=== PATIENT | female | born 1965 | race Two or more races ===

== ENCOUNTER 2022-11-24 20:14 | Inpatient (IN) | payer MEDICARE, MEDICAID ==
[~2022-11-24] VITALS: Ht 152.4 cm; Wt 102.5 kg
[2022-11-24 20:45] LABS: Basophils # (auto) 0 10 ^3/uL (0-0.2); Basophils % (auto) 0.4 % (0.0-2.0); Eosinophils # (auto) 0.2 10 ^3/uL (0-0.8); Eosinophils % (auto) 2.1 % (0.0-7.0); Hematocrit 32.7 % (36.0-46.0); Hemoglobin 10.8 g/dL (12.2-16.2); Lymphocytes # (auto) 1.1 10 ^3/uL (0.4-5.4); Lymphocytes % (auto) 9.4 % (10.0-50.0); Mean Corpuscular Hemoglobin 32.1 pg (28.0-32.0); Mean Corpuscular Volume 97.3 fL (80.0-100.0); Monocytes # (auto) 0.7 10 ^3/uL (0-1.3); Monocytes % (auto) 6.2 % (0.0-12.0); Neutrophils # (auto) 9.3 10 ^3/uL (1.6-8.6); Neutrophils % (auto) 81.9 % (37.0-80.0); Red Blood Cells 3.36 10^6/uL (4.0-5.20); Red Cell Distribution Width 13.7 % (11.8-14.3); White Blood Cell 11.3 10^3/uL (4.4-10.8)
[2022-11-24] MEDS ORDERED: cloNIDine HCL 0.1 MG TAB PO ONE (20:45)
[2022-11-24 21:05] LABS: Albumin 3.7 g/dL (3.4-5.0); Potassium 5.1 mmol/L (3.5-5.1)
[2022-11-24 21:09] LABS: BUN/Creatinine Ratio 7.6 (10.0-20.0); Bilirubin, Total 0.4 mg/dL (0.2-1.0)
[2022-11-25] MEDS ORDERED: amLODIPine BESYLATE 5 MG TAB PO ONE (01:15)
[2022-11-25] MEDS ORDERED: NITROGLYCERIN 0.4 MG SL TAB SL PRN (10:45)
[2022-11-25] MEDS ORDERED: DEXTROSE (50%) 50ML SYRG IV PRN ×2 (10:45→12:00)
[2022-11-25] MEDS ORDERED: MORPHINE SULFATE 4 MG/ML SYR/VIAL IV PRN (10:45)
[2022-11-25] MEDS ORDERED: ONDANSETRON HCL 4 MG/2 ML VIAL IV PRN (10:45)
[2022-11-25] MEDS ORDERED: InsuLIN REG 1unit/0.01ml Soln (100units/ml) SC SCH (11:30)
[2022-11-25] MEDS ORDERED: ACCU-CHEK COMFORT CURVE STRIP VI SCH (11:30)
[2022-11-25 13:46] LABS: Magnesium 3.1 mg/dL (1.6-2.6); Phosphorus 4.8 mg/dL (2.5-4.90)
[2022-11-25] MEDS ORDERED: hydrALAZINE HCL 25 MG TAB PO ONE (17:30)
[2022-11-25] MEDS: ACCU-CHEK COMFORT CURVE STRIP VI SCH ×2 (19:42→22:11)
[2022-11-25] MEDS: SEVELAMER 800 MG TAB PO SCH (19:51)
[2022-11-25] MEDS: InsuLIN REG 1unit/0.01ml Soln (100units/ml) SC SCH ×2 (19:51→22:22)
[2022-11-25] MEDS: hydrALAZINE HCL 25 MG TAB PO SCH (22:19)
[2022-11-25] MEDS: METOPROLOL TARTRATE 50 MG TAB PO SCH (22:19)
[2022-11-25] MEDS: ATORVASTATIN 20 MG TAB PO SCH (22:19)
[2022-11-26] VITALS (7 sets, daily range): BP systolic 142–174; BP diastolic 65–85
[2022-11-26] MEDS ORDERED: METO25TA5 PO (03:41)
[2022-11-26] MEDS ORDERED: CLON0.1T PO (03:41)
[2022-11-26] MEDS: ACETAMINOPHEN 325 MG TAB PO PRN ×2 (05:41→14:34)
[2022-11-26 06:20] LABS: Basophils # (auto) 0.1 10 ^3/uL (0-0.2); Basophils % (auto) 0.5 % (0.0-2.0); Eosinophils # (auto) 0.4 10 ^3/uL (0-0.8); Eosinophils % (auto) 4.2 % (0.0-7.0); Hematocrit 29.5 % (36.0-46.0); Hemoglobin 9.9 g/dL (12.2-16.2); Lymphocytes # (auto) 1.4 10 ^3/uL (0.4-5.4); Mean Corpuscular Hemoglobin 32.6 pg (28.0-32.0); Mean Corpuscular Hgb Conc. 33.6 g/dL (32.0-36.0); Mean Corpuscular Volume 96.9 fL (80.0-100.0); Monocytes # (auto) 0.8 10 ^3/uL (0-1.3); Monocytes % (auto) 7.3 % (0.0-12.0); Red Blood Cells 3.04 10^6/uL (4.0-5.20); Red Cell Distribution Width 13.3 % (11.8-14.3); White Blood Cell 10.6 10^3/uL (4.4-10.8)
[2022-11-26] MEDS ORDERED: SODIUM CHL 0.9% 1000 ML BAG XX ONE (07:00)
[2022-11-26] MEDS: InsuLIN REG 1unit/0.01ml Soln (100units/ml) SC SCH ×4 (07:00→22:45)
[2022-11-26] MEDS: ACCU-CHEK COMFORT CURVE STRIP VI SCH ×4 (07:00→22:00)
[2022-11-26 07:06] LABS: % Iron Saturation 44.6 % (15-50)
[2022-11-26 07:15] LABS: Albumin 3.5 g/dL (3.4-5.0); BUN/Creatinine Ratio 8.3 (10.0-20.0); Bilirubin, Total 0.4 mg/dL (0.2-1.0); Calcium 9.1 mg/dL (8.5-10.1); Total Protein 6.7 g/dL (6.4-8.2)
[2022-11-26 07:33] LABS: Potassium 5.9 mmol/L (3.5-5.1)
[2022-11-26] MEDS: SEVELAMER 800 MG TAB PO SCH ×3 (08:23→18:39)
[2022-11-26] MEDS: METOPROLOL TARTRATE 50 MG TAB PO SCH ×2 (14:39→22:59)
[2022-11-26] MEDS: hydrALAZINE HCL 25 MG TAB PO SCH ×2 (14:39→22:59)
[2022-11-26] MEDS ORDERED: cloNIDine HCL 0.1 MG TAB PO PRN (17:15)
[2022-11-26] MEDS: amLODIPine BESYLATE 5 MG TAB PO SCH ×2 (18:00→18:40)
[2022-11-26] MEDS ORDERED: EPOETIN ALFA-EPBX 4,000 UNIT/ML VIAL SC ONE (21:00)
[2022-11-26] MEDS: MUPIROCIN 2% OINT 15gm or 22gm FOR MRSA NARES EACHNOSTRI SCH (22:00)
[2022-11-26] MEDS: ATORVASTATIN 20 MG TAB PO SCH (22:57)
[2022-11-27 05:00] VITALS: BP 105/40
[2022-11-27] MEDS: InsuLIN REG 1unit/0.01ml Soln (100units/ml) SC SCH ×4 (06:48→21:54)
[2022-11-27] MEDS: ACCU-CHEK COMFORT CURVE STRIP VI SCH ×4 (06:48→21:45)
[2022-11-27] MEDS: SEVELAMER 800 MG TAB PO SCH ×3 (08:18→18:33)
[2022-11-27 09:00] VITALS: BP 140/69
[2022-11-27] MEDS: MUPIROCIN 2% OINT 15gm or 22gm FOR MRSA NARES EACHNOSTRI SCH ×2 (09:33→21:47)
[2022-11-27] MEDS: LOSARTAN POTASSIUM 25 MG TAB PO SCH (09:34)
[2022-11-27] MEDS: METOPROLOL TARTRATE 50 MG TAB PO SCH ×2 (09:34→21:45)
[2022-11-27] MEDS: hydrALAZINE HCL 25 MG TAB PO SCH ×2 (09:34→21:45)
[2022-11-27 13:00] VITALS: BP 144/67
[2022-11-27] MEDS ORDERED: ATOR20TA50 PO (15:33)
[2022-11-27] MEDS ORDERED: LOS25T PO (15:33)
[2022-11-27] MEDS ORDERED: HYDR25TA87 PO (15:33)
[2022-11-27] MEDS ORDERED: MET50T PO (15:33)
[2022-11-27] MEDS ORDERED: AML5T PO (15:33)
[2022-11-27 16:41] VITALS: BP 144/67
[2022-11-27 16:42] VITALS: BP_SYST 132; BP_SYST 149; BP_DIAS 66; BP_DIAS 70
[2022-11-27] MEDS: amLODIPine BESYLATE 5 MG TAB PO SCH (18:34)
[2022-11-27] MEDS: ATORVASTATIN 20 MG TAB PO SCH (21:45)
[2022-11-27 22:00] VITALS: BP 153/75
[2022-11-28 05:00] VITALS: BP 116/52
[2022-11-28] MEDS: ACCU-CHEK COMFORT CURVE STRIP VI SCH ×4 (06:16→22:17)
[2022-11-28] MEDS: InsuLIN REG 1unit/0.01ml Soln (100units/ml) SC SCH ×4 (06:18→22:21)
[2022-11-28] MEDS: SEVELAMER 800 MG TAB PO SCH ×3 (08:45→18:33)
[2022-11-28 09:00] VITALS: BP 137/57
[2022-11-28] MEDS ORDERED: FUROSEMIDE 100 MG/10ML VIAL IV ONE (09:15)
[2022-11-28] MEDS: MUPIROCIN 2% OINT 15gm or 22gm FOR MRSA NARES EACHNOSTRI SCH ×2 (09:22→22:24)
[2022-11-28] MEDS: hydrALAZINE HCL 25 MG TAB PO SCH ×2 (09:23→22:22)
[2022-11-28] MEDS: METOPROLOL TARTRATE 50 MG TAB PO SCH ×2 (09:23→22:23)
[2022-11-28] MEDS: LOSARTAN POTASSIUM 25 MG TAB PO SCH (09:24)
[2022-11-28 13:00] VITALS: BP 154/67
[2022-11-28 17:00] VITALS: BP 147/67
[2022-11-28 22:00] VITALS: BP 145/74
[2022-11-28] MEDS: ATORVASTATIN 20 MG TAB PO SCH (22:22)
[2022-11-29 05:00] VITALS: BP 137/64
[2022-11-29] MEDS: ACCU-CHEK COMFORT CURVE STRIP VI SCH ×3 (06:04→17:00)
[2022-11-29] MEDS: InsuLIN REG 1unit/0.01ml Soln (100units/ml) SC SCH ×3 (06:07→17:00)
[2022-11-29] MEDS ORDERED: SODIUM CHL 0.9% 1000 ML BAG XX ONE ×2 (07:00)
[2022-11-29] MEDS: SEVELAMER 800 MG TAB PO SCH ×3 (08:32→17:43)
[2022-11-29 09:00] VITALS: BP 155/63
[2022-11-29] MEDS ORDERED: BISACODYL 5 MG EC TAB PO ONE (11:00)
[2022-11-29] MEDS: MUPIROCIN 2% OINT 15gm or 22gm FOR MRSA NARES EACHNOSTRI SCH (11:14)
[2022-11-29] MEDS: hydrALAZINE HCL 25 MG TAB PO SCH (11:14)
[2022-11-29] MEDS: LOSARTAN POTASSIUM 25 MG TAB PO SCH (11:15)
[2022-11-29] MEDS: METOPROLOL TARTRATE 50 MG TAB PO SCH (11:16)
[2022-11-29 13:00] VITALS: BP 154/50
[2022-11-29 15:24] LABS: Hepatitis A Ab IgM Negative
[2022-11-29 15:25] LABS: Hepatitis B Core IgM Negative; Hepatitis C Antibody Negative (Negative)
[2022-11-29 17:00] VITALS: BP 114/60
[2022-11-29] MEDS ORDERED: NIFEdipine ER 30 MG TAB PO SCH (18:00)
== END 2022-11-29 18:00 | disposition home or self-care (01) | DRG 280 ==
LOC: ER 20:14 → TELE 11-25 10:55 → TELE-WESTW 11-25 23:44
PROVIDERS: ADMIT Nurse Practitioner Family; ATTEND Internal Medicine
PROC: 5A1D70Z Performance of Urinary Filtration, Intermittent, Less than 6 Hours Per Day (ICD-10-PCS; principal; 2022-11-26)
PROC: 5A1D70Z Performance of Urinary Filtration, Intermittent, Less than 6 Hours Per Day (ICD-10-PCS; 2022-11-29)
DX: I21.4 Non-ST elevation (NSTEMI) myocardial infarction (principal); I50.33 Acute on chronic diastolic (congestive) heart failure; N18.6 End stage renal disease; I13.2 Hypertensive heart and chronic kidney disease with heart failure and with stage 5 chronic kidney disease, or end stage renal disease; E87.1 Hypo-osmolality and hyponatremia; Z68.41 Body mass index [BMI] 40.0-44.9, adult; D63.1 Anemia in chronic kidney disease; E66.01 Morbid (severe) obesity due to excess calories; E78.5 Hyperlipidemia, unspecified; E11.65 Type 2 diabetes mellitus with hyperglycemia; I16.0 Hypertensive urgency; I20.0 Unstable angina; E11.40 Type 2 diabetes mellitus with diabetic neuropathy, unspecified; D72.829 Elevated white blood cell count, unspecified; E21.1 Secondary hyperparathyroidism, not elsewhere classified; E11.22 Type 2 diabetes mellitus with diabetic chronic kidney disease; E87.5 Hyperkalemia; Z99.2 Dependence on renal dialysis; Z83.3 Family history of diabetes mellitus; Z79.4 Long term (current) use of insulin; Z82.49 Family history of ischemic heart disease and other diseases of the circulatory system; Z79.84 Long term (current) use of oral hypoglycemic drugs
CPT/HCPCS: 36415; 71045; 80053; 80074; 82728; 82962; 83540; 83550; 83735; 83880; 84100; 84484; 85025; 87081; 90935; 93005; 93306; G0378; J1815

== ENCOUNTER 2024-11-17 05:23 | Inpatient (IN) | payer MEDICAID, MEDICARE ==
[2024-11-17] VITALS (12 sets, daily range): BP systolic 112–150; BP diastolic 43–65; PULSE 75–94; RESP 12–20; TEMP 97.8–98.6; O2SAT 94–99
[~2024-11-17] VITALS: Ht 157.5 cm; Wt 97.8 kg
[~2024-11-17 05:23] MED LIST: AML5T PO; ATOR20TA50 PO; HYDR25TA87 PO; LOS25T PO; MET50T PO
--- NOTE | 2024-11-17 06:40 | ED.PDOC ---
History of Present Illness HPI Comments 59 year old female presents to the ED with chief complaint of generalized weakness. Patient reports after completing dialysis on and heading home, she started to experiencing generalized weakness with associated nausea, vomiting, and diarrhea with black colored stools and vomit. Patient relays that starting yesterday she also had started to develop chest pain/burning along with SOB and anxiety. Patient denies any headache, fever, chills, hematemesis, blood in stool, abdominal pain, or dizziness. Chief Complaint: General Weakness Time Seen by MD: 06:37 Reviewed Notes: Nurses Notes, Medications, Allergies Allergies: Coded Allergies: NO KNOWN ALLERGIES (Unverified , 11/24/22) Home Meds Active Scripts Amlodipine Besylate (NORVASC TABLET) 5 Mg Tb, 10 MG PO QPM for 30 Days, #60 TAB 1 Refill Prov:ROMY GOODWIN 11/27/22 Hydralazine HCl (Hydralazine HCl) 25 Mg Tab, 100 MG PO Q12HR for 30 Days, #240 TAB 1 Refill Prov:ROMY GOODWIN 11/27/22 Metoprolol Tartrate (LOPRESSOR TABLET) 50 Mg Tb, 50 MG PO Q12HR for 30 Days, #60 TAB 1 Refill Prov:ROMY GOODWIN 11/27/22 Losartan Potassium (Losartan Potassium) 25 Mg Tab, 25 MG PO DAILY for 30 Days, #30 TAB 1 Refill Prov:ROMY GOODWIN 11/27/22 Atorvastatin Calcium (ATORVASTATIN CALCIUM) 20 Mg Tab, 10 MG PO HS for 30 Days, #15 TAB 1 Refill Prov:ROMY GOODWIN 11/27/22 Information Source: Patient Mode of Arrival: Ambulatory Severity: Moderate Timing: Days Duration: Since onset Prehospital treatment: None Past Medical History PAST MEDICAL HISTORY: DM, ESRD, High Lipids, HTN Past Medical History (Other): Neuropathy Surgical History: Denies all surgeries FITTER'S ASSISTANT History: No Pertinent FITTER'S ASSISTANT History Family History Family History: Unknown Social History Smoker: Non-Smoker Alcohol: Denies ETOH Use Drugs: Denies Drug Use Lives In: Home Constitutional: reports: weakness; denies: chills, diaphoresis, fatigue, fever, malaise, sweats, others EENTM: denies: blurred vision, double vision, ear bleeding, ear discharge, ear drainage, ear pain, ear ringing, eye pain, eye redness, hearing loss, mouth pain, mouth swelling, nasal discharge, nose bleeding, nose congestion, nose pain, photophobia, tearing, throat pain, throat swelling, voice changes, others Respiratory: reports: shortness of breath; denies: cough, hemoptysis, orthopnea, SOB at rest, SOB with excertion, stridor, wheezing, others Cardiovascular: reports: chest pain; denies: dizzy spells, diaphoresis, Dyspnea on exertion, edema, irregular heart beat, left arm pain, lightheadedness, palpitations, PND, syncope, others Gastrointestinal: reports: diarrhea, melena, nausea, vomiting; denies: abdomen distended, abdominal pain, blood streaked bowels, constipated, dysphagia, difficulty swallowing, hematemesis, poor appetite, poor fluid intake, rectal bleeding, rectal pain, others Genitourinary: denies: abnormal vagina bleeding, burning, dyspareunia, dysuria, flank pain, frequency, hematuria, incontinence, pain, , vagina discharge, urgency, others Neurological: denies: dizziness, fainting, headache, left sided numbness, left sided weakness, numbness, paresthesia, pre-existing deficit, right sided numbness, right sided weakness, seizure, speech problems, tingling, tremors, weakness, others Musculoskeletal: denies: back pain, gout, joint pain, joint swelling, muscle pain, muscle stiffness, neck pain, others Integumetry: denies: bruises, change in color, change in hair/nails, dryness, laceration, lesions, lumps, rash, wounds, others Allergic/Immunocompromised: denies: Difficulty Healing, Frequent Infections, Hives, Itching, others Hematologic/Lymphatic: denies: anemia, blood clots, easy bleeding, easy bruising, swollen glands, others Endocrine: denies: excessive hunger, excessive sweating, excessive thirst, excessive urination, flushing, intolerance to cold, intolerance to heat, unexplained weight gain, unexplained weight loss, others Psychiatric: reports: anxiety; denies: bipolar disorder, depression, hopeless, panic disorder, schizophrenia, sleepless, suicidal, others All Other Systems: Reviewed and Negative Physical Exam General Appearance: No Apparent Distress, Normal HEENT: Normal ENT Inspection, Pharynx Normal, TMs Normal Neck: Full Range of Motion, Non-Tender, Normal, Normal Inspection Respiratory: Chest Non-Tender, Lungs Clear, No Accessory Muscle Use, No Respiratory Distress, Normal Breath Sounds Cardiovascular: No Edema, No JVD, No Murmur, No Gallop, Normal Peripheral Pulses, Regular Rate/Rhythm Breast Exam: Deferred Gastrointestinal: No Organomegaly, Non Tender, No Pulsatile Mass, Normal Bowel Sounds, Soft Genitalia: Deferred Pelvic: Deferred Rectal: Deferred Extremities: No calf tenderness, Normal capillary refill, Normal inspection, Normal range of motion, Non-tender, No pedal edema, Other (Fistula to the left arm) Musculoskeletal : Apperance: Normal Neurologic: Alert, quality control lead II-XII nml as Tested, No Motor Deficits, Normal Affect, Normal Mood, No Sensory Deficits Cerebellar Function: Normal Reflexes: Normal Skin: Dry, Normal Color, Warm Lymphatic: No Adenopathy Was a procedure done? Was a procedure done?: No Differential Dx Considerations may include: ugib, lgib, chronic anemia, demand triggered angina, unstable angina, ami X-Ray, Labs, Meds, VS Vital Signs Date Time Temp Pulse Resp B/P (MAP) Pulse Ox O2 Delivery O2 Flow Rate FiO2 11/17/24 08:51 79 13 125/60 11/17/24 08:24 81 14 125/60 11/17/24 07:20 81 15 95 Room Air* 0 21 11/17/24 07:20 97.9 81 15 105/69 (81) 95 97.9 11/17/24 06:00 75 20 94 Room Air* 0 21 11/17/24 05:57 76 11/17/24 05:50 98.0 75 20 99/38 (58) 94 98.0 11/17/24 05:23 98.4 87 16 127/83 (98) 97 98.4 Lab Test 11/17/24 08:26 11/17/24 07:14 11/17/24 06:25 Range/Units Troponin I High Sensitivity Pending 14 </=34 ng/L White Blood Count 14.6 H 4.4-10.8 10^3/uL Red Blood Count 1.78 L 4.0-5.20 10^6/uL Hemoglobin 5.1 *L 12.2-16.2 g/dL Hematocrit 16.0 L 36.0-46.0 % Mean Corpuscular Volume 89.9 80.0-100.0 fL Mean Corpuscular Hemoglobin 28.9 28.0-32.0 pg Mean Corpuscular Hemoglobin Concent 32.2 32.0-36.0 g/dL Red Cell Distribution Width 19.6 H 11.8-14.3 % Platelet Count 157 140-450 10^3/uL Mean Platelet Volume 9.0 6.9-10.8 fL Neutrophils (%) (Auto) 88.5 H 37.0-80.0 % Lymphocytes (%) (Auto) 7.7 L 10.0-50.0 % Monocytes (%) (Auto) 3.5 0.0-12.0 % Eosinophils (%) (Auto) 0.2 0.0-7.0 % Basophils (%) (Auto) 0.1 0.0-2.0 % Neutrophils # (Auto) 12.9 H 1.6-8.6 10 ^3/uL Lymphocytes # (Auto) 1.1 0.4-5.4 10 ^3/uL Monocytes # (Auto) 0.5 0-1.3 10 ^3/uL Eosinophils # (Auto) 0 0-0.8 10 ^3/uL Basophils # (Auto) 0 0-0.2 10 ^3/uL Nucleated Red Blood Cells 0.0 % Platelet Estimate Adequate Anisocytosis (manual) Slight Prothrombin Time Pending Prothrombin Time INR Pending Sodium Level 136 136-145 mmol/L Potassium Level 5.4 H 3.5-5.1 mmol/L Chloride Level 97 L 98-107 mmol/L Carbon Dioxide Level 19 L 20-31 mmol/L Anion Gap 20 H 5-15 Blood Urea Nitrogen 145 *H 9-23 mg/dL Creatinine 7.31 H 0.550-1.02 mg/dL Glomerular Filtration Rate Calc 6 >90 mL/min BUN/Creatinine Ratio 19.8 10.0-20.0 Serum Glucose 266 H 74-106 mg/dL Calcium Level 9.2 8.7-10.4 mg/dL B-Type Natriuretic Peptide 76.43 0-100 pg/mL POC Glucose 248 H 70-106 mg/dl Current Medications Medications (Trade) Dose Ordered Sig/Alberto Route Start Time Stop Time Status Last Admin Ondansetron HCl (Zofran) 4 mg ONCE ONCE IV 11/17/24 07:00 11/17/24 07:02 DC 11/17/24 07:04 Morphine Sulfate 2 mg ONCE ONCE IV 11/17/24 08:15 11/17/24 08:16 DC 11/17/24 08:24 Pantoprazole Sodium (Protonix) 40 mg ONCE ONCE IV 11/17/24 08:15 11/17/24 08:16 DC 11/17/24 08:21 Ondansetron HCl (Zofran) 4 mg ONCE ONCE IV 11/17/24 08:15 11/17/24 08:16 DC 11/17/24 08:21 Time of 1ST Reevaluation: 07:37 Reevaluation 1ST: Unchanged Time of 2ND Reevaluation: 08:37 Reevaluation 2ND: Improved Patient Education/Counseling: Diagnosis, Treatment, Prognosis, Need For Follow Up Family Education/Counseling: No Family Present Additional Information Previous visit: Admission on 11/25/22 for ACS The following tests were ordered, and results were reviewed by me: EKG, CBC, BMP, Troponin, Occult stool, BNP, Chest XR Additional Information was gathered from interviewing the following independent historians: None I reviewed and agreed with the following test results read by other providers: Chest XR I discussed treatment and results with medical personnel and: patient Comprehensive systems review obtained and negative except for what is stated in the HPI. Departure 1 Departure Time of Disposition: 08:34 Impression: Primary Impression: UGIB (upper gastrointestinal bleed) Additional Impressions: Chronic renal failure Qualified Codes: N18.5 - Chronic kidney disease, stage 5 Unstable angina Pulmonary congestion Disposition: ADMITTED INPATIENT Admit to: ICU Condition: Serious Discharged With: Self Critical Care Note Critical Care Time?: Yes (45 min-critical care time only) Critical care comment: Due to concerns for patient�s condition deteriorating, the care required my highest level of attention and readiness to intervene. I assessed the patient, reviewed the medical records, ordered the appropriate tests and treatments, then reassessed for results and responsiveness. I communicated with medical personnel and consultants and formulated a plan of care. Total critical care time excludes any procedures Stability Stability form required: No Heart Score Heart Score: Heart Score Response (Comments) Value History Moderate Suspicious 1 EKG Normal 0 Age 45-64 1 Risk Factors >3 or Hx ASHD 2 Troponin Normal limit 0 Total 4 I personally scribed for PRAKASH AMAYA MD ([email or web address]) on 11/17/24 at 06:40. Electronically submitted by Thaddeus Dent ([email or web address]). I personally scribed for [facility]ASH [facility] on 11/17/24 at 06:55. Electronically submitted by Thaddeus Dent ([email or web address]). PRAKASH AMAYA MD November 17, 2024 06:40
[2024-11-17] MEDS: ONDANSETRON HCL 4 MG/2 ML VIAL IV ONE ×2 (07:04→08:21)
--- NOTE | 2024-11-17 07:35 | DVH ---
CLINICAL INFORMATION: Chest pain. TECHNIQUE: Single AP portable chest radiograph was obtained. COMPARISON: XY CHEST PORTABLE on DOS: 11/24/22 FINDINGS: Lungs: Atelectasis in the lung bases. Mild perihilar interstitial opacities. Cardiac: Cardiac silhouette is at the upper limits of normal in size. Pulmonary vasculature: Mild prominence of the pulmonary vasculature. Mediastinum/lucia: Unremarkable. Bones: No acute osseous abnormality identified. Other: No other significant findings. IMPRESSION: Prominence of the pulmonary vasculature and mild perihilar interstitial opacities, may suggest a degr ee of pulmonary vascular congestion in the appropriate clinical setting.
[2024-11-17 07:55] LABS: Basophils # (auto) 0 10 ^3/uL (0-0.2); Eosinophils # (auto) 0 10 ^3/uL (0-0.8)
[2024-11-17 07:58] LABS: Basophils % (auto) 0.1 % (0.0-2.0); Eosinophils % (auto) 0.2 % (0.0-7.0); Lymphocytes # (auto) 1.1 10 ^3/uL (0.4-5.4); Lymphocytes % (auto) 7.7 % (10.0-50.0); Mean Corpuscular Hemoglobin 28.9 pg (28.0-32.0); Mean Corpuscular Hgb Conc. 32.2 g/dL (32.0-36.0); Mean Corpuscular Volume 89.9 fL (80.0-100.0); Monocytes # (auto) 0.5 10 ^3/uL (0-1.3); Monocytes % (auto) 3.5 % (0.0-12.0); Neutrophils # (auto) 12.9 10 ^3/uL (1.6-8.6); Neutrophils % (auto) 88.5 % (37.0-80.0); Platelet Count (auto) 157 10^3/uL (140-450); Red Blood Cells 1.78 10^6/uL (4.0-5.20); Red Cell Distribution Width 19.6 % (11.8-14.3); White Blood Cell 14.6 10^3/uL (4.4-10.8)
[2024-11-17 08:04] LABS: Hemoglobin 5.1 g/dL (12.2-16.2)
[2024-11-17 08:05] LABS: Anion Gap 20 (5-15); Calcium 9.2 mg/dL (8.7-10.4)
[2024-11-17 08:10] LABS: BUN/Creatinine Ratio 19.8 (10.0-20.0)
[2024-11-17 08:16] LABS: Blood Urea Nitrogen 145 mg/dL (9-23); Carbon Dioxide 19 mmol/L (20-31); Chloride 97 mmol/L (98-107); Glucose 266 mg/dL (74-106); Potassium 5.4 mmol/L (3.5-5.1); Sodium 136 mmol/L (136-145)
[2024-11-17] MEDS: PANTOPRAZOLE 40 MG/10 ML VIAL INJ IV ONE (08:21)
[2024-11-17] MEDS: MORPHINE SULFATE INJ 2 MG/ml SYRG IV ONE (08:24)
[2024-11-17 08:33] LABS: Anisocytosis Slight
[2024-11-17 08:34] LABS: Platelet Estimate Adequate
[2024-11-17 09:19] LABS: INR 1.03 (0.9-1.15); Prothrombin Time 10.9 sec (9.3-11.8)
[2024-11-17] MEDS: METOCLOPRAMIDE HCL 5MG/ml INJ 2ml VIAL IV ONE (10:39)
[2024-11-17] MEDS: DEXTROSE (50%) 50ML SYRG IV ONE (13:00)
[2024-11-17] MEDS: ACCU-CHEK COMFORT CURVE STRIP VI ONE (13:00)
[2024-11-17] MEDS ORDERED: NITROGLYCERIN 0.4 MG SL TAB SL PRN (13:00)
--- NOTE | 2024-11-17 14:07 | DVHHP2 ---
History of Present Illness Reason for Visit: Lower GI bleed History of Present Illness This is a 59-year-old female with history of hypertension, hyperlipidemia, DM, neuropathy and ESRD who presents to ED with chief complaint of generalized weakness. The patient reports after completing dialysis on and heading home she started to experience generalized weakness associated with nausea, vomiting and black color stools. Patient notes having five episodes of black- colored stool on , has not had this in the past. The patient denies taking any anticoagulants and denies recent trauma. The patient notes having a colonoscopy about five years ago which was normal. The patient is concerned about her symptoms and would like to be further evaluated and treated. The patient is in agreement with receiving blood transfusion, has had them in the past. The patient will be admitted under hospitalist care to the telemetry unit for continuous monitoring. The patient denies fever, chills, headache, dizziness, palpitation, chest pain, shortness of breaths, nausea, vomiting, abdominal pain, diarrhea, constipation and other associated symptoms. The plan has been discussed with the patient and brother at the bedside in which all questions concerns have been addressed Cardiovascular: HTN, hyperipidemia Renal/: Chronic renal failure Endocrine: Diabetes Past Medical History Neuropathy Past Surgical History: None Family History: None Smoke: No ALCOHOL: none Drugs: None Lives: with Family Domestic Violence: Neg Review of Systems Constitutional: Yes: Weakness Gastrointestinal: Nausea, Vomiting, Diarrhea, Melena Allergies: Coded Allergies: NO KNOWN ALLERGIES (Unverified , 11/24/22) Medications Current Medications Medications Dose Ordered Sig/Alberto Route Start Time Stop Time Status Last Admin Dose Admin Acetaminophen 650 mg Q6HP PRN PO 11/17/24 13:00 Nitroglycerin 0.4 mg Q5MINP PRN SL 11/17/24 13:00 Morphine Sulfate 2 mg Q30M PRN IV 11/17/24 13:00 Pantoprazole Sodium 40 mg DAILY IV 11/18/24 10:00 Exam Vital Signs Vital Signs Date Time Temp Pulse Resp B/P (MAP) Pulse Ox O2 Delivery O2 Flow Rate FiO2 11/17/24 08:51 79 13 125/60 11/17/24 07:20 95 Room Air* 0 21 11/17/24 07:20 97.9 97.9 General Appearance: Alert, Oriented X3, Cooperative, mild distress HEENT: Atraumatic, PERRLA, Mucous membr. moist/pink Respiratory: Clear to auscultation, Normal air movement Cardiovascular: Normal S1, Normal S2, No murmurs Abdominal: Normal bowel sounds, Soft, No tenderness, No hepatospenomegaly, No masses Extremities: No clubbing, No cyanosis, No edema, Normal pulses, No tenderness/swelling Skin: No rashes, No breakdown Neuro: Normal gait, Normal speech, Strength at 5/5 X4 ext, Normal tone, Sensation intact, Cranial nerves 3-12 NL, Reflexes 2+ Psych/Mental Status: Mental status NL Labs/Xrays Labs Test 11/17/24 10:35 11/17/24 07:14 11/17/24 06:25 Range/Units Troponin I High Sensitivity 14 </=34 ng/L White Blood Count 14.6 H 4.4-10.8 10^3/uL Red Blood Count 1.78 L 4.0-5.20 10^6/uL Hemoglobin 5.1 *L 12.2-16.2 g/dL Hematocrit 16.0 L 36.0-46.0 % Mean Corpuscular Volume 89.9 80.0-100.0 fL Mean Corpuscular Hemoglobin 28.9 28.0-32.0 pg Mean Corpuscular Hemoglobin Concent 32.2 32.0-36.0 g/dL Red Cell Distribution Width 19.6 H 11.8-14.3 % Platelet Count 157 140-450 10^3/uL Mean Platelet Volume 9.0 6.9-10.8 fL Neutrophils (%) (Auto) 88.5 H 37.0-80.0 % Lymphocytes (%) (Auto) 7.7 L 10.0-50.0 % Monocytes (%) (Auto) 3.5 0.0-12.0 % Eosinophils (%) (Auto) 0.2 0.0-7.0 % Basophils (%) (Auto) 0.1 0.0-2.0 % Neutrophils # (Auto) 12.9 H 1.6-8.6 10 ^3/uL Lymphocytes # (Auto) 1.1 0.4-5.4 10 ^3/uL Monocytes # (Auto) 0.5 0-1.3 10 ^3/uL Eosinophils # (Auto) 0 0-0.8 10 ^3/uL Basophils # (Auto) 0 0-0.2 10 ^3/uL Nucleated Red Blood Cells 0.0 % Platelet Estimate Adequate Anisocytosis (manual) Slight Prothrombin Time 10.9 9.3-11.8 sec Prothrombin Time INR 1.03 0.9-1.15 Sodium Level 136 136-145 mmol/L Potassium Level 5.4 H 3.5-5.1 mmol/L Chloride Level 97 L 98-107 mmol/L Carbon Dioxide Level 19 L 20-31 mmol/L Anion Gap 20 H 5-15 Blood Urea Nitrogen 145 *H 9-23 mg/dL Creatinine 7.31 H 0.550-1.02 mg/dL Glomerular Filtration Rate Calc 6 >90 mL/min BUN/Creatinine Ratio 19.8 10.0-20.0 Serum Glucose 266 H 74-106 mg/dL Calcium Level 9.2 8.7-10.4 mg/dL B-Type Natriuretic Peptide 76.43 0-100 pg/mL POC Glucose 248 H 70-106 mg/dl ORDERING PHYSICIAN: PRAKASH AMAYA MD PROCEDURE(s): CXRP - CHEST PORTABLE REASON: cp ORDER NUMBER(s): [id number], ACCESSION NUMBER(s): [id number] CLINICAL INFORMATION: Chest pain. TECHNIQUE: Single AP portable chest radiograph was obtained. COMPARISON: XY CHEST PORTABLE on DOS: 11/24/22 FINDINGS: Lungs: Atelectasis in the lung bases. Mild perihilar interstitial opacities. Cardiac: Cardiac silhouette is at the upper limits of normal in size. Pulmonary vasculature: Mild prominence of the pulmonary vasculature. Mediastinum/lucia: Unremarkable. Bones: No acute osseous abnormality identified. Other: No other significant findings. IMPRESSION: Prominence of the pulmonary vasculature and mild perihilar interstitial opacities, may suggest a degree of pulmonary vascular congestion in the appropriate clinical setting. ATED BY: TRISTIAN GARCIA DO DICTATED DATE/TIME: 11/17/24731 SIGNED BY: TRISTIAN GARCIA DO SIGNED DATE/TIME: 11/17/24731 CC: Assessment/Plan Assessment/Plan Generalized weakness likely due to lower GI bleed--chief complaint of generalized weakness associated with nausea, vomiting, black colored stool since Thursday Denies anticoagulant and recent trauma Five years ago received colonoscopy which was normal The patient went to hemodialysis today but did not complete due to low blood pressure then went to emergency room Admit to telemetry unit for continuous monitoring Reviewed CBC which shows leukocytosis, hemoglobin 5.1 Reviewed BMP potassium 5.4, elevated gap 20 BNP 76.43 Cardiac enzyme negative x3 Stool occult pending Reviewed chest x-ray which shows pulmonary vascular congestion Type and crossmatch for blood transfusion Transfuse 2 units packed red blood cell with hemodialysis today Consult seafood team member Dr. Moss for treatment--notified and aware of patient not completing hemodialysis today and needed blood transfusion; okay to give 1 unit of blood packed red blood cell now Monitor hemoglobin and hematocrit Keep hemoglobin greater than 7.0 Administer 60 mg IV push Lasix after 1st unit of packed red blood cell given 60 mg IV push Lasix b.i.d.--per Dr. Moss IV Protonix now and daily Consult GI specialist for evaluation and recommendation Hold anticoagulants Type 2 DM Regular insulin mild a.c. and HS Renal diet/1800 ADA diet Accu-Cheks per protocol Anemia of chronic kidney disease Iron panel pending RBC morphology pending Monitor labs Hyperlipidemia Continue atorvastatin as prescribed Hypertension-uncontrolled Initial BP in the ER systolic blood pressure upper 90s Hold antihypertensive agent for now Continue to monitor BP Reconcile home medication DVT prophylaxis PUD prophylaxis Labs in a.m. Discussed plan of care with the patient and primary RN in which all questions concerns have been addressed Plan discussed with: Patient My Orders Orders - YVON COOLEY Procedure Category Date Status Time Admit ADMIT 11/17/24 Transmitted 12:53 Renal DIET 11/17/24 Transmitted Standard(2gna,3gk,Lopho) Lunch Complete Blood Count LAB 11/18/24 Verified 04:00 Comprehensive LAB 11/18/24 Verified Metabolic Panel 04:00 Condition: Fair [place] 11/17/24 In Process 12:53 Acetaminophen Tablet PHA 11/17/24 In Process (Tylenol Tablet) 13:00 Bedrest With Bathroom ARLENE 11/17/24 In Process Privileg 12:53 Nitroglycerin PHA 11/17/24 In Process Sublingual (Ntrostat 13:00 Morphine Sulfate PHA 11/17/24 In Process Injection 13:00 Stat Ekg For Chest [place]ENE 11/17/24 In Process Pain 12:53 Notify Md Of Changes [place]ENE 11/17/24 In Process From Base 12:53 Personal Care Worker For [facility] [place] 11/17/24 In Process 24 Hours 12:53 Emergency Dysrhythmia [facility] [place] 11/17/24 In Process Protocol 12:53 Rhythm Strips Once [facility] [place] 11/17/24 In Process Every Shift 12:53 Oxygen By Nasal RT 11/17/24 Transmitted Cannula 12:53 Pantoprazole PHA 11/18/24 In Process (Protonix) 10:00 Hemoglobin & LAB 11/17/24 Logged Hematocrit 18:00 Hemoglobin & LAB 11/18/24 Verified Hematocrit 00:00 Hemoglobin & LAB 11/18/24 Verified Hematocrit 06:00 Communication Order ORDERS 11/17/24 Transmitted 12:53 * Gi Dvh Bus Inspector CONS 11/17/24 Transmitted 12:53 Date of Service: November 17, 2024 Billing Provider: YVON COOLEY Common Visit Codes: [id number] INP/OBS CARE (HIGH) YVON COOLEY November 17, 2024 14:07
[2024-11-17 14:23] LABS: % Iron Saturation 85.4 % (15-50)
[2024-11-17] MEDS: InsuLIN REG 1unit/0.01ml Soln (100units/ml) SC ONE (14:45)
[2024-11-17] MEDS: MAALOX PLUS or MAALOX 30 ML PO ONE (14:45)
[2024-11-17] MEDS: FUROSEMIDE 100 MG/10ML VIAL IV ONE (14:47)
[2024-11-17 15:15] LABS: Anisocytosis Slight; Platelet Estimate Adequate
[2024-11-17 15:17] LABS: Platelet Count (auto) 146 10^3/uL (140-450)
[2024-11-17] MEDS: SODIUM BICARB 8.4% 50Meq/50ml SYR Vial IV ONE (16:46)
[2024-11-17] MEDS: FUROSEMIDE 100 MG/10ML VIAL IV SCH (18:12)
[2024-11-17 20:03] LABS: Hematocrit 17.1 % (36.0-46.0)
[2024-11-17 20:05] LABS: Hemoglobin 5.5 g/dL (12.2-16.2)
[2024-11-17] MEDS ORDERED: INSU100S6 SC (20:13)
[2024-11-17] MEDS ORDERED: PATI1POW PO (20:13)
[2024-11-17] MEDS ORDERED: SEVE800T8 PO (20:13)
[2024-11-17] MEDS ORDERED: NIFE90TA75 PO (20:13)
[2024-11-17] MEDS ORDERED: B-CO-6 PO (20:13)
[2024-11-17] MEDS ORDERED: METO25TA5 PO (20:13)
[2024-11-17] MEDS ORDERED: LORA-622 PO (20:13)
[2024-11-17] MEDS ORDERED: LOSA-534 PO (20:13)
[2024-11-17] MEDS ORDERED: CLON0.1T PO (20:13)
[2024-11-17] MEDS ORDERED: FOLI-119 PO (20:13)
[2024-11-17] MEDS ORDERED: MOME1AER8 INH (20:13)
[2024-11-17] MEDS ORDERED: HYDR-2792 PO (20:13)
[2024-11-17] MEDS ORDERED: ASPI-543 PO (20:13)
[2024-11-17] MEDS ORDERED: CROM4SOL6 EACHEYE (20:13)
[2024-11-17] MEDS ORDERED: INSU100I4 SC (20:13)
[2024-11-17] MEDS ORDERED: DEXTROSE (50%) 50ML SYRG IV PRN (20:30)
[2024-11-17] MEDS: ATORVASTATIN 20 MG TAB PO SCH (21:18)
[2024-11-17] MEDS: InsuLIN REG 1unit/0.01ml Soln (100units/ml) SC SCH (21:18)
[2024-11-17] MEDS: ACCU-CHEK COMFORT CURVE STRIP VI SCH (21:22)
--- NOTE | 2024-11-17 22:13 | ECG ---
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
[2024-11-17] MEDS: MORPHINE SULFATE INJ 2 MG/ml SYRG IV PRN (22:14)
--- NOTE | 2024-11-17 23:44 | ECG ---
[facility] Test Date: 2024-11-17 Test Time: 22:13:23 Pat Name: DONG CASTELAN Department: Respiratoy Room: 0216T B Gender: F [employer] Mixer: STAN : 1965 Requested By: ELKE POLLARD Order Number: [id number] Reading MD: Juancho Dasilva Measurements Intervals [place] Rate: 91 P: 38 WI: 172 QRS: -5 QRSD: 81 T: 38 QT: 376 QTc: 463 Interpretive Statements Sinus rhythm Electronically Signed On 11-21-2024 11:48:49 PDT by Juancho Dasilva Please click the below link to view image of tracing.
[2024-11-18] VITALS (13 sets, daily range): BP systolic 125–157; BP diastolic 52–77; PULSE 73–113; RESP 16–19; TEMP 97.7–98.4; O2SAT 93–100
[2024-11-18 06:11] LABS: Basophils # (auto) 0.1 10 ^3/uL (0-0.2); Basophils % (auto) 0.6 % (0.0-2.0); Eosinophils # (auto) 0.2 10 ^3/uL (0-0.8); Eosinophils % (auto) 1.5 % (0.0-7.0); Hematocrit 22.3 % (36.0-46.0); Hemoglobin 7.5 g/dL (12.2-16.2); Lymphocytes # (auto) 1.8 10 ^3/uL (0.4-5.4); Lymphocytes % (auto) 15.3 % (10.0-50.0); Mean Corpuscular Hemoglobin 30.3 pg (28.0-32.0); Mean Corpuscular Hgb Conc. 33.7 g/dL (32.0-36.0); Monocytes # (auto) 0.9 10 ^3/uL (0-1.3); Monocytes % (auto) 7.2 % (0.0-12.0); Neutrophils % (auto) 75.4 % (37.0-80.0); Nucleated Red Blood Cells % 0.1 %; Platelet Count (auto) 135 10^3/uL (140-450); Red Blood Cells 2.48 10^6/uL (4.0-5.20); White Blood Cell 11.9 10^3/uL (4.4-10.8)
[2024-11-18 06:24] LABS: Alanine Aminotransferase 31 U/L (7-40); Albumin 3.4 g/dL (3.2-4.8); Alkaline Phosphatase 66 U/L (46-116); Anion Gap 14 (5-15); Aspartate Aminotransferase 38 U/L (13-40); BUN/Creatinine Ratio 16.7 (10.0-20.0); Calcium 9.1 mg/dL (8.7-10.4); Carbon Dioxide 24 mmol/L (20-31); Total Protein 5.9 g/dL (5.7-8.2)
[2024-11-18 06:36] LABS: Bilirubin, Total 0.2 mg/dL (0.2-1.0); Chloride 97 mmol/L (98-107); Glucose 153 mg/dL (74-106); Sodium 135 mmol/L (136-145)
[2024-11-18 06:41] LABS: Blood Urea Nitrogen 143 mg/dL (9-23)
[2024-11-18] MEDS: SODIUM CHL 0.9% 1000 ML BAG XX ONE (07:00)
[2024-11-18] MEDS: PANTOPRAZOLE 40 MG/10 ML VIAL INJ IV SCH (09:30)
--- NOTE | 2024-11-18 14:54 | DVHINCON2 ---
Date of service: November 18, 2024 Referring Physician laura Reason for Consultation esrd History of Present Illness 59 Years old with past medical history of ESRD on dialysis, diabetes, hypertension, dyslipidemia presented with chief complaints of generalized weakness associated with black colored stools nausea vomiting she was found to have low hemoglobin needed multiple PRBC transfusions Past Medical History As per HPI Past Surgical History Fistula placement Allergies: Coded Allergies: NO KNOWN ALLERGIES (Unverified , 11/24/22) Home Meds Active Scripts Amlodipine Besylate (NORVASC TABLET) 5 Mg Tb, 10 MG PO QPM for 30 Days, #60 TAB 1 Refill Prov:ROMY GOODWIN Chris DO 11/27/22 Atorvastatin Calcium (ATORVASTATIN CALCIUM) 20 Mg Tab, 10 MG PO HS for 30 Days, #15 TAB 1 Refill Prov:GOODWINROMY Chris DO 11/27/22 Reported Medications Patiromer Sorbitex Calcium (Veltassa) 8.4 Gm Pow, 8.4 GM PO DAILYP, POW 11/17/24 Clonidine Hydrochloride (Clonidine Hcl) 0.1 Mg Tab, 0.1 MG PO BID PRN for SBP>180 for 30 Days, MG 11/17/24 Insulin Lispro (Humalog Kwikpen) 100 Unit/Ml Inj, 6 UNIT SC TID, INJ 11/17/24 Insulin Glargine (Insulin Glargine) 100 Unit/Ml Louann, 32 UNIT SC HS, ML 11/17/24 Sevelamer Carbonate (Renvela) 800 Mg Tab, 2 TAB PO TID, #540 TAB 3 Refills 11/17/24 Mometasone Furoate-Formoterol (Dulera) 1 Aer Aer, 1 PUFF INH DAILY, #13 GRAMS 5 Refills 11/17/24 Nifedipine (Nifedipine Er) 90 Mg Tab, 1 TAB PO BID, #30 TAB 5 Refills 25 Losartan Potassium (Losartan Potassium) 50 Mg Tab, 50 MG PO DAILY for 30 Days, MG 25 Cromolyn Sodium (Cromolyn Sodium) 4 % Louann, 1 DROP EACHEYE DAILY, #30 ML 3 Refills 11/17/24 Loratadine (Claritin) 10 Mg Tab, 1 TAB PO DAILY, #30 TAB 5 Refills 25 B-Complex W/ C & Folic Acid (Faviola-Jagjit Rx) Tab, 1 TAB PO DAILY, TAB 5//25 Metoprolol Tartrate (Metoprolol Tartrate) 25 Mg Tab, 25 MG PO BID for 30 Days, MG 11/17/24 Aspirin (Aspir-Low) 81 Mg Tab, 81 MG PO DAILY for 30 Days, MG 11/17/24 Folic Acid (Folic Acid) 1 Mg Tab, 1 MG PO DAILY for 30 Days, MG 11/17/24 Hydralazine Hcl (Hydralazine Hcl) 10 Mg Tab, 10 MG PO TID for 30 Days, MG 11/17/24 Current Medications Current Medications Medications (Trade) Dose Ordered Sig/Alberto Route PRN Reason Start Time Stop Time Status Last Admin Pantoprazole Sodium (Protonix) 40 mg DAILY IV 11/18/24 10:00 11/18/24 09:30 Furosemide (Lasix Injection) 60 mg BIDD IV 11/17/24 18:00 11/17/24 18:12 Atorvastatin Calcium (Lipitor) 10 mg HS PO 11/17/24 22:00 11/17/24 21:18 Hydralazine HCl (Apresoline Injection) 10 mg Q6HPRN PRN IV SBP>150 11/17/24 20:30 Diagnostic Test (Pha) (Accu-Chek Comfort Curve T) 1 strip ACHS 11/17/24 22:00 11/18/24 11:53 Insulin Human Regular (InsuLIN R) ACHS SC 11/17/24 22:00 11/18/24 12:03 Dextrose 50 ml UD PRN IV Blood Sugar LESS THAN 60 11/17/24 20:30 Family History: Diabetes mellitus G8 MOTHER FH: kidney failure G8 FATHER Hypertension G8 MOTHER Review of Systems As documented in HPI H&P Exam Vital Signs/I&O Vital Sign Date Time Temp Pulse Resp B/P (MAP) Pulse Ox O2 Delivery O2 Flow Rate FiO2 11/18/24 13:30 98.2 82 18 140/62 (88) 96 98.2 11/18/24 08:00 Nasal Cannula* 2 28 Intake and Output 11/17/24 11/18/24 19:00 07:00 Intake Total 600 ml 800 ml Output Total 0 ml Balance 600 ml 800 ml Intake Oral 0 ml 200 ml Blood Product 600 ml 600 ml Output Urine Total 0 ml Physical Exam General-not in any distress HEENT-normocephalic, no icterus, no pallor, neck supple Respiratory-fair air entry bilateral, no rhonchi, no wheeze [id number] heard, no murmurs appreciated Abdominal-soft, nontender, nondistended Musculoskeletal-positive pedal edema, Genitourinary-deferred Neuro-awake alert oriented x3, Psychiatric-not agitated, cooperative, Labs/Diagnostic Data Labs/Diagnostic Data Laboratory Tests Test 11/18/24 11:48 11/18/24 05:11 11/17/24 21:03 11/17/24 17:56 Range/Units POC Glucose 157 H 206 H 70-106 mg/dl White Blood Count 11.9 H 4.4-10.8 10^3/uL Red Blood Count 2.48 L 4.0-5.20 10^6/uL Hemoglobin 7.5 #L 5.5 *L 12.2-16.2 g/dL Hematocrit 22.3 #L 17.1 L 36.0-46.0 % Mean Corpuscular Volume 90.0 80.0-100.0 fL Mean Corpuscular Hemoglobin 30.3 28.0-32.0 pg Mean Corpuscular Hemoglobin Concent 33.7 32.0-36.0 g/dL Red Cell Distribution Width 17.0 H 11.8-14.3 % Platelet Count 135 L 140-450 10^3/uL Mean Platelet Volume 9.1 6.9-10.8 fL Neutrophils (%) (Auto) 75.4 37.0-80.0 % Lymphocytes (%) (Auto) 15.3 10.0-50.0 % Monocytes (%) (Auto) 7.2 0.0-12.0 % Eosinophils (%) (Auto) 1.5 0.0-7.0 % Basophils (%) (Auto) 0.6 0.0-2.0 % Neutrophils # (Auto) 9.0 H 1.6-8.6 10 ^3/uL Lymphocytes # (Auto) 1.8 0.4-5.4 10 ^3/uL Monocytes # (Auto) 0.9 0-1.3 10 ^3/uL Eosinophils # (Auto) 0.2 0-0.8 10 ^3/uL Basophils # (Auto) 0.1 0-0.2 10 ^3/uL Nucleated Red Blood Cells 0.1 % Sodium Level 135 L 136-145 mmol/L Potassium Level 6.0 *H 3.5-5.1 mmol/L Chloride Level 97 L 98-107 mmol/L Carbon Dioxide Level 24 20-31 mmol/L Anion Gap 14 5-15 Blood Urea Nitrogen 143 *H 9-23 mg/dL Creatinine 8.54 H 0.550-1.02 mg/dL Glomerular Filtration Rate Calc 5 >90 mL/min BUN/Creatinine Ratio 16.7 10.0-20.0 Serum Glucose 153 H 74-106 mg/dL Calcium Level 9.1 8.7-10.4 mg/dL Total Bilirubin 0.2 0.2-1.0 mg/dL Aspartate Amino Transferase (AST) 38 13-40 U/L Alanine Aminotransferase (ALT) 31 7-40 U/L Alkaline Phosphatase 66 46-116 U/L Total Protein 5.9 5.7-8.2 g/dL Albumin 3.4 3.2-4.8 g/dL Test 11/17/24 14:37 11/17/24 14:18 11/17/24 10:35 11/17/24 08:26 Range/Units Platelet Count 146 140-450 10^3/uL Nucleated Red Blood Cells 0.0 % Platelet Estimate Adequate Anisocytosis (manual) Slight POC Glucose 222 H 70-106 mg/dl Troponin I High Sensitivity 14 15 </=34 ng/L Test 11/17/24 07:14 11/17/24 06:25 Range/Units White Blood Count 14.6 H 4.4-10.8 10^3/uL Red Blood Count 1.78 L 4.0-5.20 10^6/uL Hemoglobin 5.1 *L 12.2-16.2 g/dL Hematocrit 16.0 L 36.0-46.0 % Mean Corpuscular Volume 89.9 80.0-100.0 fL Mean Corpuscular Hemoglobin 28.9 28.0-32.0 pg Mean Corpuscular Hemoglobin Concent 32.2 32.0-36.0 g/dL Red Cell Distribution Width 19.6 H 11.8-14.3 % Platelet Count 157 140-450 10^3/uL Mean Platelet Volume 9.0 6.9-10.8 fL Neutrophils (%) (Auto) 88.5 H 37.0-80.0 % Lymphocytes (%) (Auto) 7.7 L 10.0-50.0 % Monocytes (%) (Auto) 3.5 0.0-12.0 % Eosinophils (%) (Auto) 0.2 0.0-7.0 % Basophils (%) (Auto) 0.1 0.0-2.0 % Neutrophils # (Auto) 12.9 H 1.6-8.6 10 ^3/uL Lymphocytes # (Auto) 1.1 0.4-5.4 10 ^3/uL Monocytes # (Auto) 0.5 0-1.3 10 ^3/uL Eosinophils # (Auto) 0 0-0.8 10 ^3/uL Basophils # (Auto) 0 0-0.2 10 ^3/uL Nucleated Red Blood Cells 0.0 % Platelet Estimate Adequate Anisocytosis (manual) Slight Prothrombin Time 10.9 9.3-11.8 sec Prothrombin Time INR 1.03 0.9-1.15 Sodium Level 136 136-145 mmol/L Potassium Level 5.4 H 3.5-5.1 mmol/L Chloride Level 97 L 98-107 mmol/L Carbon Dioxide Level 19 L 20-31 mmol/L Anion Gap 20 H 5-15 Blood Urea Nitrogen 145 *H 9-23 mg/dL Creatinine 7.31 H 0.550-1.02 mg/dL Glomerular Filtration Rate Calc 6 >90 mL/min BUN/Creatinine Ratio 19.8 10.0-20.0 Serum Glucose 266 H 74-106 mg/dL Calcium Level 9.2 8.7-10.4 mg/dL Iron Level 169 50-170 ug/dL Total Iron Binding Capacity 198 L 250-425 ug/dL Percent Iron Saturation 85.4 H 15-50 % Troponin I High Sensitivity 14 </=34 ng/L B-Type Natriuretic Peptide 76.43 0-100 pg/mL POC Glucose 248 H 70-106 mg/dl Assessment ESRD on hemodialysis Acute blood loss anemia GI bleeding Morbid obesity Hyperkalemia Recommendations Arranged dialysis today UF 1.5 L Status post PRBC transfusion We will consider repeating dialysis tomorrow if staffing permits Epogen GI consult Discussed with family at bedside Plan discussed with: Patient ROBERTA MURCIA MD November 18, 2024 14:54
--- NOTE | 2024-11-18 15:31 | DVHPN2 ---
Subjective no further bleeding Changes from previous H/P or p: No Changes Gastrointestinal: Nausea, Vomiting, Diarrhea, Melena Objective Vitals Vital Signs Date Time Temp Pulse Resp B/P (MAP) Pulse Ox O2 Delivery O2 Flow Rate FiO2 11/18/24 13:30 98.2 82 18 140/62 (88) 96 98.2 11/18/24 08:00 Nasal Cannula* 2 28 Intake/Output Intake and Output 11/18/24 07:00 Intake Total 1400 ml Output Total 0 ml Balance 1400 ml Intake Oral 200 ml Blood Product 1200 ml Output Urine Total 0 ml General Appearance: Alert, Oriented X3 HEENT: Atraumatic Lungs: Clear to auscultation Cardiovascular: Regular rate, Normal S1, Normal S2 Medications Current Medications Medications Dose Ordered Sig/Alberto Route Start Time Stop Time Status Last Admin Dose Admin Acetaminophen 650 mg Q6HP PRN PO 11/17/24 13:00 Nitroglycerin 0.4 mg Q5MINP PRN SL 11/17/24 13:00 Morphine Sulfate 2 mg Q30M PRN IV 11/17/24 13:00 11/17/24 22:14 2 MG Pantoprazole Sodium 40 mg DAILY IV 11/18/24 10:00 11/18/24 09:30 40 MG Furosemide 60 mg BIDD IV 11/17/24 18:00 11/17/24 18:12 60 MG Atorvastatin Calcium 10 mg HS PO 11/17/24 22:00 11/17/24 21:18 10 MG Hydralazine HCl 10 mg Q6HPRN PRN IV 11/17/24 20:30 Diagnostic Test (Pha) 1 strip ACHS 11/17/24 22:00 11/18/24 11:53 1 STRIP Insulin Human Regular ACHS SC 11/17/24 22:00 11/18/24 12:03 2 UNITS Dextrose 50 ml UD PRN IV 11/17/24 20:30 Laboratory Results Laboratory Tests 11/18/24 05:11 Chemistry Test 11/18/24 05:11 Albumin 3.4 g/dL (3.2-4.8) Calcium Level 9.1 mg/dL (8.7-10.4) Total Protein 5.9 g/dL (5.7-8.2) LFT Test 11/18/24 05:11 Alanine Aminotransferase (ALT) 31 U/L (7-40) Alkaline Phosphatase 66 U/L (46-116) Aspartate Amino Transferase (AST) 38 U/L (13-40) Total Bilirubin 0.2 mg/dL (0.2-1.0) Assessment/Plan Assessment/Plan Generalized weakness likely due to lower GI bleed--chief complaint of generalized weakness associated with nausea, vomiting, black colored stool since Denies anticoagulant and recent trauma Five years ago received colonoscopy which was normal The patient went to hemodialysis today but did not complete due to low blood pressure then went to emergency room Holding blood thinners monitor H and H Hb 5.5>7.5 s/p blood tranfusion IV PPI GI consulted Type 2 DM Regular insulin mild a.c. and HS Renal diet/1800 ADA diet Accu-Cheks per protocol Anemia of chronic kidney disease Iron panel pending RBC morphology pending Monitor labs Hyperlipidemia Continue atorvastatin as prescribed Hypertension-uncontrolled Initial BP in the ER systolic blood pressure upper 90s Hold antihypertensive agent for now Continue to monitor BP Plan discussed with: Patient Date of Service: November 18, 2024 Billing Provider: KRYSTAL BOWLING MD Common Visit Codes: [id number] INP/OBS CARE(HIGH) KRYSTAL BOWLING MD November 18, 2024 15:31
[2024-11-18] MEDS: EPOETIN ALFA-EPBX 4,000 UNIT/ML VIAL SC ONE (20:18)
--- NOTE | 2024-11-18 21:22 | DVHINCON2 ---
Date of service: November 18, 2024 Referring Physician Frantz Leon Reason for Consultation Melena History of Present Illness 59 yo female with generalized weakness likely due to GI bleed--chief complaint of generalized weakness associated with nausea, vomiting, black colored stool since Denies anticoagulant and recent trauma Five years ago received colonoscopy which was normal The patient went to hemodialysis today but did not com Past Medical History Cardiovascular: HTN, hyperipidemia Renal/: Chronic renal failure Endocrine: Diabetes Past Medical History Neuropathy Past Surgical History Past Surgical History: Dialysis access Family History: Diabetes mellitus G8 MOTHER FH: kidney failure G8 FATHER Hypertension G8 MOTHER Allergies: Coded Allergies: NO KNOWN ALLERGIES (Unverified , 11/24/22) Home Meds Active Scripts Amlodipine Besylate (NORVASC TABLET) 5 Mg Tb, 10 MG PO QPM for 30 Days, #60 TAB 1 Refill Prov:GOODWINROMY Cui Chris DO 11/27/22 Atorvastatin Calcium (ATORVASTATIN CALCIUM) 20 Mg Tab, 10 MG PO HS for 30 Days, #15 TAB 1 Refill Prov:GOODWINROMY Chris DO 11/27/22 Reported Medications Patiromer Sorbitex Calcium (Veltassa) 8.4 Gm Pow, 8.4 GM PO DAILYP, POW 11/17/24 Clonidine Hydrochloride (Clonidine Hcl) 0.1 Mg Tab, 0.1 MG PO BID PRN for SBP>180 for 30 Days, MG 11/17/24 Insulin Lispro (Humalog Kwikpen) 100 Unit/Ml Inj, 6 UNIT SC TID, INJ 11/17/24 Insulin Glargine (Insulin Glargine) 100 Unit/Ml Louann, 32 UNIT SC HS, ML 11/17/24 Sevelamer Carbonate (Renvela) 800 Mg Tab, 2 TAB PO TID, #540 TAB 3 Refills 11/17/24 Mometasone Furoate-Formoterol (Dulera) 1 Aer Aer, 1 PUFF INH DAILY, #13 GRAMS 5 Refills 11/17/24 Nifedipine (Nifedipine Er) 90 Mg Tab, 1 TAB PO BID, #30 TAB 5 Refills 11/17/24 Losartan Potassium (Losartan Potassium) 50 Mg Tab, 50 MG PO DAILY for 30 Days, MG 11/17/24 Cromolyn Sodium (Cromolyn Sodium) 4 % Louann, 1 DROP EACHEYE DAILY, #30 ML 3 Refills 5/3/25 Loratadine (Claritin) 10 Mg Tab, 1 TAB PO DAILY, #30 TAB 5 Refills 11/17/24 B-Complex W/ C & Folic Acid (Faviola-Jagjit Rx) Tab, 1 TAB PO DAILY, TAB 11/17/24 Metoprolol Tartrate (Metoprolol Tartrate) 25 Mg Tab, 25 MG PO BID for 30 Days, MG 11/17/24 Aspirin (Aspir-Low) 81 Mg Tab, 81 MG PO DAILY for 30 Days, MG 11/17/24 Folic Acid (Folic Acid) 1 Mg Tab, 1 MG PO DAILY for 30 Days, MG 11/17/24 Hydralazine Hcl (Hydralazine Hcl) 10 Mg Tab, 10 MG PO TID for 30 Days, MG 11/17/24 Current Medications Current Medications Medications (Trade) Dose Ordered Sig/Alberto Route PRN Reason Start Time Stop Time Status Last Admin Pantoprazole Sodium (Protonix) 40 mg DAILY IV 11/18/24 10:00 11/18/24 09:30 Atorvastatin Calcium (Lipitor) 10 mg HS PO 11/17/24 22:00 11/17/24 21:18 Diagnostic Test (Pha) (Accu-Chek Comfort Curve T) 1 strip ACHS 11/17/24 22:00 11/18/24 17:13 Insulin Human Regular (InsuLIN R) ACHS SC 11/17/24 22:00 11/18/24 17:43 Vital Signs Vital Signs Date Time Temp Pulse Resp B/P (MAP) Pulse Ox O2 Delivery O2 Flow Rate FiO2 11/18/24 20:00 88 18 Nasal Cannula* 2 28 11/18/24 17:57 140/62 11/18/24 17:30 98.2 99 98.2 Physical Exam General Appearance: Alert, Oriented X3 HEENT: Atraumatic Lungs: Clear to auscultation Cardiovascular: Regular rate, Normal S1, Normal S2 Labs/Diagnostic Data Labs Test 11/18/24 17:15 11/18/24 05:11 11/17/24 14:37 11/17/24 10:35 Range/Units POC Glucose 201 H 70-106 mg/dl White Blood Count 11.9 H 4.4-10.8 10^3/uL Red Blood Count 2.48 L 4.0-5.20 10^6/uL Hemoglobin 7.5 #L 12.2-16.2 g/dL Hematocrit 22.3 #L 36.0-46.0 % Mean Corpuscular Volume 90.0 80.0-100.0 fL Mean Corpuscular Hemoglobin 30.3 28.0-32.0 pg Mean Corpuscular Hemoglobin Concent 33.7 32.0-36.0 g/dL Red Cell Distribution Width 17.0 H 11.8-14.3 % Platelet Count 135 L 140-450 10^3/uL Mean Platelet Volume 9.1 6.9-10.8 fL Neutrophils (%) (Auto) 75.4 37.0-80.0 % Lymphocytes (%) (Auto) 15.3 10.0-50.0 % Monocytes (%) (Auto) 7.2 0.0-12.0 % Eosinophils (%) (Auto) 1.5 0.0-7.0 % Basophils (%) (Auto) 0.6 0.0-2.0 % Neutrophils # (Auto) 9.0 H 1.6-8.6 10 ^3/uL Lymphocytes # (Auto) 1.8 0.4-5.4 10 ^3/uL Monocytes # (Auto) 0.9 0-1.3 10 ^3/uL Eosinophils # (Auto) 0.2 0-0.8 10 ^3/uL Basophils # (Auto) 0.1 0-0.2 10 ^3/uL Nucleated Red Blood Cells 0.1 % Sodium Level 135 L 136-145 mmol/L Potassium Level 6.0 *H 3.5-5.1 mmol/L Chloride Level 97 L 98-107 mmol/L Carbon Dioxide Level 24 20-31 mmol/L Anion Gap 14 5-15 Blood Urea Nitrogen 143 *H 9-23 mg/dL Creatinine 8.54 H 0.550-1.02 mg/dL Glomerular Filtration Rate Calc 5 >90 mL/min BUN/Creatinine Ratio 16.7 10.0-20.0 Serum Glucose 153 H 74-106 mg/dL Calcium Level 9.1 8.7-10.4 mg/dL Total Bilirubin 0.2 0.2-1.0 mg/dL Aspartate Amino Transferase (AST) 38 13-40 U/L Alanine Aminotransferase (ALT) 31 7-40 U/L Alkaline Phosphatase 66 46-116 U/L Total Protein 5.9 5.7-8.2 g/dL Albumin 3.4 3.2-4.8 g/dL Platelet Estimate Adequate Anisocytosis (manual) Slight Troponin I High Sensitivity 14 </=34 ng/L Test 11/17/24 07:14 Range/Units Prothrombin Time 10.9 9.3-11.8 sec Prothrombin Time INR 1.03 0.9-1.15 Iron Level 169 50-170 ug/dL Total Iron Binding Capacity 198 L 250-425 ug/dL Percent Iron Saturation 85.4 H 15-50 % B-Type Natriuretic Peptide 76.43 0-100 pg/mL CXR IMPRESSION: Prominence of the pulmonary vasculature and mild perihilar interstitial opacities, may suggest a degree of pulmonary vascular congestion in the appropriate clinical setting. Problems(with codes): (1) UGIB (upper gastrointestinal bleed) (2) Chronic renal failure (3) Pulmonary congestion (4) History of renal dialysis Plan/Recommendation Plan Protonix 40 mg IV q.12 hours Rule out GI bleed because of history of nausea and vomiting and dark stools NPO after midnight I will schedule for tentative endoscopy on 11/19/2024 Further recommendations after the above Plan discussed with: Other (None) KARUNA HUFFMAN MD November 18, 2024 21:22
[2024-11-19] VITALS (11 sets, daily range): BP systolic 163–192; BP diastolic 63–80; PULSE 73–96; RESP 16–20; TEMP 97.4–98.8; O2SAT 95–100
[2024-11-19] MEDS: hydrALAZINE HCL 20 MG/ML VL IV PRN (01:40)
[2024-11-19 08:07] LABS: Basophils # (auto) 0 10 ^3/uL (0-0.2); Hemoglobin 7.6 g/dL (12.2-16.2); Mean Corpuscular Hgb Conc. 33.4 g/dL (32.0-36.0); Monocytes # (auto) 0.7 10 ^3/uL (0-1.3); White Blood Cell 11.1 10^3/uL (4.4-10.8)
[2024-11-19 08:09] LABS: Basophils % (auto) 0.3 % (0.0-2.0); Eosinophils # (auto) 0.4 10 ^3/uL (0-0.8); Eosinophils % (auto) 3.4 % (0.0-7.0); Hematocrit 22.7 % (36.0-46.0); Lymphocytes # (auto) 1.7 10 ^3/uL (0.4-5.4); Lymphocytes % (auto) 15.3 % (10.0-50.0); Mean Corpuscular Hemoglobin 30.4 pg (28.0-32.0); Monocytes % (auto) 5.9 % (0.0-12.0); Neutrophils # (auto) 8.4 10 ^3/uL (1.6-8.6); Neutrophils % (auto) 75.1 % (37.0-80.0); Nucleated Red Blood Cells % 0.2 %; Platelet Count (auto) 172 10^3/uL (140-450); Red Blood Cells 2.49 10^6/uL (4.0-5.20); Red Cell Distribution Width 16.8 % (11.8-14.3)
[2024-11-19 08:19] LABS: INR 0.98 (0.9-1.15); Partial Thromboplastin Time 22.8 SEC (24.5-34.5); Prothrombin Time 10.4 sec (9.3-11.8)
[2024-11-19 08:23] LABS: Albumin 3.8 g/dL (3.2-4.8); Alkaline Phosphatase 76 U/L (46-116); Anion Gap 12 (5-15); BUN/Creatinine Ratio 12.6 (10.0-20.0); Calcium 9.6 mg/dL (8.7-10.4); Carbon Dioxide 28 mmol/L (20-31); Chloride 99 mmol/L (98-107); Sodium 139 mmol/L (136-145); Total Protein 6.5 g/dL (5.7-8.2)
[2024-11-19 08:37] LABS: Alanine Aminotransferase 46 U/L (7-40); Aspartate Aminotransferase 43 U/L (13-40); Bilirubin, Total 0.3 mg/dL (0.2-1.0); Glucose 121 mg/dL (74-106)
[2024-11-19 08:38] LABS: Blood Urea Nitrogen 90 mg/dL (9-23)
--- NOTE | 2024-11-19 11:42 | DVHPN2 ---
Subjective She had more vomiting hematemesis this morning She was admitted 3 days ago for black stools and hematemesis She received 3 units of packed RBCs following presentation of hemoglobin of 5.5, hemoglobin is 7.6 today She is having that chest pain pressure sensation radiating to the right shoulder Changes from previous H/P or p: Changes Gastrointestinal: Nausea, Vomiting, Diarrhea, Melena Objective Vitals Vital Signs Date Time Temp Pulse Resp B/P (MAP) Pulse Ox O2 Delivery O2 Flow Rate FiO2 11/19/24 09:00 98.0 96 20 173/72 (105) 95 98.0 11/19/24 08:00 Nasal Cannula* 2 28 Intake/Output Intake and Output 11/19/24 07:00 Intake Total 500 ml Balance 500 ml Intake Oral 500 ml General Appearance: Alert, Oriented X3 HEENT: Atraumatic Lungs: Clear to auscultation Cardiovascular: Regular rate, Normal S1, Normal S2 Medications Current Medications Medications Dose Ordered Sig/Alberto Route Start Time Stop Time Status Last Admin Dose Admin Acetaminophen 650 mg Q6HP PRN PO 11/17/24 13:00 Nitroglycerin 0.4 mg Q5MINP PRN SL 11/17/24 13:00 Morphine Sulfate 2 mg Q30M PRN IV 11/17/24 13:00 11/17/24 22:14 2 MG Furosemide 60 mg BIDD IV 11/17/24 18:00 11/19/24 05:58 60 MG Atorvastatin Calcium 10 mg HS PO 11/17/24 22:00 11/18/24 21:12 10 MG Hydralazine HCl 10 mg Q6HPRN PRN IV 11/17/24 20:30 11/19/24 01:40 10 MG Diagnostic Test (Pha) 1 strip ACHS 11/17/24 22:00 11/19/24 05:58 1 STRIP Insulin Human Regular ACHS SC 11/17/24 22:00 11/18/24 21:19 6 UNITS Dextrose 50 ml UD PRN IV 11/17/24 20:30 Pantoprazole Sodium 40 mg BID IV 11/19/24 22:00 UNV Laboratory Results Laboratory Tests 11/19/24 07:28 Chemistry Test 11/19/24 07:28 Albumin 3.8 g/dL (3.2-4.8) Calcium Level 9.6 mg/dL (8.7-10.4) Total Protein 6.5 g/dL (5.7-8.2) Coagulation Test 11/19/24 07:28 Prothrombin Time 10.4 sec (9.3-11.8) Prothrombin Time INR 0.98 (0.9-1.15) Activated Partial Thromboplast Time 22.8 SEC (24.5-34.5) L LFT Test 11/19/24 07:28 Alanine Aminotransferase (ALT) 46 U/L (7-40) H Alkaline Phosphatase 76 U/L (46-116) Aspartate Amino Transferase (AST) 43 U/L (13-40) H Total Bilirubin 0.3 mg/dL (0.2-1.0) Assessment/Plan Assessment/Plan GI bleed Chest pain Acute anemia , normocytic status post 3 units of blood transfusion End-stage renal disease on hemodialysis Hypertension Mixed hyperlipidemia Type 2 diabetes Plan Keep NPO Patient is scheduled for EGD today Recheck the CBC and transfuse as needed Chest pain: Check EKG and troponin Transfuse 1 more unit of packed RBCs since we see patient is having chest pain Cardiology consult Echocardiogram Nephrology is on board Hemodialysis today Monitor the patient closely Protonix 40 mg IV twice a day Full code Advance directives discussed for 18 minute Plan discussed with: Patient My Orders Orders - ALLIE CARTWRIGHT MD Procedure Category Date Status Time Pantoprazole PHA 11/19/24 Logged (Protonix) 22:00 Complete Blood Count LAB 11/19/24 Logged 11:25 Electrocardigram EKG 11/19/24 Logged 11:25 Troponin-I Hs LAB 11/19/24 Logged 11:25 * Cardiology Consult CONS 11/19/24 Transmitted 11:36 Echo 2d Mode Cardiac US 11/19/24 Transmitted DOP 11:36 Date of Service: November 19, 2024 Billing Provider: ALLIE CARTWRIGHT MD Common Visit Codes: [id number] INP/OBS CARE(HIGH) Secondary Visit Codes: [id number] CARE PLAN 30 MINUTES ALLIE CARTWRIGHT MD November 19, 2024 11:42
[2024-11-19] MEDS: PANTOPRAZOLE 40 MG/10 ML VIAL INJ IV ONE (12:25)
--- NOTE | 2024-11-19 13:06 | ECG ---
[facility] Test Date: 2024-11-17 Test Time: 05:57:11 Pat Name: DONG CASTELAN Department: ER Room: 0216T B Gender: F Automatic Toe Laster: FANTASMA : 1965 Requested By: ALLIE CARTWRIGHT Order Number: [id number] Reading MD: Juancho Dasilva Measurements Intervals [place] Rate: 76 P: 47 AR: 181 QRS: 2 QRSD: 80 T: 41 QT: 426 QTc: 480 Interpretive Statements Sinus rhythm Low voltage, precordial leads Electronically Signed On 11-22-2024 20:27:19 PDT by Juancho Dasilva Please click the below link to view image of tracing.
[2024-11-19] MEDS: NIFEdipine ER 30 MG TAB PO ONE (14:15)
--- NOTE | 2024-11-19 14:19 | DVHINCON2 ---
Date Seen: November 19, 2024 Referring Physician MD Catherine Reason for Consultation Chest pain History of Present Illness This is a pleasant [place]an-speaking mostly 59-year-old female who presented to the emergency room with a chief complaint of generalized weakness. Per patient, she completed a hemodialysis on this past and afterwards experienced dark tarry stools x 5 episodes. She did not think must of it as she takes iron supplements at home. On Tuesday she vomited coffee ground emesis with associated increased lethargy which progressed into Tuesday. States her SBP was 80s mmHg prior to arrival to the hemodialysis center with medical staff subsequently referring her to the Emergency Room given worsening presentation. She takes ASA 81 mg q.d. denying history CAD. Per patient, she has also experienced intermittent episodes of retrosternal chest pain which is non-radiating and non- provoked. 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 Multiple 12 lead electrocard iogram revealed a normal sinus rhythm without evidence of acute ST changes. Latest troponin level is 66 ng/L. Significant medical history includes hypertension, dyslipidemia, insulin-dependent diabetes mellitus, end-stage renal disease on hemodialysis T--, and morbid obesity. Past Medical History Past medical history reviewed. No other significant than mentioned above. Past Surgical History Left upper extremity AV fistula Right wrist Bilateral eyes Family History: Diabetes mellitus G8 MOTHER FH: kidney failure G8 FATHER Hypertension G8 MOTHER Family History Family history reviewed. Not significant for cardiovascular disease. Social History Denies the use of illicit drugs, alcohol, or tobacco use. Allergies: Coded Allergies: NO KNOWN ALLERGIES (Unverified , 11/24/22) Home Meds Active Scripts Amlodipine Besylate (NORVASC TABLET) 5 Mg Tb, 10 MG PO QPM for 30 Days, #60 TAB 1 Refill Prov:ROMY GOODWIN DO 11/27/22 Atorvastatin Calcium (ATORVASTATIN CALCIUM) 20 Mg Tab, 10 MG PO HS for 30 Days, #15 TAB 1 Refill Prov:ROMY GOODWIN DO 11/27/22 Reported Medications Patiromer Sorbitex Calcium (Veltassa) 8.4 Gm Pow, 8.4 GM PO DAILYP, POW 11/17/24 Clonidine Hydrochloride (Clonidine Hcl) 0.1 Mg Tab, 0.1 MG PO BID PRN for SBP>180 for 30 Days, MG 11/17/24 Insulin Lispro (Humalog Kwikpen) 100 Unit/Ml Inj, 6 UNIT SC TID, INJ 11/17/24 Insulin Glargine (Insulin Glargine) 100 Unit/Ml Louann, 32 UNIT SC HS, ML 11/17/24 Sevelamer Carbonate (Renvela) 800 Mg Tab, 2 TAB PO TID, #540 TAB 3 Refills 11/17/24 Mometasone Furoate-Formoterol (Dulera) 1 Aer Aer, 1 PUFF INH DAILY, #13 GRAMS 5 Refills 11/17/24 Nifedipine (Nifedipine Er) 90 Mg Tab, 1 TAB PO BID, #30 TAB 5 Refills 11/17/24 Losartan Potassium (Losartan Potassium) 50 Mg Tab, 50 MG PO DAILY for 30 Days, MG 11/17/24 Cromolyn Sodium (Cromolyn Sodium) 4 % Louann, 1 DROP EACHEYE DAILY, #30 ML 3 Refills 11/17/24 Loratadine (Claritin) 10 Mg Tab, 1 TAB PO DAILY, #30 TAB 5 Refills 11/17/24 B-Complex W/ C & Folic Acid (Faviola-Jagjit Rx) Tab, 1 TAB PO DAILY, TAB 11/17/24 Metoprolol Tartrate (Metoprolol Tartrate) 25 Mg Tab, 25 MG PO BID for 30 Days, MG 11/17/24 Aspirin (Aspir-Low) 81 Mg Tab, 81 MG PO DAILY for 30 Days, MG 11/17/24 Folic Acid (Folic Acid) 1 Mg Tab, 1 MG PO DAILY for 30 Days, MG 11/17/24 Hydralazine Hcl (Hydralazine Hcl) 10 Mg Tab, 10 MG PO TID for 30 Days, MG 11/17/24 Home Meds Home medications reviewed. Current Medications Current Medications Medications (Trade) Dose Ordered Sig/Alberto Route PRN Reason Start Time Stop Time Status Last Admin Pantoprazole Sodium (Protonix) 40 mg BID IV 11/19/24 22:00 Review of Systems Constitutional: No symptom reported Ears, Nose, & Throat: No symptom reported Eyes: No symptom reported Neurological: No symptoms reported Pulmonary/Respiratory: No symptom reported Cardiovascular: Chest pain Gastrointestinal: Upper and lower GI bleed Genitourinary: No symptom reported Musculoskeletal: No symptom reported Skin: No symptom reported Psychiatric: No symptom reported Endocrine: No symptom reported Hemotologic/Lymphatic: No symptom reported Vital Signs Vital Signs Date Time Temp Pulse Resp B/P (MAP) Pulse Ox O2 Delivery O2 Flow Rate FiO2 11/19/24 09:00 98.0 96 20 173/72 (105) 95 98.0 11/19/24 08:00 Nasal Cannula* 2 28 Physical Exam General Appearance: Cooperative. Well developed. Obese. In no acute distress Head Exam: Normal inspection Neck Exam: Normal inspection. Non-tender. Normal alignment Pulmonary/Respiratory: Chest non-tender. Diminished bilateral breath sounds Cardiovascular/Chest: Regular rate and rhythm. S1, S2. NSR. No murmurs. No JVD. Peripheral Pulses: 2+ Radial (R). 2+ Radial (L). 2+ Pedal (R). 2+ Pedal (L) Abdominal Exam: Normal bowel sounds. Soft. Ankle Exam: Negative ankle edema Lower extremities: Negative lower extremity edema Neuro/Mental Status: A&O x4. Coherent Thoughts/Psych: Normal thought pattern. Appropriate mood and affect. Good judgement and insight Appearance: In no acute distress Skin Exam: Normal inspection. Pale color. Warm. Dry Labs/Diagnostic Data Labs Test 11/19/24 12:28 11/19/24 07:28 11/18/24 05:11 11/17/24 14:37 Range/Units POC Glucose 174 H 70-106 mg/dl White Blood Count 11.1 H 4.4-10.8 10^3/uL Red Blood Count 2.49 L 4.0-5.20 10^6/uL Hemoglobin 7.6 L 12.2-16.2 g/dL Hematocrit 22.7 L 36.0-46.0 % Mean Corpuscular Volume 91.0 80.0-100.0 fL Mean Corpuscular Hemoglobin 30.4 28.0-32.0 pg Mean Corpuscular Hemoglobin Concent 33.4 32.0-36.0 g/dL Red Cell Distribution Width 16.8 H 11.8-14.3 % Platelet Count 172 140-450 10^3/uL Mean Platelet Volume 8.5 6.9-10.8 fL Neutrophils (%) (Auto) 75.1 37.0-80.0 % Lymphocytes (%) (Auto) 15.3 10.0-50.0 % Monocytes (%) (Auto) 5.9 0.0-12.0 % Eosinophils (%) (Auto) 3.4 0.0-7.0 % Basophils (%) (Auto) 0.3 0.0-2.0 % Neutrophils # (Auto) 8.4 1.6-8.6 10 ^3/uL Lymphocytes # (Auto) 1.7 0.4-5.4 10 ^3/uL Monocytes # (Auto) 0.7 0-1.3 10 ^3/uL Eosinophils # (Auto) 0.4 0-0.8 10 ^3/uL Basophils # (Auto) 0 0-0.2 10 ^3/uL Nucleated Red Blood Cells 0.2 % Prothrombin Time 10.4 9.3-11.8 sec Prothrombin Time INR 0.98 0.9-1.15 Activated Partial Thromboplast Time 22.8 L 24.5-34.5 SEC Sodium Level 139 136-145 mmol/L Potassium Level 5.0 3.5-5.1 mmol/L Chloride Level 99 98-107 mmol/L Carbon Dioxide Level 28 20-31 mmol/L Anion Gap 12 5-15 Blood Urea Nitrogen 90 #*H 9-23 mg/dL Creatinine 7.15 H 0.550-1.02 mg/dL Glomerular Filtration Rate Calc 6 >90 mL/min BUN/Creatinine Ratio 12.6 10.0-20.0 Serum Glucose 121 H 74-106 mg/dL Calcium Level 9.6 8.7-10.4 mg/dL Total Bilirubin 0.3 0.2-1.0 mg/dL Aspartate Amino Transferase (AST) 43 H 13-40 U/L Alanine Aminotransferase (ALT) 46 H 7-40 U/L Alkaline Phosphatase 76 46-116 U/L Troponin I High Sensitivity 66 *H </=34 ng/L Total Protein 6.5 5.7-8.2 g/dL Albumin 3.8 3.2-4.8 g/dL Hepatitis B Surface Antigen Negative Negative Platelet Estimate Adequate Anisocytosis (manual) Slight Test 11/17/24 07:14 Range/Units Iron Level 169 50-170 ug/dL Total Iron Binding Capacity 198 L 250-425 ug/dL Percent Iron Saturation 85.4 H 15-50 % B-Type Natriuretic Peptide 76.43 0-100 pg/mL Assessment Chest pain in the setting of severe anemia Severe acute anemia s/p PRBCs x 4 units NSTEMI Type II secondary to above Upper/lower GI bleed Hypertensive urgency Insulin-dependent diabetes mellitus Dyslipidemia ESRD on HD Morbid obesity Plan/Recommendation (Dr. Alexander) The patient presents with chest pain in the setting of severe anemia. Continue GI recommendations. Avoid all AC/antiplatelet therapy. No need to continue ordering troponin levels, the patient is not a candidate for ischemic workup given GI bleed. She also underwent a recent nonischemic stress test as outpatient. In the setting of an unremarkable echocardiogram, there is no further cardiac workup indicated at this time. Consider blood pressure control for a target SBP <140 mmHg. Thank you for allowing us to participate in this patient's care. Please call if you have any questions or concerns. This medical document was created using an electronic medical record system with voice recognition software and computerized dictation system. Although this document has been carefully reviewed, there might still be some phonetic and typ ographical errors. Occasional wrong-word or ``sound-alike�� substitutions may have occurred due to the inherent limitations of voice recognition software. These areas are purely typographical due to imperfections of the software programs and do not reflect any compromise in the patient's medical care. Please read the chart carefully and recognize, using context, where these subs titutions have occurred. Plan discussed with: Patient, Other NYHA Physical activity limitations: NA Date of Service: November 19, 2024 Billing Provider: ANIL PAREDES Cardiology Common Codes: [id number] INP/OBS CARE (High) ANIL PAREDES November 19, 2024 14:19
[2024-11-19] MEDS ORDERED: LIDOCAINE VISCOUS 2% 15ML UD ONE (14:46)
[2024-11-19] MEDS ORDERED: fentaNYL CITRATE 100 MCG/2 ML VL ONE (14:49)
[2024-11-19] MEDS ORDERED: MIDAZOLAM HCL 2MG/2ML 2ml VIAL (1mg/ml) ONE (14:50)
[2024-11-19] MEDS ORDERED: PROPOFOL 10 MG/ML 20 ML IV ONE (15:07)
[2024-11-19] MEDS ORDERED: DexAMETHasone SOD PHOS 10MG/1ML VIAL INJ ONE (15:07)
--- NOTE | 2024-11-19 15:43 | DVHPN2 ---
Progress Note Date Seen: November 19, 2024 Medical Necessity Reason Pt with a Central, PICC or Fol: No Subjective Patient reports: Other (+bloody vomitings) Review of Systems: Deferred Objective vital signs Vital Sign Date Time Temp Pulse Resp B/P (MAP) Pulse Ox O2 Delivery O2 Flow Rate FiO2 11/19/24 09:00 98.0 96 20 173/72 (105) 95 98.0 11/19/24 08:00 Nasal Cannula* 2 28 Total Intake and Output 11/18/24 11/18/24 11/19/24 15:00 23:00 07:00 Intake Total 400 ml 100 ml Balance 400 ml 100 ml medications Current Medications Medications Dose Ordered Sig/Alberto Route Start Time Stop Time Status Last Admin Dose Admin Acetaminophen 650 mg Q6HP PRN PO 11/17/24 13:00 Nitroglycerin 0.4 mg Q5MINP PRN SL 11/17/24 13:00 Morphine Sulfate 2 mg Q30M PRN IV 11/17/24 13:00 11/17/24 22:14 2 MG Furosemide 60 mg BIDD IV 11/17/24 18:00 11/19/24 05:58 60 MG Atorvastatin Calcium 10 mg HS PO 11/17/24 22:00 11/18/24 21:12 10 MG Hydralazine HCl 10 mg Q6HPRN PRN IV 11/17/24 20:30 11/19/24 01:40 10 MG Diagnostic Test (Pha) 1 strip ACHS 11/17/24 22:00 11/19/24 12:25 1 STRIP Insulin Human Regular ACHS SC 11/17/24 22:00 11/19/24 13:07 3 UNITS Dextrose 50 ml UD PRN IV 11/17/24 20:30 Pantoprazole Sodium 40 mg BID IV 11/19/24 22:00 Nifedipine 60 mg DAILY PO 11/20/24 10:00 Examination: GENERAL:Abnormal, MSK:Abnormal (edema), SKIN:Abnormal, NEURO:Abnormal laboratory and microbiology Laboratory Tests 11/19/24 07:28 Test 11/19/24 07:28 Range/Units Serum Glucose 121 H 74-106 mg/dL Problem List/Assessment/Plan Problem List/Assessment/Plan ESRD on hemodialysis Acute blood loss anemia GI bleeding Morbid obesity Hyperkalemia Recommendations HD today Status post multiple PRBC transfusion Epogen GI consult Discussed with family at bedside Plan discussed with: Patient My Orders My Orders Orders - ROBERTA MURCIA MD Procedure Category Date Status Time Hemodialysis Orders ORDERS 11/19/24 Transmitted 15:41 CC Plasma Assessment Blood Product Administration S: [id number] ROBERTA MURCIA MD November 19, 2024 15:43
--- NOTE | 2024-11-19 17:55 | DVHOP2 ---
Operative Report DATE OF OPERATION: 11/19/24 PROCEDURE: Upper Endoscopy with biopsy. PREOPERATIVE INDICATION: The patient is a 59 -year-old female undergoing endoscopy for history of melena and anemia POSTOPERATIVE DIAGNOSES: 1. Moderate duodenitis with hyperemia erythema and superficial erosions 2. Mild gastritis with some erythema and superficial erosions 3. 1-2 cm sliding-type hiatal hernia with slightly irregular squamocolumnar junction but no significant erosive esophagitis 4. Otherwise normal examination up to the 2nd and 3rd part of the duodenal with good bile drainage and no GI bleeding PROCEDURE PERFORMED BY: Karuna Mendiola GI NURSE: Elida SCOPE: Olympus videoendoscope. ASA CLASS: 3. PREOPERATIVE MEDICATIONS: Mac sedation, Dr. Cristobal PROCEDURE IN DETAIL: After obtaining an informed consent, the patient was placed on left lateral decubitus position. The patient was then sedated with the above medications. A bite block was placed between her teeth. The endoscope was then passed through the oropharynx, into the esophagus, and through the stomach and pylorus up to the second and third part of the duodenum. The endoscope was then withdrawn. Second and 3rd part of the duodenal were normal. Duodenal bulb and postbulbar area showed moderate duodenitis There was hyperemia erythema and superficial erosions. The pre-pyloric area and antrum showed mild gastritis with some erythema and erosions On retroflexion the fundus and cardia were normal. Duodenal and gastric biopsies were obtained. There was no fresh or old blood in the GI tract. The endoscope was then withdrawn into distal esophagus She had a 2 cm sliding-type hiatal hernia with slightly irregular squamocolumnar junction but no significant erosive esophagitis The remaining distal and proximal esophagus and oropharynx were unremarkable The patient tolerated the procedure well without difficulty. COMPLICATIONS : None SPECIMENS: Duodenal biopsy Gastric biopsies DISPOSITION: Transfer back to the floor Stable PLAN: 1. Await for biopsy result 2. Will place pt on Protonix 40 mg bid IV 3. Carafate 1 g p.o. 4 times a day 4. Full liquid diet advance to soft mechanical 5. Patient had a recent nosebleed which could also be contributing to her drop in hemoglobin hematocrit 6. Continue to monitor labs and I will follow up patient with KARUNA Arango MD November 19, 2024 17:55
[2024-11-19 21:15] LABS: Basophils # (auto) 0 10 ^3/uL (0-0.2); Basophils % (auto) 0.3 % (0.0-2.0); Eosinophils # (auto) 0.2 10 ^3/uL (0-0.8); Eosinophils % (auto) 1.9 % (0.0-7.0); Hematocrit 25.2 % (36.0-46.0); Hemoglobin 8.6 g/dL (12.2-16.2); Lymphocytes % (auto) 10.4 % (10.0-50.0); Mean Corpuscular Hgb Conc. 34.2 g/dL (32.0-36.0); Mean Corpuscular Volume 90.6 fL (80.0-100.0); Monocytes # (auto) 0.7 10 ^3/uL (0-1.3); Monocytes % (auto) 7.3 % (0.0-12.0); Neutrophils # (auto) 7.7 10 ^3/uL (1.6-8.6); Neutrophils % (auto) 80.1 % (37.0-80.0); Nucleated Red Blood Cells % 0.1 %; Platelet Count (auto) 159 10^3/uL (140-450); Red Blood Cells 2.78 10^6/uL (4.0-5.20); Red Cell Distribution Width 16.9 % (11.8-14.3); White Blood Cell 9.6 10^3/uL (4.4-10.8)
[2024-11-19] MEDS: SUCRALFATE 1 GM/10 ML ORAL SUSP PO SCH (21:49)
[2024-11-19] MEDS: PANTOPRAZOLE 40 MG/10 ML VIAL INJ IV SCH (21:50)
[2024-11-20] VITALS (8 sets, daily range): BP systolic 126–170; BP diastolic 56–73; PULSE 76–112; RESP 16–19; TEMP 97.1–98.9; O2SAT 91–98
[2024-11-20 06:52] LABS: Eosinophils # (auto) 0.3 10 ^3/uL (0-0.8); Hemoglobin 7.6 g/dL (12.2-16.2); Red Cell Distribution Width 16.7 % (11.8-14.3)
[2024-11-20 06:55] LABS: Basophils # (auto) 0 10 ^3/uL (0-0.2); Basophils % (auto) 0.3 % (0.0-2.0); Eosinophils % (auto) 3.3 % (0.0-7.0); Hematocrit 22.6 % (36.0-46.0); Lymphocytes # (auto) 0.9 10 ^3/uL (0.4-5.4); Lymphocytes % (auto) 9.8 % (10.0-50.0); Mean Corpuscular Hemoglobin 31.2 pg (28.0-32.0); Mean Corpuscular Hgb Conc. 33.6 g/dL (32.0-36.0); Mean Corpuscular Volume 92.7 fL (80.0-100.0); Monocytes # (auto) 0.7 10 ^3/uL (0-1.3); Monocytes % (auto) 6.9 % (0.0-12.0); Neutrophils # (auto) 7.7 10 ^3/uL (1.6-8.6); Neutrophils % (auto) 79.7 % (37.0-80.0); Nucleated Red Blood Cells % 0.2 %; Platelet Count (auto) 163 10^3/uL (140-450); Red Blood Cells 2.44 10^6/uL (4.0-5.20); White Blood Cell 9.6 10^3/uL (4.4-10.8)
[2024-11-20 06:58] LABS: Alanine Aminotransferase 35 U/L (7-40); Alkaline Phosphatase 72 U/L (46-116); Anion Gap 12 (5-15); BUN/Creatinine Ratio 10.8 (10.0-20.0); Calcium 9.5 mg/dL (8.7-10.4); Carbon Dioxide 28 mmol/L (20-31); Chloride 99 mmol/L (98-107); Magnesium 2.1 mg/dL (1.6-2.6); Potassium 4.9 mmol/L (3.5-5.1); Sodium 139 mmol/L (136-145); Total Protein 6.1 g/dL (5.7-8.2)
[2024-11-20 06:59] LABS: Albumin 3.6 g/dL (3.2-4.8); Aspartate Aminotransferase 28 U/L (13-40)
[2024-11-20 07:00] LABS: Bilirubin, Total 0.3 mg/dL (0.2-1.0)
[2024-11-20 07:02] LABS: Blood Urea Nitrogen 65 mg/dL (9-23); Glucose 179 mg/dL (74-106)
--- NOTE | 2024-11-20 07:50 | DVHSR ---
APPROVED REPORT EXAM: Two-dimensional and M-mode echocardiogram with Doppler and color Doppler. Blood Pressure: 173/72 mmHg INDICATION Chest Pain RISK FACTORS Height: 5'2", Weight: 223 DIMENSIONS LVDd4.4 (3.8-5.7cm)LA (2D)4.0 (1.9-4.0cm)Aortic Root2.7 (2.0-3.7cm) LVDs2.6 (2.5-4.0cm)LA (MM) (1.9-4.0cm)Aortic Cusp Exc1.6 (1.5-2.0cm) EF (%) 71.0 (55-70%)Rt. Atrium4.2 (1.9-4.0cm)Asc. Aorta cm IVSd0.9 (0.7-1.1cm)RV (D) (1.8-2.4cm) PWd1.1 (0.7-1.1cm) Mitral Valve MitralMitral Stenosis E wave1.31m/sMV Mean GR.5mmHg A wave0.98m/sMV Peak GR.12mmHg E/A ratio1.32D MVAcm2 DECEL [id number] 1/2 Timems Aortic Valve Aortic ValveAortic Stenosis V10.94m/Celestine Mean GR.7mmHg V21.82m/Celestine Peak GR.13mmHg LVOT Diameter2.0 (1.8-2.4cm)Doppler AVA1.62cm2 Pulmonic Valve V21.23m/s Tricuspid Valve TR Velocity3.18m/s [id number] Other Information Quality : Technically LimitedRhythm : Technically limited study due to body habitus. Conclusion lvef 55% moderate LVH normal rv function left atrium enlarged no severe valve abnormalities noted moderate mtiral stenosis, mean gradient of 5 mmhg
[2024-11-20] MEDS: NIFEdipine ER 30 MG TAB PO SCH (09:08)
--- NOTE | 2024-11-20 10:23 | DVHPN2 ---
Subjective She is better No chest pain no abdominal pain No nausea or vomiting No hematemesis or melena She is tolerating her diet Changes from previous H/P or p: Changes Gastrointestinal: Nausea, Vomiting, Diarrhea, Melena Objective Vitals Vital Signs Date Time Temp Pulse Resp B/P (MAP) Pulse Ox O2 Delivery O2 Flow Rate FiO2 11/20/24 09:08 148/73 11/20/24 05:00 97.9 78 19 98 97.9 11/19/24 20:00 Nasal Cannula* 2 28 Intake/Output Intake and Output 11/20/24 07:00 Intake Total 460 ml Balance 460 ml Intake Oral 200 ml IV Total 10 ml Blood Product 250 ml # Voids 1 General Appearance: Alert, Oriented X3 HEENT: Atraumatic Lungs: Clear to auscultation Cardiovascular: Regular rate, Normal S1, Normal S2 Medications Current Medications Medications Dose Ordered Sig/Alberto Route Start Time Stop Time Status Last Admin Dose Admin Acetaminophen 650 mg Q6HP PRN PO 11/17/24 13:00 Nitroglycerin 0.4 mg Q5MINP PRN SL 11/17/24 13:00 Morphine Sulfate 2 mg Q30M PRN IV 11/17/24 13:00 11/17/24 22:14 2 MG Furosemide 60 mg BIDD IV 11/17/24 18:00 11/20/24 05:49 60 MG Atorvastatin Calcium 10 mg HS PO 11/17/24 22:00 11/19/24 21:49 10 MG Hydralazine HCl 10 mg Q6HPRN PRN IV 11/17/24 20:30 11/19/24 01:40 10 MG Diagnostic Test (Pha) 1 strip ACHS 11/17/24 22:00 11/20/24 06:32 1 STRIP Insulin Human Regular ACHS SC 11/17/24 22:00 11/20/24 06:08 3 UNITS Dextrose 50 ml UD PRN IV 11/17/24 20:30 Pantoprazole Sodium 40 mg BID IV 11/19/24 22:00 11/20/24 09:08 40 MG Nifedipine 60 mg DAILY PO 11/20/24 10:00 11/20/24 09:08 60 MG Sucralfate 1 gm BID@0600,2200 PO 11/19/24 22:00 11/20/24 05:48 1 GM Laboratory Results Laboratory Tests 11/20/24 05:39 Chemistry Test 11/20/24 05:39 Albumin 3.6 g/dL (3.2-4.8) Calcium Level 9.5 mg/dL (8.7-10.4) Magnesium Level 2.1 mg/dL (1.6-2.6) Total Protein 6.1 g/dL (5.7-8.2) LFT Test 11/20/24 05:39 Alanine Aminotransferase (ALT) 35 U/L (7-40) Alkaline Phosphatase 72 U/L (46-116) Aspartate Amino Transferase (AST) 28 U/L (13-40) Total Bilirubin 0.3 mg/dL (0.2-1.0) Assessment/Plan Assessment/Plan GI bleed Chest pain Acute anemia , normocytic status post 3 units of blood transfusion End-stage renal disease on hemodialysis Hypertension Mixed hyperlipidemia Type 2 diabetes Plan Keep NPO Patient is scheduled for EGD today Recheck the CBC and transfuse as needed Chest pain: Check EKG and troponin Transfuse 1 more unit of packed RBCs since we see patient is having chest pain Cardiology consult Echocardiogram Nephrology is on board Hemodialysis today Monitor the patient closely Protonix 40 mg IV twice a day Full code Advance directives discussed for 18 minute 11/20/2024: Advance diet as tolerated Continue Protonix and Carafate Monitor hemoglobin closely and transfuse as needed if it drops below 7 IV Lasix Hemodialysis per nephrology Plan discussed with: Patient My Orders Orders - ALLIE CARTWRIGHT MD Procedure Category Date Status Time Pantoprazole PHA 11/19/24 In Process (Protonix) 22:00 * Cardiology Consult CONS 11/19/24 Transmitted 11:36 Echo 2d Mode Cardiac US 11/19/24 Resulted DOP 11:36 Date of Service: November 20, 2024 Billing Provider: ALLIE CARTWRIGHT MD Common Visit Codes: [id number] INP/OBS CARE(HIGH) ALLIE CARTWRIGHT MD November 20, 2024 10:23
--- NOTE | 2024-11-20 12:20 | ECG ---
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
--- NOTE | 2024-11-20 21:07 | DVHPN2 ---
Progress Note Date Seen: November 20, 2024 Medical Necessity Reason Pt with a Central, PICC or Fol: No Subjective Patient reports: Feels better Review of Systems: Deferred Objective vital signs Vital Sign Date Time Temp Pulse Resp B/P (MAP) Pulse Ox O2 Delivery O2 Flow Rate FiO2 11/20/24 18:32 126/57 11/20/24 17:00 97.6 85 19 91 97.6 11/20/24 08:00 Nasal Cannula* 2 28 Total Intake and Output 11/19/24 11/19/24 11/20/24 15:00 23:00 07:00 Intake Total 10 ml 250 ml 200 ml Balance 10 ml 250 ml 200 ml medications Current Medications Medications Dose Ordered Sig/Alberto Route Start Time Stop Time Status Last Admin Dose Admin Acetaminophen 650 mg Q6HP PRN PO 11/17/24 13:00 Nitroglycerin 0.4 mg Q5MINP PRN SL 11/17/24 13:00 Morphine Sulfate 2 mg Q30M PRN IV 11/17/24 13:00 11/17/24 22:14 2 MG Furosemide 60 mg BIDD IV 11/17/24 18:00 11/20/24 18:32 60 MG Atorvastatin Calcium 10 mg HS PO 11/17/24 22:00 11/19/24 21:49 10 MG Hydralazine HCl 10 mg Q6HPRN PRN IV 11/17/24 20:30 11/20/24 13:34 10 MG Diagnostic Test (Pha) 1 strip ACHS 11/17/24 22:00 11/20/24 18:33 1 STRIP Insulin Human Regular ACHS SC 11/17/24 22:00 11/20/24 18:36 3 UNITS Dextrose 50 ml UD PRN IV 11/17/24 20:30 Pantoprazole Sodium 40 mg BID IV 11/19/24 22:00 11/20/24 09:08 40 MG Nifedipine 60 mg DAILY PO 11/20/24 10:00 11/20/24 09:08 60 MG Sucralfate 1 gm BID@0600,2200 PO 11/19/24 22:00 11/20/24 05:48 1 GM Examination: GENERAL:Abnormal, LUNGS:Abnormal, MSK:Abnormal, NEURO:Normal laboratory and microbiology Laboratory Tests 11/20/24 05:39 Test 11/20/24 05:39 Range/Units Serum Glucose 179 H 74-106 mg/dL Problem List/Assessment/Plan Problem List/Assessment/Plan ESRD on hemodialysis Acute blood loss anemia GI bleeding Morbid obesity Hyperkalemia Recommendations HD tomorrow Status post multiple PRBC transfusion/egd Epogen GI consult Discussed with family at bedside Plan discussed with: Other Dietary Evaluation Review Comments: Encourage high quality protein meals. Monitor PO intake to meet 75% of her needs Expected Outcomes/Goals: gradual wt loss CC Plasma Assessment Blood Product Administration S: [id number] ROBERTA MURCIA MD November 20, 2024 21:07
--- NOTE | 2024-11-20 22:32 | DVHPN2 ---
Progress Note - Dictate Date Seen: November 20, 2024 Medical Necessity Reason Pt with a Central, PICC or Fol: No Subjective Patient seen at bedside Undergoing hemodialysis Complains of mild epigastric and right upper quadrant pain There was no nausea vomiting EGD findings discussed with the patient showing moderate gastroduodenitis, biopsies are pending vital signs Vital Sign Date Time Temp Pulse Resp B/P (MAP) Pulse Ox O2 Delivery O2 Flow Rate FiO2 11/20/24 18:32 126/57 11/20/24 17:00 97.6 85 19 91 97.6 11/20/24 08:00 Nasal Cannula* 2 28 Total Intake and Output 11/19/24 11/19/24 11/20/24 15:00 23:00 07:00 Intake Total 10 ml 250 ml 200 ml Balance 10 ml 250 ml 200 ml medications Current Medications Medications Dose Ordered Sig/Alberto Route Start Time Stop Time Status Last Admin Dose Admin Acetaminophen 650 mg Q6HP PRN PO 11/17/24 13:00 Nitroglycerin 0.4 mg Q5MINP PRN SL 11/17/24 13:00 Morphine Sulfate 2 mg Q30M PRN IV 11/17/24 13:00 11/17/24 22:14 2 MG Furosemide 60 mg BIDD IV 11/17/24 18:00 11/20/24 18:32 60 MG Atorvastatin Calcium 10 mg HS PO 11/17/24 22:00 11/19/24 21:49 10 MG Hydralazine HCl 10 mg Q6HPRN PRN IV 11/17/24 20:30 11/20/24 13:34 10 MG Diagnostic Test (Pha) 1 strip ACHS 11/17/24 22:00 11/20/24 18:33 1 STRIP Insulin Human Regular ACHS SC 11/17/24 22:00 11/20/24 18:36 3 UNITS Dextrose 50 ml UD PRN IV 11/17/24 20:30 Pantoprazole Sodium 40 mg BID IV 11/19/24 22:00 11/20/24 09:08 40 MG Nifedipine 60 mg DAILY PO 11/20/24 10:00 11/20/24 09:08 60 MG Sucralfate 1 gm BID@0600,2200 PO 11/19/24 22:00 11/20/24 05:48 1 GM objective General Appearance: Alert, Oriented X3 HEENT: Atraumatic Lungs: Clear to auscultation Cardiovascular: Regular rate, Normal S1, Normal S2 laboratory and microbiology Laboratory Tests 11/20/24 05:39 Test 11/20/24 05:39 Range/Units Serum Glucose 179 H 74-106 mg/dL Problems(with codes): (1) Hiatal hernia with GERD and esophagitis (2) Gastroduodenitis (3) History of renal dialysis (4) UGIB (upper gastrointestinal bleed) (5) Chronic renal failure (6) Unstable angina (7) Pulmonary congestion (8) Chest pain Prognosis Plan Advance diet as tolerated Continue supportive care Protonix 40 mg IV q.12 hours Carafate 1 g 4 times a day DC aspirin NSAIDs smoking alcohol Outpatient follow up with GI Services upon discharge for ongoing management Patient reports a negative colonoscopy about five years ago Dietary Evaluation Review Comments: Encourage high quality protein meals. Monitor PO intake to meet 75% of her needs Expected Outcomes/Goals: gradual wt loss Plan discussed with: Patient, Other (Dr Alexander) CC Plasma Assessment Blood Product Administration S: [id number] KARUNA HUFFMAN MD November 20, 2024 22:32
[2024-11-21] VITALS (8 sets, daily range): BP systolic 122–173; BP diastolic 59–85; PULSE 78–116; RESP 14–18; TEMP 97.3–98.6; O2SAT 93–98
[2024-11-21 06:41] LABS: Basophils # (auto) 0 10 ^3/uL (0-0.2); Eosinophils # (auto) 0.5 10 ^3/uL (0-0.8); Hematocrit 21.7 % (36.0-46.0); Hemoglobin 7.3 g/dL (12.2-16.2); Lymphocytes # (auto) 1.2 10 ^3/uL (0.4-5.4); Red Blood Cells 2.31 10^6/uL (4.0-5.20)
[2024-11-21 06:43] LABS: Basophils % (auto) 0.2 % (0.0-2.0); Eosinophils % (auto) 5.1 % (0.0-7.0); Lymphocytes % (auto) 11.8 % (10.0-50.0); Mean Corpuscular Hemoglobin 31.6 pg (28.0-32.0); Mean Corpuscular Hgb Conc. 33.7 g/dL (32.0-36.0); Mean Corpuscular Volume 93.8 fL (80.0-100.0); Monocytes # (auto) 0.6 10 ^3/uL (0-1.3); Neutrophils # (auto) 7.9 10 ^3/uL (1.6-8.6); Neutrophils % (auto) 76.9 % (37.0-80.0); Platelet Count (auto) 184 10^3/uL (140-450); Red Cell Distribution Width 17.2 % (11.8-14.3); White Blood Cell 10.3 10^3/uL (4.4-10.8)
[2024-11-21 06:57] LABS: Alanine Aminotransferase 33 U/L (7-40); Alkaline Phosphatase 79 U/L (46-116); Anion Gap 12 (5-15); BUN/Creatinine Ratio 10.9 (10.0-20.0); Carbon Dioxide 26 mmol/L (20-31); Chloride 99 mmol/L (98-107); Magnesium 2.2 mg/dL (1.6-2.6); Sodium 137 mmol/L (136-145); Total Protein 6.2 g/dL (5.7-8.2)
[2024-11-21 06:58] LABS: Calcium 8.6 mg/dL (8.7-10.4); Glucose 139 mg/dL (74-106); Potassium 5.2 mmol/L (3.5-5.1)
[2024-11-21 06:59] LABS: Blood Urea Nitrogen 89 mg/dL (9-23)
[2024-11-21 07:20] LABS: Albumin 3.7 g/dL (3.2-4.8); Aspartate Aminotransferase 21 U/L (13-40)
[2024-11-21 07:21] LABS: Bilirubin, Total 0.2 mg/dL (0.2-1.0)
[2024-11-21] MEDS: DOCUSATE SOD 100 MG CAP PO SCH (10:02)
--- NOTE | 2024-11-21 10:28 | DVHPN2 ---
Subjective Complains of constipation and generalized abdominal pain Changes from previous H/P or p: Changes Gastrointestinal: Nausea, Vomiting, Diarrhea, Melena Objective Vitals Vital Signs Date Time Temp Pulse Resp B/P (MAP) Pulse Ox O2 Delivery O2 Flow Rate FiO2 11/21/24 10:02 161/65 11/21/24 08:52 97.3 85 18 95 97.3 11/20/24 20:00 Nasal Cannula* 2 28 Intake/Output Intake and Output 11/21/24 07:00 Intake Total 1140 ml Balance 1140 ml Intake Oral 1140 ml # Voids 5 General Appearance: Alert, Oriented X3 HEENT: Atraumatic Lungs: Clear to auscultation Cardiovascular: Regular rate, Normal S1, Normal S2 Medications Current Medications Medications Dose Ordered Sig/Alberto Route Start Time Stop Time Status Last Admin Dose Admin Acetaminophen 650 mg Q6HP PRN PO 11/17/24 13:00 Nitroglycerin 0.4 mg Q5MINP PRN SL 11/17/24 13:00 Morphine Sulfate 2 mg Q30M PRN IV 11/17/24 13:00 11/17/24 22:14 2 MG Furosemide 60 mg BIDD IV 11/17/24 18:00 11/21/24 05:42 60 MG Atorvastatin Calcium 10 mg HS PO 11/17/24 22:00 11/20/24 22:33 10 MG Hydralazine HCl 10 mg Q6HPRN PRN IV 11/17/24 20:30 11/20/24 13:34 10 MG Diagnostic Test (Pha) 1 strip ACHS 11/17/24 22:00 11/21/24 05:58 1 STRIP Insulin Human Regular ACHS SC 11/17/24 22:00 11/21/24 06:00 2 UNITS Dextrose 50 ml UD PRN IV 11/17/24 20:30 Pantoprazole Sodium 40 mg BID IV 11/19/24 22:00 11/21/24 10:02 40 MG Nifedipine 60 mg DAILY PO 11/20/24 10:00 11/21/24 10:02 60 MG Sucralfate 1 gm BID@0600,2200 PO 11/19/24 22:00 11/21/24 05:40 1 GM Docusate Sodium 100 mg BID PO 11/21/24 10:00 11/21/24 10:02 100 MG Laboratory Results Laboratory Tests 11/21/24 05:57 Chemistry Test 11/21/24 05:57 Albumin 3.7 g/dL (3.2-4.8) Calcium Level 8.6 mg/dL (8.7-10.4) L Magnesium Level 2.2 mg/dL (1.6-2.6) Total Protein 6.2 g/dL (5.7-8.2) LFT Test 11/21/24 05:57 Alanine Aminotransferase (ALT) 33 U/L (7-40) Alkaline Phosphatase 79 U/L (46-116) Aspartate Amino Transferase (AST) 21 U/L (13-40) Total Bilirubin 0.2 mg/dL (0.2-1.0) Assessment/Plan Assessment/Plan GI bleed Chest pain Acute anemia , normocytic status post 3 units of blood transfusion End-stage renal disease on hemodialysis Hypertension Mixed hyperlipidemia Type 2 diabetes Plan Keep NPO Patient is scheduled for EGD today Recheck the CBC and transfuse as needed Chest pain: Check EKG and troponin Transfuse 1 more unit of packed RBCs since we see patient is having chest pain Cardiology consult Echocardiogram Nephrology is on board Hemodialysis today Monitor the patient closely Protonix 40 mg IV twice a day Full code Advance directives discussed for 18 minute 11/20/2024: Advance diet as tolerated Continue Protonix and Carafate Monitor hemoglobin closely and transfuse as needed if it drops below 7 IV Lasix Hemodialysis per nephrology 11/21/2024: Physical therapy today Hemodialysis per nephrology Advance diet as tolerated Hemoglobin 7.3 today Transfuse blood as needed if it drops below 7 Monitor closely Out of bed as tolerated Plan discussed with: Patient My Orders Orders - ALLIE CARTWRIGHT MD Procedure Category Date Status Time Pt Request For Service PT 11/21/24 Logged 09:46 Date of Service: November 21, 2024 Billing Provider: ALLIE CARTWRIGHT MD Common Visit Codes: [id number] INP/OBS CARE(HIGH) ALLIE CARTWRIGHT MD November 21, 2024 10:28
--- NOTE | 2024-11-21 16:06 | DVHPN2 ---
Progress Note Date Seen: November 21, 2024 Medical Necessity Reason Pt with a Central, PICC or Fol: No Subjective Patient reports: No new complaints, Feels better Review of Systems: Deferred Objective vital signs Vital Sign Date Time Temp Pulse Resp B/P (MAP) Pulse Ox O2 Delivery O2 Flow Rate FiO2 11/21/24 13:00 168/74 11/21/24 13:00 97.6 82 14 98 97.6 11/20/24 20:00 Nasal Cannula* 2 28 Total Intake and Output 11/20/24 11/20/24 11/21/24 14:59 22:59 06:59 Intake Total 490 ml 650 ml Balance 490 ml 650 ml medications Current Medications Medications Dose Ordered Sig/Alberto Route Start Time Stop Time Status Last Admin Dose Admin Acetaminophen 650 mg Q6HP PRN PO 11/17/24 13:00 Nitroglycerin 0.4 mg Q5MINP PRN SL 11/17/24 13:00 Morphine Sulfate 2 mg Q30M PRN IV 11/17/24 13:00 11/17/24 22:14 2 MG Furosemide 60 mg BIDD IV 11/17/24 18:00 11/21/24 05:42 60 MG Atorvastatin Calcium 10 mg HS PO 11/17/24 22:00 11/20/24 22:33 10 MG Hydralazine HCl 10 mg Q6HPRN PRN IV 11/17/24 20:30 11/21/24 13:00 10 MG Diagnostic Test (Pha) 1 strip ACHS 11/17/24 22:00 11/21/24 11:24 1 STRIP Insulin Human Regular ACHS SC 11/17/24 22:00 11/21/24 11:33 4 UNITS Dextrose 50 ml UD PRN IV 11/17/24 20:30 Pantoprazole Sodium 40 mg BID IV 11/19/24 22:00 11/21/24 10:02 40 MG Nifedipine 60 mg DAILY PO 11/20/24 10:00 11/21/24 10:02 60 MG Sucralfate 1 gm BID@0600,2200 PO 11/19/24 22:00 11/21/24 05:40 1 GM Docusate Sodium 100 mg BID PO 11/21/24 10:00 11/21/24 10:02 100 MG Examination: GENERAL:Normal, HEENT:Normal, NECK:Normal, LUNGS:Normal, CVS:Normal, ABDOMEN:Normal, MSK:Abnormal (edema), SKIN:Normal, NEURO:Normal, :Normal laboratory and microbiology Laboratory Tests 11/21/24 05:57 Test 11/21/24 05:57 Range/Units Serum Glucose 139 H 74-106 mg/dL Problem List/Assessment/Plan Problem List/Assessment/Plan ESRD on hemodialysis Acute blood loss anemia GI bleeding Morbid obesity Hyperkalemia Recommendations HD today Status post multiple PRBC transfusion/egd Epogen Plan discussed with: Patient, Other My Orders My Orders Orders - ROBERTA MURCIA MD Procedure Category Date Status Time Hemodialysis Orders ORDERS 11/21/24 Transmitted 04:00 Epoetin Bright-Epbx PHA 11/21/24 In Process (Retacrit) 21:00 Dietary Evaluation Review Comments: Encourage high quality protein meals. Monitor PO intake to meet 75% of her needs Expected Outcomes/Goals: gradual wt loss CC Plasma Assessment Blood Product Administration S: [id number] ROBERTA MURCIA MD November 21, 2024 16:05
[2024-11-21] MEDS: ACETAMINOPHEN 325 MG TAB PO PRN (20:18)
--- NOTE | 2024-11-21 22:52 | DVHPN2 ---
Progress Note - Dictate Date Seen: November 21, 2024 Medical Necessity Reason Pt with a Central, PICC or Fol: No Subjective No new complaints;Feels better No further episodes of nausea vomiting or coffee-ground emesis Complains of mild epigastric and right upper quadrant pain There was no nausea vomiting EGD findings discussed with the patient showing moderate gastroduodenitis, biopsies are pending vital signs Vital Sign Date Time Temp Pulse Resp B/P (MAP) Pulse Ox O2 Delivery O2 Flow Rate FiO2 11/21/24 21:00 86 17 173/85 (114) 11/21/24 20:00 Nasal Cannula* 2 28 11/21/24 17:00 98.6 98 98.6 Total Intake and Output 11/20/24 11/20/24 11/21/24 15:00 23:00 07:00 Intake Total 490 ml 650 ml Balance 490 ml 650 ml medications Current Medications Medications Dose Ordered Sig/Alberto Route Start Time Stop Time Status Last Admin Dose Admin Acetaminophen 650 mg Q6HP PRN PO 11/17/24 13:00 11/21/24 20:18 650 MG Nitroglycerin 0.4 mg Q5MINP PRN SL 11/17/24 13:00 Morphine Sulfate 2 mg Q30M PRN IV 11/17/24 13:00 11/17/24 22:14 2 MG Furosemide 60 mg BIDD IV 11/17/24 18:00 11/21/24 17:16 60 MG Atorvastatin Calcium 10 mg HS PO 11/17/24 22:00 11/20/24 22:33 10 MG Hydralazine HCl 10 mg Q6HPRN PRN IV 11/17/24 20:30 11/21/24 13:00 10 MG Diagnostic Test (Pha) 1 strip ACHS 11/17/24 22:00 11/21/24 16:49 1 STRIP Insulin Human Regular ACHS SC 11/17/24 22:00 11/21/24 16:50 4 UNITS Dextrose 50 ml UD PRN IV 11/17/24 20:30 Pantoprazole Sodium 40 mg BID IV 11/19/24 22:00 11/21/24 10:02 40 MG Nifedipine 60 mg DAILY PO 11/20/24 10:00 11/21/24 10:02 60 MG Sucralfate 1 gm BID@0600,2200 PO 11/19/24 22:00 11/21/24 05:40 1 GM Docusate Sodium 100 mg BID PO 11/21/24 10:00 11/21/24 10:02 100 MG objective General Appearance: Alert, Oriented X3 HEENT: Atraumatic Lungs: Clear to auscultation Cardiovascular: Regular rate, Normal S1, Normal S2 Abdomen soft obese with mild epigastric tenderness no rebound or guarding Extremities without clubbing cyanosis or edema laboratory and microbiology Laboratory Tests 11/21/24 05:57 Test 11/21/24 05:57 Range/Units Serum Glucose 139 H 74-106 mg/dL Problems(with codes): (1) Hiatal hernia with GERD and esophagitis (2) Chest pain (3) Gastroduodenitis (4) History of renal dialysis (5) UGIB (upper gastrointestinal bleed) (6) Chronic renal failure Prognosis Plan Continue supportive care IV Protonix 40 mg p.o. twice a day Carafate 1 g p.o. twice a day DC aspirin NSAIDs smoking alcohol Correct patient is currently on Epogen Start physical therapy Hemodialysis as per schedule Discharge planning as per hospitalist Outpatient follow up with GI Services upon discharge Dietary Evaluation Review Comments: Encourage high quality protein meals. Monitor PO intake to meet 75% of her needs Expected Outcomes/Goals: gradual wt loss Plan discussed with: Other (None) CC Plasma Assessment Blood Product Administration S: [id number] KARUNA HUFFMAN MD November 21, 2024 22:52
[2024-11-22] VITALS (8 sets, daily range): BP systolic 130–164; BP diastolic 52–68; PULSE 30–88; RESP 16–19; TEMP 97.8–98.6; O2SAT 92–98
[2024-11-22] MEDS: EPOETIN ALFA-EPBX 10,000 UNIT/1ML VIAL SC ONE (00:26)
[2024-11-22 06:54] LABS: Alanine Aminotransferase 27 U/L (7-40); Albumin 3.7 g/dL (3.2-4.8); Alkaline Phosphatase 84 U/L (46-116); Anion Gap 12 (5-15); Aspartate Aminotransferase 16 U/L (13-40); Calcium 8.9 mg/dL (8.7-10.4); Carbon Dioxide 29 mmol/L (20-31); Chloride 99 mmol/L (98-107); Magnesium 2.1 mg/dL (1.6-2.6); Potassium 4.2 mmol/L (3.5-5.1); Sodium 140 mmol/L (136-145); Total Protein 6.3 g/dL (5.7-8.2)
[2024-11-22 06:55] LABS: Bilirubin, Total 0.3 mg/dL (0.2-1.0)
[2024-11-22 07:01] LABS: Blood Urea Nitrogen 48 mg/dL (9-23); Glucose 173 mg/dL (74-106)
[2024-11-22 07:02] LABS: Basophils # (auto) 0 10 ^3/uL (0-0.2); Basophils % (auto) 0.4 % (0.0-2.0); Eosinophils # (auto) 0.5 10 ^3/uL (0-0.8); Eosinophils % (auto) 5.1 % (0.0-7.0); Hematocrit 21.9 % (36.0-46.0); Hemoglobin 7.5 g/dL (12.2-16.2); Lymphocytes % (auto) 10.8 % (10.0-50.0); Mean Corpuscular Hemoglobin 31.4 pg (28.0-32.0); Mean Corpuscular Hgb Conc. 34.3 g/dL (32.0-36.0); Mean Corpuscular Volume 91.6 fL (80.0-100.0); Monocytes # (auto) 0.5 10 ^3/uL (0-1.3); Monocytes % (auto) 5.6 % (0.0-12.0); Neutrophils # (auto) 7.4 10 ^3/uL (1.6-8.6); Neutrophils % (auto) 78.1 % (37.0-80.0); Nucleated Red Blood Cells % 0.1 %; Platelet Count (auto) 200 10^3/uL (140-450); Red Blood Cells 2.39 10^6/uL (4.0-5.20); Red Cell Distribution Width 16.9 % (11.8-14.3); White Blood Cell 9.5 10^3/uL (4.4-10.8)
[2024-11-22] MEDS: LACTULOSE 20Gm/30ML SOLN PO ONE (11:12)
--- NOTE | 2024-11-22 11:39 | DVHPN2 ---
Subjective Still complaining of constipation Complains of pain and swelling in the left arm since dialysis at the AV fistula site Changes from previous H/P or p: Changes Gastrointestinal: Nausea, Vomiting, Diarrhea, Melena Objective Vitals Vital Signs Date Time Temp Pulse Resp B/P (MAP) Pulse Ox O2 Delivery O2 Flow Rate FiO2 11/22/24 09:19 149/57 11/22/24 09:00 98.4 86 16 95 98.4 11/22/24 08:00 Nasal Cannula* 2 28 Intake/Output Intake and Output 11/22/24 07:00 Intake Total 780 ml Balance 780 ml Intake Oral 780 ml # Voids 3 General Appearance: Alert, Oriented X3 HEENT: Atraumatic Lungs: Clear to auscultation Cardiovascular: Regular rate, Normal S1, Normal S2 Medications Current Medications Medications Dose Ordered Sig/Alberto Route Start Time Stop Time Status Last Admin Dose Admin Acetaminophen 650 mg Q6HP PRN PO 11/17/24 13:00 11/21/24 20:18 650 MG Nitroglycerin 0.4 mg Q5MINP PRN SL 11/17/24 13:00 Morphine Sulfate 2 mg Q30M PRN IV 11/17/24 13:00 11/17/24 22:14 2 MG Furosemide 60 mg BIDD IV 11/17/24 18:00 11/22/24 06:57 60 MG Atorvastatin Calcium 10 mg HS PO 11/17/24 22:00 11/21/24 23:42 10 MG Hydralazine HCl 10 mg Q6HPRN PRN IV 11/17/24 20:30 11/21/24 13:00 10 MG Diagnostic Test (Pha) 1 strip ACHS 11/17/24 22:00 11/22/24 11:11 1 STRIP Insulin Human Regular ACHS SC 11/17/24 22:00 11/22/24 11:11 4 UNITS Dextrose 50 ml UD PRN IV 11/17/24 20:30 Pantoprazole Sodium 40 mg BID IV 11/19/24 22:00 11/22/24 09:19 40 MG Nifedipine 60 mg DAILY PO 11/20/24 10:00 11/22/24 09:19 60 MG Sucralfate 1 gm BID@0600,2200 PO 11/19/24 22:00 11/22/24 05:44 1 GM Docusate Sodium 100 mg BID PO 11/21/24 10:00 11/22/24 09:19 100 MG Laboratory Results Laboratory Tests 11/22/24 05:30 Chemistry Test 11/22/24 05:30 Albumin 3.7 g/dL (3.2-4.8) Calcium Level 8.9 mg/dL (8.7-10.4) Magnesium Level 2.1 mg/dL (1.6-2.6) Total Protein 6.3 g/dL (5.7-8.2) LFT Test 11/22/24 05:30 Alanine Aminotransferase (ALT) 27 U/L (7-40) Alkaline Phosphatase 84 U/L (46-116) Aspartate Amino Transferase (AST) 16 U/L (13-40) Total Bilirubin 0.3 mg/dL (0.2-1.0) Assessment/Plan Assessment/Plan GI bleed Chest pain Acute anemia , normocytic status post 3 units of blood transfusion End-stage renal disease on hemodialysis Hypertension Mixed hyperlipidemia Type 2 diabetes Plan Keep NPO Patient is scheduled for EGD today Recheck the CBC and transfuse as needed Chest pain: Check EKG and troponin Transfuse 1 more unit of packed RBCs since we see patient is having chest pain Cardiology consult Echocardiogram Nephrology is on board Hemodialysis today Monitor the patient closely Protonix 40 mg IV twice a day Full code Advance directives discussed for 18 minute 11/20/2024: Advance diet as tolerated Continue Protonix and Carafate Monitor hemoglobin closely and transfuse as needed if it drops below 7 IV Lasix Hemodialysis per nephrology 11/21/2024: Physical therapy today Hemodialysis per nephrology Advance diet as tolerated Hemoglobin 7.3 today Transfuse blood as needed if it drops below 7 Monitor closely Out of bed as tolerated 11/22/2024: Give lactulose for constipation Hemodialysis per nephrology Hemoglobin is stable at 7.5, no need for transfusion Monitor closely The rest of the management will depend on the hospital course Plan discussed with: Patient Date of Service: November 22, 2024 Billing Provider: ALLIE CARTWRIGHT MD Common Visit Codes: [id number] INP/OBS CARE(HIGH) ALLIE CARTWRIGHT MD November 22, 2024 11:39
--- NOTE | 2024-11-22 14:20 | DVHPN2 ---
Progress Note Date Seen: November 22, 2024 Medical Necessity Reason Pt with a Central, PICC or Fol: No Subjective Patient reports: No new complaints Review of Systems: Deferred Objective vital signs Vital Sign Date Time Temp Pulse Resp B/P (MAP) Pulse Ox O2 Delivery O2 Flow Rate FiO2 11/22/24 12:38 98.3 82 16 164/61 (95) 98 98.3 11/22/24 08:00 Nasal Cannula* 2 28 Total Intake and Output 11/21/24 11/21/24 11/22/24 15:00 23:00 07:00 Intake Total 480 ml 300 ml Balance 480 ml 300 ml medications Current Medications Medications Dose Ordered Sig/Alberto Route Start Time Stop Time Status Last Admin Dose Admin Acetaminophen 650 mg Q6HP PRN PO 11/17/24 13:00 11/21/24 20:18 650 MG Nitroglycerin 0.4 mg Q5MINP PRN SL 11/17/24 13:00 Morphine Sulfate 2 mg Q30M PRN IV 11/17/24 13:00 11/17/24 22:14 2 MG Furosemide 60 mg BIDD IV 11/17/24 18:00 11/22/24 06:57 60 MG Atorvastatin Calcium 10 mg HS PO 11/17/24 22:00 11/21/24 23:42 10 MG Hydralazine HCl 10 mg Q6HPRN PRN IV 11/17/24 20:30 11/22/24 12:23 10 MG Diagnostic Test (Pha) 1 strip ACHS 11/17/24 22:00 11/22/24 11:11 1 STRIP Insulin Human Regular ACHS SC 11/17/24 22:00 11/22/24 11:11 4 UNITS Dextrose 50 ml UD PRN IV 11/17/24 20:30 Pantoprazole Sodium 40 mg BID IV 11/19/24 22:00 11/22/24 09:19 40 MG Nifedipine 60 mg DAILY PO 11/20/24 10:00 11/22/24 09:19 60 MG Sucralfate 1 gm BID@0600,2200 PO 11/19/24 22:00 11/22/24 05:44 1 GM Docusate Sodium 100 mg BID PO 11/21/24 10:00 11/22/24 09:19 100 MG laboratory and microbiology Laboratory Tests 11/22/24 05:30 Test 11/22/24 05:30 Range/Units Serum Glucose 173 H 74-106 mg/dL Problem List/Assessment/Plan Problem List/Assessment/Plan ESRD on hemodialysis Acute blood loss anemia GI bleeding Morbid obesity Hyperkalemia Recommendations HD tomorrow Status post multiple PRBC transfusion/egd Epogen Plan discussed with: Patient, Other Dietary Evaluation Review Comments: Encourage high quality protein meals. Monitor PO intake to meet 75% of her needs Expected Outcomes/Goals: gradual wt loss CC Plasma Assessment Blood Product Administration S: [id number] ROBERTA MURCIA MD November 22, 2024 14:20
--- NOTE | 2024-11-22 15:32 | DVH ---
LEFT Upper Extremity Venous Duplex Clinical History: LUE AVF R/O THROMBUS R/O DVT Comparison: None Findings: Duplex Doppler evaluation of the venous system of the LEFT lower neck and upper extremity including c olor Doppler and spectral/pulsed waveform analysis was performed. Left upper extremity Upper AVF patent. Axillary vein stent is patent. Impression: Left upper extremity Upper AVF patent. Axillary vein stent is patent. No thrombus. Anuersymal dilatation proximal AVF measures 6cm If clinical concern/symptoms persist or worsen, short-interval follow-up study is suggested.
[2024-11-23] VITALS (8 sets, daily range): BP systolic 125–171; BP diastolic 56–79; PULSE 77–89; RESP 16–18; TEMP 97.6–98.4; O2SAT 97–99
[2024-11-23] MEDS: LACTULOSE 20Gm/30ML SOLN PO ONE (02:38)
[2024-11-23 06:19] LABS: Alanine Aminotransferase 21 U/L (7-40); Alkaline Phosphatase 78 U/L (46-116); Anion Gap 14 (5-15); BUN/Creatinine Ratio 8.5 (10.0-20.0); Carbon Dioxide 28 mmol/L (20-31); Glucose 99 mg/dL (74-106); Magnesium 2.3 mg/dL (1.6-2.6); Potassium 4.5 mmol/L (3.5-5.1); Sodium 139 mmol/L (136-145); Total Protein 6.4 g/dL (5.7-8.2)
[2024-11-23 06:20] LABS: Albumin 3.8 g/dL (3.2-4.8)
[2024-11-23 06:23] LABS: Basophils # (auto) 0 10 ^3/uL (0-0.2); Eosinophils # (auto) 0.6 10 ^3/uL (0-0.8); Hemoglobin 7.4 g/dL (12.2-16.2); Mean Corpuscular Hemoglobin 31.2 pg (28.0-32.0); Monocytes # (auto) 0.6 10 ^3/uL (0-1.3)
[2024-11-23 06:24] LABS: Basophils % (auto) 0.4 % (0.0-2.0); Eosinophils % (auto) 5.9 % (0.0-7.0); Hematocrit 21.7 % (36.0-46.0); Lymphocytes # (auto) 1.1 10 ^3/uL (0.4-5.4); Lymphocytes % (auto) 10.9 % (10.0-50.0); Mean Corpuscular Hgb Conc. 34.1 g/dL (32.0-36.0); Mean Corpuscular Volume 91.5 fL (80.0-100.0); Neutrophils # (auto) 7.5 10 ^3/uL (1.6-8.6); Neutrophils % (auto) 76.8 % (37.0-80.0); Platelet Count (auto) 227 10^3/uL (140-450); Red Blood Cells 2.37 10^6/uL (4.0-5.20); Red Cell Distribution Width 17.1 % (11.8-14.3); White Blood Cell 9.7 10^3/uL (4.4-10.8)
[2024-11-23 06:40] LABS: Aspartate Aminotransferase 10 U/L (13-40); Bilirubin, Total 0.3 mg/dL (0.2-1.0); Blood Urea Nitrogen 61 mg/dL (9-23); Chloride 97 mmol/L (98-107)
[2024-11-23] MEDS ORDERED: GASTROGRAFIN 120 ML SOL ONE (10:46)
--- NOTE | 2024-11-23 10:51 | DVHPN2 ---
Progress Note Date Seen: November 23, 2024 Medical Necessity Reason Pt with a Central, PICC or Fol: No Subjective Patient reports: No new complaints Other Systems: Patient examined hemodialysis, blood pressure stable Objective vital signs Vital Sign Date Time Temp Pulse Resp B/P (MAP) Pulse Ox O2 Delivery O2 Flow Rate FiO2 11/23/24 09:00 98.0 81 17 146/59 (88) 98 98.0 11/23/24 08:00 Nasal Cannula* 2 28 Total Intake and Output 11/22/24 11/22/24 11/23/24 15:00 23:00 07:00 Intake Total 200 ml 0 ml Balance 200 ml 0 ml medications Current Medications Medications Dose Ordered Sig/Alberto Route Start Time Stop Time Status Last Admin Dose Admin Acetaminophen 650 mg Q6HP PRN PO 11/17/24 13:00 11/22/24 22:02 650 MG Nitroglycerin 0.4 mg Q5MINP PRN SL 11/17/24 13:00 Morphine Sulfate 2 mg Q30M PRN IV 11/17/24 13:00 11/17/24 22:14 2 MG Furosemide 60 mg BIDD IV 11/17/24 18:00 11/23/24 06:29 60 MG Atorvastatin Calcium 10 mg HS PO 11/17/24 22:00 11/22/24 21:54 10 MG Hydralazine HCl 10 mg Q6HPRN PRN IV 11/17/24 20:30 11/22/24 12:23 10 MG Diagnostic Test (Pha) 1 strip ACHS 11/17/24 22:00 11/22/24 21:55 1 STRIP Insulin Human Regular ACHS SC 11/17/24 22:00 11/22/24 21:47 4 UNITS Dextrose 50 ml UD PRN IV 11/17/24 20:30 Pantoprazole Sodium 40 mg BID IV 11/19/24 22:00 11/23/24 09:20 40 MG Nifedipine 60 mg DAILY PO 11/20/24 10:00 11/22/24 09:19 60 MG Sucralfate 1 gm BID@0600,2200 PO 11/19/24 22:00 11/23/24 06:29 1 GM Docusate Sodium 100 mg BID PO 11/21/24 10:00 11/23/24 09:21 100 MG Examination: LUNGS:Normal, CVS:Normal, MSK:Normal laboratory and microbiology Laboratory Tests 11/23/24 04:49 Test 11/23/24 04:49 Range/Units Serum Glucose 99 74-106 mg/dL Problem List/Assessment/Plan Problem List/Assessment/Plan ESRD on hemodialysis Acute blood loss anemia GI bleeding Morbid obesity Hyperkalemia Recommendations Continue with UF to 3 L as tolerated Epogen [id number] [id number] 3 times weekly Renal diet Resume home medications Packed red blood cell transfusion p.r.n. GI consult We will continue to follow up Plan discussed with: Patient Dietary Evaluation Review Comments: Encourage high quality protein meals. Monitor PO intake to meet 75% of her needs Expected Outcomes/Goals: gradual wt loss CC Plasma Assessment Blood Product Administration S: [id number] FLORENCE AGEE MD November 23, 2024 10:51
--- NOTE | 2024-11-23 12:46 | DVH ---
EXAM: XY R ANKLE 2 VIEW XRAY INDICATION: swelling TECHNIQUE: 3 views of the right ankle COMPARISON: None FINDINGS/IMPRESSION: Transverse oriented distal fibular fracture, nondisplaced. Mild lateral malleolar soft tissue swelli ng. Trace plantar calcaneal spur. Vascular calcifications. Surrounding subcutaneous tissue edema ap pearing trace cortical irregularity of the lateral talar process.
--- NOTE | 2024-11-23 13:14 | DVH ---
EXAM: XY L ANKLE 2 VIEW XRAY INDICATION: swelling TECHNIQUE: 2 views of the left ankle COMPARISON: None FINDINGS/IMPRESSION: Nondisplaced medial malleolar fracture with intra-articular extension. No widening of the ankle synd esmosis. Prominent anterior ankle soft tissue swelling. Vascular calcifications. Trace Achilles ins ertional enthesophyte.
--- NOTE | 2024-11-23 15:22 | DVH ---
Procedure: XY SMALL BOWEL SERIES-W GASTROGRA Exam Date: 11/23/2024 02:00 PM Reason for study/Clinical History: abd pain Comparison Study: None Technique: Single contrast small bowel series performed. Findings: Initial forward air controller/air officer view of the abdomen and pelvis appears demonstrates no acute process. Contrast is identified within the colon by 3 hours . This represents a normal small bowel transit ti me. Small bowel loops are normal in size. Normal mucosal pattern. No evidence of small bowel obstructi on, stricture, or mucosal abnormality. The terminal ileum is well visualized and is unremarkable. IMPRESSION: Normal small bowel series. END IMPRESSION:
--- NOTE | 2024-11-23 15:32 | DVHPN2 ---
Subjective She is still complaining of constipation, no bowel movements She also was seen by Physical therapy yesterday but she could not bear weight on her feet and her knees and then today she was complaining of more pain and swelling in both of her ankles Examination shows ecchymosis and edema in both ankles more severe on the left side Changes from previous H/P or p: Changes Gastrointestinal: Nausea, Vomiting, Diarrhea, Melena Objective Vitals Vital Signs Date Time Temp Pulse Resp B/P (MAP) Pulse Ox O2 Delivery O2 Flow Rate FiO2 11/23/24 12:55 97.8 83 18 171/66 (101) 97 97.8 11/23/24 08:00 Nasal Cannula* 2 28 Intake/Output Intake and Output 11/23/24 07:00 Intake Total 200 ml Balance 200 ml Intake Oral 200 ml General Appearance: Alert, Oriented X3 HEENT: Atraumatic Lungs: Clear to auscultation Cardiovascular: Regular rate, Normal S1, Normal S2 Medications Current Medications Medications Dose Ordered Sig/Alberto Route Start Time Stop Time Status Last Admin Dose Admin Acetaminophen 650 mg Q6HP PRN PO 11/17/24 13:00 11/22/24 22:02 650 MG Nitroglycerin 0.4 mg Q5MINP PRN SL 11/17/24 13:00 Morphine Sulfate 2 mg Q30M PRN IV 11/17/24 13:00 11/17/24 22:14 2 MG Furosemide 60 mg BIDD IV 11/17/24 18:00 11/23/24 06:29 60 MG Atorvastatin Calcium 10 mg HS PO 11/17/24 22:00 11/22/24 21:54 10 MG Hydralazine HCl 10 mg Q6HPRN PRN IV 11/17/24 20:30 11/22/24 12:23 10 MG Diagnostic Test (Pha) 1 strip ACHS 11/17/24 22:00 11/23/24 13:28 1 STRIP Insulin Human Regular ACHS SC 11/17/24 22:00 11/23/24 13:30 4 UNITS Dextrose 50 ml UD PRN IV 11/17/24 20:30 Pantoprazole Sodium 40 mg BID IV 11/19/24 22:00 11/23/24 09:20 40 MG Nifedipine 60 mg DAILY PO 11/20/24 10:00 11/22/24 09:19 60 MG Sucralfate 1 gm BID@0600,2200 PO 11/19/24 22:00 11/23/24 06:29 1 GM Docusate Sodium 100 mg BID PO 11/21/24 10:00 11/23/24 09:21 100 MG Laboratory Results Laboratory Tests 11/23/24 04:49 Chemistry Test 11/23/24 04:49 Albumin 3.8 g/dL (3.2-4.8) Calcium Level 9.0 mg/dL (8.7-10.4) Magnesium Level 2.3 mg/dL (1.6-2.6) Total Protein 6.4 g/dL (5.7-8.2) LFT Test 11/23/24 04:49 Alanine Aminotransferase (ALT) 21 U/L (7-40) Alkaline Phosphatase 78 U/L (46-116) Aspartate Amino Transferase (AST) 10 U/L (13-40) L Total Bilirubin 0.3 mg/dL (0.2-1.0) Assessment/Plan Assessment/Plan GI bleed Chest pain Acute anemia , normocytic status post 3 units of blood transfusion End-stage renal disease on hemodialysis Hypertension Mixed hyperlipidemia Type 2 diabetes Plan Keep NPO Patient is scheduled for EGD today Recheck the CBC and transfuse as needed Chest pain: Check EKG and troponin Transfuse 1 more unit of packed RBCs since we see patient is having chest pain Cardiology consult Echocardiogram Nephrology is on board Hemodialysis today Monitor the patient closely Protonix 40 mg IV twice a day Full code Advance directives discussed for 18 minute 11/20/2024: Advance diet as tolerated Continue Protonix and Carafate Monitor hemoglobin closely and transfuse as needed if it drops below 7 IV Lasix Hemodialysis per nephrology 11/21/2024: Physical therapy today Hemodialysis per nephrology Advance diet as tolerated Hemoglobin 7.3 today Transfuse blood as needed if it drops below 7 Monitor closely Out of bed as tolerated 11/22/2024: Give lactulose for constipation Hemodialysis per nephrology Hemoglobin is stable at 7.5, no need for transfusion Monitor closely The rest of the management will depend on the hospital course 11/23/2024: Order x-rays of the bilateral ankles: Right fibular fracture and left medial malleolus fracture: Consult Orthopedic surgery Constipation: Abdominal pain:, order small bowel series to rule out bowel obstruction End-stage renal disease: Continue dialysis per Nephrology Chronic anemia of chronic kidney disease: Stable hemoglobin is 7.4 Plan discussed with: Patient My Orders Orders - ALLIE CARTWRIGHT MD Procedure Category Date Status Time L Ankle 2 View Xray XY 11/23/24 Resulted 10:08 R Ankle 2 View Xray XY 11/23/24 Resulted 10:08 Small Bowel Series-W XY 11/23/24 Resulted Gastrogra 10:30 * Orthopedic Consult CONS 11/23/24 Transmitted 15:22 Date of Service: November 23, 2024 Billing Provider: ALLIE CARTWRIGHT MD Common Visit Codes: [id number] INP/OBS CARE(HIGH) ALLIE CARTWRIGHT MD November 23, 2024 15:32
[2024-11-23] MEDS: EPOETIN ALFA-EPBX 4,000 UNIT/ML VIAL SC ONE (22:33)
--- NOTE | 2024-11-23 23:00 | DVHPN2 ---
Progress Note - Dictate Date Seen: November 23, 2024 Medical Necessity Reason Pt with a Central, PICC or Fol: No Subjective No new complaints;Feels better No further episodes of nausea vomiting or coffee-ground emesis Complains of mild epigastric and right upper quadrant pain There was no nausea vomiting EGD findings discussed with the patient showing moderate gastroduodenitis, biopsies are pending vital signs Vital Sign Date Time Temp Pulse Resp B/P (MAP) Pulse Ox O2 Delivery O2 Flow Rate FiO2 11/23/24 21:00 97.6 89 18 152/57 (88) 99 97.6 11/23/24 20:00 Nasal Cannula* 2 28 Total Intake and Output 11/22/24 11/22/24 11/23/24 15:00 23:00 07:00 Intake Total 200 ml 0 ml Balance 200 ml 0 ml medications Current Medications Medications Dose Ordered Sig/Alberto Route Start Time Stop Time Status Last Admin Dose Admin Acetaminophen 650 mg Q6HP PRN PO 11/17/24 13:00 11/22/24 22:02 650 MG Nitroglycerin 0.4 mg Q5MINP PRN SL 11/17/24 13:00 Morphine Sulfate 2 mg Q30M PRN IV 11/17/24 13:00 11/17/24 22:14 2 MG Furosemide 60 mg BIDD IV 11/17/24 18:00 11/23/24 18:53 60 MG Atorvastatin Calcium 10 mg HS PO 11/17/24 22:00 11/23/24 22:33 10 MG Hydralazine HCl 10 mg Q6HPRN PRN IV 11/17/24 20:30 11/23/24 18:56 10 MG Diagnostic Test (Pha) 1 strip ACHS 11/17/24 22:00 11/23/24 22:00 1 STRIP Insulin Human Regular ACHS SC 11/17/24 22:00 11/23/24 22:32 10 UNITS Dextrose 50 ml UD PRN IV 11/17/24 20:30 Pantoprazole Sodium 40 mg BID IV 11/19/24 22:00 11/23/24 22:32 40 MG Nifedipine 60 mg DAILY PO 11/20/24 10:00 11/22/24 09:19 60 MG Sucralfate 1 gm BID@0600,2200 PO 11/19/24 22:00 5/9/25 22:31 1 GM Docusate Sodium 100 mg BID PO 11/21/24 10:00 11/23/24 09:21 100 MG objective General Appearance: Alert, Oriented X3 HEENT: Atraumatic Lungs: Clear to auscultation Cardiovascular: Regular rate, Normal S1, Normal S2 Abdomen soft obese with mild epigastric tenderness no rebound or guarding Extremities without clubbing cyanosis or edema laboratory and microbiology Laboratory Tests 11/23/24 04:49 Test 11/23/24 04:49 Range/Units Serum Glucose 99 74-106 mg/dL Problems(with codes): (1) Hiatal hernia with GERD and esophagitis (2) Chest pain (3) History of renal dialysis (4) Chronic renal failure (5) UGIB (upper gastrointestinal bleed) Prognosis PLAN Pt unable to walk during PT Ankle pain and inability to bear weight Xray shows b/l nondisplaced fractures of R fibula and L malleolar bobe Orthopedic consult pending Pt undergoing HD No active GI bleeding ; Hb stable at 7.3 Normocytic anemia of chronic disease Dietary Evaluation Review Comments: Encourage high quality protein meals. Monitor PO intake to meet 75% of her needs Expected Outcomes/Goals: gradual wt loss Plan discussed with: Patient CC Plasma Assessment Blood Product Administration S: [id number] KARUNA HUFFMAN MD November 23, 2024 23:00
[2024-11-24] VITALS (7 sets, daily range): BP systolic 116–157; BP diastolic 43–69; PULSE 80–88; RESP 16–18; TEMP 97.3–98.4; O2SAT 95–98
[2024-11-24 07:18] LABS: Basophils # (auto) 0 10 ^3/uL (0-0.2); Basophils % (auto) 0.5 % (0.0-2.0); Eosinophils # (auto) 0.4 10 ^3/uL (0-0.8); Eosinophils % (auto) 4.6 % (0.0-7.0); Hematocrit 23.5 % (36.0-46.0); Hemoglobin 7.8 g/dL (12.2-16.2); Lymphocytes # (auto) 0.9 10 ^3/uL (0.4-5.4); Lymphocytes % (auto) 10.2 % (10.0-50.0); Mean Corpuscular Hemoglobin 30.8 pg (28.0-32.0); Mean Corpuscular Hgb Conc. 33.1 g/dL (32.0-36.0); Mean Corpuscular Volume 92.8 fL (80.0-100.0); Monocytes # (auto) 0.6 10 ^3/uL (0-1.3); Monocytes % (auto) 6.8 % (0.0-12.0); Neutrophils % (auto) 77.9 % (37.0-80.0); Platelet Count (auto) 276 10^3/uL (140-450); Red Blood Cells 2.53 10^6/uL (4.0-5.20); Red Cell Distribution Width 16.7 % (11.8-14.3)
[2024-11-24 07:27] LABS: Chloride 100 mmol/L (98-107); Potassium 4.1 mmol/L (3.5-5.1); Sodium 141 mmol/L (136-145)
[2024-11-24 07:28] LABS: Anion Gap 10 (5-15); Calcium 9.7 mg/dL (8.7-10.4); Carbon Dioxide 31 mmol/L (20-31)
[2024-11-24 07:33] LABS: BUN/Creatinine Ratio 6.5 (10.0-20.0); Blood Urea Nitrogen 33 mg/dL (9-23); Glucose 131 mg/dL (74-106)
[2024-11-24 07:34] LABS: Magnesium 2.1 mg/dL (1.6-2.6)
--- NOTE | 2024-11-24 09:45 | DVHPN2 ---
Progress Note Date Seen: November 24, 2024 Medical Necessity Reason Pt with a Central, PICC or Fol: No Subjective Patient reports: No new complaints Other Systems: Patient seen and examined by myself today in follow-up Objective vital signs Vital Sign Date Time Temp Pulse Resp B/P (MAP) Pulse Ox O2 Delivery O2 Flow Rate FiO2 11/24/24 09:34 157/57 11/24/24 05:00 97.9 81 18 96 97.9 11/23/24 20:00 Nasal Cannula* 2 28 Total Intake and Output 11/23/24 11/23/24 11/24/24 15:00 23:00 07:00 Intake Total 50 ml 780 ml 425 ml Balance 50 ml 780 ml 425 ml medications Current Medications Medications Dose Ordered Sig/Alberto Route Start Time Stop Time Status Last Admin Dose Admin Acetaminophen 650 mg Q6HP PRN PO 11/17/24 13:00 11/22/24 22:02 650 MG Nitroglycerin 0.4 mg Q5MINP PRN SL 11/17/24 13:00 Morphine Sulfate 2 mg Q30M PRN IV 11/17/24 13:00 11/17/24 22:14 2 MG Furosemide 60 mg BIDD IV 11/17/24 18:00 11/24/24 06:04 60 MG Atorvastatin Calcium 10 mg HS PO 11/17/24 22:00 11/23/24 22:33 10 MG Hydralazine HCl 10 mg Q6HPRN PRN IV 11/17/24 20:30 11/24/24 05:44 10 MG Diagnostic Test (Pha) 1 strip ACHS 11/17/24 22:00 11/24/24 06:04 1 STRIP Insulin Human Regular ACHS SC 11/17/24 22:00 11/24/24 06:04 2 UNITS Dextrose 50 ml UD PRN IV 11/17/24 20:30 Pantoprazole Sodium 40 mg BID IV 11/19/24 22:00 11/24/24 09:34 40 MG Nifedipine 60 mg DAILY PO 11/20/24 10:00 11/24/24 09:34 60 MG Sucralfate 1 gm BID@0600,2200 PO 11/19/24 22:00 11/24/24 06:03 1 GM Docusate Sodium 100 mg BID PO 11/21/24 10:00 5/10/25 09:34 100 MG Examination: LUNGS:Normal, CVS:Normal, MSK:Normal laboratory and microbiology Laboratory Tests 11/24/24 05:18 Test 11/24/24 05:18 Range/Units Serum Glucose 131 H 74-106 mg/dL Problem List/Assessment/Plan Problem List/Assessment/Plan ESRD on hemodialysis Acute blood loss anemia GI bleeding Morbid obesity Hyperkalemia Recommendations Next hemodialysis 11/26 Epogen 83093 subQ 3 times weekly Renal diet Resume home medications Packed red blood cell transfusion p.r.n. GI consult We will continue to follow up Plan discussed with: Patient Dietary Evaluation Review Comments: Encourage high quality protein meals. Monitor PO intake to meet 75% of her needs Expected Outcomes/Goals: gradual wt loss CC Plasma Assessment Blood Product Administration S: [id number] FLORENCE AGEE MD November 24, 2024 09:45
--- NOTE | 2024-11-24 10:18 | DVHPN2 ---
Subjective She had several bowel movements after she had a small bowel series yesterday which was normal and no obstruction Changes from previous H/P or p: Changes Gastrointestinal: Nausea, Vomiting, Diarrhea, Melena Objective Vitals Vital Signs Date Time Temp Pulse Resp B/P (MAP) Pulse Ox O2 Delivery O2 Flow Rate FiO2 11/24/24 09:34 157/57 11/24/24 05:00 97.9 81 18 96 97.9 11/23/24 20:00 Nasal Cannula* 2 28 Intake/Output Intake and Output 11/24/24 07:00 Intake Total 1255 ml Balance 1255 ml Intake Oral 1255 ml # Bowel Movements 8 General Appearance: Alert, Oriented X3 HEENT: Atraumatic Lungs: Clear to auscultation Cardiovascular: Regular rate, Normal S1, Normal S2 Medications Current Medications Medications Dose Ordered Sig/Alberto Route Start Time Stop Time Status Last Admin Dose Admin Acetaminophen 650 mg Q6HP PRN PO 11/17/24 13:00 11/22/24 22:02 650 MG Nitroglycerin 0.4 mg Q5MINP PRN SL 11/17/24 13:00 Morphine Sulfate 2 mg Q30M PRN IV 11/17/24 13:00 11/17/24 22:14 2 MG Furosemide 60 mg BIDD IV 11/17/24 18:00 11/24/24 06:04 60 MG Atorvastatin Calcium 10 mg HS PO 11/17/24 22:00 11/23/24 22:33 10 MG Hydralazine HCl 10 mg Q6HPRN PRN IV 11/17/24 20:30 11/24/24 05:44 10 MG Diagnostic Test (Pha) 1 strip ACHS 11/17/24 22:00 11/24/24 06:04 1 STRIP Insulin Human Regular ACHS SC 11/17/24 22:00 11/24/24 06:04 2 UNITS Dextrose 50 ml UD PRN IV 11/17/24 20:30 Pantoprazole Sodium 40 mg BID IV 11/19/24 22:00 11/24/24 09:34 40 MG Nifedipine 60 mg DAILY PO 11/20/24 10:00 11/24/24 09:34 60 MG Sucralfate 1 gm BID@0600,2200 PO 11/19/24 22:00 11/24/24 06:03 1 GM Docusate Sodium 100 mg BID PO 11/21/24 10:00 11/24/24 09:34 100 MG Laboratory Results Laboratory Tests 11/24/24 05:18 Chemistry Test 11/24/24 05:18 Calcium Level 9.7 mg/dL (8.7-10.4) Magnesium Level 2.1 mg/dL (1.6-2.6) Assessment/Plan Assessment/Plan GI bleed Chest pain Acute anemia , normocytic status post 3 units of blood transfusion End-stage renal disease on hemodialysis Hypertension Mixed hyperlipidemia Type 2 diabetes Plan Keep NPO Patient is scheduled for EGD today Recheck the CBC and transfuse as needed Chest pain: Check EKG and troponin Transfuse 1 more unit of packed RBCs since we see patient is having chest pain Cardiology consult Echocardiogram Nephrology is on board Hemodialysis today Monitor the patient closely Protonix 40 mg IV twice a day Full code Advance directives discussed for 18 minute 11/20/2024: Advance diet as tolerated Continue Protonix and Carafate Monitor hemoglobin closely and transfuse as needed if it drops below 7 IV Lasix Hemodialysis per nephrology 11/21/2024: Physical therapy today Hemodialysis per nephrology Advance diet as tolerated Hemoglobin 7.3 today Transfuse blood as needed if it drops below 7 Monitor closely Out of bed as tolerated 11/22/2024: Give lactulose for constipation Hemodialysis per nephrology Hemoglobin is stable at 7.5, no need for transfusion Monitor closely The rest of the management will depend on the hospital course 11/23/2024: Order x-rays of the bilateral ankles: Right fibular fracture and left medial malleolus fracture: Consult Orthopedic surgery Constipation: Abdominal pain:, order small bowel series to rule out bowel obstruction End-stage renal disease: Continue dialysis per Nephrology Chronic anemia of chronic kidney disease: Stable hemoglobin is 7.4 11/24/2024: Constipation: Resolved, no bowel obstruction Bilateral ankle fractures: Orthopedic consult End-stage renal disease: Dialysis per Nephrology Chronic anemia of chronic kidney disease: Stable Plan discussed with: Patient My Orders Orders - ALLIE CARTWRIGHT MD Procedure Category Date Status Time Small Bowel Series-W XY 11/23/24 Resulted Gastrogra 10:30 * Orthopedic Consult CONS 11/23/24 Transmitted 15:22 Date of Service: November 24, 2024 Billing Provider: ALLIE CARTWRIGHT MD Common Visit Codes: [id number] INP/OBS CARE(HIGH) ALLIE CARTWRIGHT MD November 24, 2024 10:18
[2024-11-24] MEDS: SENNA 8.6 MG TAB PO ONE (11:18)
--- NOTE | 2024-11-24 16:53 | DVHPN2 ---
Progress Note - Dictate Date Seen: November 24, 2024 Medical Necessity Reason Pt with a Central, PICC or Fol: No Subjective No new complaints;Feels better No further episodes of nausea vomiting or coffee-ground emesis;Hemoglobin stable 7.8 She had several bowel movements after she had a small bowel series yesterday which was normal and no obstruction EGD findings discussed with the patient showing moderate gastroduodenitis, biopsies are pending vital signs Vital Sign Date Time Temp Pulse Resp B/P (MAP) Pulse Ox O2 Delivery O2 Flow Rate FiO2 11/24/24 09:34 157/57 11/24/24 09:00 98.3 86 16 97 98.3 11/24/24 08:00 Nasal Cannula* 2 28 Total Intake and Output 11/23/24 11/23/24 11/24/24 15:00 23:00 07:00 Intake Total 50 ml 780 ml 425 ml Balance 50 ml 780 ml 425 ml medications Current Medications Medications Dose Ordered Sig/Alberto Route Start Time Stop Time Status Last Admin Dose Admin Acetaminophen 650 mg Q6HP PRN PO 11/17/24 13:00 11/22/24 22:02 650 MG Nitroglycerin 0.4 mg Q5MINP PRN SL 11/17/24 13:00 Morphine Sulfate 2 mg Q30M PRN IV 11/17/24 13:00 11/17/24 22:14 2 MG Furosemide 60 mg BIDD IV 11/17/24 18:00 11/24/24 06:04 60 MG Atorvastatin Calcium 10 mg HS PO 11/17/24 22:00 11/23/24 22:33 10 MG Hydralazine HCl 10 mg Q6HPRN PRN IV 11/17/24 20:30 11/24/24 05:44 10 MG Diagnostic Test (Pha) 1 strip ACHS 11/17/24 22:00 11/24/24 11:43 1 STRIP Insulin Human Regular ACHS SC 11/17/24 22:00 11/24/24 11:43 4 UNITS Dextrose 50 ml UD PRN IV 11/17/24 20:30 Pantoprazole Sodium 40 mg BID IV 11/19/24 22:00 11/24/24 09:34 40 MG Nifedipine 60 mg DAILY PO 11/20/24 10:00 11/24/24 09:34 60 MG Sucralfate 1 gm BID@0600,2200 PO 11/19/24 22:00 11/24/24 06:03 1 GM Docusate Sodium 100 mg BID PO 11/21/24 10:00 11/24/24 09:34 100 MG Sennosides 17.2 mg HS PO 11/24/24 22:00 Acetaminophen/ Hydrocodone Bitart 1 tab Q6HPRN PRN PO 11/24/24 10:30 objective General Appearance: Alert, Oriented X3 HEENT: Atraumatic Lungs: Clear to auscultation Cardiovascular: Regular rate, Normal S1, Normal S2 Abdomen soft obese with mild epigastric tenderness no rebound or guarding Extremities without clubbing cyanosis or edema laboratory and microbiology Laboratory Tests 11/24/24 05:18 Test 11/24/24 05:18 Range/Units Serum Glucose 131 H 74-106 mg/dL Problems(with codes): (1) Nondisplaced bimalleolar fracture of left ankle (2) Hiatal hernia with GERD and esophagitis (3) Chest pain (4) Gastroduodenitis (5) History of renal dialysis (6) Chronic renal failure (7) Fracture of distal end of fibula Prognosis PLAN Pt unable to walk during PT Ankle pain and inability to bear weight Xray shows b/l nondisplaced fractures of R fibula and L malleolar bobe Orthopedic consult pending Pt undergoing HD No active GI bleeding ; Hb stable at 7.8 Normocytic anemia of chronic disease Dietary Evaluation Review Comments: Encourage high quality protein meals. Monitor PO intake to meet 75% of her needs Expected Outcomes/Goals: gradual wt loss Plan discussed with: Patient CC Plasma Assessment Blood Product Administration S: [id number] KARUNA HUFFMAN MD November 24, 2024 16:53
[2024-11-24] MEDS ORDERED: CALCIUM CARB 500 MG CHEW TAB PO PRN (21:15)
[2024-11-24] MEDS: SENNA 8.6 MG TAB PO SCH (22:00)
[2024-11-25] VITALS (8 sets, daily range): BP systolic 106–166; BP diastolic 42–74; PULSE 61–86; RESP 17–19; TEMP 96.7–98.7; O2SAT 91–97
[2024-11-25] MEDS: HYDROcodone-ACET 5/325MG TAB PO PRN (06:56)
--- NOTE | 2024-11-25 09:18 | DVHPN2 ---
Progress Note Date Seen: November 25, 2024 Medical Necessity Reason Pt with a Central, PICC or Fol: No Subjective Patient reports: No new complaints Other Systems: Patient seen and examined by myself today in follow-up Objective vital signs Vital Sign Date Time Temp Pulse Resp B/P (MAP) Pulse Ox O2 Delivery O2 Flow Rate FiO2 11/25/24 08:52 115/42 11/25/24 05:00 96.7 77 17 92 96.7 11/24/24 20:00 Nasal Cannula* 2 28 Total Intake and Output 11/24/24 11/24/24 11/25/24 15:00 23:00 07:00 Intake Total 170 ml 739 ml 1400 ml Balance 170 ml 739 ml 1400 ml medications Current Medications Medications Dose Ordered Sig/Alberto Route Start Time Stop Time Status Last Admin Dose Admin Acetaminophen 650 mg Q6HP PRN PO 11/17/24 13:00 11/22/24 22:02 650 MG Nitroglycerin 0.4 mg Q5MINP PRN SL 11/17/24 13:00 Morphine Sulfate 2 mg Q30M PRN IV 11/17/24 13:00 11/17/24 22:14 2 MG Furosemide 60 mg BIDD IV 11/17/24 18:00 11/25/24 06:57 60 MG Atorvastatin Calcium 10 mg HS PO 11/17/24 22:00 11/24/24 22:15 10 MG Hydralazine HCl 10 mg Q6HPRN PRN IV 11/17/24 20:30 11/24/24 05:44 10 MG Diagnostic Test (Pha) 1 strip ACHS 11/17/24 22:00 11/25/24 07:02 1 STRIP Insulin Human Regular ACHS SC 11/17/24 22:00 11/25/24 07:02 2 UNITS Dextrose 50 ml UD PRN IV 11/17/24 20:30 Pantoprazole Sodium 40 mg BID IV 11/19/24 22:00 11/25/24 08:51 40 MG Nifedipine 60 mg DAILY PO 11/20/24 10:00 11/25/24 08:52 60 MG Sucralfate 1 gm BID@0600,2200 PO 11/19/24 22:00 11/25/24 06:56 1 GM Docusate Sodium 100 mg BID PO 11/21/24 10:00 11/25/24 08:52 100 MG Sennosides 17.2 mg HS PO 11/24/24 22:00 Acetaminophen/ Hydrocodone Bitart 1 tab Q6HPRN PRN PO 11/24/24 10:30 11/25/24 06:56 1 TAB Calcium Carbonate 500 mg QIDPRN PRN PO 11/24/24 21:15 Examination: LUNGS:Normal, CVS:Normal, MSK:Normal laboratory and microbiology Laboratory Tests 11/24/24 05:18 Test 11/24/24 05:18 Range/Units Serum Glucose 131 H 74-106 mg/dL Problem List/Assessment/Plan Problem List/Assessment/Plan ESRD on hemodialysis Acute blood loss anemia GI bleeding Morbid obesity Hyperkalemia Recommendations Hemodialysis tomorrow, use no heparin Epogen 09900 subQ 3 times weekly Renal diet Resume home medications Packed red blood cell transfusion p.r.n. GI consult We will continue to follow up Plan discussed with: Patient Dietary Evaluation Review Comments: Encourage high quality protein meals. Monitor PO intake to meet 75% of her needs Expected Outcomes/Goals: gradual wt loss CC Plasma Assessment Blood Product Administration S: [id number] FLORENCE AGEE MD November 25, 2024 09:18
--- NOTE | 2024-11-25 11:29 | DVHPN2 ---
Subjective No new complaints Changes from previous H/P or p: Changes Gastrointestinal: Nausea, Vomiting, Diarrhea, Melena Objective Vitals Vital Signs Date Time Temp Pulse Resp B/P (MAP) Pulse Ox O2 Delivery O2 Flow Rate FiO2 11/25/24 08:52 115/42 11/25/24 08:00 86 11/25/24 05:00 96.7 17 92 96.7 11/24/24 20:00 Nasal Cannula* 2 28 Intake/Output Intake and Output 11/25/24 07:00 Intake Total 2309 ml Balance 2309 ml Intake Oral 2309 ml # Bowel Movements 6 General Appearance: Alert, Oriented X3 HEENT: Atraumatic Lungs: Clear to auscultation Cardiovascular: Regular rate, Normal S1, Normal S2 Medications Current Medications Medications Dose Ordered Sig/Alberto Route Start Time Stop Time Status Last Admin Dose Admin Acetaminophen 650 mg Q6HP PRN PO 11/17/24 13:00 11/22/24 22:02 650 MG Nitroglycerin 0.4 mg Q5MINP PRN SL 11/17/24 13:00 Morphine Sulfate 2 mg Q30M PRN IV 11/17/24 13:00 11/17/24 22:14 2 MG Furosemide 60 mg BIDD IV 11/17/24 18:00 11/25/24 06:57 60 MG Atorvastatin Calcium 10 mg HS PO 11/17/24 22:00 11/24/24 22:15 10 MG Hydralazine HCl 10 mg Q6HPRN PRN IV 11/17/24 20:30 11/24/24 05:44 10 MG Diagnostic Test (Pha) 1 strip ACHS 11/17/24 22:00 11/25/24 07:02 1 STRIP Insulin Human Regular ACHS SC 11/17/24 22:00 11/25/24 07:02 2 UNITS Dextrose 50 ml UD PRN IV 11/17/24 20:30 Pantoprazole Sodium 40 mg BID IV 11/19/24 22:00 11/25/24 08:51 40 MG Nifedipine 60 mg DAILY PO 11/20/24 10:00 11/25/24 08:52 60 MG Sucralfate 1 gm BID@0600,2200 PO 11/19/24 22:00 11/25/24 06:56 1 GM Docusate Sodium 100 mg BID PO 11/21/24 10:00 11/25/24 08:52 100 MG Sennosides 17.2 mg HS PO 11/24/24 22:00 Acetaminophen/ Hydrocodone Bitart 1 tab Q6HPRN PRN PO 11/24/24 10:30 11/25/24 06:56 1 TAB Calcium Carbonate 500 mg QIDPRN PRN PO 11/24/24 21:15 Laboratory Results Laboratory Tests 11/24/24 05:18 Assessment/Plan Assessment/Plan GI bleed Chest pain Acute anemia , normocytic status post 3 units of blood transfusion End-stage renal disease on hemodialysis Hypertension Mixed hyperlipidemia Type 2 diabetes Plan Keep NPO Patient is scheduled for EGD today Recheck the CBC and transfuse as needed Chest pain: Check EKG and troponin Transfuse 1 more unit of packed RBCs since we see patient is having chest pain Cardiology consult Echocardiogram Nephrology is on board Hemodialysis today Monitor the patient closely Protonix 40 mg IV twice a day Full code Advance directives discussed for 18 minute 11/20/2024: Advance diet as tolerated Continue Protonix and Carafate Monitor hemoglobin closely and transfuse as needed if it drops below 7 IV Lasix Hemodialysis per nephrology 11/21/2024: Physical therapy today Hemodialysis per nephrology Advance diet as tolerated Hemoglobin 7.3 today Transfuse blood as needed if it drops below 7 Monitor closely Out of bed as tolerated 11/22/2024: Give lactulose for constipation Hemodialysis per nephrology Hemoglobin is stable at 7.5, no need for transfusion Monitor closely The rest of the management will depend on the hospital course 11/23/2024: Order x-rays of the bilateral ankles: Right fibular fracture and left medial malleolus fracture: Consult Orthopedic surgery Constipation: Abdominal pain:, order small bowel series to rule out bowel obstruction End-stage renal disease: Continue dialysis per Nephrology Chronic anemia of chronic kidney disease: Stable hemoglobin is 7.4 11/24/2024: Constipation: Resolved, no bowel obstruction Bilateral ankle fractures: Orthopedic consult End-stage renal disease: Dialysis per Nephrology Chronic anemia of chronic kidney disease: Stable 11/25/2024: Continue the current management Awaiting orthopedic surgery consultation Continue bowel regimen to prevent constipation Monitor closely Plan discussed with: Patient My Orders Orders - ALLIE CARTWRIGHT MD Procedure Category Date Status Time Mrsa Screen BERTHA 11/25/24 Uncollected 00:21 Mrsa Screen BERTHA 11/25/24 In Process 00:40 Date of Service: November 25, 2024 Billing Provider: ALLIE CARTWRIGHT MD Common Visit Codes: [id number] INP/OBS CARE(MOD) ALLIE CARTWRIGHT MD November 25, 2024 11:29
--- NOTE | 2024-11-25 15:38 | DVHINCON2 ---
Date of service: November 24, 2024 Reason for Consultation Bilateral ankle fracture History of Present Illness 59-year-old female admitted for generalized weakness. Patient states she has been having multiple falls and twisted her bilateral ankles approximately one week ago. Since that time patient has been weight-bearing however has been having pain. Patient currently denies any chest pain shortness of breath abdominal pain nausea vomiting diarrhea. Patient has tarry stools and is currently getting GI workup. Past Medical History hypertension, hyperlipidemia, DM, neuropathy and ESRD Family History: Diabetes mellitus G8 MOTHER FH: kidney failure G8 FATHER Hypertension G8 MOTHER Allergies: Coded Allergies: NO KNOWN ALLERGIES (Unverified , 11/24/22) Home Meds Active Scripts Amlodipine Besylate (NORVASC TABLET) 5 Mg Tb, 10 MG PO QPM for 30 Days, #60 TAB 1 Refill Prov:ROMY GOODWIN DO 11/27/22 Atorvastatin Calcium (ATORVASTATIN CALCIUM) 20 Mg Tab, 10 MG PO HS for 30 Days, #15 TAB 1 Refill Prov:ROMY GOODWIN DO 11/27/22 Reported Medications Patiromer Sorbitex Calcium (Veltassa) 8.4 Gm Pow, 8.4 GM PO DAILYP, POW 11/17/24 Clonidine Hydrochloride (Clonidine Hcl) 0.1 Mg Tab, 0.1 MG PO BID PRN for SBP>180 for 30 Days, MG 11/17/24 Insulin Lispro (Humalog Kwikpen) 100 Unit/Ml Inj, 6 UNIT SC TID, INJ 11/17/24 Insulin Glargine (Insulin Glargine) 100 Unit/Ml Louann, 32 UNIT SC HS, ML 11/17/24 Sevelamer Carbonate (Renvela) 800 Mg Tab, 2 TAB PO TID, #540 TAB 3 Refills 11/17/24 Mometasone Furoate-Formoterol (Dulera) 1 Aer Aer, 1 PUFF INH DAILY, #13 GRAMS 5 Refills 11/17/24 Nifedipine (Nifedipine Er) 90 Mg Tab, 1 TAB PO BID, #30 TAB 5 Refills 25 Losartan Potassium (Losartan Potassium) 50 Mg Tab, 50 MG PO DAILY for 30 Days, MG 25 Cromolyn Sodium (Cromolyn Sodium) 4 % Louann, 1 DROP EACHEYE DAILY, #30 ML 3 Refills 11/17/24 Loratadine (Claritin) 10 Mg Tab, 1 TAB PO DAILY, #30 TAB 5 Refills 11/17/24 B-Complex W/ C & Folic Acid (Faviola-Jagjit Rx) Tab, 1 TAB PO DAILY, TAB 11/17/24 Metoprolol Tartrate (Metoprolol Tartrate) 25 Mg Tab, 25 MG PO BID for 30 Days, MG 11/17/24 Aspirin (Aspir-Low) 81 Mg Tab, 81 MG PO DAILY for 30 Days, MG 11/17/24 Folic Acid (Folic Acid) 1 Mg Tab, 1 MG PO DAILY for 30 Days, MG 11/17/24 Hydralazine Hcl (Hydralazine Hcl) 10 Mg Tab, 10 MG PO TID for 30 Days, MG 11/17/24 Current Medications Current Medications Medications (Trade) Dose Ordered Sig/Alberto Route PRN Reason Start Time Stop Time Status Last Admin Sennosides (Senokot Tablet) 17.2 mg HS PO 11/24/24 22:00 Calcium Carbonate (Tums) 500 mg QIDPRN PRN PO FOR STOMACH DISTRESS 11/24/24 21:15 Review of Systems Ten point review of systems is negative except per HPI Vital Signs Vital Signs Date Time Temp Pulse Resp B/P (MAP) Pulse Ox O2 Delivery O2 Flow Rate FiO2 11/25/24 08:52 115/42 11/25/24 08:00 77 17 92 Nasal Cannula* 2 28 11/25/24 05:00 96.7 96.7 Physical Exam No apparent distress Alert oriented x3 Family bedside Obese Bilateral lower extremity: Positive tenderness to palpation at the ankle joint line Positive TA/GS/EHL/FHL Foot warm well perfused Labs/Diagnostic Data Labs Test 11/25/24 11:54 11/24/24 05:18 11/23/24 04:49 11/23/24 00:00 Range/Units POC Glucose 151 H 70-106 mg/dl White Blood Count 9.0 4.4-10.8 10^3/uL Red Blood Count 2.53 L 4.0-5.20 10^6/uL Hemoglobin 7.8 L 12.2-16.2 g/dL Hematocrit 23.5 L 36.0-46.0 % Mean Corpuscular Volume 92.8 80.0-100.0 fL Mean Corpuscular Hemoglobin 30.8 28.0-32.0 pg Mean Corpuscular Hemoglobin Concent 33.1 32.0-36.0 g/dL Red Cell Distribution Width 16.7 H 11.8-14.3 % Platelet Count 276 140-450 10^3/uL Mean Platelet Volume 8.8 6.9-10.8 fL Neutrophils (%) (Auto) 77.9 37.0-80.0 % Lymphocytes (%) (Auto) 10.2 10.0-50.0 % Monocytes (%) (Auto) 6.8 0.0-12.0 % Eosinophils (%) (Auto) 4.6 0.0-7.0 % Basophils (%) (Auto) 0.5 0.0-2.0 % Neutrophils # (Auto) 7.0 1.6-8.6 10 ^3/uL Lymphocytes # (Auto) 0.9 0.4-5.4 10 ^3/uL Monocytes # (Auto) 0.6 0-1.3 10 ^3/uL Eosinophils # (Auto) 0.4 0-0.8 10 ^3/uL Basophils # (Auto) 0 0-0.2 10 ^3/uL Nucleated Red Blood Cells 0.0 % Sodium Level 141 136-145 mmol/L Potassium Level 4.1 3.5-5.1 mmol/L Chloride Level 100 98-107 mmol/L Carbon Dioxide Level 31 20-31 mmol/L Anion Gap 10 5-15 Blood Urea Nitrogen 33 #H 9-23 mg/dL Creatinine 5.07 H 0.550-1.02 mg/dL Glomerular Filtration Rate Calc 9 >90 mL/min BUN/Creatinine Ratio 6.5 L 10.0-20.0 Serum Glucose 131 H 74-106 mg/dL Calcium Level 9.7 8.7-10.4 mg/dL Magnesium Level 2.1 1.6-2.6 mg/dL Total Bilirubin 0.3 0.2-1.0 mg/dL Aspartate Amino Transferase (AST) 10 L 13-40 U/L Alanine Aminotransferase (ALT) 21 7-40 U/L Alkaline Phosphatase 78 46-116 U/L Total Protein 6.4 5.7-8.2 g/dL Albumin 3.8 3.2-4.8 g/dL Stool Occult Blood Positive Negative Stool Occult Blood Sample #3 Negative Test 11/19/24 07:28 11/18/24 05:11 11/17/24 14:37 11/17/24 07:14 Range/Units Prothrombin Time 10.4 9.3-11.8 sec Prothrombin Time INR 0.98 0.9-1.15 Activated Partial Thromboplast Time 22.8 L 24.5-34.5 SEC Troponin I High Sensitivity 66 *H </=34 ng/L Hepatitis B Surface Antigen Negative Negative Platelet Estimate Adequate Anisocytosis (manual) Slight Iron Level 169 50-170 ug/dL Total Iron Binding Capacity 198 L 250-425 ug/dL Percent Iron Saturation 85.4 H 15-50 % B-Type Natriuretic Peptide 76.43 0-100 pg/mL Microbiology Date/Time Source Procedure Growth Status 11/25/24 00:40 Nose MRSA Screen - Final Complete Plan/Recommendation 59-year-old female with bilateral ankle fracture-left medial malleolus fracture, right lateral malleolus fracture 1. I had a long and thorough discussion with the patient and her family regarding condition. At this point we can continue with nonoperative treatment of closed treatment with weight-bearing precautions as well as protective splinting 2. Plan for bilateral ankle cam boots 3. Weightbearing as tolerated on right lower extremity, 50% weight-bearing on left lower extremity-weightbearing only while wearing Cam boot 4. Pain control 5. Follow up in the [facility] in two weeks with bilateral ankle x-ray Plan discussed with: Patient, Other RC HOWELL . November 25, 2024 15:37
[2024-11-26] VITALS (8 sets, daily range): BP systolic 152–201; BP diastolic 64–86; PULSE 77–86; RESP 16–20; TEMP 97.8–98.7; O2SAT 91–98
[2024-11-26] MEDS ORDERED: SODIUM CHL 0.9% 1000 ML BAG XX ONE (07:00)
--- NOTE | 2024-11-26 10:34 | DVHPN2 ---
Subjective No new complaints Changes from previous H/P or p: Changes Gastrointestinal: Nausea, Vomiting, Diarrhea, Melena Objective Vitals Vital Signs Date Time Temp Pulse Resp B/P (MAP) Pulse Ox O2 Delivery O2 Flow Rate FiO2 11/26/24 09:44 156/88 11/26/24 08:30 97.8 86 20 97 97.8 11/25/24 20:00 Nasal Cannula* 2 28 Intake/Output Intake and Output 11/26/24 07:00 Intake Total 1140 ml Balance 1140 ml Intake Oral 1140 ml # Voids 3 # Bowel Movements 1 General Appearance: Alert, Oriented X3 HEENT: Atraumatic Lungs: Clear to auscultation Cardiovascular: Regular rate, Normal S1, Normal S2 Medications Current Medications Medications Dose Ordered Sig/Alberto Route Start Time Stop Time Status Last Admin Dose Admin Acetaminophen 650 mg Q6HP PRN PO 11/17/24 13:00 11/22/24 22:02 650 MG Nitroglycerin 0.4 mg Q5MINP PRN SL 11/17/24 13:00 Morphine Sulfate 2 mg Q30M PRN IV 11/17/24 13:00 11/17/24 22:14 2 MG Furosemide 60 mg BIDD IV 11/17/24 18:00 11/26/24 06:11 60 MG Atorvastatin Calcium 10 mg HS PO 11/17/24 22:00 11/25/24 20:53 10 MG Hydralazine HCl 10 mg Q6HPRN PRN IV 11/17/24 20:30 11/25/24 21:35 10 MG Diagnostic Test (Pha) 1 strip ACHS 11/17/24 22:00 11/26/24 06:35 1 STRIP Insulin Human Regular ACHS SC 11/17/24 22:00 11/26/24 06:40 2 UNITS Dextrose 50 ml UD PRN IV 11/17/24 20:30 Pantoprazole Sodium 40 mg BID IV 11/19/24 22:00 11/26/24 09:43 40 MG Nifedipine 60 mg DAILY PO 11/20/24 10:00 11/26/24 09:44 60 MG Sucralfate 1 gm BID@0600,2200 PO 11/19/24 22:00 11/26/24 06:11 1 GM Docusate Sodium 100 mg BID PO 11/21/24 10:00 11/26/24 09:43 100 MG Sennosides 17.2 mg HS PO 11/24/24 22:00 11/25/24 20:54 17.2 MG Acetaminophen/ Hydrocodone Bitart 1 tab Q6HPRN PRN PO 11/24/24 10:30 11/25/24 06:56 1 TAB Calcium Carbonate 500 mg QIDPRN PRN PO 11/24/24 21:15 Laboratory Results Laboratory Tests 11/24/24 05:18 Microbiology Microbiology Date/Time Source Procedure Growth Status 11/25/24 00:40 Nose MRSA Screen - Final Complete Assessment/Plan Assessment/Plan GI bleed Chest pain Acute anemia , normocytic status post 3 units of blood transfusion End-stage renal disease on hemodialysis Hypertension Mixed hyperlipidemia Type 2 diabetes Plan Keep NPO Patient is scheduled for EGD today Recheck the CBC and transfuse as needed Chest pain: Check EKG and troponin Transfuse 1 more unit of packed RBCs since we see patient is having chest pain Cardiology consult Echocardiogram Nephrology is on board Hemodialysis today Monitor the patient closely Protonix 40 mg IV twice a day Full code Advance directives discussed for 18 minute 11/20/2024: Advance diet as tolerated Continue Protonix and Carafate Monitor hemoglobin closely and transfuse as needed if it drops below 7 IV Lasix Hemodialysis per nephrology 11/21/2024: Physical therapy today Hemodialysis per nephrology Advance diet as tolerated Hemoglobin 7.3 today Transfuse blood as needed if it drops below 7 Monitor closely Out of bed as tolerated 11/22/2024: Give lactulose for constipation Hemodialysis per nephrology Hemoglobin is stable at 7.5, no need for transfusion Monitor closely The rest of the management will depend on the hospital course 11/23/2024: Order x-rays of the bilateral ankles: Right fibular fracture and left medial malleolus fracture: Consult Orthopedic surgery Constipation: Abdominal pain:, order small bowel series to rule out bowel obstruction End-stage renal disease: Continue dialysis per Nephrology Chronic anemia of chronic kidney disease: Stable hemoglobin is 7.4 11/24/2024: Constipation: Resolved, no bowel obstruction Bilateral ankle fractures: Orthopedic consult End-stage renal disease: Dialysis per Nephrology Chronic anemia of chronic kidney disease: Stable 11/25/2024: Continue the current management Awaiting orthopedic surgery consultation Continue bowel regimen to prevent constipation Monitor closely 11/26/2024: The patient was seen by Orthopedic surgery, recommendation is for bilateral ankle cam boots and weight-bearing as tolerated Order the cam boots through social services director Discharge planning once the above is done Plan discussed with: Patient My Orders Orders - ALLIE CARTWRIGHT MD Procedure Category Date Status Time * Care Trainer CONS 11/26/24 Verified Consult Date of Service: November 26, 2024 Billing Provider: ALLIE CARTWRIGHT MD Common Visit Codes: [id number] INP/OBS CARE(MOD) ALLIE CARTWRIGHT MD November 26, 2024 10:34
--- NOTE | 2024-11-26 15:39 | DVHPN2 ---
Progress Note Date Seen: November 26, 2024 Medical Necessity Reason Pt with a Central, PICC or Fol: No Subjective Patient reports: No new complaints Review of Systems: Deferred Objective vital signs Vital Sign Date Time Temp Pulse Resp B/P (MAP) Pulse Ox O2 Delivery O2 Flow Rate FiO2 11/26/24 12:30 98.1 82 18 186/71 (109) 98 98.1 11/26/24 08:00 Nasal Cannula* 2 28 Total Intake and Output 11/25/24 11/25/24 11/26/24 15:00 23:00 07:00 Intake Total 240 ml 500 ml 400 ml Balance 240 ml 500 ml 400 ml medications Current Medications Medications Dose Ordered Sig/Alberto Route Start Time Stop Time Status Last Admin Dose Admin Acetaminophen 650 mg Q6HP PRN PO 11/17/24 13:00 11/22/24 22:02 650 MG Nitroglycerin 0.4 mg Q5MINP PRN SL 11/17/24 13:00 Morphine Sulfate 2 mg Q30M PRN IV 11/17/24 13:00 11/17/24 22:14 2 MG Furosemide 60 mg BIDD IV 11/17/24 18:00 11/26/24 06:11 60 MG Atorvastatin Calcium 10 mg HS PO 11/17/24 22:00 11/25/24 20:53 10 MG Hydralazine HCl 10 mg Q6HPRN PRN IV 11/17/24 20:30 11/25/24 21:35 10 MG Diagnostic Test (Pha) 1 strip ACHS 11/17/24 22:00 11/26/24 11:30 1 STRIP Insulin Human Regular ACHS SC 11/17/24 22:00 11/26/24 11:30 4 UNITS Dextrose 50 ml UD PRN IV 11/17/24 20:30 Pantoprazole Sodium 40 mg BID IV 11/19/24 22:00 11/26/24 09:43 40 MG Nifedipine 60 mg DAILY PO 11/20/24 10:00 11/26/24 09:44 60 MG Sucralfate 1 gm BID@0600,2200 PO 11/19/24 22:00 11/26/24 06:11 1 GM Docusate Sodium 100 mg BID PO 11/21/24 10:00 11/26/24 09:43 100 MG Sennosides 17.2 mg HS PO 11/24/24 22:00 11/25/24 20:54 17.2 MG Acetaminophen/ Hydrocodone Bitart 1 tab Q6HPRN PRN PO 11/24/24 10:30 11/25/24 06:56 1 TAB Calcium Carbonate 500 mg QIDPRN PRN PO 11/24/24 21:15 Examination: GENERAL:Normal, MSK:Abnormal, NEURO:Normal laboratory and microbiology Laboratory Tests 11/24/24 05:18 Test 11/24/24 05:18 Range/Units Serum Glucose 131 H 74-106 mg/dL Microbiology Date/Time Source Procedure Growth Status 11/25/24 00:40 Nose MRSA Screen - Final Complete Problem List/Assessment/Plan Problem List/Assessment/Plan ESRD on hemodialysis Acute blood loss anemia GI bleeding Morbid obesity Hyperkalemia Bilateral ankle fracture Recommendations HD today Status post multiple PRBC transfusion/egd Epogen Plan discussed with: Other Dietary Evaluation Review Comments: Encourage high quality protein meals. Monitor PO intake to meet 75% of her needs Expected Outcomes/Goals: gradual wt loss CC Plasma Assessment Blood Product Administration S: [id number] ROBERTA MURCIA MD November 26, 2024 15:39
[2024-11-26] MEDS ORDERED: EPOETIN ALFA-EPBX 10,000 UNIT/1ML VIAL SC ONE (21:00)
[2024-11-27 01:00] VITALS: BP 153/62; PULSE 72; RESP 18; TEMP 98.3; O2SAT 96
[2024-11-27 05:00] VITALS: BP 172/76; PULSE 79; RESP 19; TEMP 98.5; O2SAT 97
[2024-11-27 07:17] LABS: Anion Gap 10 (5-15); Carbon Dioxide 30 mmol/L (20-31); Potassium 4.8 mmol/L (3.5-5.1); Sodium 138 mmol/L (136-145)
[2024-11-27 07:18] LABS: Calcium 9.7 mg/dL (8.7-10.4)
[2024-11-27 07:24] LABS: BUN/Creatinine Ratio 5.7 (10.0-20.0); Blood Urea Nitrogen 51 mg/dL (9-23); Chloride 98 mmol/L (98-107); Glucose 154 mg/dL (74-106)
[2024-11-27 07:25] LABS: Basophils # (auto) 0 10 ^3/uL (0-0.2); Basophils % (auto) 0.5 % (0.0-2.0); Hemoglobin 7.9 g/dL (12.2-16.2); White Blood Cell 10.1 10^3/uL (4.4-10.8)
[2024-11-27 07:29] LABS: Eosinophils # (auto) 0.5 10 ^3/uL (0-0.8); Eosinophils % (auto) 4.7 % (0.0-7.0); Hematocrit 23.4 % (36.0-46.0); Lymphocytes % (auto) 10.2 % (10.0-50.0); Mean Corpuscular Hemoglobin 30.6 pg (28.0-32.0); Mean Corpuscular Hgb Conc. 33.6 g/dL (32.0-36.0); Mean Corpuscular Volume 91.1 fL (80.0-100.0); Monocytes # (auto) 0.6 10 ^3/uL (0-1.3); Monocytes % (auto) 5.8 % (0.0-12.0); Neutrophils % (auto) 78.8 % (37.0-80.0); Platelet Count (auto) 343 10^3/uL (140-450); Red Blood Cells 2.57 10^6/uL (4.0-5.20); Red Cell Distribution Width 16.7 % (11.8-14.3)
[2024-11-27 08:00] VITALS: PULSE 77; RESP 16
[2024-11-27 08:30] VITALS: BP 154/59; PULSE 78; RESP 18; TEMP 98; O2SAT 94
[2024-11-27] MEDS ORDERED: PANT40TA2 PO (10:41)
[2024-11-27] MEDS ORDERED: SUCR1TAB31 OR (10:41)
--- NOTE | 2024-11-27 10:49 | DVHDS2 ---
Discharge Summary Date of Admission November 17, 2024 at 12:53 Date of Discharge: November 27, 2024 Labs/Diagnostic Data: Laboratory Results Test 11/27/24 06:11 11/27/24 05:54 11/24/24 05:18 11/23/24 04:49 POC Glucose 158 mg/dl (70-106) White Blood Count 10.1 10^3/uL (4.4-10.8) Red Blood Count 2.57 10^6/uL (4.0-5.20) Hemoglobin 7.9 g/dL (12.2-16.2) Hematocrit 23.4 % (36.0-46.0) Mean Corpuscular Volume 91.1 fL (80.0-100.0) Mean Corpuscular Hemoglobin 30.6 pg (28.0-32.0) Mean Corpuscular Hemoglobin Concent 33.6 g/dL (32.0-36.0) Red Cell Distribution Width 16.7 % (11.8-14.3) Platelet Count 343 10^3/uL (140-450) Mean Platelet Volume 8.3 fL (6.9-10.8) Neutrophils (%) (Auto) 78.8 % (37.0-80.0) Lymphocytes (%) (Auto) 10.2 % (10.0-50.0) Monocytes (%) (Auto) 5.8 % (0.0-12.0) Eosinophils (%) (Auto) 4.7 % (0.0-7.0) Basophils (%) (Auto) 0.5 % (0.0-2.0) Neutrophils # (Auto) 8.0 10 ^3/uL (1.6-8.6) Lymphocytes # (Auto) 1.0 10 ^3/uL (0.4-5.4) Monocytes # (Auto) 0.6 10 ^3/uL (0-1.3) Eosinophils # (Auto) 0.5 10 ^3/uL (0-0.8) Basophils # (Auto) 0 10 ^3/uL (0-0.2) Nucleated Red Blood Cells 0.0 % Sodium Level 138 mmol/L (136-145) Potassium Level 4.8 mmol/L (3.5-5.1) Chloride Level 98 mmol/L (98-107) Carbon Dioxide Level 30 mmol/L (20-31) Anion Gap 10 (5-15) Blood Urea Nitrogen 51 mg/dL (9-23) Creatinine 8.95 mg/dL (0.550-1.02) Glomerular Filtration Rate Calc 5 mL/min (>90) BUN/Creatinine Ratio 5.7 (10.0-20.0) Serum Glucose 154 mg/dL (74-106) Calcium Level 9.7 mg/dL (8.7-10.4) Magnesium Level 2.1 mg/dL (1.6-2.6) Total Bilirubin 0.3 mg/dL (0.2-1.0) Aspartate Amino Transferase (AST) 10 U/L (13-40) Alanine Aminotransferase (ALT) 21 U/L (7-40) Alkaline Phosphatase 78 U/L (46-116) Total Protein 6.4 g/dL (5.7-8.2) Albumin 3.8 g/dL (3.2-4.8) Test 11/23/24 00:00 11/19/24 07:28 11/18/24 05:11 11/17/24 14:37 Stool Occult Blood Positive (Negative) Stool Occult Blood Sample #3 (Negative) Prothrombin Time 10.4 sec (9.3-11.8) Prothrombin Time INR 0.98 (0.9-1.15) Activated Partial Thromboplast Time 22.8 SEC (24.5-34.5) Troponin I High Sensitivity 66 ng/L (</=34) Hepatitis B Surface Antigen Negative (Negative) Platelet Estimate Adequate Anisocytosis (manual) Slight Test 11/17/24 07:14 Iron Level 169 ug/dL (50-170) Total Iron Binding Capacity 198 ug/dL (250-425) Percent Iron Saturation 85.4 % (15-50) B-Type Natriuretic Peptide 76.43 pg/mL (0-100) Other Laboratory Tests 11/27/24 05:54 Brief Hx & Hospital Course: Final diagnoses: GI bleed due to gastritis and duodenitis Moderate duodenitis and mild gastritis Hiatal hernia Acute anemia due to blood loss Chronic anemia due to chronic kidney disease End-stage renal disease on hemodialysis Hypertension Mixed hyperlipidemia Type 2 diabetes Bilateral ankle fracture: Right fibular fracture and left medial malleolus fracture 59-year-old female with a history of end-stage renal disease who came with GI bleed and acute anemia due to the bleeding She needed blood transfusions to stabilize her hemoglobin GI consult recommended endoscopy in his with an EGD which showed gastritis and duodenitis After that she was constipated she was given laxatives but she continues to have abdominal pain and constipation and therefore we recommended a small bowel series x-ray which showed no bowel obstruction and then her constipation resolved Following that she started complaining of pain in her ankles, apparently she said before she came here she fell at home and twisted both of her ankles, on examination her ankles were bruised and swollen and therefore we did x-rays which showed right fibular fracture and left medial malleolus fracture, Orthopedic surgery was consulted, the recommendation was for medical treatment with bilateral cam boots and partial weight-bearing and no surgical intervention Overall the patient remained stable afterwards We ordered the cam boots which she has a the bedside now Her hemoglobin has been stable Last hemoglobin today 7.9 No evidence of bleeding Kidney function is stable with a normal potassium of 4.8 and creatinine of 8.9 The patient is stable for discharge Discharged home on Protonix and Carafate and resume the home medications Follow up with the primary care physician as soon as possible Follow up with dialysis as scheduled Condition at Discharge: Stable Final Diagnosis/Problems List GI bleed due to gastritis and duodenitis Moderate duodenitis and mild gastritis Hiatal hernia Acute anemia due to blood loss Chronic anemia due to chronic kidney disease End-stage renal disease on hemodialysis Hypertension Mixed hyperlipidemia Type 2 diabetes Bilateral ankle fracture: Right fibular fracture and left medial malleolus fracture Discharge Disposition: Home SNF Discharge Will this Physician continue t: No Discharge Statement: "Patient was advised to return to the ER or call 911 if any headaches, dizziness, shortness of breath, chest pain, abdominal pain, bleeding, fevers, or worsening of medical condition. Patient was counseled about treatment plan, medications, possible side effects, patient�verbalized understanding. All questions were answered to the best of my ability. This discharge took greater then 30 minutes in planning, reviewing documentation, counseling the patient, and discussing with other team members." ASSESSMENT ASSESSMENT Assessment Date of Service: November 27, 2024 Billing Provider: ALLIE CARTWRIGHT MD Common Visit Codes: [id number]/OBS DISCH DAY >30min ALLIE CARTWRIGHT MD November 27, 2024 10:48
[2024-11-27 12:15] VITALS: BP 156/62; TEMP 36.7
--- NOTE | 2024-11-27 12:54 | DVHPN2 ---
Progress Note Date Seen: November 27, 2024 Medical Necessity Reason Pt with a Central, PICC or Fol: No Subjective Patient reports: No new complaints Review of Systems: Deferred Objective vital signs Vital Sign Date Time Temp Pulse Resp B/P (MAP) Pulse Ox O2 Delivery O2 Flow Rate FiO2 11/27/24 12:15 36.7 11/27/24 08:30 78 18 154/59 (90) 94 11/27/24 08:00 Room Air* 0 21 Total Intake and Output 11/26/24 11/26/24 11/27/24 15:00 23:00 07:00 Intake Total 120 ml 600 ml Output Total 0 ml Balance 120 ml 0 ml 600 ml medications Current Medications Medications Dose Ordered Sig/Alberto Route Start Time Stop Time Status Last Admin Dose Admin Acetaminophen 650 mg Q6HP PRN PO 11/17/24 13:00 11/22/24 22:02 650 MG Nitroglycerin 0.4 mg Q5MINP PRN SL 11/17/24 13:00 Furosemide 60 mg BIDD IV 11/17/24 18:00 11/27/24 06:29 60 MG Atorvastatin Calcium 10 mg HS PO 11/17/24 22:00 11/26/24 23:31 10 MG Hydralazine HCl 10 mg Q6HPRN PRN IV 11/17/24 20:30 11/27/24 06:30 10 MG Diagnostic Test (Pha) 1 strip ACHS 11/17/24 22:00 11/27/24 06:30 1 STRIP Insulin Human Regular ACHS SC 11/17/24 22:00 11/27/24 11:39 4 UNITS Dextrose 50 ml UD PRN IV 11/17/24 20:30 Pantoprazole Sodium 40 mg BID IV 11/19/24 22:00 11/27/24 08:26 40 MG Nifedipine 60 mg DAILY PO 11/20/24 10:00 11/27/24 08:26 60 MG Sucralfate 1 gm BID@0600,2200 PO 11/19/24 22:00 11/27/24 06:29 1 GM Docusate Sodium 100 mg BID PO 11/21/24 10:00 11/27/24 08:26 100 MG Sennosides 17.2 mg HS PO 11/24/24 22:00 11/25/24 20:54 17.2 MG Acetaminophen/ Hydrocodone Bitart 1 tab Q6HPRN PRN PO 11/24/24 10:30 11/25/24 06:56 1 TAB Calcium Carbonate 500 mg QIDPRN PRN PO 11/24/24 21:15 Examination: GENERAL:Normal, LUNGS:Normal, MSK:Abnormal, NEURO:Normal laboratory and microbiology Laboratory Tests 11/27/24 05:54 Test 11/27/24 05:54 Range/Units Serum Glucose 154 H 74-106 mg/dL Microbiology Date/Time Source Procedure Growth Status 11/25/24 00:40 Nose MRSA Screen - Final Complete Problem List/Assessment/Plan Problem List/Assessment/Plan ESRD on hemodialysis Acute blood loss anemia GI bleeding Morbid obesity Hyperkalemia Bilateral ankle fracture Recommendations HD tomorrow if still here Status post multiple PRBC transfusion/egd Epogen Plan discussed with: Other Dietary Evaluation Review Comments: Encourage high quality protein meals. Monitor PO intake to meet 75% of her needs Expected Outcomes/Goals: gradual wt loss CC Plasma Assessment Blood Product Administration S: [id number] ROBERTA MURCIA MD November 27, 2024 12:54
== END 2024-11-27 16:01 | disposition home or self-care (01) | DRG 241 ==
LOC: ER 05:23 → EDBD 05:23 → OVERFLOW 12:53 → TELE-CENTR 18:36
PROVIDERS: ADMIT Internal Medicine Geriatric Medicine; ATTEND Internal Medicine Geriatric Medicine
PROC: 30233N1 Transfusion of Nonautologous Red Blood Cells into Peripheral Vein, Percutaneous Approach (ICD-10-PCS; principal; 2024-11-17)
PROC: 5A1D70Z Performance of Urinary Filtration, Intermittent, Less than 6 Hours Per Day (ICD-10-PCS; 2024-11-18)
PROC: 0DB98ZX Excision of Duodenum, Via Natural or Artificial Opening Endoscopic, Diagnostic (ICD-10-PCS; 2024-11-19)
PROC: 0DB68ZX Excision of Stomach, Via Natural or Artificial Opening Endoscopic, Diagnostic (ICD-10-PCS; 2024-11-19)
PROC: 5A1D70Z Performance of Urinary Filtration, Intermittent, Less than 6 Hours Per Day (ICD-10-PCS; 2024-11-19)
PROC: 5A1D70Z Performance of Urinary Filtration, Intermittent, Less than 6 Hours Per Day (ICD-10-PCS; 2024-11-21)
PROC: 5A1D70Z Performance of Urinary Filtration, Intermittent, Less than 6 Hours Per Day (ICD-10-PCS; 2024-11-23)
PROC: 5A1D70Z Performance of Urinary Filtration, Intermittent, Less than 6 Hours Per Day (ICD-10-PCS; 2024-11-26)
DX: K29.71 Gastritis, unspecified, with bleeding (principal); I21.A1 Myocardial infarction type 2; I12.0 Hypertensive chronic kidney disease with stage 5 chronic kidney disease or end stage renal disease; D62 Acute posthemorrhagic anemia; D63.1 Anemia in chronic kidney disease; K29.81 Duodenitis with bleeding; N18.6 End stage renal disease; E11.22 Type 2 diabetes mellitus with diabetic chronic kidney disease; D72.829 Elevated white blood cell count, unspecified; E87.5 Hyperkalemia; E66.01 Morbid (severe) obesity due to excess calories; I16.0 Hypertensive urgency; K44.9 Diaphragmatic hernia without obstruction or gangrene; E78.2 Mixed hyperlipidemia; K21.9 Gastro-esophageal reflux disease without esophagitis; F41.9 Anxiety disorder, unspecified; S82.401A Unspecified fracture of shaft of right fibula, initial encounter for closed fracture; S82.52XA Displaced fracture of medial malleolus of left tibia, initial encounter for closed fracture; Z99.2 Dependence on renal dialysis; Z79.4 Long term (current) use of insulin; Z79.899 Other long term (current) drug therapy; Z68.37 Body mass index [BMI] 37.0-37.9, adult; Z79.82 Long term (current) use of aspirin; Z83.3 Family history of diabetes mellitus; Z82.49 Family history of ischemic heart disease and other diseases of the circulatory system; X58.XXXA Exposure to other specified factors, initial encounter; Y93.89 Activity, other specified; Y92.89 Other specified places as the place of occurrence of the external cause; Y99.8 Other external cause status
CPT/HCPCS: 36415; 71045; 73600; 74250; 80048; 80053; 82270; 82962; 83540; 83550; 83735; 83880; 84484; 85014; 85018; 85025; 85610; 85730; 86850; 86900; 86901; 86920; 87081; 87340; 90935; 93005; 93306; 93971; 97110; 97116; 97163; 97530; 99291; G0378; J1100; J1815; J2250; J2405; J2470; J2704

== ENCOUNTER 2025-05-08 14:28 | Inpatient (IN) | payer MEDICAID ==
[~2025-05-08] VITALS: Ht 160 cm; Wt 100.7 kg
[2025-05-08] VITALS (7 sets, daily range): BP systolic 119–156; BP diastolic 31–49; PULSE 83–101; RESP 15–22; TEMP 97.9–98.3; O2SAT 99–100
[~2025-05-08 14:28] MED LIST changes: +ASPI-543 PO; +B-CO-6 PO; +CLON0.1T PO; +CROM4SOL6 EACHEYE; +FOLI-119 PO; +HYDR-2792 PO; -HYDR25TA87 PO; +INSU100I4 SC; +INSU100S6 SC; +LORA-622 PO; -LOS25T PO; +LOSA-534 PO; -MET50T PO; +METO25TA5 PO; +MOME1AER8 INH; +NIFE90TA75 PO; +PANT40TA2 PO; +PATI1POW PO; +SEVE800T8 PO; +SUCR1TAB31 OR
--- NOTE | 2025-05-08 14:52 | ED.PDOC ---
History of Present Illness HPI Comments [id number] is turkmen speaking BIBA w/ prior MHx of GERD, High Lipids, DM, HTN, Renal Nieves ESRD (T, Th, Sat);SHx of Left fistula and the c/c of N/V. Family report the pt having had N/V/D associated w/ weakness, which all have been progressively worsening for the past 3 days. Family reports on the pt having blood in the V/D. Family note that the pt was here 3 months ago for similar symptoms, and had to do a blood transfusion as well as having a full dialysis yesterday. Denies any other symptoms at this time. Denies chills, fever, N/, SOB, CP. Denies any other associated symptom's, modifiers, or recent injuries or sick contact at this time. Chief Complaint: Nausea/Vomiting Time Seen by MD: 14:50 Reviewed Notes: Nurses Notes, Manager Of It Notes, Medications, Allergies Allergies: Coded Allergies: NO KNOWN ALLERGIES (Unverified , 11/24/22) Home Meds Active Scripts Sucralfate (CARAFATE) 1 Gm Tab, 1 GM OR BID for 30 Days, #60 TAB 2 Refills Prov:ALLIE CARTWRIGHT MD 11/27/24 Pantoprazole Sodium Sesquihydr (Protonix) 40 Mg Tab, 40 MG PO DAILY, #30 TAB 2 Refills Prov:ALLIE CARTWRIGHT MD 11/27/24 Amlodipine Besylate (NORVASC TABLET) 5 Mg Tb, 10 MG PO QPM for 30 Days, #60 TAB 1 Refill Prov:ROMY GOODWIN DO 11/27/22 Atorvastatin Calcium (ATORVASTATIN CALCIUM) 20 Mg Tab, 10 MG PO HS for 30 Days, #15 TAB 1 Refill Prov:ROMY GOODWIN DO 11/27/22 Reported Medications Patiromer Sorbitex Calcium (Veltassa) 8.4 Gm Pow, 8.4 GM PO DAILYP, POW 11/17/24 Clonidine Hydrochloride (Clonidine Hcl) 0.1 Mg Tab, 0.1 MG PO BID PRN for SBP>180 for 30 Days, MG 11/17/24 Insulin Lispro (Humalog Kwikpen) 100 Unit/Ml Inj, 6 UNIT SC TID, INJ 11/17/24 Insulin Glargine (Insulin Glargine) 100 Unit/Ml Louann, 32 UNIT SC HS, ML 11/17/24 Sevelamer Carbonate (Renvela) 800 Mg Tab, 2 TAB PO TID, #540 TAB 3 Refills 11/17/24 Mometasone Furoate-Formoterol (Dulera) 1 Aer Aer, 1 PUFF INH DAILY, #13 GRAMS 5 Refills 11/17/24 Nifedipine (Nifedipine Er) 90 Mg Tab, 1 TAB PO BID, #30 TAB 5 Refills 11/17/24 Losartan Potassium (Losartan Potassium) 50 Mg Tab, 50 MG PO DAILY for 30 Days, MG 11/17/24 Cromolyn Sodium (Cromolyn Sodium) 4 % Louann, 1 DROP EACHEYE DAILY, #30 ML 3 Refills 11/17/24 Loratadine (Claritin) 10 Mg Tab, 1 TAB PO DAILY, #30 TAB 5 Refills 11/17/24 B-Complex W/ C & Folic Acid (Faviola-Jagjit Rx) Tab, 1 TAB PO DAILY, TAB 11/17/24 Metoprolol Tartrate (Metoprolol Tartrate) 25 Mg Tab, 25 MG PO BID for 30 Days, MG 11/17/24 Aspirin (Aspir-Low) 81 Mg Tab, 81 MG PO DAILY for 30 Days, MG 11/17/24 Folic Acid (Folic Acid) 1 Mg Tab, 1 MG PO DAILY for 30 Days, MG 11/17/24 Hydralazine Hcl (Hydralazine Hcl) 10 Mg Tab, 10 MG PO TID for 30 Days, MG 11/17/24 Information Source: Relative (Sibling), Emergency Med Personnel Mode of Arrival: EMS Severity: Moderate Timing: Days Duration: Since onset, Days Prehospital treatment: None Associated signs and symptoms The patient has had tarry stool as well as vomiting blood Past Medical History PAST MEDICAL HISTORY: DM, ESRD, High Lipids, HTN Surgical History: Denies all surgeries CLINICAL SPECIALIST History: No Pertinent CLINICAL SPECIALIST History Family History Family History: Reviewed,noncontributory to illness, Unknown Social History Smoker: Non-Smoker Alcohol: Denies ETOH Use Drugs: Denies Drug Use Lives In: Home Constitutional: reports: weakness; denies: chills, diaphoresis, fatigue, fever, malaise, sweats, others EENTM: denies: blurred vision, double vision, ear bleeding, ear discharge, ear drainage, ear pain, ear ringing, eye pain, eye redness, hearing loss, mouth pain, mouth swelling, nasal discharge, nose bleeding, nose congestion, nose pain, photophobia, tearing, throat pain, throat swelling, voice changes, others Respiratory: denies: cough, hemoptysis, orthopnea, SOB at rest, shortness of breath, SOB with excertion, stridor, wheezing, others Cardiovascular: denies: chest pain, dizzy spells, diaphoresis, Dyspnea on exertion, edema, irregular heart beat, left arm pain, lightheadedness, palpitations, PND, syncope, others Gastrointestinal: reports: diarrhea, hematemesis, nausea, rectal bleeding, vomiting; denies: abdomen distended, abdominal pain, blood streaked bowels, constipated, dysphagia, difficulty swallowing, melena, poor appetite, poor fluid intake, rectal pain, others Genitourinary: denies: abnormal vagina bleeding, burning, dyspareunia, dysuria, flank pain, frequency, hematuria, incontinence, pain, , vagina discharge, urgency, others Neurological: denies: dizziness, fainting, headache, left sided numbness, left sided weakness, numbness, paresthesia, pre-existing deficit, right sided numbness, right sided weakness, seizure, speech problems, tingling, tremors, weakness, others Musculoskeletal: denies: back pain, gout, joint pain, joint swelling, muscle pain, muscle stiffness, neck pain, others Integumetry: denies: bruises, change in color, change in hair/nails, dryness, laceration, lesions, lumps, rash, wounds, others Allergic/Immunocompromised: denies: Difficulty Healing, Frequent Infections, Hives, Itching, others Hematologic/Lymphatic: denies: anemia, blood clots, easy bleeding, easy bruising, swollen glands, others Endocrine: denies: excessive hunger, excessive sweating, excessive thirst, excessive urination, flushing, intolerance to cold, intolerance to heat, unexplained weight gain, unexplained weight loss, others Psychiatric: denies: anxiety, bipolar disorder, depression, hopeless, panic disorder, schizophrenia, sleepless, suicidal, others All Other Systems: Reviewed and Negative Physical Exam General Appearance: Moderate Distress HEENT: Pale Conjuntivae (L), Pale Conjuntivae (R), Pharynx Normal, TMs Normal Neck: Full Range of Motion, Non-Tender, Normal, Normal Inspection Respiratory: Chest Non-Tender, Lungs Clear, No Accessory Muscle Use, No Respiratory Distress, Normal Breath Sounds Cardiovascular: No Edema, No JVD, No Murmur, No Gallop, Normal Peripheral Pulses, Regular Rate/Rhythm Breast Exam: Deferred Gastrointestinal: No Organomegaly, Non Tender, No Pulsatile Mass, Normal Bowel Sounds, Soft Genitalia: Deferred Pelvic: Deferred Rectal: Deferred Extremities: No calf tenderness, Normal capillary refill, No pedal edema Musculoskeletal : Apperance: Normal Neurologic: Alert, 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 Was a procedure done?: No Differential Dx Considerations may include: Generalized weakness, electrolyte imbalance, anemia, dehydration X-Ray, Labs, Meds, VS Vital Signs Date Time Temp Pulse Resp B/P (MAP) Pulse Ox O2 Delivery O2 Flow Rate FiO2 05/08/25 14:44 97.5 83 17 110/41 (64) 99 97.5 05/08/25 14:44 83 17 99 Nasal Cannula* 4 36 05/08/25 14:28 98.6 89 18 101/59 99 98.6 Lab Test 05/08/25 16:06 Range/Units White Blood Count 14.7 H 4.4-10.8 10^3/uL Red Blood Count 2.37 L 4.0-5.20 10^6/uL Hemoglobin 6.5 *L 12.2-16.2 g/dL Hematocrit 21.3 L 36.0-46.0 % Mean Corpuscular Volume 89.6 80.0-100.0 fL Mean Corpuscular Hemoglobin 27.3 L 28.0-32.0 pg Mean Corpuscular Hemoglobin Concent 30.5 L 32.0-36.0 g/dL Red Cell Distribution Width 21.9 H 11.8-14.3 % Platelet Count 177 140-450 10^3/uL Mean Platelet Volume 8.5 6.9-10.8 fL Neutrophils (%) (Auto) 85.8 H 37.0-80.0 % Lymphocytes (%) (Auto) 10.1 10.0-50.0 % Monocytes (%) (Auto) 3.6 0.0-12.0 % Eosinophils (%) (Auto) 0.0 0.0-7.0 % Basophils (%) (Auto) 0.5 0.0-2.0 % Neutrophils # (Auto) 12.6 H 1.6-8.6 10 ^3/uL Lymphocytes # (Auto) 1.5 0.4-5.4 10 ^3/uL Monocytes # (Auto) 0.5 0-1.3 10 ^3/uL Eosinophils # (Auto) 0 0-0.8 10 ^3/uL Basophils # (Auto) 0.1 0-0.2 10 ^3/uL Nucleated Red Blood Cells 0.3 % Sodium Level 141 136-145 mmol/L Potassium Level 6.8 *H 3.5-5.1 mmol/L Chloride Level 94 L 98-107 mmol/L Carbon Dioxide Level 22 20-31 mmol/L Anion Gap 25 H 5-15 Blood Urea Nitrogen 160 *H 9-23 mg/dL Creatinine 10.17 *H 0.550-1.02 mg/dL Glomerular Filtration Rate Calc 4 >90 mL/min BUN/Creatinine Ratio 15.7 10.0-20.0 Serum Glucose 166 H 74-106 mg/dL Calcium Level 8.7 8.7-10.4 mg/dL Current Medications Medications (Trade) Dose Ordered Sig/Alberto Route Start Time Stop Time Status Last Admin Sodium Chloride 500 ml @ 500 mls/hr Q1H ONCE IV 05/08/25 14:45 05/08/25 15:44 DC 05/08/25 16:18 Pantoprazole Sodium 50 ml @ 10 mls/hr Q5H ONCE IV 05/08/25 14:45 05/08/25 19:44 05/08/25 16:17 IV Hep-Lock was established The patient was given normal saline at 500 cc bolus Because of the GI bleed, the patient was given Protonix IV piggyback The patient's BUN is 160 and the creatinine is 10.17 A Olivo catheter will be placed on this patient The patient's potassium is also 6.8. The patient's white blood cell count is elevated at 14.7 The patient's hemoglobin came back at 6.5 The patient's hematocrit is 21.3 At this time, the patient is being admitted to the hospitalist. Images Reviewed?: Images reviewed and evaluated by Time of 1ST Reevaluation: 15:20 Reevaluation 1ST: Unchanged Patient Education/Counseling: Diagnosis, Treatment, Prognosis Family Education/Counseling: Diagnosis, Treatment, Prognosis SEPSIS Sepsis Screen Date sepsis recognized/suspect: May 08, 2025 Time Sepsis recognized/suspect: 1422 Recent Procedure: No On Antibiotic Therapy: No Respiratory Rate >20: No Heart Rate >90: No Temp<36 C (96.8 F) or >38.3 C: No SBP <90 or MAP <65 mmHG: No New Acute Mental Status Change: No Is the patient on CPAP, BIPAP,: No Physician Orders Urinalysis (05/08/25 14:35) Heplock Iv (05/08/25 14:35) Material Handling Crew Supervisor (05/08/25 14:35) Blood Pressure (05/08/25 14:35) Pulse Oximetry (05/08/25 14:35) Electrocardigram (05/08/25 14:35) Ct Ab Pel Wo Con-No Oral Or Iv (05/08/25 14:35) Pantoprazole 40mg/50ml Ns Ae (Protonix) (05/08/25 14:45) Obtain Consent For: (05/08/25 17:49) Packedcells -Active Bleeding (05/08/25 17:49) Administer Blood Products UD (05/08/25 17:49) Sodium Bicarb 50meq/50ml Vial (05/08/25 18:00) Calcium Gluc 1,000mg/50ml-Ns (05/08/25 18:00) Insulin R (Human) (Insulin R) (05/08/25 18:00) Dextrose 50% Syringe (05/08/25 18:00) Vital Signs Date Time Temp Pulse Resp B/P (MAP) Pulse Ox O2 Delivery O2 Flow Rate FiO2 05/08/25 14:44 97.5 83 17 110/41 (64) 99 97.5 05/08/25 14:44 83 17 99 Nasal Cannula* 4 36 05/08/25 14:28 98.6 89 18 101/59 99 98.6 Laboratory Tests Test 05/08/25 16:06 White Blood Count 14.7 10^3/uL (4.4-10.8) H Medications Medications Dose Ordered Sig/Alberto Route Start Time Stop Time Status Last Admin Dose Admin Pantoprazole Sodium 50 ml @ 10 mls/hr Q5H ONCE IV 05/08/25 14:45 05/08/25 19:44 05/08/25 16:17 Sodium Chloride 500 ml @ 500 mls/hr Q1H ONCE IV 05/08/25 14:45 05/08/25 15:44 DC 05/08/25 16:18 Departure 1 Departure Time of Disposition: 18:11 Impression: Primary Impression: Lower GI bleed Additional Impressions: Severe anemia Hyperkalemia Acute renal failure Qualified Codes: N17.1 - Acute kidney failure with acute cortical necrosis Disposition: ADMITTED INPATIENT Admit to: Tele Condition: Fair Critical Care Note Critical Care Time?: Yes (45 min-critical care time only) Stability Stability form required: Yes Unstable for transfer: Telemetry monitoring (Telemetry monitoring required), ED Physician Assesment (Clinical assesment) Heart Score Heart Score: Heart Score Response (Comments) Value History N/A 0 EKG N/A 0 Age N/A 0 Risk Factors N/A 0 Troponin N/A 0 Total 0 I personally scribed for DERREK ESTEBAN MD ([email or web address]) on 05/08/25 at 14:52. Electronically submitted by Tae Burr ([email or web address]). DERREK ESTEBAN MD May 08, 2025 14:52
--- NOTE | 2025-05-08 15:39 | DVH ---
CLINICAL HISTORY: pain TECHNIQUE: CT of the abdomen and pelvis was performed without IV contrast. This exam was performed ac cording to our departmental dose optimization program. Up-to-date CT equipment and radiation dose red uction techniques are utilized as appropriate. CTDI 27 DLP 1493 COMPARISON: None FINDINGS: Abdomen/Pelvis: The spleen, pancreas, adrenal glands, gallbladder, liver, and uterus are grossly unremarkable. The bilateral kidneys are atrophic. The bladder is not well distended and therefore not well evaluate d. The abdominal aorta is normal in course and caliber. There are moderate to advanced aortic atheroscle rotic calcifications. There is no free intraperitoneal air or fluid. There is no enlarged abdominal pelvic lymph node. There is no bowel wall thickening or dilatation. The appendix is normal. Other: The imaged lower thorax demonstrates 3-vessel coronary artery calcifications. There is atelectasis an d breathing changes at both lung bases. No acute osseous abnormality is evident. Impression: No acute noncontrast since the abnormality in the abdomen or pelvis. Atrophic kidneys. 3-vessel coronary artery calcifications.
[2025-05-08] MEDS: PANTOPRAZOLE 40mg/50ML NS AE 50 ML IV ONE (16:17)
[2025-05-08] MEDS: SODIUM CHLORIDE 0.9% 500 ML IV ONE ×2 (16:18→20:00)
[2025-05-08 16:22] LABS: Mean Corpuscular Volume 89.6 fL (80.0-100.0); Nucleated Red Blood Cells % 0.3 %
[2025-05-08 16:24] LABS: Hematocrit 21.3 % (36.0-46.0); Mean Corpuscular Hemoglobin 27.3 pg (28.0-32.0)
[2025-05-08 16:31] LABS: Sodium 141 mmol/L (136-145)
[2025-05-08 16:32] LABS: Anion Gap 25 (5-15); Carbon Dioxide 22 mmol/L (20-31); Hemoglobin 6.5 g/dL (12.2-16.2)
[2025-05-08 16:45] LABS: BUN/Creatinine Ratio 15.7 (10.0-20.0)
[2025-05-08 16:46] LABS: Calcium 8.7 mg/dL (8.7-10.4); Chloride 94 mmol/L (98-107); Glucose 166 mg/dL (74-106)
[2025-05-08 16:47] LABS: Blood Urea Nitrogen 160 mg/dL (9-23); Potassium 6.8 mmol/L (3.5-5.1)
[2025-05-08] MEDS: NOREPINEPHRINE 8 MG/250ML KIT 250 ML IV SCH (19:01)
[2025-05-08] MEDS: PHENTOLAMINE MESYLATE 5 MG INJ VIAL SUBCUT ONE (19:45)
[2025-05-08] MEDS: ONDANSETRON HCL 4 MG/2 ML VIAL ONE (20:35)
[2025-05-08] MEDS: ONDANSETRON HCL 4 MG/2 ML VIAL IV ONE (20:45)
[2025-05-08] MEDS: CALCIUM GLUC 1,000mg/50ml-NS 50 ML IV ONE (21:00)
[2025-05-08] MEDS: MIDAZOLAM DRIP 50 mg/50mL 50 ML IV SCH (21:00)
[2025-05-08] MEDS: ETOMIDATE (2MG/ML) 20ML VIAL IV ONE ×2 (21:08→21:54)
[2025-05-08] MEDS: SUCCINYLCHOLINE CHLORIDE 20 MG/ML 10ML VIAL IV ONE ×2 (21:08→21:54)
[2025-05-08] MEDS: SODIUM BICARB 8.4% 50Meq/50ml SYR Vial IV ONE (21:25)
[2025-05-08] MEDS: InsuLIN REG 1unit/0.01ml Soln (100units/ml) IV ONE (21:25)
[2025-05-08] MEDS: DEXTROSE (50%) 50ML SYRG IV ONE (21:25)
[2025-05-08] MEDS: MIDAZOLAM DRIP 50 mg/50mL 50 ML IV ONE (21:54)
[2025-05-08] MEDS: fentaNYL Drip 2500mCg/250mlNS 250 ML IV ONE (21:54)
[2025-05-08] MEDS: fentaNYL Drip 2500mCg/250mlNS 250 ML IV SCH (22:00)
--- NOTE | 2025-05-08 22:10 | DVH ---
CHEST RADIOGRAPH Indication: INTUBATED Technique: Single frontal view of the chest was obtained Comparison: XY CHEST PORTABLE on DOS: 11/17/24, XY CHEST PORTABLE on DOS: 11/24/22 FINDINGS: Lines and Tubes: Endotracheal tube is in the right mainstem bronchus by approximately 7 mm recommend withdrawal 1-2 cm. Enteric tube below the left diaphragm in the stomach Lungs: No focal consolidation. Pleura: No effusion. No pneumothorax. Cardiomediastinal contours: Unremarkable Bones: No acute osseous abnormality. IMPRESSION: 1. Endotracheal tube appears to be in the right mainstem bronchus approximately 7 mm recommend withdr awal 1-2 cm. 2. Enteric tube below the left diaphragm in the stomach.
[2025-05-08] MEDS ORDERED: DEXTROSE (50%) 50ML SYRG IV PRN (23:30)
[2025-05-08] MEDS ORDERED: VANCOMYCIN PER PHARMACY 0 MG IV SCH (23:30)
--- NOTE | 2025-05-08 23:47 | DVHHPRES ---
History of Present Illness Resident Creating Document: NETTA SKAGGS RESIDENT History of Present Illness This is a year 59 years old female with past medical history of GERD, hyperlipidemia, gastritis, duodenitis, GI bleed, diabetes mellitus type 2, hypertension, end-stage renal disease on hemodialysis([id number]) who came in with a chief complaint of hematemesis and melena. Patient was intubated on admission and history was given by the son and daughter. As per the son and daughter the patient started having dark black tarry stool since yesterday night associated with a large amount of hematemesis, no food mixed with the blood. They report she had several episodes yesterday night and today morning after which she has become increasingly confused and lethargic, which prompted them to bring her to the emergency room. They report that she had a similar episode 3 months ago and endoscopy was done which showed no active bleeding. she was scheduled for colonoscopy but has not had it yet. patient is not on any blood thinners and she did not complain of any abdominal pain, nausea, shortness of breath before the aforementioned episodes. On admission central line, endotracheal tube, NG tube were placed. patient is septic with WBC 14.7, pulse 103, respiratory rate 26. Patient's hemoglobin was at 6.5 and 1 unit packed red blood cells was transfused. On admission blood pressure was 118/43 (presses started-NE). We are admitting the patient for further workup and management. Past medical history: as stated above past surgical history: Left fistula family history: Dad has diabetes mellitus and end-stage renal disease social history: family reports she never smoked, drank alcohol or took any i llicit drugs Primary care physician: Dr. Wanda alves allergies: None code status: Full code Review of Systems Constitutional: Yes: Weakness; No: Fever, Chills, Sweats, Malaise, Other Eyes: No: Pain, Vision change, Conjunctivae inflammation, Eyelid inflammation, Other, Redness ENT: No: Ear pain, Ear discharge, Nose pain, Nose discharge, Nose congestion, Mouth pain, Mouth swelling, Throat pain, Throat swelling, Other Respiratory: No: Cough, Dry, Shortness of breath, SOB with excertion, Wheezing, Hemoptysis, Pleuritic Pain, Sputum, Wheezing, Other Cardiovascular: No: Chest Pain, Palpitations, Orthopnea, Paroxysmal Noc. Dyspnea, Edema, Lt Headedness, Other Gastrointestinal: Melena, Other (Hematemesis); No: Nausea, Vomiting, Abdominal Pain, Diarrhea, Constipation, Hematochezia Genitourinary: No Dysuria, No Frequency, No Incontinence, No Hematuria, No Retention, No Other Musculoskeletal: No: other, neck pain, shoulder pain, arm pain, back pain, hand pain, leg pain, foot pain Skin: No: Rash, Lesions, Jaundice, Bruising, Other Neurological: Confusion; No: Weakness, Numbness, Incoordination, Change in speech, Seizures, Other Allergies: Coded Allergies: NO KNOWN ALLERGIES (Unverified , 11/24/22) Medications Current Medications Medications Dose Ordered Sig/Alberto Route Start Time Stop Time Status Last Admin Dose Admin Norepinephrine Bitartrate 250 ml @ 3.75 mls/hr Q24H IV 05/08/25 18:15 05/08/25 19:01 3.75 MLS/HR Midazolam HCl 50 ml @ 1 mls/hr Q24H IV 05/08/25 22:00 Fentanyl Citrate 250 ml @ 2.5 mls/hr Q24H IV 05/08/25 22:00 Propofol 100 ml @ 3 mls/hr Q24H IV 05/08/25 22:45 Exam Vital Signs Vital Signs Date Time Temp Pulse Resp B/P (MAP) Pulse Ox O2 Delivery O2 Flow Rate FiO2 05/08/25 23:14 97.9 101 16 139/49 97.9 05/08/25 23:11 100 60 05/08/25 14:44 Nasal Cannula* 4 Exam Pt is lying on bed General Appearance: patient is sedated, in acute respiratory distress HEENT: Atraumatic, Mucous membranes moist/pink, intubated, NG tube clamped, CVP line placed, on pressors Respiratory: presence of rhonchi, patient is intubated Cardiovascular: Regular rate, Normal S1, Normal S2, No murmurs Abdominal: Active bowel sounds, Soft, no distention, no tenderness Extremities: No edema, Normal pulses, No tenderness/swelling Skin: No Significant rash, except past surgical scars Neuro: Normal speech, sensorimotor deficits none Psych/Mental Status: Mental status NL, Mood NL Labs/Xrays Labs Test 05/08/25 16:06 Range/Units White Blood Count 14.7 H 4.4-10.8 10^3/uL Red Blood Count 2.37 L 4.0-5.20 10^6/uL Hemoglobin 6.5 *L 12.2-16.2 g/dL Hematocrit 21.3 L 36.0-46.0 % Mean Corpuscular Volume 89.6 80.0-100.0 fL Mean Corpuscular Hemoglobin 27.3 L 28.0-32.0 pg Mean Corpuscular Hemoglobin Concent 30.5 L 32.0-36.0 g/dL Red Cell Distribution Width 21.9 H 11.8-14.3 % Platelet Count 177 140-450 10^3/uL Mean Platelet Volume 8.5 6.9-10.8 fL Neutrophils (%) (Auto) 85.8 H 37.0-80.0 % Lymphocytes (%) (Auto) 10.1 10.0-50.0 % Monocytes (%) (Auto) 3.6 0.0-12.0 % Eosinophils (%) (Auto) 0.0 0.0-7.0 % Basophils (%) (Auto) 0.5 0.0-2.0 % Neutrophils # (Auto) 12.6 H 1.6-8.6 10 ^3/uL Lymphocytes # (Auto) 1.5 0.4-5.4 10 ^3/uL Monocytes # (Auto) 0.5 0-1.3 10 ^3/uL Eosinophils # (Auto) 0 0-0.8 10 ^3/uL Basophils # (Auto) 0.1 0-0.2 10 ^3/uL Nucleated Red Blood Cells 0.3 % Sodium Level 141 136-145 mmol/L Potassium Level 6.8 *H 3.5-5.1 mmol/L Chloride Level 94 L 98-107 mmol/L Carbon Dioxide Level 22 20-31 mmol/L Anion Gap 25 H 5-15 Blood Urea Nitrogen 160 *H 9-23 mg/dL Creatinine 10.17 *H 0.550-1.02 mg/dL Glomerular Filtration Rate Calc 4 >90 mL/min BUN/Creatinine Ratio 15.7 10.0-20.0 Serum Glucose 166 H 74-106 mg/dL Calcium Level 8.7 8.7-10.4 mg/dL SEPSIS Sepsis Screen Date sepsis recognized/suspect: May 08, 2025 Time Sepsis recognized/suspect: 1443 Recent Procedure: No On Antibiotic Therapy: No Respiratory Rate >20: No Heart Rate >90: No Temp<36 C (96.8 F) or >38.3 C: No SBP <90 or MAP <65 mmHG: No New Acute Mental Status Change: No Is the patient on CPAP, BIPAP,: No Physician Orders Obtain Consent For: (05/08/25 17:49) Administer Blood Products UD (05/08/25 17:49) Norepinephrine 8 Mg/250ml Kit (Levophed) (05/08/25 18:15) Warm Compresses (05/08/25 19:37) Ventilator Orders (05/08/25:23) Abg W/ Co-Ox (05/08/25 22:00) Respiratory Culture W/ Gs (05/08/25:23) Chest Xray 1 View (05/08/25 21:38) Midazolam Drip 50 Mg/50ml (Versed Drip 5 (05/08/25 22:00) Fentanyl Drip 2500mcg/250mlns (05/08/25 22:00) Rass Sedation Scale Q1HR (05/08/25 21:50) Communication Order (05/08/25 22:30) Propofol (Diprivan) (05/08/25 22:45) Respiratory Misc. Order (05/08/25 23:33) Admit (05/08/25:) Code Status (05/08/25 23:22) Complete Blood Count (05/09/25 04:00) Comprehensive Metabolic Panel (05/09/25 04:00) Npo (Nothing By Mouth) Diet (05/09/25 Breakfast) Condition: Unstable (05/08/25 23:22) Stat Ekg For Chest Pain (05/08/25 23:22) Notify Md Of Changes From Base (05/08/25 23:22) Thyroid Stimulating Hormone (05/08/25 23:22) Lactic Acid W/ Reflex Order (05/08/25:) Urine Bacterial Culture (05/08/25 23:22) Hepatic Panel (05/08/25 23:22) Blood Culture (05/08/25 23:22) Urinalysis (05/08/25 23:22) * [facility] (05/08/25 23:22) *[facility] (05/08/25 23:22) Hemoglobin & Hematocrit (05/08/25 23:22) Glucose Blood (Accu-Chek Comfort Curve T (05/09/25 07:00) Mild Sliding Scale (05/09/25 07:00) Dextrose 50% Syringe (05/08/25 23:30) Pantoprazole (Protonix) (05/09/25 10:00) Abg W/ Co-Ox (05/08/25:22) Mrsa Screen (05/08/25 23:22) Vancomycin (05/08/25 23:30) Potassium (05/08/25:) Magnesium (05/08/25:22) Drug Screen (05/08/25:) Blood Alcohol (05/08/25:) LIVER (05/08/25 23:22) Abg W/ Co-Ox (05/09/25 04:00) Chest Portable (05/09/25 04:00) Ceftriaxone Ivpb Rocephin (05/09/25 09:00) Ceftriaxone Ivpb Rocephin (05/08/25 23:30) Vital Signs Date Time Temp Pulse Resp B/P (MAP) Pulse Ox O2 Delivery O2 Flow Rate FiO2 05/08/25 23:14 97.9 101 16 139/49 97.9 05/08/25 23:11 98.3 90 22 119/31 100 60 98.3 05/08/25 23:00 97.9 101 16 156/44 97.9 05/08/25 22:02 98.3 89 15 120/40 98.3 05/08/25 21:45 98.3 90 22 119/31 98.3 05/08/25 21:25 91 23 131/38 (69) 100 60 05/08/25 20:00 82 05/08/25 19:24 98.6 98 18 79/37 (51) 98 98.6 05/08/25 19:01 78/45 05/08/25 18:49 88 9 78/45 (56) 100 05/08/25 17:00 80 20 113/38 (63) 97 05/08/25 16:32 84 14 98/33 (54) 100 Laboratory Tests Test 05/08/25 16:06 White Blood Count 14.7 10^3/uL (4.4-10.8) H Medications Medications Dose Ordered Sig/Alberto Route Start Time Stop Time Status Last Admin Dose Admin Calcium Gluconate/ Sodium Chloride 50 ml @ 100 mls/hr ONCE ONCE IV 05/08/25 18:00 05/08/25 18:29 DC 05/08/25 21:00 100 MLS/HR Dextrose 50 ml ONCE ONCE IV 05/08/25 18:00 05/08/25 18:01 DC 05/08/25 21:25 50 ML Insulin Human Regular 5 units ONCE ONCE IV 05/08/25 18:00 05/08/25 18:01 DC 05/08/25 21:25 5 UNITS Norepinephrine Bitartrate 250 ml @ 3.75 mls/hr Q24H IV 05/08/25 18:15 05/08/25 19:01 3.75 MLS/HR Ondansetron HCl 4 mg ONCE ONCE IV 05/08/25 20:45 05/08/25 20:46 DC 05/08/25 20:45 4 MG Pantoprazole Sodium 50 ml @ 10 mls/hr Q5H ONCE IV 05/08/25 14:45 05/08/25 19:44 DC 05/08/25 16:17 10 MLS/HR Sodium Bicarbonate 50 ml ONCE ONCE IV 05/08/25 18:00 05/08/25 18:01 DC 05/08/25 21:25 50 ML Sodium Chloride 500 ml @ 500 mls/hr Q1H ONCE IV 05/08/25 14:45 05/08/25 15:44 DC 05/08/25 16:18 500 MLS/HR Sodium Chloride 500 ml @ 500 mls/hr Q1H ONCE IV 05/08/25 18:15 05/08/25 19:14 DC 05/08/25 20:00 500 MLS/HR Assessment/Plan Assessment/Plan # upper versus lower GI bleed causing shock # normocytic anemia, likely due to acute blood loss # lactic acidosis - lactic acid 5.4> 5.9 - NPO - NG tube placed - 1 units PRBC transfused, 1 more unit has been ordered - continue to monitor hemoglobin - vasopressin 20 units - norepinephrine tartrate IV - phenylephrine HCL IV - octreotide acetate 500 mcg/ sodium chloride IV - pantoprazole drip given initially and 40 mg b.i.d. IV daily - IV fluids NS 250 mL bolus and 500 mL bolus given - GI consult placed - the ultrasound shows hepatomegaly with increased hepatic echogenicity which may reflect hepatic steatosis or intrinsic hepatocellular disease, no cholelithiasis or sonographic evidence of acute cholecystitis, small echogenic appearance of the kidneys may reflect medical renal disease - PT 12.6, INR 1.21, APTT 22.8 - serum alcohol < 3.0 - blood culture, urine culture pending # septic shock due to possible aspiration pneumonia # acute hypoxic respiratory failure due to above on mechanical ventilation #Metabolic encephalopathy due to above - patient intubated, chest x-ray done and confirmed endotracheal tube in the right mainstem bronchus approximately 7 mm recommend withdrawal 1-2 cm, enteric tube below the left diaphragm in the stomach - nebulization albuterol given once - ABG - Fi02 60%, respiratory rate 20, tidal volume 450, peep 5 - merrem IV - vancomycin IV as per pharmacy intravenous - MRSA screen - respiratory culture #hyperkalemia - as per protocol- calcium gluconate, insulin 10 units, dextrose 50 mL, albuterol 20 mg - magnesium #type 2 diabetes mellitus - mild sliding scale insulin - Accu-Cheks #ESRD on hemodialysis (TTS) #uremic encephalopathy due to above -nephrology consult placed #Atrophic kidneys #3-vessel coronary artery calcifications. - incidental finding on CT abdomen and pelvis, outpatient follow up GI prophylaxis: 40 mg IV b.i.d. DVT prophylaxis: held due to GI bleed Diet: NPO Goals of care discussed with the patient for more than 27 minutes: Full code status Case discussed with , patient Plan discussed with: Patient, Daughter, Son My Orders Orders - NETTA SKAGGS RESIDENT Procedure Category Date Status Time Admit ADMIT 05/08/25 Verified 23:22 Code Status CODE 05/08/25 Verified 23:22 Complete Blood Count LAB 05/09/25 Verified 04:00 Comprehensive LAB 05/09/25 Verified Metabolic Panel 04:00 Npo (Nothing By DIET 05/09/25 Verified Mouth) Diet Breakfast Condition: Unstable ARLENE 05/08/25 Verified 23:22 Stat Ekg For Chest ARLENE 05/08/25 Verified Pain 23:22 Notify Of Changes ARLENE 05/08/25 Verified From Base 23:22 Thyroid Stimulating LAB 05/08/25 Verified Hormone 23:22 Lactic Acid W/ Reflex LAB 05/08/25 Verified Order 23:22 Urine Bacterial BERTHA 05/08/25 Verified Culture 23:22 Hepatic Panel LAB 05/08/25 Verified 23:22 Blood Culture BERTHA 05/08/25 Verified 23:22 Urinalysis LAB 05/08/25 Verified 23:22 * [facility] CONS 05/08/25 Verified 23:22 *[facility] CONS 05/08/25 Verified -[place] 23:22 Hemoglobin & LAB 05/08/25 Verified Hematocrit 23:22 Glucose Blood PHA 05/09/25 Verified (Accu-Chek Comfort 07:00 Mild Sliding Scale PHA 05/09/25 Verified 07:00 Dextrose 50% Syringe PHA 05/08/25 Verified 23:30 Pantoprazole PHA 05/09/25 Verified (Protonix) 10:00 Abg W/ Co-Ox RT 05/08/25 Verified 23:22 Mrsa Screen BERTHA 05/08/25 Verified 23:22 Vancomycin PHA 05/08/25 Verified 23:30 Potassium LAB 05/08/25 Verified 23:22 Magnesium LAB 05/08/25 Verified 23:22 Drug Screen LAB 05/08/25 Verified 23:22 Blood Alcohol LAB 05/08/25 Verified 23:22 LIVER US 05/08/25 Verified 23:22 Abg W/ Co-Ox RT 05/09/25 Verified 04:00 Chest Portable XY 05/09/25 Verified 04:00 Ceftriaxone Ivpb PHA 05/09/25 Verified Rocephin 09:00 Ceftriaxone Ivpb PHA 05/08/25 Verified Rocephin 23:30 Date of Service: May 09, 2025 Billing Provider: BRENDA FRANZ MD Common Visit Codes: [id number] INP/OBS CARE (HIGH) NETTA SKAGGS RESIDENT May 08, 2025 23:46 RUTH PETIT RESIDENT May 09, 2025 08:10 BRENDA FRANZ MD May 09, 2025 08:44
[2025-05-09] VITALS (107 sets, daily range): BP systolic 72–184; BP diastolic 36–79; PULSE 74–169; RESP 11–30; TEMP 72.1–98.6; O2SAT 89–100
[2025-05-09 00:32] LABS: Alanine Aminotransferase 26 U/L (7-40); Albumin 3.2 g/dL (3.2-4.8); Alkaline Phosphatase 72 U/L (46-116); Magnesium 2.4 mg/dL (1.6-2.6); Total Protein 5.8 g/dL (5.7-8.2)
[2025-05-09 00:33] LABS: Hematocrit 21.6 % (36.0-46.0)
[2025-05-09 00:35] LABS: Hemoglobin 7.0 g/dL (12.2-16.2)
[2025-05-09 00:37] LABS: Bilirubin, Direct < 0.1 mg/dL (<0.3); Bilirubin, Total < 0.2 mg/dL (0.2-1.0)
[2025-05-09 00:39] LABS: Potassium 5.8 mmol/L (3.5-5.1)
[2025-05-09] MEDS: VANCOMYCIN 1GM/250ML IV SCH (00:45)
[2025-05-09 00:55] LABS: Lactic Acid w/Reflex 5.4 mmol/L (0.4-2.0)
[2025-05-09 01:13] LABS: INR 1.21 (0.9-1.15); Partial Thromboplastin Time 22.8 SEC (24.5-34.5); Prothrombin Time 12.6 sec (9.3-11.8)
--- NOTE | 2025-05-09 01:15 | DVH ---
ULTRASOUND DOPPLER CLINICAL HISTORY: eval for cirrhosis TECHNIQUE: Doppler examination of the abdomen was performed. COMPARISON: None FINDINGS: The liver measures 18.3 cm. There is increased hepatic echogenicity. There is no biliary ductal dila tation. There is hepatopetal flow. There is no cholelithiasis. The common bile duct was not visualized. There is no gallbladder wall thi ckening. Visualized portions of the pancreas are unremarkable. The right kidney measures 7.6 cm and demonstrates increased echogenicity. Probable right renal cyst. IMPRESSION: 1. Hepatomegaly and increased hepatic echogenicity which may reflect hepatic steatosis or intrinsic h epatocellular disease. 2. No cholelithiasis or sonographic evidence of acute cholecystitis. 3. Small echogenic appearance of the kidneys may reflect medical renal disease.
[2025-05-09 01:18] LABS: Base Excess -3.6 mmol/L (-2.0-3.0)
[2025-05-09] MEDS: ALBUTEROL SULF 2.5 MG/0.5ML(0.5%) NEB SOLN NEB ONE (01:20)
[2025-05-09] MEDS: SODIUM CHLORIDE 0.9% 250 ML IV ONE (01:41)
[2025-05-09] MEDS: PROPOFOL 100 ML IV SCH (01:45)
[2025-05-09] MEDS: InsuLIN REG 1unit/0.01ml Soln (100units/ml) IV ONE (02:04)
[2025-05-09] MEDS: FUROSEMIDE 20 MG/2 ML VIAL IV ONE (02:08)
[2025-05-09] MEDS: DEXTROSE (50%) 50ML SYRG IV ONE (02:08)
[2025-05-09] MEDS: ACCU-CHEK COMFORT CURVE STRIP VI SCH ×4 (02:08→20:00)
[2025-05-09] MEDS: PHENYLEPHRINE IV 250 ML IV SCH (03:20)
[2025-05-09] MEDS: VASOPRESSIN 20 UNITS in SODIUM CHL 0.9% 99 ML IV SCH ×2 (03:50→22:29)
[2025-05-09] MEDS: VASOPRESSIN 20 UNIT/ML ONE (03:53)
[2025-05-09] MEDS: HYDROCORTISONE SOD SUCC 100 MG/2ML INJ VIAL IV ONE (03:56)
--- NOTE | 2025-05-09 04:06 | ECG ---
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
--- NOTE | 2025-05-09 04:13 | ECG ---
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
[2025-05-09] MEDS: OCTREOTIDE ACETATE 100 MCG in SODIUM CHL 0.9% 50 ML IV ONE (05:25)
[2025-05-09] MEDS: OCTREOTIDE ACETATE 100 MCG/ML VL ONE (05:27)
[2025-05-09] MEDS: OCTREOTIDE ACETATE 500 MCG in SODIUM CHL 0.9% 99 ML IV SCH (05:36)
--- NOTE | 2025-05-09 05:38 | DVH ---
CHEST RADIOGRAPH Indication: intubated Technique: Single frontal view of the chest was obtained COMPARISON: XY CHEST XRAY 1 VIEW on DOS: 05/08/25, XY CHEST PORTABLE on DOS: 11/17/24, XY CHEST PORTABL E on DOS: 11/24/22 FINDINGS: Lines and Tubes: Slight interval retraction of the endotracheal tube such that the tip now projects a pproximately 2.5 cm above the level of the anastacio. Enteric catheter unchanged. Lungs: Clear Pleura: No effusion. No pneumothorax. Cardiomediastinal contours: Cardiomegaly. Bones: Unremarkable IMPRESSION: 1. Slight interval retraction of the endotracheal tube such that the tip now projects approximately 2 .5 cm above the level of the anastacio. Enteric catheter unchanged. 2. Cardiomegaly.
[2025-05-09 06:06] LABS: Hemoglobin 8.5 g/dL (12.2-16.2); Mean Corpuscular Hemoglobin 28.4 pg (28.0-32.0)
[2025-05-09 06:08] LABS: Hematocrit 26.9 % (36.0-46.0); Mean Corpuscular Volume 90.4 fL (80.0-100.0)
[2025-05-09] MEDS: InsuLIN REG 1unit/0.01ml Soln (100units/ml) SC SCH ×3 (06:25→21:43)
[2025-05-09 06:32] LABS: Alanine Aminotransferase 28 U/L (7-40); Alkaline Phosphatase 74 U/L (46-116); Anion Gap 29 (5-15); Potassium 4.1 mmol/L (3.5-5.1); Sodium 142 mmol/L (136-145)
[2025-05-09 06:51] LABS: Nucleated Red Blood Cells % 1.0 %; Total Cells Counted 100.0 (100)
[2025-05-09 07:25] LABS: Carbon Dioxide 18 mmol/L (20-31); Chloride 95 mmol/L (98-107)
[2025-05-09 07:28] LABS: Albumin 3.2 g/dL (3.2-4.8); Blood Urea Nitrogen 146 mg/dL (9-23); Calcium 8.5 mg/dL (8.7-10.4); Total Protein 5.7 g/dL (5.7-8.2)
[2025-05-09 07:33] LABS: Base Excess -12.1 mmol/L (-2.0-3.0)
[2025-05-09 07:34] LABS: Lactic Acid w/Reflex 10.0 mmol/L (0.4-2.0)
[2025-05-09 07:38] LABS: BUN/Creatinine Ratio 15.0 (10.0-20.0)
[2025-05-09 07:45] LABS: Glucose 343 mg/dL (74-106)
[2025-05-09 07:46] LABS: Bilirubin, Total < 0.2 mg/dL (0.2-1.0)
[2025-05-09] MEDS: SODIUM BICARB 8.4% 50Meq/50ml SYR Vial IV ONE ×2 (08:54→15:15)
[2025-05-09] MEDS: HYDROCORTISONE SOD SUCC 100 MG/2ML INJ VIAL IV SCH (08:55)
[2025-05-09] MEDS: MEROPENEM 500MG IVPB 50 ML IV SCH (09:12)
[2025-05-09] MEDS ORDERED: PANTOPRAZOLE 40 MG/10 ML VIAL INJ IV SCH (10:00)
[2025-05-09] MEDS ORDERED: MEROPENEM 1GM IVPB 50 ML IV SCH (10:00)
[2025-05-09 10:16] LABS: Hemoglobin 7.4 g/dL (12.2-16.2)
[2025-05-09 10:18] LABS: Hematocrit 23.3 % (36.0-46.0)
[2025-05-09] MEDS: INSULIN LANTUS (GLARGINE) 1 /0.01ml (100units/ml) SC ONE ×2 (10:45→11:30)
[2025-05-09 11:04] LABS: Lactic Acid w/Reflex 10.0 mmol/L (0.4-2.0)
[2025-05-09 11:29] LABS: Base Excess -9.0 mmol/L (-2.0-3.0)
[2025-05-09] MEDS ORDERED: DEXTROSE (50%) 50ML SYRG IV PRN (11:30)
--- NOTE | 2025-05-09 12:16 | DVHCONRES ---
Date Seen: May 09, 2025 Resident Creating Document: JHAJJKENDAL RESIDENT Referring Physician Tiffanie Reason for Consultation GI bleed History of Present Illness Chelsey is a 59 years old female with past medical history of GERD, hyperlipidemia, gastritis, duodenitis, GI bleed, diabetes mellitus type 2, hypertension, end-stage renal disease on hemodialysis([id number]) who came in with a chief complaint of hematemesis and melena. Patient was reported to have dark black tarry stool since yesterday night associated with a large amount of hematemesis. They report she had several episodes yesterday night and today morning after which she has become increasingly confused and lethargic, which prompted them to bring her to the emergency room. Patient had a similar GI bleed in november when she underwent an endoscopy which showed moderate duodenitis with hyperemia erythema and superficial erosions, 1-2 cm sliding-type hiatal hernia with slightly irregular squamocolumnar junction but no significant erosive esophagitis, no GI bleeding. patient is not on any blood thinners and she did not complain of any abdominal pain, nausea, shortness of breath before the aforementioned episodes Past Medical History as per HPI Past Surgical History Left AV fistula, EGD Family History: Diabetes mellitus G8 MOTHER FH: kidney failure G8 FATHER Hypertension G8 MOTHER Family History no significant family history Social History currently not reported to be smoking, alcohol or drug use Allergies: Coded Allergies: NO KNOWN ALLERGIES (Unverified , 11/24/22) Home Meds Active Scripts Sucralfate (CARAFATE) 1 Gm Tab, 1 GM OR BID for 30 Days, #60 TAB 2 Refills Prov:ALLIE CARTWRIGHT MD 11/27/24 Pantoprazole Sodium Sesquihydr (Protonix) 40 Mg Tab, 40 MG PO DAILY, #30 TAB 2 Refills Prov:ALLIE CARTWRIGHT MD 11/27/24 Amlodipine Besylate (NORVASC TABLET) 5 Mg Tb, 10 MG PO QPM for 30 Days, #60 TAB 1 Refill Prov:ROMY GOODWIN DO 11/27/22 Atorvastatin Calcium (ATORVASTATIN CALCIUM) 20 Mg Tab, 10 MG PO HS for 30 Days, #15 TAB 1 Refill Prov:ROMY GOODWIN DO 11/27/22 Reported Medications Patiromer Sorbitex Calcium (Veltassa) 8.4 Gm Pow, 8.4 GM PO DAILYP, POW 11/17/24 Clonidine Hydrochloride (Clonidine Hcl) 0.1 Mg Tab, 0.1 MG PO BID PRN for SBP>180 for 30 Days, MG 11/17/24 Insulin Lispro (Humalog Kwikpen) 100 Unit/Ml Inj, 6 UNIT SC TID, INJ 11/17/24 Insulin Glargine (Insulin Glargine) 100 Unit/Ml Louann, 32 UNIT SC HS, ML 11/17/24 Sevelamer Carbonate (Renvela) 800 Mg Tab, 2 TAB PO TID, #540 TAB 3 Refills 11/17/24 Mometasone Furoate-Formoterol (Dulera) 1 Aer Aer, 1 PUFF INH DAILY, #13 GRAMS 5 Refills 11/17/24 Nifedipine (Nifedipine Er) 90 Mg Tab, 1 TAB PO BID, #30 TAB 5 Refills 11/17/24 Losartan Potassium (Losartan Potassium) 50 Mg Tab, 50 MG PO DAILY for 30 Days, MG 11/17/24 Cromolyn Sodium (Cromolyn Sodium) 4 % Louann, 1 DROP EACHEYE DAILY, #30 ML 3 Refills 11/17/24 Loratadine (Claritin) 10 Mg Tab, 1 TAB PO DAILY, #30 TAB 5 Refills 11/17/24 B-Complex W/ C & Folic Acid (Faviola-Jagjit Rx) Tab, 1 TAB PO DAILY, TAB 11/17/24 Metoprolol Tartrate (Metoprolol Tartrate) 25 Mg Tab, 25 MG PO BID for 30 Days, MG 11/17/24 Aspirin (Aspir-Low) 81 Mg Tab, 81 MG PO DAILY for 30 Days, MG 11/17/24 Folic Acid (Folic Acid) 1 Mg Tab, 1 MG PO DAILY for 30 Days, MG 11/17/24 Hydralazine Hcl (Hydralazine Hcl) 10 Mg Tab, 10 MG PO TID for 30 Days, MG 11/17/24 Current Medications Current Medications Medications (Trade) Dose Ordered Sig/Alberto Route PRN Reason Start Time Stop Time Status Last Admin Norepinephrine Bitartrate 250 ml @ 3.75 mls/hr Q24H IV 05/08/25 18:15 05/09/25 05:08 Midazolam HCl 50 ml @ 1 mls/hr Q24H IV 10/22/25 22:00 05/09/25 05:10 Fentanyl Citrate 250 ml @ 2.5 mls/hr Q24H IV 05/08/25 22:00 05/09/25 05:09 Propofol 100 ml @ 3 mls/hr Q24H IV 05/08/25 22:45 05/09/25 09:31 Diagnostic Test (Pha) (Accu-Chek Comfort Curve T) 1 strip ACHS 05/09/25 07:00 05/09/25 06:25 Insulin Human Regular (InsuLIN R) ACHS SC 05/09/25 07:00 05/09/25 11:25 DC 05/09/25 06:25 Dextrose 50 ml UD PRN IV Blood Sugar LESS THAN 60 05/08/25 23:30 Pantoprazole Sodium (Protonix) 40 mg BID IV 05/09/25 10:00 05/09/25 08:18 DC Vancomycin HCl 0 ml @ 0 mls/hr UD IV 05/08/25 23:30 Ceftriaxone Sodium 50 ml @ 100 mls/hr DAILY@2100 IV 05/09/25 21:00 05/09/25 07:24 DC Vancomycin HCl 250 ml @ 250 mls/hr Q1H IV 05/09/25 00:00 05/09/25 01:59 DC 05/09/25 01:50 Diagnostic Test (Pha) (Accu-Chek Comfort Curve T) 1 strip Q2H 05/09/25 02:00 05/09/25 04:01 DC 05/09/25 04:20 Phenylephrine HCl 250 ml @ 30 mls/hr Q8H20M IV 05/09/25 03:00 05/09/25 03:20 Vasopressin 20 units/Sodium Chloride 100 ml @ 9 mls/hr Q11H7M IV 05/09/25 03:00 05/09/25 03:50 Hydrocortisone Sodium Succinate (Solu-CORTEF INJECTION) 50 mg Q6H IV 05/09/25 09:00 05/09/25 12:05 DC 05/09/25 08:55 Octreotide Acetate 500 mcg/ Sodium Chloride 100 ml @ 10 mls/hr Q10H IV 05/09/25 03:00 05/09/25 05:36 Meropenem 50 ml @ 17 mls/hr DAILY IV 05/09/25 10:00 Cancel Meropenem 50 ml @ 17 mls/hr Q8HR IV 05/09/25 14:00 05/09/25 07:51 DC Meropenem 50 ml @ 17 mls/hr DAILY IV 05/09/25 10:00 05/09/25 09:12 Pantoprazole Sodium 50 ml @ 10 mls/hr Q5H IV 05/09/25 08:15 Insulin Glargine (Lantus) 20 units QAM SC 05/10/25 07:00 Diagnostic Test (Pha) (Accu-Chek Comfort Curve T) 1 strip IQ4HR 05/09/25 12:00 UNV Insulin Human Regular (InsuLIN R) IQ4HR SC 05/09/25 12:00 UNV Dextrose 50 ml UD PRN IV Blood Sugar LESS THAN 60 05/09/25 11:30 UNV Review of Systems Patient is intubated and on mechanical ventilation still tachycardiac, H&H trended down after transfusion of 1 PRBC elevated lactate patient to be transfused with another unit of blood and follow up on H&H Vital Signs Vital Signs Date Time Temp Pulse Resp B/P (MAP) Pulse Ox O2 Delivery O2 Flow Rate FiO2 05/09/25 10:30 97.7 111 27 125/64 (84) 93 207.9 05/09/25 10:00 Mechanical Ventilator+ 30 30 05/08/25 19:30 4 Physical Exam Gen - no pallor, no scleral icterus Skin - Patients skin is warm and dry. HEENT - normocephalic, atraumatic, dry mucous membranes. Neck - supple, no lymphadenopathy Pulmonary - B/L equal air entry with vesicular breath sounds cardiovascular - regular S1,S2 heard GI - soft nontender abdomen. Bowel sounds normoactive. Neurological - Patient is on mechanical ventilation, pupils equal and reactive, positive gag reflex Labs/Diagnostic Data Labs Test 05/09/25 11:21 05/09/25 09:48 05/09/25 05:36 05/08/25 23:55 Range/Units Blood Gas Specimen Type Arterial Blood Gas Sample Site Right brachial Blood Gas Patient Temperature 37.0 Arterial Blood Date Drawn [id number] Arterial Blood pH 7.249 *L 7.350-7.450 Arterial Blood Partial Pressure CO2 41.3 32.0-45.0 mmHg Arterial Blood Partial Pressure O2 66.7 L 83.0-108.0 mmHg Arterial Blood HCO3 17.7 L 21.0-28.0 mmol/L Arterial Blood Oxygen Saturation 88.2 L 94.0-98.0 % Arterial Blood Base Excess -9.0 L -2.0-3.0 mmol/L Arterial Blood Oxyhemoglobin 87.8 L 94.0-98.0 % Arterial Blood Carboxyhemoglobin 0.1 L 0.5-1.5 % Arterial Blood Methemoglobin 0.3 0.0-1.5 % Jered Test Modified Blood Gas Total Hemoglobin 11.20 L 12.0-16.0 g/dL Blood Gas Set Respiration Rate 24.0 Blood Gas Modality Vent - ac FiO2 % 30.0 Blood Gas Tidal Volume 400.0 Blood Gas PEEP or CPAP 5.0 Blood Gas Critical Value Read Back Yes Blood Gas Notified Whom ramin Romo md Blood Gas Notified Time [id number] Blood Gas Notified By Vaishali servin i. POC Glucose 415 *H 70-106 mg/dl Hemoglobin 7.4 L 12.2-16.2 g/dL Hematocrit 23.3 #L 36.0-46.0 % Lactic Acid Level 10.0 *H 0.4-2.0 mmol/L White Blood Count 33.1 #*H 4.4-10.8 10^3/uL Red Blood Count 2.98 L 4.0-5.20 10^6/uL Mean Corpuscular Volume 90.4 80.0-100.0 fL Mean Corpuscular Hemoglobin 28.4 28.0-32.0 pg Mean Corpuscular Hemoglobin Concent 31.4 L 32.0-36.0 g/dL Red Cell Distribution Width 18.3 H 11.8-14.3 % Platelet Count 176 140-450 10^3/uL Mean Platelet Volume 8.5 6.9-10.8 fL Neutrophils (%) (Auto) 37.0-80.0 % Lymphocytes (%) (Auto) 10.0-50.0 % Monocytes (%) (Auto) 0.0-12.0 % Basophils (%) (Auto) 0.0-2.0 % Neutrophils # (Auto) 1.6-8.6 10 ^3/uL Lymphocytes # (Auto) 0.4-5.4 10 ^3/uL Monocytes # (Auto) 0-1.3 10 ^3/uL Differential Total Cells Counted 100.0 100 Neutrophils % (Manual) 91 H 37.0-80.0 Band Neutrophils % (Manual) 0 Lymphocytes % (Manual) 5 L 10.0-50.0 Monocytes % (Manual) 3 0-12 Eosinophils % (Manual) 0 0-7 Basophils % (Manual) 0 0.0-2.0 Metamyelocytes % (manual) 0 Myelocytes % (Manual) 1 Promyelocytes % (Manual) 0 Blast Cells % (Manual) 0 Nucleated Red Blood Cells 1.0 % Reactive Lymphocytes 0 Platelet Estimate Adequate Sodium Level 142 136-145 mmol/L Potassium Level 4.1 3.5-5.1 mmol/L Chloride Level 95 L 98-107 mmol/L Carbon Dioxide Level 18 L 20-31 mmol/L Anion Gap 29 H 5-15 Blood Urea Nitrogen 146 #*H 9-23 mg/dL Creatinine 9.71 H 0.550-1.02 mg/dL Glomerular Filtration Rate Calc 4 >90 mL/min BUN/Creatinine Ratio 15.0 10.0-20.0 Serum Glucose 343 H 74-106 mg/dL Calcium Level 8.5 L 8.7-10.4 mg/dL Total Bilirubin < 0.2 L 0.2-1.0 mg/dL Aspartate Amino Transferase (AST) 36 13-40 U/L Alanine Aminotransferase (ALT) 28 7-40 U/L Alkaline Phosphatase 74 46-116 U/L Total Protein 5.7 5.7-8.2 g/dL Albumin 3.2 3.2-4.8 g/dL Prothrombin Time 12.6 H 9.3-11.8 sec Prothrombin Time INR 1.21 H 0.9-1.15 Activated Partial Thromboplast Time 22.8 L 24.5-34.5 SEC Magnesium Level 2.4 1.6-2.6 mg/dL Direct Bilirubin < 0.1 <0.3 mg/dL Thyroid Stimulating Hormone (TSH) 1.01 0.55-4.78 uIU/mL Plasma/Serum Blood Alcohol < 3.0 <10 mg/dL Test 05/08/25 16:06 Range/Units Eosinophils (%) (Auto) 0.0 0.0-7.0 % Eosinophils # (Auto) 0 0-0.8 10 ^3/uL Basophils # (Auto) 0.1 0-0.2 10 ^3/uL Microbiology Date/Time Source Procedure Growth Status 05/08/25 21:44 Trachea Gram Stain - Final Resulted 05/08/25 21:44 Trachea Respiratory Culture - Preliminary Resulted Assessment Assessment severe normocytic normochromic anemia likely d/t GI bleed Possible PUD with active GI bleed Hypovolemic/ septic shock ESRD on hemodialysis Plan - active bleed, keep Hgb>7 , montior H&H - patient is scheduled for upper EGD tomorrow - PRBC transfusion as needed - on protonix drip and octreotide drip - NPO poor prognosis explained to the patient's family at bedside including brother . Plan discussed with Dr. Mendiola Plan discussed with: Other (Brother, JUSTIN Puente/Quin) KENDAL PUTNAM RESIDENT May 09, 2025 12:16
[2025-05-09] MEDS: PANTOPRAZOLE 40mg/50ML NS AE 50 ML IV SCH (12:51)
[2025-05-09] MEDS ORDERED: MEROPENEM 500MG IVPB 50 ML IV SCH (14:00)
--- NOTE | 2025-05-09 17:15 | DVHINCON2 ---
Date of service: May 09, [address] Cook Reason for Consultation End-stage kidney disease, hyperkalemia History of Present Illness This is a 59-year-old female with history of end-stage kidney disease on hemodialysis, type 2 diabetes, hypertension, hyperlipidemia who was brought into the emergency room because of hematemesis and melena. Has further history she had multiple episodes of hematemesis at home. Became increasingly confused and lethargic at home. Hence brought in the emergency room where she was intubated. Noted to be hypotensive. Started on Levophed and vasopressin. Evaluated by GI. Nephrology consulted because of hyperkalemia and need for dialysis. Regular dialysis days are Tuesday, and Tuesday. Patient seen and examined in the ICU. Intubated and sedated and on 2 pressors. Past Medical History As stated above Past Surgical History Dialysis access Family History: Diabetes mellitus G8 MOTHER FH: kidney failure G8 FATHER Hypertension G8 MOTHER Social History No active history of smoking, alcohol or drug abuse. No history of NSAID abuse Allergies: Coded Allergies: NO KNOWN ALLERGIES (Unverified , 11/24/22) Home Meds Active Scripts Sucralfate (CARAFATE) 1 Gm Tab, 1 GM OR BID for 30 Days, #60 TAB 2 Refills Prov:ALLIE CARTWRIGHT MD 11/27/24 Pantoprazole Sodium Sesquihydr (Protonix) 40 Mg Tab, 40 MG PO DAILY, #30 TAB 2 Refills Prov:ALLIE CARTWRIGHT MD 11/27/24 Amlodipine Besylate (NORVASC TABLET) 5 Mg Tb, 10 MG PO QPM for 30 Days, #60 TAB 1 Refill Prov:ROMY GOODWIN DO 11/27/22 Atorvastatin Calcium (ATORVASTATIN CALCIUM) 20 Mg Tab, 10 MG PO HS for 30 Days, #15 TAB 1 Refill Prov:ROMY GOODWIN DO 11/27/22 Reported Medications Patiromer Sorbitex Calcium (Veltassa) 8.4 Gm Pow, 8.4 GM PO DAILYP, POW 11/17/24 Clonidine Hydrochloride (Clonidine Hcl) 0.1 Mg Tab, 0.1 MG PO BID PRN for SBP>180 for 30 Days, MG 11/17/24 Insulin Lispro (Humalog Kwikpen) 100 Unit/Ml Inj, 6 UNIT SC TID, INJ 11/17/24 Insulin Glargine (Insulin Glargine) 100 Unit/Ml Louann, 32 UNIT SC HS, ML 11/17/24 Sevelamer Carbonate (Renvela) 800 Mg Tab, 2 TAB PO TID, #540 TAB 3 Refills 11/17/24 Mometasone Furoate-Formoterol (Dulera) 1 Aer Aer, 1 PUFF INH DAILY, #13 GRAMS 5 Refills 11/17/24 Nifedipine (Nifedipine Er) 90 Mg Tab, 1 TAB PO BID, #30 TAB 5 Refills 11/17/24 Losartan Potassium (Losartan Potassium) 50 Mg Tab, 50 MG PO DAILY for 30 Days, MG 11/17/24 Cromolyn Sodium (Cromolyn Sodium) 4 % Louann, 1 DROP EACHEYE DAILY, #30 ML 3 Refills 11/17/24 Loratadine (Claritin) 10 Mg Tab, 1 TAB PO DAILY, #30 TAB 5 Refills 11/17/24 B-Complex W/ C & Folic Acid (Faviola-Jagjit Rx) Tab, 1 TAB PO DAILY, TAB 11/17/24 Metoprolol Tartrate (Metoprolol Tartrate) 25 Mg Tab, 25 MG PO BID for 30 Days, MG 11/17/24 Aspirin (Aspir-Low) 81 Mg Tab, 81 MG PO DAILY for 30 Days, MG 11/17/24 Folic Acid (Folic Acid) 1 Mg Tab, 1 MG PO DAILY for 30 Days, MG 11/17/24 Hydralazine Hcl (Hydralazine Hcl) 10 Mg Tab, 10 MG PO TID for 30 Days, MG 11/17/24 Current Medications Current Medications Medications (Trade) Dose Ordered Sig/Alberto Route PRN Reason Start Time Stop Time Status Last Admin Norepinephrine Bitartrate 250 ml @ 3.75 mls/hr Q24H IV 05/08/25 18:15 05/09/25 05:08 Midazolam HCl 50 ml @ 1 mls/hr Q24H IV 05/08/25 22:00 05/09/25 05:10 Fentanyl Citrate 250 ml @ 2.5 mls/hr Q24H IV 05/08/25 22:00 05/09/25 12:46 Propofol 100 ml @ 3 mls/hr Q24H IV 05/08/25 22:45 05/09/25 15:32 Diagnostic Test (Pha) (Accu-Chek Comfort Curve T) 1 strip ACHS 05/09/25 07:00 05/09/25 12:34 DC 05/09/25 06:25 Insulin Human Regular (InsuLIN R) ACHS SC 05/09/25 07:00 05/09/25 11:25 DC 05/09/25 06:25 Dextrose 50 ml UD PRN IV Blood Sugar LESS THAN 60 05/08/25 23:30 05/09/25 12:34 DC Pantoprazole Sodium (Protonix) 40 mg BID IV 05/09/25 10:00 05/09/25 08:18 DC Vancomycin HCl 0 ml @ 0 mls/hr UD IV 05/08/25 23:30 Ceftriaxone Sodium 50 ml @ 100 mls/hr DAILY@2100 IV 05/09/25 21:00 05/09/25 07:24 DC Vancomycin HCl 250 ml @ 250 mls/hr Q1H IV 05/09/25 00:00 05/09/25 01:59 DC 05/09/25 01:50 Diagnostic Test (Pha) (Accu-Chek Comfort Curve T) 1 strip Q2H 05/09/25 02:00 05/09/25 04:01 DC 05/09/25 04:20 Phenylephrine HCl 250 ml @ 30 mls/hr Q8H20M IV 05/09/25 03:00 05/09/25 03:20 Vasopressin 20 units/Sodium Chloride 100 ml @ 9 mls/hr Q11H7M IV 05/09/25 03:00 05/09/25 12:40 Hydrocortisone Sodium Succinate (Solu-CORTEF INJECTION) 50 mg Q6H IV 05/09/25 09:00 05/09/25 12:05 DC 05/09/25 08:55 Octreotide Acetate 500 mcg/ Sodium Chloride 100 ml @ 10 mls/hr Q10H IV 05/09/25 03:00 05/09/25 13:06 Meropenem 50 ml @ 17 mls/hr DAILY IV 05/09/25 10:00 Cancel Meropenem 50 ml @ 17 mls/hr Q8HR IV 05/09/25 14:00 05/09/25 07:51 DC Meropenem 50 ml @ 17 mls/hr DAILY IV 05/09/25 10:00 05/09/25 09:12 Pantoprazole Sodium 50 ml @ 10 mls/hr Q5H IV 05/09/25 08:15 05/09/25 14:53 Insulin Glargine (Lantus) 20 units QAM SC 05/10/25 07:00 05/09/25 12:13 DC Diagnostic Test (Pha) (Accu-Chek Comfort Curve T) 1 strip IQ4HR 05/09/25 12:00 05/09/25 15:45 Insulin Human Regular (InsuLIN R) IQ4HR SC 05/09/25 12:00 05/09/25 15:50 Dextrose 50 ml UD PRN IV Blood Sugar LESS THAN 60 05/09/25 11:30 Review of Systems Not obtained as the patient is intubated Vital Signs Vital Signs Date Time Temp Pulse Resp B/P (MAP) Pulse Ox O2 Delivery O2 Flow Rate FiO2 05/09/25 16:46 153/71 05/09/25 16:30 97.9 96 28 92 208.2 05/09/25 16:01 30 05/09/25 16:00 Mechanical Ventilator+ 05/08/25 19:30 4 Physical Exam Intubated and sedated. 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 Extremities: No edema Labs/Diagnostic Data Labs Test 05/09/25 15:41 05/09/25 11:21 05/09/25 09:48 05/09/25 05:36 Range/Units POC Glucose 467 *H 70-106 mg/dl Blood Gas Specimen Type Arterial Blood Gas Sample Site Right brachial Blood Gas Patient Temperature 37.0 Arterial Blood Date Drawn [id number] Arterial Blood pH 7.249 *L 7.350-7.450 Arterial Blood Partial Pressure CO2 41.3 32.0-45.0 mmHg Arterial Blood Partial Pressure O2 66.7 L 83.0-108.0 mmHg Arterial Blood HCO3 17.7 L 21.0-28.0 mmol/L Arterial Blood Oxygen Saturation 88.2 L 94.0-98.0 % Arterial Blood Base Excess -9.0 L -2.0-3.0 mmol/L Arterial Blood Oxyhemoglobin 87.8 L 94.0-98.0 % Arterial Blood Carboxyhemoglobin 0.1 L 0.5-1.5 % Arterial Blood Methemoglobin 0.3 0.0-1.5 % Jered Test Modified Blood Gas Total Hemoglobin 11.20 L 12.0-16.0 g/dL Blood Gas Set Respiration Rate 24.0 Blood Gas Modality Vent - ac FiO2 % 30.0 Blood Gas Tidal Volume 400.0 Blood Gas PEEP or CPAP 5.0 Blood Gas Critical Value Read Back Yes Blood Gas Notified Whom ramin Romo md Blood Gas Notified Time [id number] Blood Gas Notified By Vaishali servin i. Hemoglobin 7.4 L 12.2-16.2 g/dL Hematocrit 23.3 #L 36.0-46.0 % Lactic Acid Level 10.0 *H 0.4-2.0 mmol/L White Blood Count 33.1 #*H 4.4-10.8 10^3/uL Red Blood Count 2.98 L 4.0-5.20 10^6/uL Mean Corpuscular Volume 90.4 80.0-100.0 fL Mean Corpuscular Hemoglobin 28.4 28.0-32.0 pg Mean Corpuscular Hemoglobin Concent 31.4 L 32.0-36.0 g/dL Red Cell Distribution Width 18.3 H 11.8-14.3 % Platelet Count 176 140-450 10^3/uL Mean Platelet Volume 8.5 6.9-10.8 fL Neutrophils (%) (Auto) 37.0-80.0 % Lymphocytes (%) (Auto) 10.0-50.0 % Monocytes (%) (Auto) 0.0-12.0 % Basophils (%) (Auto) 0.0-2.0 % Neutrophils # (Auto) 1.6-8.6 10 ^3/uL Lymphocytes # (Auto) 0.4-5.4 10 ^3/uL Monocytes # (Auto) 0-1.3 10 ^3/uL Differential Total Cells Counted 100.0 100 Neutrophils % (Manual) 91 H 37.0-80.0 Band Neutrophils % (Manual) 0 Lymphocytes % (Manual) 5 L 10.0-50.0 Monocytes % (Manual) 3 0-12 Eosinophils % (Manual) 0 0-7 Basophils % (Manual) 0 0.0-2.0 Metamyelocytes % (manual) 0 Myelocytes % (Manual) 1 Promyelocytes % (Manual) 0 Blast Cells % (Manual) 0 Nucleated Red Blood Cells 1.0 % Reactive Lymphocytes 0 Platelet Estimate Adequate Sodium Level 142 136-145 mmol/L Potassium Level 4.1 3.5-5.1 mmol/L Chloride Level 95 L 98-107 mmol/L Carbon Dioxide Level 18 L 20-31 mmol/L Anion Gap 29 H 5-15 Blood Urea Nitrogen 146 #*H 9-23 mg/dL Creatinine 9.71 H 0.550-1.02 mg/dL Glomerular Filtration Rate Calc 4 >90 mL/min BUN/Creatinine Ratio 15.0 10.0-20.0 Serum Glucose 343 H 74-106 mg/dL Calcium Level 8.5 L 8.7-10.4 mg/dL Total Bilirubin < 0.2 L 0.2-1.0 mg/dL Aspartate Amino Transferase (AST) 36 13-40 U/L Alanine Aminotransferase (ALT) 28 7-40 U/L Alkaline Phosphatase 74 46-116 U/L Total Protein 5.7 5.7-8.2 g/dL Albumin 3.2 3.2-4.8 g/dL Test 05/08/25 23:55 05/08/25 16:06 Range/Units Prothrombin Time 12.6 H 9.3-11.8 sec Prothrombin Time INR 1.21 H 0.9-1.15 Activated Partial Thromboplast Time 22.8 L 24.5-34.5 SEC Magnesium Level 2.4 1.6-2.6 mg/dL Direct Bilirubin < 0.1 <0.3 mg/dL Thyroid Stimulating Hormone (TSH) 1.01 0.55-4.78 uIU/mL Plasma/Serum Blood Alcohol < 3.0 <10 mg/dL Eosinophils (%) (Auto) 0.0 0.0-7.0 % Eosinophils # (Auto) 0 0-0.8 10 ^3/uL Basophils # (Auto) 0.1 0-0.2 10 ^3/uL Microbiology Date/Time Source Procedure Growth Status 05/08/25 21:44 Trachea Gram Stain - Final Resulted 05/08/25 21:44 Trachea Respiratory Culture - Preliminary Resulted Assessment End-stage kidney disease on hemodialysis Acute hypoxic respiratory failure Upper GI bleed Anemia secondary to GI bleed Shock secondary to sepsis/hypovolemia Hyperkalemia which resolved with medical management Plan/Recommendation Patient hemodynamically unstable to undergo dialysis today. Potassium levels have improved with medical management. We will hold off on dialysis until tomorrow. Family at bedside has been updated. Patient is scheduled for EGD in a.m.. To continue with transfusion of PRBC as indicated. Plan discussed with: Other NIYA FONSECA MD May 09, 2025 17:15
[2025-05-09] MEDS: MIDAZOLAM DRIP 100 mg/100mL NS 100 ML IV SCH (18:00)
[2025-05-09 18:02] LABS: Hematocrit 26.3 % (36.0-46.0); Hemoglobin 8.5 g/dL (12.2-16.2)
[2025-05-09 18:05] LABS: Potassium 5.1 mmol/L (3.5-5.1); Sodium 141 mmol/L (136-145)
[2025-05-09 18:06] LABS: Anion Gap 26 (5-15); Carbon Dioxide 23 mmol/L (20-31)
[2025-05-09 18:11] LABS: BUN/Creatinine Ratio 12.6 (10.0-20.0)
[2025-05-09 18:14] LABS: Calcium 8.5 mg/dL (8.7-10.4); Chloride 92 mmol/L (98-107)
[2025-05-09 18:15] LABS: Blood Urea Nitrogen 133 mg/dL (9-23); Glucose 503 mg/dL (74-106); Lactic Acid w/Reflex 5.9 mmol/L (0.4-2.0)
--- NOTE | 2025-05-09 19:09 | DVHPNRES ---
Progress Note Date Seen: May 09, 2025 Resident Creating Document: DIAZ BUNDY RESIDENT Medical Necessity Reason Pt with a Central, PICC or Fol: Yes Subjective Review of Systems This is a year 59 years old female with past medical history of GERD, hyperlipidemia, gastritis, duodenitis, GI bleed, diabetes mellitus type 2, hypertension, end-stage renal disease on hemodialysis([id number]) who came in with a chief complaint of hematemesis and melena. Patient was intubated on admission and history was given by the son and daughter. As per the son and daughter the patient started having dark black tarry stool since yesterday night associated with a large amount of hematemesis, no food mixed with the blood. They report she had several episodes yesterday night and today morning after which she has become increasingly confused and lethargic, which prompted them to bring her to the emergency room. They report that she had a similar episode 3 months ago and endoscopy was done which showed no active bleeding. she was scheduled for colonoscopy but has not had it yet. patient is not on any blood thinners and she did not complain of any abdominal pain, nausea, shortness of breath before the aforementioned episodes. On admission central line, endotracheal tube, NG tube were placed. patient is septic with WBC 14.7, pulse 103, respiratory rate 26. Patient's hemoglobin was at 6.5 and 1 unit packed red blood cells was transfused. On admission blood pressure was 118/43 (presses started-NE). We are admitting the patient for further workup and management. Past medical history: as stated above past surgical history: Left fistula family history: Dad has diabetes mellitus and end-stage renal disease social history: family reports she never smoked, drank alcohol or took any illicit drugs Primary care physician: Dr. Wanda alves allergies: None code status: Full code 05/09/2025: Intubated, sedated. Active upper GI bleed, requiring 3 units of PRBC. Receiving IV bicarbonate, possible hemodialysis tomorrow a.m.. Continue with Protonix and Sandostatin drip. Objective vital signs Vital Sign Date Time Temp Pulse Resp B/P (MAP) Pulse Ox O2 Delivery O2 Flow Rate FiO2 05/09/25 18:45 97.7 90 25 128/57 (80) 94 207.9 05/09/25 18:39 40 05/09/25 18:30 Mechanical Ventilator+ 05/08/25 19:30 4 Total Intake and Output 05/08/25 05/08/25 05/09/25 15:00 23:00 07:00 Intake Total 798.5 ml 1468.00 ml Output Total 350 ml Balance 798.5 ml 1118.00 ml medications Current Medications Medications Dose Ordered Sig/Alberto Route Start Time Stop Time Status Last Admin Dose Admin Norepinephrine Bitartrate 250 ml @ 3.75 mls/hr Q24H IV 05/08/25 18:15 05/09/25 05:08 26.25 MLS/HR Fentanyl Citrate 250 ml @ 2.5 mls/hr Q24H IV 05/08/25 22:00 05/09/25 12:46 35 MLS/HR Propofol 100 ml @ 3 mls/hr Q24H IV 05/08/25 22:45 05/09/25 15:32 15 MLS/HR Phenylephrine HCl 250 ml @ 30 mls/hr Q8H20M IV 05/09/25 03:00 05/09/25 03:20 30 MLS/HR Vasopressin 20 units/Sodium Chloride 100 ml @ 9 mls/hr Q11H7M IV 05/09/25 03:00 05/09/25 12:40 9 MLS/HR Octreotide Acetate 500 mcg/ Sodium Chloride 100 ml @ 10 mls/hr Q10H IV 05/09/25 03:00 05/09/25 13:06 10 MLS/HR Meropenem 50 ml @ 17 mls/hr DAILY IV 05/09/25 10:00 Cancel Meropenem 50 ml @ 17 mls/hr DAILY IV 05/09/25 10:00 05/09/25 09:12 17 MLS/HR Pantoprazole Sodium 50 ml @ 10 mls/hr Q5H IV 05/09/25 08:15 05/09/25 14:53 10 MLS/HR Diagnostic Test (Pha) 1 strip IQ4HR 05/09/25 12:00 05/09/25 15:45 1 STRIP Insulin Human Regular IQ4HR SC 05/09/25 12:00 05/09/25 15:50 15 UNITS Dextrose 50 ml UD PRN IV 05/09/25 11:30 Midazolam HCl 100 ml @ 1 mls/hr Q24H IV 05/09/25 18:00 Examination General Appearance: Sedated Head Exam: Normal inspection Neck Exam: Normal inspection. Non-tender. Normal alignment Pulmonary/Respiratory: Chest non-tender. Clear bilateral breath sounds Cardiovascular/Chest: Regular rate and rhythm. No murmurs. No JVD. Peripheral Pulses: 2+ Radial (R). 2+ Radial (L). 2+ Pedal (R). 2+ Pedal (L) Abdominal Exam: Normal bowel sounds. Soft. Nontender. No hepatospenomegaly. No masses, black tarry suction from upper GI NG tube. Ankle Exam: Negative ankle edema Lower extremities: Negative lower extremity edema Neuro/Mental Status: Sedated laboratory and microbiology Laboratory Tests 05/09/25 17:37 05/09/25 05:36 Test 05/09/25 17:37 Range/Units Serum Glucose 503 *H 74-106 mg/dL Microbiology Date/Time Source Procedure Growth Status 05/08/25 21:44 Trachea Gram Stain - Final Resulted 05/08/25 21:44 Trachea Respiratory Culture - Preliminary Resulted Problem List/Assessment/Plan Problem List/Assessment/Plan Neurology Acute metabolic encephalopathy due to uremia, hypoxic respiratory failure Sedated -Versed and fentanyl Cardiology/respiratory Septic shock due to aspiration pneumonia -IV vasopressor Levophed and vasopressin -IV fluid 1 L NS has been given -IV antibiotic with meropenem. -panculture: Blood culture, respiratory culture, urine culture -lactic acid: 5.4, 5.9, 10, 5.9 -continue to monitor I&O. Acute hypoxic respiratory failure due to fluid overload/aspiration pneumonia -ventilator: A.c./VC, respiratory rate 24, tidal volume 400, FiO2 30%, peep of five -nebulization with albuterol -IV antibiotic with meropenem -MRSA negative, discontinued vancomycin -respiratory culture pending GI/ upper versus lower GI bleed Hemorrhagic shock normocytic anemia, likely due to acute blood loss Rule out mesenteric ischemia -NPO -IV Protonix drip -IV Sandostatin drip -3 units of PRBC given -GI: Possible upper GI endoscopy tomorrow -IV fluid has been given NS approximately 1 L -H and H q.12 -CT abdominal pelvis with contrast for rule out mesenteric ischemia Hematology Acute hemorrhagic shock Severe hemorrhagic anemia -hemoglobin 6.5, 7.4, 8.5 -3 units of PRBC given -continue to monitor H and H q.12 -continued management of GI bleed Nephrology hyperkalemia: Improved -hemodialysis -treat septic/hemorrhagic shock ESRD on hemodialysis (TTS) uremic encephalopathy due to above -hemodialysis tomorrow Atrophic kidneys 3-vessel coronary artery calcifications. - incidental finding on CT abdomen and pelvis, outpatient follow up Lactic acidosis -continue to monitor Endocrine #type 2 diabetes mellitus - moderate sliding scale insulin - Accu-Cheks -stopped steroids. GI prophylaxis: protonix drip DVT prophylaxis: held due to GI bleed Diet: NPO Goals of care discussed was discused with patient by admission Full code status Critical care time spent greater than 89 minutes. Case discussed with Dr Walls Plan discussed with: Other (RN) My Orders My Orders Orders - DIAZ BUNDY Procedure Category Date Status Time * Wound Consult CONS 05/09/25 Transmitted * Dietary Consult CONS 05/09/25 Transmitted 10:31 Abg W/ Co-Ox RT 05/09/25 Logged 10:52 Glucose Blood PHA 05/09/25 In Process (Accu-Chek Comfort 12:00 Insulin R (Human) PHA 05/09/25 In Process (Insulin R) 12:00 Dextrose 50% Syringe PHA 05/09/25 In Process 11:30 Insert Midline ORDERS 05/09/25 Transmitted 14:43 Change Midline ARLENE 05/09/25 In Process Dressing Q7 Day 14:43 Ct Ab Pel With Iv Con CT 05/10/25 Logged Only 04:00 CC Plasma Assessment Blood Product Administration S: [id number] Date of Service: May 09, 2025 Billing Provider: BANDAR GEORGES MD Common Visit Codes: 96226-[id number] CARE 30-74 MIN, 79331-[id number] CARE-EACH +30MIN DIAZ BUNDY May 09, 2025 19:08 BANDAR GEORGES MD May 11, 2025 12:25
[2025-05-09 19:46] LABS: Base Excess 0.2 mmol/L (-2.0-3.0)
[2025-05-10] VITALS (105 sets, daily range): BP systolic 68–204; BP diastolic 32–78; PULSE 59–96; RESP 22–28; TEMP 96.6–98.1; O2SAT 87–100
[2025-05-10 04:04] LABS: Hematocrit 22.6 % (36.0-46.0); Hemoglobin 7.5 g/dL (12.2-16.2); Mean Corpuscular Hemoglobin 28.8 pg (28.0-32.0); Mean Corpuscular Volume 86.4 fL (80.0-100.0); Nucleated Red Blood Cells % 0.9 %
[2025-05-10 04:22] LABS: Alanine Aminotransferase 24 U/L (7-40); Alkaline Phosphatase 71 U/L (46-116); Anion Gap 20 (5-15); Carbon Dioxide 28 mmol/L (20-31); Potassium 4.8 mmol/L (3.5-5.1); Sodium 142 mmol/L (136-145)
[2025-05-10 04:30] LABS: BUN/Creatinine Ratio 14.0 (10.0-20.0)
[2025-05-10 04:36] LABS: Albumin 2.6 g/dL (3.2-4.8); Bilirubin, Total < 0.2 mg/dL (0.2-1.0); Calcium 8.5 mg/dL (8.7-10.4); Chloride 94 mmol/L (98-107); Glucose 313 mg/dL (74-106); Total Protein 4.8 g/dL (5.7-8.2)
[2025-05-10 04:37] LABS: Blood Urea Nitrogen 152 mg/dL (9-23)
[2025-05-10] MEDS ORDERED: INSULIN LANTUS (GLARGINE) 1 /0.01ml (100units/ml) SC SCH (07:00)
[2025-05-10 07:07] LABS: Base Excess 3.6 mmol/L (-2.0-3.0)
--- NOTE | 2025-05-10 07:17 | DVH ---
CHEST RADIOGRAPH Indication: on vent Technique: Single frontal view of the chest was obtained Comparison: XY CHEST PORTABLE on DOS: 05/09/25 FINDINGS: Lines and Tubes: Endotracheal tube terminates 4.0 cm above the anastacio. The enteric tube courses below the left hemidiaphragm and the tip extends outside the field of view. There is a left axillary stent . Lungs: Bilateral interstitial prominence. No focal consolidation. Pleura: No effusion. No pneumothorax. Cardiomediastinal contours: Stable cardiomegaly. Bones: No acute osseous abnormality. IMPRESSION: 1. Stable cardiomegaly and bilateral interstitial prominence.
--- NOTE | 2025-05-10 09:29 | DVHPNRES ---
Progress Note Date Seen: May 10, 2025 Resident Creating Document: DIAZ BUNDY RESIDENT Medical Necessity Reason Pt with a Central, PICC or Fol: Yes Subjective Review of Systems This is a year 59 years old female with past medical history of GERD, hyperlipidemia, gastritis, duodenitis, GI bleed, diabetes mellitus type 2, hypertension, end-stage renal disease on hemodialysis([id number]) who came in with a chief complaint of hematemesis and melena. Patient was intubated on admission and history was given by the son and daughter. As per the son and daughter the patient started having dark black tarry stool since yesterday night associated with a large amount of hematemesis, no food mixed with the blood. They report she had several episodes yesterday night and today morning after which she has become increasingly confused and lethargic, which prompted them to bring her to the emergency room. They report that she had a similar episode 3 months ago and endoscopy was done which showed no active bleeding. she was scheduled for colonoscopy but has not had it yet. patient is not on any blood thinners and she did not complain of any abdominal pain, nausea, shortness of breath before the aforementioned episodes. On admission central line, endotracheal tube, NG tube were placed. patient is septic with WBC 14.7, pulse 103, respiratory rate 26. Patient's hemoglobin was at 6.5 and 1 unit packed red blood cells was transfused. On admission blood pressure was 118/43 (presses started-NE). We are admitting the patient for further workup and management. Past medical history: as stated above past surgical history: Left fistula family history: Dad has diabetes mellitus and end-stage renal disease social history: family reports she never smoked, drank alcohol or took any illicit drugs Primary care physician: Dr. Wanda alves allergies: None code status: Full code 05/09/2025: Intubated, sedated. Active upper GI bleed, requiring 3 units of PRBC. Receiving IV bicarbonate, possible hemodialysis tomorrow a.m.. Continue with Protonix and Sandostatin drip. 05/10/2025: Intubated and sedated. Upper GI suction: 150 mL in last 12 hour, continue with Protonix Sandostatin drip. Patient is off vasopressor overnight. Continue on vasopressin. Plan for hemodialysis and EGD today. No any other night events. Objective vital signs Vital Sign Date Time Temp Pulse Resp B/P (MAP) Pulse Ox O2 Delivery O2 Flow Rate FiO2 05/10/25 07:51 113/45 05/10/25 07:14 72 24 93 60 05/10/25 06:30 97.0 206.6 05/10/25 05:45 Mechanical Ventilator+ 05/08/25 19:30 4 Total Intake and Output 05/09/25 05/09/25 05/10/25 15:00 23:00 07:00 Intake Total 750.5 ml 1220.75 ml 565.5 ml Output Total 310 ml 10 ml Balance 750.5 ml 910.75 ml 555.5 ml medications Current Medications Medications Dose Ordered Sig/Alberto Route Start Time Stop Time Status Last Admin Dose Admin Norepinephrine Bitartrate 250 ml @ 3.75 mls/hr Q24H IV 05/08/25 18:15 05/09/25 05:08 26.25 MLS/HR Fentanyl Citrate 250 ml @ 2.5 mls/hr Q24H IV 05/08/25 22:00 05/10/25 02:41 32.5 MLS/HR Propofol 100 ml @ 3 mls/hr Q24H IV 05/08/25 22:45 05/10/25 07:51 15 MLS/HR Phenylephrine HCl 250 ml @ 30 mls/hr Q8H20M IV 05/09/25 03:00 05/09/25 03:20 30 MLS/HR Octreotide Acetate 500 mcg/ Sodium Chloride 100 ml @ 10 mls/hr Q10H IV 05/09/25 03:00 05/10/25 07:49 10 MLS/HR Meropenem 50 ml @ 17 mls/hr DAILY IV 05/09/25 10:00 Cancel Meropenem 50 ml @ 17 mls/hr DAILY IV 05/09/25 10:00 05/09/25 09:12 17 MLS/HR Pantoprazole Sodium 50 ml @ 10 mls/hr Q5H IV 05/09/25 08:15 05/10/25 07:48 10 MLS/HR Midazolam HCl 100 ml @ 1 mls/hr Q24H IV 05/09/25 18:00 05/10/25 02:35 2 MLS/HR Diagnostic Test (Pha) 1 strip IQ4HR 05/09/25 20:00 05/10/25 08:00 1 STRIP Insulin Human Regular IQ4HR SC 05/09/25 20:00 05/10/25 05:03 8 UNITS Dextrose 50 ml UD PRN IV 05/09/25 19:30 Vasopressin 20 units/Sodium Chloride 100 ml @ 12 mls/hr Q8H20M IV 05/09/25 20:30 05/10/25 05:00 12 MLS/HR Examination General Appearance: Sedated Head Exam: Normal inspection Neck Exam: Normal inspection. Non-tender. Normal alignment Pulmonary/Respiratory: Chest non-tender. Clear bilateral breath sounds Cardiovascular/Chest: Regular rate and rhythm. No murmurs. No JVD. Left arm fistula Peripheral Pulses: 2+ Radial (R). 2+ Radial (L). 2+ Pedal (R). 2+ Pedal (L) Abdominal Exam: Normal bowel sounds. Soft. Nontender. No hepatospenomegaly. No masses, black tarry suction from upper GI NG tube. Ankle Exam: Negative ankle edema Lower extremities: Negative lower extremity edema Neuro/Mental Status: Sedated laboratory and microbiology Laboratory Tests 05/10/25 02:15 Test 05/10/25 02:15 Range/Units Serum Glucose 313 H 74-106 mg/dL Microbiology Date/Time Source Procedure Growth Status 05/08/25 23:55 Blood Blood Culture - Preliminary NO GROWTH AFTER 24 HOURS OF INCUBATION. Resulted 05/08/25 21:44 Trachea Gram Stain - Final Resulted 05/08/25 21:44 Trachea Respiratory Culture - Preliminary Resulted Problem List/Assessment/Plan Problem List/Assessment/Plan Neurology Acute metabolic encephalopathy due to uremia, hypoxic respiratory failure Sedated -Versed and fentanyl Cardiology/respiratory Septic shock due to aspiration pneumonia -IV vasopressor vasopressin 0.04 unit/min, off levophed -IV fluid 1 L NS has been given in ER -IV antibiotic with meropenem. -panculture: Blood culture:No growth, respiratory culture: young colony, urine culture -lactic acid: 5.4, 5.9, 10, 5.9 -continue to monitor I&O. Acute hypoxic respiratory failure due to fluid overload/aspiration pneumonia -ventilator: A.c./VC, respiratory rate 24, tidal volume 400, FiO2 60%, peep 5 -nebulization with albuterol -IV antibiotic with meropenem -MRSA negative, discontinued vancomycin -respiratory culture :young colony GI/ upper versus lower GI bleed Hemorrhagic shock normocytic anemia, likely due to acute blood loss Rule out mesenteric ischemia 1-1.5 cm pre-pyloric antral gastric ulcer Moderate duodenitis with multiple superficial duodenal ulcers 2-3 cm sliding-type hiatal hernia with grade B linear erosive esophagitis -NPO -IV Protonix drip -IV Sandostatin drip -3 units of PRBC given -IV fluid has been given NS approximately 1 L -H and H q.12 -S/P EGD 1. Patient had a 1-1.5 cm pre-pyloric antral gastric ulcer with surrounding gastritis and hyperemia 2. Moderate duodenitis with multiple superficial duodenal ulcers and some dark pigmentation of the duodenal mucosa from which biopsies were obtained 3. 2-3 cm sliding-type hiatal hernia with grade B linear erosive esophagitis 4. Patient had some old coffee-ground in the stomach otherwise normal examination up to the 2nd and 3rd part of the duodenum Hematology Acute hemorrhagic shock Severe hemorrhagic anemia -hemoglobin 6.5, 7.4, 8.5,7.5 -3 units of PRBC given -continue to monitor H and H q.12 -EGD schedule today -continued management of GI bleed Nephrology hyperkalemia: Improved -hemodialysis -treat septic/hemorrhagic shock ESRD on hemodialysis (TTS) uremic encephalopathy due to above -hemodialysis today schedule Atrophic kidneys 3-vessel coronary artery calcifications. - incidental finding on CT abdomen and pelvis, outpatient follow up Lactic acidosis -continue to monitor Endocrine type 2 diabetes mellitus - moderate sliding scale insulin - Accu-Cheks -stopped steroids. GI prophylaxis: protonix drip DVT prophylaxis: held due to GI bleed Diet: NPO Goals of care discussed was discused with patient by admission Full code status Critical care time spent greater than 88 minutes. Case discussed with Dr Mariee Plan discussed with: Other (RN) My Orders My Orders Orders - DIAZ BUNDY RESIDENT Procedure Category Date Status Time * Wound Consult CONS 05/09/25 Transmitted * Dietary Consult CONS 05/09/25 Transmitted 10:31 Abg W/ Co-Ox RT 05/09/25 Logged 10:52 Insert Midline ORDERS 05/09/25 Transmitted 14:43 Change Midline ARLENE 05/09/25 In Process Dressing Q7 Day 14:43 Abg W/ Co-Ox RT 05/09/25 Logged 18:51 Chest Xray 1 View XY 05/10/25 Resulted 04:00 Abg W/ Co-Ox RT 05/10/25 Logged 04:00 Communication Order ORDERS 05/09/25 Transmitted 19:15 Glucose Blood PHA 05/09/25 In Process (Accu-Chek Comfort 20:00 Insulin R (Human) PHA 05/09/25 In Process (Insulin R) 20:00 Dextrose 50% Syringe PHA 05/09/25 In Process 19:30 Sodium Chl 0.9% PHA 05/09/25 In Process (So... W/Vasopressin 20:30 Hemoglobin & LAB 05/10/25 Transmitted Hematocrit 10:00 Lactic Acid W/ Reflex LAB 05/10/25 Transmitted Order 10:00 Dietary Evaluation Review Comments: Nutrition Recommendation 1) TPN/PN if NPO>7 days 2) Monitor NPO status, lab values, weight trend, and I/O Expected Outcomes/Goals: GI symptoms to improve Lab values to improve Fu 2-3 days CC Plasma Assessment Blood Product Administration S: [id number] DIAZ BUNDY RESIDENT May 10, 2025 09:29
[2025-05-10] MEDS ORDERED: SODIUM CHLORIDE LOCK 0 ML ONE (09:35)
[2025-05-10] MEDS ORDERED: diphenhydrAMINE HCL 50 MG/1 ML VL ONE (09:36)
[2025-05-10] MEDS ORDERED: MIDAZOLAM HCL 5 MG/ML-1ML VIAL ONE (09:36)
[2025-05-10] MEDS ORDERED: fentaNYL CITRATE 100 MCG/2 ML VL ONE (09:36)
[2025-05-10 10:15] LABS: Hematocrit 22.2 % (36.0-46.0); Hemoglobin 7.4 g/dL (12.2-16.2)
--- NOTE | 2025-05-10 11:36 | DVHPN2 ---
Progress Note - Dictate Date Seen: May 10, 2025 Medical Necessity Reason Pt with a Central, PICC or Fol: Yes Subjective Continues to be intubated. On vasopressin. Off Levophed. vital signs Vital Sign Date Time Temp Pulse Resp B/P (MAP) Pulse Ox O2 Delivery O2 Flow Rate FiO2 05/10/25 11:00 97.2 69 24 118/49 (72) 95 207.0 05/10/25 10:00 Mechanical Ventilator+ 60 60 05/08/25 19:30 4 Total Intake and Output 05/09/25 05/09/25 05/10/25 15:00 23:00 07:00 Intake Total 750.5 ml 1220.75 ml 565.5 ml Output Total 310 ml 10 ml Balance 750.5 ml 910.75 ml 555.5 ml medications Current Medications Medications Dose Ordered Sig/Alberto Route Start Time Stop Time Status Last Admin Dose Admin Norepinephrine Bitartrate 250 ml @ 3.75 mls/hr Q24H IV 05/08/25 18:15 05/09/25 05:08 26.25 MLS/HR Fentanyl Citrate 250 ml @ 2.5 mls/hr Q24H IV 05/08/25 22:00 05/10/25 10:53 30 MLS/HR Propofol 100 ml @ 3 mls/hr Q24H IV 05/08/25 22:45 05/10/25 07:51 15 MLS/HR Phenylephrine HCl 250 ml @ 30 mls/hr Q8H20M IV 05/09/25 03:00 05/09/25 03:20 30 MLS/HR Octreotide Acetate 500 mcg/ Sodium Chloride 100 ml @ 10 mls/hr Q10H IV 05/09/25 03:00 05/10/25 07:49 10 MLS/HR Meropenem 50 ml @ 17 mls/hr DAILY IV 05/09/25 10:00 Cancel Meropenem 50 ml @ 17 mls/hr DAILY IV 05/09/25 10:00 05/10/25 10:28 17 MLS/HR Pantoprazole Sodium 50 ml @ 10 mls/hr Q5H IV 05/09/25 08:15 05/10/25 07:48 10 MLS/HR Midazolam HCl 100 ml @ 1 mls/hr Q24H IV 05/09/25 18:00 05/10/25 02:35 2 MLS/HR Diagnostic Test (Pha) 1 strip IQ4HR 05/09/25 20:00 05/10/25 08:00 1 STRIP Insulin Human Regular IQ4HR SC 05/09/25 20:00 05/10/25 05:03 8 UNITS Dextrose 50 ml UD PRN IV 05/09/25 19:30 Vasopressin 20 units/Sodium Chloride 100 ml @ 12 mls/hr Q8H20M IV 05/09/25 20:30 05/10/25 05:00 12 MLS/HR objective Intubated. HEENT: Normocephalic, no JVD Lungs: Bilateral good air entry CVS: S1, S2 regular rate rhythm Abdomen: Soft, bowel sounds present ELDER ASSISTANT: Sedated Extremities: No edema laboratory and microbiology Laboratory Tests 05/10/25 10:00 05/10/25 02:15 Test 05/10/25 02:15 Range/Units Serum Glucose 313 H 74-106 mg/dL Problem List End-stage kidney disease on hemodialysis Acute hypoxic respiratory failure Upper GI bleed Anemia secondary to GI bleed Shock secondary to sepsis/hypovolemia Hyperkalemia which resolved with medical management Assessment/Plan Hemodialysis today with ultrafiltration as tolerated by blood pressure. Transfusion p.r.n. to keep hemoglobin more than 7. EGD today. Continue with Protonix and octreotide drip. Dietary Evaluation Review Comments: Nutrition Recommendation 1) TPN/PN if NPO>7 days 2) Monitor NPO status, lab values, weight trend, and I/O Expected Outcomes/Goals: GI symptoms to improve Lab values to improve Fu 2-3 days Plan discussed with: Son CC Plasma Assessment Blood Product Administration S: [id number] NIYA FONSECA MD May 10, 2025 11:36
[2025-05-10] MEDS: DEXTROSE (50%) 50ML SYRG IV PRN (12:15)
--- NOTE | 2025-05-10 16:31 | DVHOP2 ---
Operative Report DATE OF OPERATION: 05/10/25 PROCEDURE: Upper Endoscopy with biopsy. PREOPERATIVE INDICATION: The patient is a 59 -year-old female undergoing endoscopy for melena and GI bleed and anemia POSTOPERATIVE DIAGNOSES: 1. Patient had a 1-1.5 cm pre-pyloric antral gastric ulcer with surrounding gastritis and hyperemia 2. Moderate duodenitis with multiple superficial duodenal ulcers and some dark pigmentation of the duodenal mucosa from which biopsies were obtained 3. 2-3 cm sliding-type hiatal hernia with grade B linear erosive esophagitis 4. Patient had some old coffee-ground in the stomach otherwise normal examination up to the 2nd and 3rd part of the duodenum PROCEDURE PERFORMED BY: Karuna Mendiola GI NURSE: Judy SCOPE: Olympus videoendoscope. ASA CLASS: 3 PREOPERATIVE MEDICATIONS: Patient was intubated and sedated and did not require anymore sedation PROCEDURE IN DETAIL: After obtaining an informed consent, the patient was placed on left lateral decubitus position. The patient was then sedated with the above medications. A bite block was placed between her teeth. The endoscope was then passed through the oropharynx, into the esophagus, and through the stomach and pylorus up to the second and third part of the duodenum. The endoscope was then withdrawn. The 2nd and 3rd part of the duodenal were normal except for dark pigmentation within the lining of the duodenal. Duodenal bulb and postbulbar area showed moderate duodenitis with hyperemia erythema and superficial duodenal ulcers Pre-pyloric area and antrum showed gastritis and there was a 1-1.5 cm cm pre- pyloric antral gastric ulcer Yovani classification C There was no visible vessel or active bleeding. Patient on retroflexion showed mild gastritis with some linear gastric erosions. Or coffee-ground in the stomach which were aspirated and no active bleeding was seen. The endoscope was then withdrawn into the distal esophagus Patient had a 2-3 cm sliding-type hiatal hernia with grade B linear erosive esophagitis the distal 5 cm of the esophagus. The remaining distal and proximal esophagus and oropharynx were unremarkable The patient tolerated the procedure well without difficulty. COMPLICATIONS : None SPECIMENS: Duodenal biopsies Gastric biopsies Esophageal biopsies DISPOSITION: Stable Continue to monitor in ICU PLAN: 1. Await for biopsy result 2. Will place pt on Protonix 40 mg bid IV after completion of current Protonix drip 3. Carafate suspension 1 g via NG tube 4. Okay to start enteral tube trickle feedings 5. Monitor labs, hold aspirin NSAIDs and hold blood thinners for now KARUNA MENDIOLA MD May 10, 2025 16:31
[2025-05-10] MEDS: SUCRALFATE 1 GM/10 ML ORAL SUSP GT SCH (17:00)
[2025-05-10] MEDS: SODIUM CHL 0.9% 1000 ML BAG XX ONE (19:00)
[2025-05-10] MEDS: NOREPINEPHRINE 8 MG/250ML KIT 250 ML IV SCH (19:57)
[2025-05-10] MEDS: EPOETIN ALFA-EPBX 10,000 UNIT/1ML VIAL SC ONE (21:00)
--- NOTE | 2025-05-10 21:57 | DVH ---
INDICATION: NGT PLACEMENT CONFIRMATION TECHNIQUE: Frontal view of the chest. COMPARISON: XY CHEST XRAY 1 VIEW on DOS: 05/10/25, XY CHEST PORTABLE on DOS: 05/09/25, XY CHEST XRAY 1 VIEW on DOS: 05/08/25, XY CHEST PORTABLE on DOS: 11/17/24, XY CHEST PORTABLE on DOS: 11/24/22 FINDINGS/IMPRESSION: Limited evaluation for assessment of nasogastric tube placement. Nasogastric tube tip projects over the left upper quadrant, presumably in the region of the stomach. Endotracheal tube projects approxim ately 3.5 cm above the anastacio. Left basilar opacity, likely at least partially on the basis of pleura l effusion. Unchanged cardiomediastinal silhouette. No definite pneumothorax. Unchanged osseous str uctures.
--- NOTE | 2025-05-10 23:48 | DVHPN2 ---
Subjective DOS: 05/10/2025 Patient seen and examined at bedside. Sedated, intubated on mechanical ventilator. Overnight events reviewed. Changes from previous H/P or p: No Changes Eyes: No Pain, No Vision change, No Conjunctivae inflammation, No Eyelid inflammation, No Other, No Redness ENT: No Ear pain, No Ear discharge, No Nose pain, No Nose discharge, No Nose congestion, No Mouth pain, No Mouth swelling, No Throat pain, No Throat swelling, No Other Cardiovascular: No Chest Pain, No Palpitations, No Orthopnea, No Paroxysmal Noc. Dyspnea, No Edema, No Lt Headedness, No Other Respiratory: No Cough, No Dry, No Shortness of breath, No SOB with excertion, No Wheezing, No Hemoptysis, No Pleuritic Pain, No Sputum, No Other Gastrointestinal: No Nausea, No Vomiting, No Abdominal Pain, No Diarrhea, No Constipation; Melena; No Hematochezia; Other (Hematemesis) Genitourinary: No Dysuria, No Frequency, No Incontinence, No Hematuria, No Retention, No Other Musculoskeletal: No other, No neck pain, No shoulder pain, No arm pain, No back pain, No hand pain, No leg pain, No foot pain Skin: No Rash, No Lesions, No Jaundice, No Bruising, No Other Objective Vitals Vital Signs Date Time Temp Pulse Resp B/P (MAP) Pulse Ox O2 Delivery O2 Flow Rate FiO2 05/10/25 23:33 111/58 05/10/25 23:30 69 24 100 05/10/25 22:12 65 05/10/25 22:00 Mechanical Ventilator+ 05/10/25 20:00 98.1 98.1 05/08/25 19:30 4 Intake/Output Intake and Output 05/10/25 07:00 Intake Total 2615.75 ml Output Total 320 ml Balance 2295.75 ml IV Total 2015.75 ml Blood Product 300 ml Other 300 ml Output Urine Total 10 ml Gastric Drainage Total 310 ml Exam Gen.: Patient lying in bed in medical ICU. Sedated, intubated on mechanical ventilator. Head: Normocephalic, atraumatic. Eyes: PERRLA. Ears: Normal external anatomy. Throat: Endotracheal tube and orogastric tube in place. Neck: Supple, trachea midline. Chest: Transmitted breath sounds bilaterally. Decreased air entry bilaterally. No wheezing. Bibasilar crackles. Cardiovascular: Positive S1, positive S2. Regular rate and rhythm. Abdomen: Positive bowel sounds in all 4 quadrants. Soft, nontender, nondistended. : Olivo in place. Normal external genitalia. Rectal: Deferred. Skin: Warm, dry. Intact. Extremities: 2+ radial pulses bilaterally. No lower extremity edema. Neuro: Sedated. Medications Current Medications Medications Dose Ordered Sig/Alberto Route Start Time Stop Time Status Last Admin Dose Admin Fentanyl Citrate 250 ml @ 2.5 mls/hr Q24H IV 05/08/25 22:00 05/10/25 19:53 30 MLS/HR Propofol 100 ml @ 3 mls/hr Q24H IV 05/08/25 22:45 05/10/25 20:23 15 MLS/HR Octreotide Acetate 500 mcg/ Sodium Chloride 100 ml @ 10 mls/hr Q10H IV 05/09/25 03:00 05/10/25 18:54 10 MLS/HR Meropenem 50 ml @ 17 mls/hr DAILY IV 05/09/25 10:00 Cancel Meropenem 50 ml @ 17 mls/hr DAILY IV 05/09/25 10:00 05/10/25 10:28 17 MLS/HR Pantoprazole Sodium 50 ml @ 10 mls/hr Q5H IV 05/09/25 08:15 05/11/25 08:00 05/10/25 23:37 10 MLS/HR Midazolam HCl 100 ml @ 1 mls/hr Q24H IV 05/09/25 18:00 05/10/25 02:35 2 MLS/HR Diagnostic Test (Pha) 1 strip IQ4HR 05/09/25 20:00 05/10/25 23:33 1 STRIP Dextrose 50 ml UD PRN IV 05/09/25 19:30 05/10/25 15:13 50 ML Vasopressin 20 units/Sodium Chloride 100 ml @ 12 mls/hr Q8H20M IV 05/09/25 20:30 05/10/25 18:54 12 MLS/HR Sucralfate 1 gm QID@0600,1130,1700,2200 GT 05/10/25 17:00 05/10/25 22:14 1 GM Pantoprazole Sodium 40 mg BID IV 05/11/25 10:00 Norepinephrine Bitartrate 250 ml @ 1.875 mls/ hr Q24H IV 05/10/25 18:45 Laboratory Results Laboratory Tests 05/10/25 02:15 05/10/25 10:00 Chemistry Test 05/10/25 02:15 Albumin 2.6 g/dL (3.2-4.8) L Calcium Level 8.5 mg/dL (8.7-10.4) L Total Protein 4.8 g/dL (5.7-8.2) L LFT Test 05/10/25 02:15 Alanine Aminotransferase (ALT) 24 U/L (7-40) Alkaline Phosphatase 71 U/L (46-116) Aspartate Amino Transferase (AST) 29 U/L (13-40) Total Bilirubin < 0.2 mg/dL (0.2-1.0) L Blood Gas Results Test 05/10/25 06:58 Arterial Blood pH 7.451 (7.350-7.450) FiO2 % 60.0 Microbiology Microbiology Date/Time Source Procedure Growth Status 05/08/25 23:55 Blood Blood Culture - Preliminary NO GROWTH AFTER 24 HOURS OF INCUBATION. Resulted 05/08/25 21:44 Trachea Gram Stain - Final Resulted 05/08/25 21:44 Trachea Respiratory Culture - Preliminary Resulted Assessment/Plan Assessment/Plan Impression: Acute hypoxic respiratory failure On mechanical ventilator Acute metabolic encephalopathy Septic shock d/t aspiration pneumonia Gastrointestinal hemorrhage Anemia ESRD, on hemodialysis Plan: s/p intubation on mechanical ventilator. ABG reviewed, notable for alkalemia. On AC mode; RR 24, VT 400, PEEP 5, FiO2 50% Titrate FIO2 to keep O2 saturation above 90%. VAP bundle. Daily ABG and CXR while intubated Sedate for ventilator synchrony Continue antibiotics. Follow up cultures. Pressors for hemodynamic support On vasopressin 0.04 units/min Titrate to keep mean arterial pressure greater than 65 mmHg. Off Levophed Hemodialysis per Nephrology -Patient receiving hemodialysis today Monitor renal function Monitor electrolytes. Supplement as necessary. Monitor ins and outs. EGD notable for gastric ulcers GI recs appreciated. On Protonix drip and sucralfate Monitor hemoglobin - currently stable Transfuse if less than 7.0 g/dL. GI prophylaxis. DVT prophylaxis. Prognosis: Poor given patient's multiple co-morbidities. Condition: Critical Rest of plan per hospitalist and other consultants. A total of 35 minutes of critical care time was spent reviewing the patient record, examining the patient, making a diagnostic and therapeutic plan, discussing this plan with the medical personnel, following up on diagnostic studies and following the patient for clinical stability excluding any and all procedures. At least 50% of this time was spent in direct, [id number] contact. Thank you for allowing me to participate in this patient's care. Further recommendations will depend on the patient's clinical course. Please do not hesitate to contact me if you have any questions or concerns. This medical document was created using an electronic medical record system with [employer] dictation system. Although these documentations are being carefully reviewed, there may still be some phonetic and typographical changes. The errors are purely typographical, due to imperfection on the software program, and do not reflect any compromise in the patient's medical care. Plan discussed with: Other (JUSTIN Tsai) Visit Coding Pulmonary Billing Provider: KAMALJIT LEPE MD Date of Service if different f: May 10, 2025 Common Visit Codes: 97226-[id number] INP/OBS CARE(HIGH), 26226-[id number] CARE 30-74 MIN KAMALJIT LEPE MD May 10, 2025 23:48
[2025-05-11] VITALS (112 sets, daily range): BP systolic 83–181; BP diastolic 44–80; PULSE 52–78; RESP 20–28; TEMP 97.9–99; O2SAT 91–100
[2025-05-11 02:54] LABS: Mean Corpuscular Volume 87.5 fL (80.0-100.0)
[2025-05-11 02:57] LABS: Hematocrit 20.7 % (36.0-46.0); Mean Corpuscular Hemoglobin 29.3 pg (28.0-32.0); Nucleated Red Blood Cells % 1.0 %
[2025-05-11 03:05] LABS: Chloride 99 mmol/L (98-107); Potassium 3.9 mmol/L (3.5-5.1); Sodium 142 mmol/L (136-145)
[2025-05-11 03:06] LABS: Anion Gap 14 (5-15); Carbon Dioxide 29 mmol/L (20-31)
[2025-05-11 03:09] LABS: Hemoglobin 6.9 g/dL (12.2-16.2)
[2025-05-11 03:11] LABS: Calcium 8.5 mg/dL (8.7-10.4)
[2025-05-11 03:12] LABS: BUN/Creatinine Ratio 11.5 (10.0-20.0); Blood Urea Nitrogen 77 mg/dL (9-23); Glucose 111 mg/dL (74-106)
--- NOTE | 2025-05-11 06:11 | DVH ---
CHEST RADIOGRAPH Indication: on vent Technique: Single frontal view of the chest was obtained COMPARISON: XY CHEST PORTABLE on DOS: 05/10/25, XY CHEST XRAY 1 VIEW on DOS: 05/10/25, XY CHEST SYEDA BLE on DOS: 05/09/25, XY CHEST XRAY 1 VIEW on DOS: 05/08/25, XY CHEST PORTABLE on DOS: 11/17/24 FINDINGS: Lines and Tubes: Slight interval retraction of the endotracheal tube such that the tip now projects a pproximately 4.4 cm above the level of the anastaico. Enteric catheter unchanged. Lungs: Stable small left pleural effusion and minimal bibasilar pulmonary airspace disease. No pneumothorax. Cardiomediastinal contours: Cardiomegaly. Bones: Unremarkable IMPRESSION: 1. Slight interval retraction of the endotracheal tube such that the tip now projects approximately 4 .4 cm above the level of the anastacio. Enteric catheter unchanged. 2. Stable small left pleural effusion and minimal bibasilar pulmonary airspace disease.
[2025-05-11 09:52] LABS: Base Excess 3.3 mmol/L (-2.0-3.0)
[2025-05-11] MEDS: PANTOPRAZOLE 40 MG/10 ML VIAL INJ IV SCH (10:20)
--- NOTE | 2025-05-11 11:07 | DVHPNRES ---
Progress Note Date Seen: May 11, 2025 Resident Creating Document: MELANIE HERNANDEZ RESIDENT Medical Necessity Reason Pt with a Central, PICC or Fol: Yes Subjective Review of Systems This is a year 59 years old female with past medical history of GERD, hyperlipidemia, gastritis, duodenitis, GI bleed, diabetes mellitus type 2, hypertension, end-stage renal disease on hemodialysis([id number]) who came in with a chief complaint of hematemesis and melena. Patient was intubated on admission and history was given by the son and daughter. As per the son and daughter the patient started having dark black tarry stool since yesterday night associated with a large amount of hematemesis, no food mixed with the blood. They report she had several episodes yesterday night and today morning after which she has become increasingly confused and lethargic, which prompted them to bring her to the emergency room. They report that she had a similar episode 3 months ago and endoscopy was done which showed no active bleeding. she was scheduled for colonoscopy but has not had it yet. patient is not on any blood thinners and she did not complain of any abdominal pain, nausea, shortness of breath before the aforementioned episodes. On admission central line, endotracheal tube, NG tube were placed. patient is septic with WBC 14.7, pulse 103, respiratory rate 26. Patient's hemoglobin was at 6.5 and 1 unit packed red blood cells was transfused. On admission blood pressure was 118/43 (presses started-NE). We are admitting the patient for further workup and management. Past medical history: as stated above past surgical history: Left fistula family history: Dad has diabetes mellitus and end-stage renal disease social history: family reports she never smoked, drank alcohol or took any illicit drugs Primary care physician: Dr. Wanda alves allergies: None code status: Full code 05/09/2025: Intubated, sedated. Active upper GI bleed, requiring 3 units of PRBC. Receiving IV bicarbonate, possible hemodialysis tomorrow a.m.. Continue with Protonix and Sandostatin drip. 05/10/2025: Intubated and sedated. Upper GI suction: 150 mL in last 12 hour, continue with Protonix Sandostatin drip. Patient is off vasopressor overnight. Continue on vasopressin. Plan for hemodialysis and EGD today. No any other night events. 05/11/2025: Patient is seen and examined on bedside. Patient's hemoglobin was 6.9, patient was given 1 PRBC. Intubated and sedated. With ventilator setting at VT 400, FiO2 30, peep at 5. Upper GI suction shows black drainage. Objective vital signs Vital Sign Date Time Temp Pulse Resp B/P (MAP) Pulse Ox O2 Delivery O2 Flow Rate FiO2 05/11/25 10:00 98.4 65 24 173/70 (104) 95 98.4 05/11/25 09:05 30 05/11/25 08:00 Mechanical Ventilator+ Total Intake and Output 05/10/25 05/10/25 05/11/25 15:00 23:00 07:00 Intake Total 632 ml 704.875 ml 601.625 ml Output Total 0 ml 0 ml Balance 632 ml 704.875 ml 601.625 ml medications Current Medications Medications Dose Ordered Sig/Alberto Route Start Time Stop Time Status Last Admin Dose Admin Fentanyl Citrate 250 ml @ 2.5 mls/hr Q24H IV 05/08/25 22:00 05/11/25 03:56 30 MLS/HR Propofol 100 ml @ 3 mls/hr Q24H IV 05/08/25 22:45 05/11/25 08:51 15 MLS/HR Octreotide Acetate 500 mcg/ Sodium Chloride 100 ml @ 10 mls/hr Q10H IV 05/09/25 03:00 05/11/25 04:47 10 MLS/HR Meropenem 50 ml @ 17 mls/hr DAILY IV 05/09/25 10:00 Cancel Meropenem 50 ml @ 17 mls/hr DAILY IV 05/09/25 10:00 05/11/25 10:19 17 MLS/HR Midazolam HCl 100 ml @ 1 mls/hr Q24H IV 05/09/25 18:00 05/10/25 02:35 2 MLS/HR Diagnostic Test (Pha) 1 strip IQ4HR 05/09/25 20:00 05/11/25 08:00 1 STRIP Dextrose 50 ml UD PRN IV 05/09/25 19:30 05/10/25 15:13 50 ML Vasopressin 20 units/Sodium Chloride 100 ml @ 12 mls/hr Q8H20M IV 05/09/25 20:30 05/10/25 18:54 12 MLS/HR Sucralfate 1 gm QID@0600,1130,1700,2200 GT 05/10/25 17:00 05/11/25 10:20 1 GM Pantoprazole Sodium 40 mg BID IV 05/11/25 10:00 05/11/25 10:20 40 MG Norepinephrine Bitartrate 250 ml @ 1.875 mls/ hr Q24H IV 05/10/25 18:45 05/11/25 00:40 1.875 MLS/HR Examination Patient lying in bed General: Patient is sedated, intubated HEENT: Normocephalic, atraumatic, moist mucous membranes Respiratory/pulmonary: Clear lungs bilaterally, vesicular murmurs present in almost all lung abreu, no associated crackles or wheezes. Cardiovascular: Normal heart sounds S1 and S2 with no associated murmurs Abdomen: Abdomen nondistended, black tarry suction from upper GI NG tube. Extremities: There is no peripheral edema present at the lower extremities. Skin: No rashes or pruritus, there is no sacral edema present at this time. Neurological: Pupils reactive, cough and gag reflex intact laboratory and microbiology Laboratory Tests 05/11/25 02:30 Test 05/11/25 02:30 Range/Units Serum Glucose 111 H 74-106 mg/dL Microbiology Date/Time Source Procedure Growth Status 05/08/25 23:55 Blood Blood Culture - Preliminary NO GROWTH AFTER 48 HOURS OF INCUBATION. Resulted 05/08/25 21:44 Trachea Gram Stain - Final Resulted 05/08/25 21:44 Trachea Respiratory Culture - Preliminary Resulted Problem List/Assessment/Plan Problem List/Assessment/Plan Neurology Acute metabolic encephalopathy due to uremia, hypoxic respiratory failure Sedated -Versed and fentanyl Cardiology/respiratory Septic shock due to aspiration pneumonia -IV vasopressor vasopressin 0.04 unit/min, off levophed -IV fluid 1 L NS has been given in ER -IV antibiotic with meropenem. -panculture: Blood culture:No growth, respiratory culture: young colony, urine culture -lactic acid: 5.4, 5.9, 10, 5.9 -continue to monitor I&O. Acute hypoxic respiratory failure due to fluid overload/aspiration pneumonia -ventilator: A.c./VC, respiratory rate 24, tidal volume 400, FiO2 60%, peep 5 -nebulization with albuterol -IV antibiotic with meropenem -MRSA negative, discontinued vancomycin -respiratory culture :young colony GI/ upper versus lower GI bleed Hemorrhagic shock normocytic anemia, likely due to acute blood loss Rule out mesenteric ischemia 1-1.5 cm pre-pyloric antral gastric ulcer Moderate duodenitis with multiple superficial duodenal ulcers 2-3 cm sliding-type hiatal hernia with grade B linear erosive esophagitis -IV Protonix drip -IV Sandostatin drip -3 units of PRBC given -IV fluid has been given NS approximately 1 L -H and H q.12 -S/P EGD 1. Patient had a 1-1.5 cm pre-pyloric antral gastric ulcer with surrounding gastritis and hyperemia 2. Moderate duodenitis with multiple superficial duodenal ulcers and some dark pigmentation of the duodenal mucosa from which biopsies were obtained 3. 2-3 cm sliding-type hiatal hernia with grade B linear erosive esophagitis 4. Patient had some old coffee-ground in the stomach otherwise normal examination up to the 2nd and 3rd part of the duodenum Hematology Acute hemorrhagic shock Severe hemorrhagic anemia -hemoglobin 6.5, 7.4, 8.5,7.5 -3 units of PRBC given -continue to monitor H and H q.12 -EGD schedule today -continued management of GI bleed Nephrology hyperkalemia: Improved -hemodialysis -treat septic/hemorrhagic shock ESRD on hemodialysis (TTS) uremic encephalopathy due to above -hemodialysis today schedule Atrophic kidneys 3-vessel coronary artery calcifications. - incidental finding on CT abdomen and pelvis, outpatient follow up Lactic acidosis -continue to monitor Endocrine type 2 diabetes mellitus - moderate sliding scale insulin - Accu-Cheks -stopped steroids. GI prophylaxis: protonix drip DVT prophylaxis: Protonix b.i.d. Diet: Started feeling Goals of care discussed was discussed with patient by admission Full code status Critical care time spent greater than 88 minutes. Case discussed with Dr Mariee Plan discussed with: Other (Brother) My Orders My Orders Orders - MELANIE HERNANDEZ RESIDENT Procedure Category Date Status Time Hemoglobin & LAB 05/11/25 Logged Hematocrit 10:30 Ventilator Orders RT 05/11/25 Transmitted 10:19 Abg W/ Co-Ox RT 05/11/25 Logged 11:30 Dietary Evaluation Review Comments: Nutrition Recommendation 1) TPN/PN if NPO>7 days 2) Monitor NPO status, lab values, weight trend, and I/O Expected Outcomes/Goals: GI symptoms to improve Lab values to improve Fu 2-3 days CC Plasma Assessment Blood Product Administration S: [id number] MELANIE HERNANDEZ RESIDENT May 11, 2025 11:07
[2025-05-11 11:15] LABS: Hematocrit 23.4 % (36.0-46.0); Hemoglobin 7.9 g/dL (12.2-16.2)
[2025-05-11 12:59] LABS: Base Excess 1.8 mmol/L (-2.0-3.0)
--- NOTE | 2025-05-11 17:09 | DVHPN2 ---
Progress Note - Dictate Date Seen: May 11, 2025 Medical Necessity Reason Pt with a Central, PICC or Fol: Yes Subjective Continues to be intubated. off pressors Underwent EGD vital signs Vital Sign Date Time Temp Pulse Resp B/P (MAP) Pulse Ox O2 Delivery O2 Flow Rate FiO2 05/11/25 16:00 40 05/11/25 16:00 20 96 Mechanical Ventilator+ 05/11/25 16:00 98.4 59 150/61 (90) 98.4 Total Intake and Output 05/10/25 05/10/25 05/11/25 15:00 23:00 07:00 Intake Total 632 ml 704.875 ml 601.625 ml Output Total 0 ml 0 ml Balance 632 ml 704.875 ml 601.625 ml medications Current Medications Medications Dose Ordered Sig/Alberto Route Start Time Stop Time Status Last Admin Dose Admin Fentanyl Citrate 250 ml @ 2.5 mls/hr Q24H IV 05/08/25 22:00 05/11/25 13:39 30 MLS/HR Propofol 100 ml @ 3 mls/hr Q24H IV 05/08/25 22:45 05/11/25 15:29 15 MLS/HR Octreotide Acetate 500 mcg/ Sodium Chloride 100 ml @ 10 mls/hr Q10H IV 05/09/25 03:00 05/11/25 14:40 10 MLS/HR Meropenem 50 ml @ 17 mls/hr DAILY IV 05/09/25 10:00 Cancel Meropenem 50 ml @ 17 mls/hr DAILY IV 05/09/25 10:00 05/11/25 10:19 17 MLS/HR Midazolam HCl 100 ml @ 1 mls/hr Q24H IV 05/09/25 18:00 05/10/25 02:35 2 MLS/HR Diagnostic Test (Pha) 1 strip IQ4HR 05/09/25 20:00 05/11/25 16:15 1 STRIP Dextrose 50 ml UD PRN IV 05/09/25 19:30 05/10/25 15:13 50 ML Vasopressin 20 units/Sodium Chloride 100 ml @ 12 mls/hr Q8H20M IV 05/09/25 20:30 05/10/25 18:54 12 MLS/HR Sucralfate 1 gm QID@0600,1130,1700,2200 GT 05/10/25 17:00 05/11/25 10:20 1 GM Pantoprazole Sodium 40 mg BID IV 05/11/25 10:00 05/11/25 10:20 40 MG Norepinephrine Bitartrate 250 ml @ 1.875 mls/ hr Q24H IV 05/10/25 18:45 05/11/25 00:40 1.875 MLS/HR objective Intubated. 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 Transfusion p.r.n. to keep hemoglobin more than 7. Continue with octreotide drip. Dietary Evaluation Review Comments: Nutrition Recommendation 1) TPN/PN if NPO>7 days 2) Monitor NPO status, lab values, weight trend, and I/O Expected Outcomes/Goals: GI symptoms to improve Lab values to improve Fu 2-3 days Plan discussed with: Other CC Plasma Assessment Blood Product Administration S: [id number] NIYA FONSECA MD May 11, 2025 17:09
--- NOTE | 2025-05-11 23:05 | DVHPN2 ---
Subjective DOS: 05/11/2025 Patient seen and examined at bedside. Sedated, intubated on mechanical ventilator. Overnight events reviewed. Changes from previous H/P or p: No Changes Eyes: No Pain, No Vision change, No Conjunctivae inflammation, No Eyelid inflammation, No Other, No Redness ENT: No Ear pain, No Ear discharge, No Nose pain, No Nose discharge, No Nose congestion, No Mouth pain, No Mouth swelling, No Throat pain, No Throat swelling, No Other Cardiovascular: No Chest Pain, No Palpitations, No Orthopnea, No Paroxysmal Noc. Dyspnea, No Edema, No Lt Headedness, No Other Respiratory: No Cough, No Dry, No Shortness of breath, No SOB with excertion, No Wheezing, No Hemoptysis, No Pleuritic Pain, No Sputum, No Other Gastrointestinal: No Nausea, No Vomiting, No Abdominal Pain, No Diarrhea, No Constipation; Melena; No Hematochezia; Other (Hematemesis) Genitourinary: No Dysuria, No Frequency, No Incontinence, No Hematuria, No Retention, No Other Musculoskeletal: No other, No neck pain, No shoulder pain, No arm pain, No back pain, No hand pain, No leg pain, No foot pain Skin: No Rash, No Lesions, No Jaundice, No Bruising, No Other Objective Vitals Vital Signs Date Time Temp Pulse Resp B/P (MAP) Pulse Ox O2 Delivery O2 Flow Rate FiO2 05/11/25 22:15 56 20 129/48 (75) 97 05/11/25 22:06 40 05/11/25 22:00 Mechanical Ventilator+ 05/11/25 20:01 99.0 99.0 Intake/Output Intake and Output 05/11/25 07:00 Intake Total 1938.500 ml Output Total 0 ml Balance 1938.500 ml Intake Oral 50 ml IV Total 1888.500 ml Output Urine Total 0 ml Exam Gen.: Patient lying in bed in medical ICU. Sedated, intubated on mechanical ventilator. Head: Normocephalic, atraumatic. Eyes: PERRLA. Ears: Normal external anatomy. Throat: Endotracheal tube and orogastric tube in place. Neck: Supple, trachea midline. Chest: Transmitted breath sounds bilaterally. Decreased air entry bilaterally. No wheezing. Bibasilar crackles. Cardiovascular: Positive S1, positive S2. Regular rate and rhythm. Abdomen: Positive bowel sounds in all 4 quadrants. Soft, nontender, nondistended. : Olivo in place. Normal external genitalia. Rectal: Deferred. Skin: Warm, dry. Intact. Extremities: 2+ radial pulses bilaterally. No lower extremity edema. Neuro: Sedated. Medications Current Medications Medications Dose Ordered Sig/Alberto Route Start Time Stop Time Status Last Admin Dose Admin Fentanyl Citrate 250 ml @ 2.5 mls/hr Q24H IV 05/08/25 22:00 05/11/25 21:25 30 MLS/HR Propofol 100 ml @ 3 mls/hr Q24H IV 05/08/25 22:45 05/11/25 21:22 15 MLS/HR Octreotide Acetate 500 mcg/ Sodium Chloride 100 ml @ 10 mls/hr Q10H IV 05/09/25 03:00 05/11/25 14:40 10 MLS/HR Meropenem 50 ml @ 17 mls/hr DAILY IV 05/09/25 10:00 Cancel Meropenem 50 ml @ 17 mls/hr DAILY IV 05/09/25 10:00 05/11/25 10:19 17 MLS/HR Midazolam HCl 100 ml @ 1 mls/hr Q24H IV 05/09/25 18:00 05/11/25 17:37 3 MLS/HR Diagnostic Test (Pha) 1 strip IQ4HR 05/09/25 20:00 05/11/25 19:49 1 STRIP Dextrose 50 ml UD PRN IV 05/09/25 19:30 05/10/25 15:13 50 ML Vasopressin 20 units/Sodium Chloride 100 ml @ 12 mls/hr Q8H20M IV 05/09/25 20:30 05/10/25 18:54 12 MLS/HR Sucralfate 1 gm QID@0600,1130,1700,2200 GT 05/10/25 17:00 05/11/25 21:17 1 GM Pantoprazole Sodium 40 mg BID IV 05/11/25 10:00 05/11/25 21:17 40 MG Norepinephrine Bitartrate 250 ml @ 1.875 mls/ hr Q24H IV 05/10/25 18:45 05/11/25 00:40 1.875 MLS/HR Laboratory Results Laboratory Tests 05/11/25 02:30 05/11/25 10:58 Chemistry Test 05/11/25 02:30 Calcium Level 8.5 mg/dL (8.7-10.4) L Blood Gas Results Test 05/11/25 09:35 05/11/25 12:49 Arterial Blood pH 7.538 (7.350-7.450) 7.501 (7.350-7.450) FiO2 % 30.0 40.0 Microbiology Microbiology Date/Time Source Procedure Growth Status 05/08/25 23:55 Blood Blood Culture - Preliminary NO GROWTH AFTER 48 HOURS OF INCUBATION. Resulted 05/08/25 21:44 Trachea Gram Stain - Final Resulted 05/08/25 21:44 Trachea Respiratory Culture - Preliminary Resulted Assessment/Plan Assessment/Plan Impression: Acute hypoxic respiratory failure On mechanical ventilator Acute metabolic encephalopathy Septic shock d/t aspiration pneumonia Gastrointestinal hemorrhage Anemia ESRD, on hemodialysis Events: Remains on vent support On AC mode; RR 20, VT 400, PEEP 5, FiO2 30% Improved FiO2 requirements Sedated on Versed, Propofol, Fentanyl ABG reviewed, notable for alkalemia. CXR reveals slight interval retraction of the endotracheal tube such that the tip now projects approximately 4.4 cm above the level of the anastacio. Enteric catheter unchanged. Stable small left pleural effusion and minimal bibasilar pulmonary airspace disease. Pressors for hemodynamic support On Levophed 1 mcg/min Titrate to keep mean arterial pressure greater than 65 mmHg. Continue antibiotics. On Protonix Sandostatin drip Monitor hemoglobin - 6.9 g/dL S/p 1 unit PRBC. S/p EGD - antrum/prepyloric ulcer with gastritis and duodenitis; sliding hiatal hernia. GI recs appreciated Labs and imaging reviewed. Rest of plan as noted below. Plan: s/p intubation on mechanical ventilator. On AC mode; RR 20, VT 400, PEEP 5, FiO2 30% Titrate FIO2 to keep O2 saturation above 90%. VAP bundle. Daily ABG and CXR while intubated Sedate for ventilator synchrony Continue antibiotics. Follow up cultures. Pressors for hemodynamic support On Levophed 1 mcg/min Titrate to keep mean arterial pressure greater than 65 mmHg. Hemodialysis per Nephrology Monitor renal function Monitor electrolytes. Supplement as necessary. Monitor ins and outs. EGD notable for gastric ulcers GI recs appreciated. On Protonix drip and sucralfate Monitor hemoglobin Transfuse if less than 7.0 g/dL. GI prophylaxis. DVT prophylaxis. Prognosis: Poor given patient's multiple co-morbidities. Condition: Critical Rest of plan per hospitalist and other consultants. A total of 35 minutes of critical care time was spent reviewing the patient record, examining the patient, making a diagnostic and therapeutic plan, discussing this plan with the medical personnel, following up on diagnostic studies and following the patient for clinical stability excluding any and all procedures. At least 50% of this time was spent in direct, [id number] contact. Thank you for allowing me to participate in this patient's care. Further recommendations will depend on the patient's clinical course. Please do not hesitate to contact me if you have any questions or concerns. This medical document was created using an electronic medical record system with [employer] dictation system. Although these documentations are being carefully reviewed, there may still be some phonetic and typographical changes. The errors are purely typographical, due to imperfection on the software program, and do not reflect any compromise in the patient's medical care. Plan discussed with: Other (JUSTIN Dunn) Visit Coding Pulmonary Billing Provider: KAMALJIT LEPE MD Date of Service if different f: May 11, 2025 Common Visit Codes: 67522-[id number] INP/OBS CARE(HIGH), [id number] CARE 30-74 MIN KAMALJIT LEPE MD May 11, 2025 23:05
[2025-05-12] VITALS (122 sets, daily range): BP systolic 92–198; BP diastolic 38–84; PULSE 51–84; RESP 10–29; TEMP 97.3–99.1; O2SAT 95–100
[2025-05-12 04:48] LABS: Hematocrit 27.2 % (36.0-46.0); Hemoglobin 9.0 g/dL (12.2-16.2); Mean Corpuscular Hemoglobin 29.5 pg (28.0-32.0); Mean Corpuscular Volume 89.1 fL (80.0-100.0); Nucleated Red Blood Cells % 0.6 %
[2025-05-12 05:00] LABS: Anion Gap 11 (5-15)
[2025-05-12 05:05] LABS: BUN/Creatinine Ratio 10.4 (10.0-20.0)
[2025-05-12 05:11] LABS: Alanine Aminotransferase 24 U/L (7-40); Albumin 3.1 g/dL (3.2-4.8); Alkaline Phosphatase 91 U/L (46-116); Bilirubin, Total 0.2 mg/dL (0.2-1.0); Blood Urea Nitrogen 60 mg/dL (9-23); Calcium 8.7 mg/dL (8.7-10.4); Carbon Dioxide 29 mmol/L (20-31); Chloride 100 mmol/L (98-107); Glucose 143 mg/dL (74-106); Potassium 4.5 mmol/L (3.5-5.1); Sodium 140 mmol/L (136-145); Total Protein 5.7 g/dL (5.7-8.2)
--- NOTE | 2025-05-12 07:06 | DVH ---
CHEST RADIOGRAPH Indication: on vent Technique: Single frontal view of the chest was obtained Comparison: XY CHEST XRAY 1 VIEW on DOS: 05/11/25, XY CHEST PORTABLE on DOS: 05/10/25, XY CHEST XRAY 1 VIEW on DOS: 05/10/25 IMPRESSION: Heart appears enlarged. Support lines and tubes appear unchanged in satisfactory position. Small le ft pleural effusion with hazy opacity in the left lung base appear similar to prior examination. Aera tion of the right lung has improved. No pneumothorax. HS:Y
[2025-05-12] MEDS: EPOETIN ALFA-EPBX 10,000 UNIT/1ML VIAL IV PRN (07:16)
--- NOTE | 2025-05-12 08:44 | MEDREC ---
[facility] ASP Intervention Section I [facility] ASP Intervention: Deescalate AB based on CS (PLEASE CONSIDER DE-ESCALATION TO CEFTRIAXONE 2 G IV DAILY PER CAP GUIDELINE, DO NOT ROUTINELY ADD ANAEROBIC COVERAGE FOR SUSPECTED ASPIRATION PNEUMONIA UNLESS LUNG ABCESS OR EMPYEMA IS SUSPECTED. NO HISTORY OF PSEUDOMONAS AERUGINOSA OR ESBL INFECTION AT THIS SITE WITHIN ONE YEAR NO AVANCED STRUCUTRAL LUNG DISEASE. ) ANNIKA MCDERMOTT PHARMACIST May 12, 2025 08:44
[2025-05-12 08:45] LABS: Base Excess 1.0 mmol/L (-2.0-3.0)
--- NOTE | 2025-05-12 10:17 | DVHPN2 ---
Progress Note - Dictate Date Seen: May 12, 2025 Medical Necessity Reason Pt with a Central, PICC or Fol: Yes Subjective Patient is intubated and sedated Patient is getting dialysis Hemoglobin has up to nine S/P 1 unit PRBC yesterday NG tube output about 300 mL slightly dark Ventilator setting at VT 400, FiO2 40, peep at 5. EGD had shown gastric ulcer duodenitis with duodenal ulcers at mild erosive esophagitis vital signs Vital Sign Date Time Temp Pulse Resp B/P (MAP) Pulse Ox O2 Delivery O2 Flow Rate FiO2 05/12/25 10:00 22 100 Mechanical Ventilator+ 35 35 05/12/25 10:00 66 05/12/25 09:50 133/57 (82) 05/12/25 08:00 99.1 99.1 Total Intake and Output 05/11/25 05/11/25 05/12/25 15:00 23:00 07:00 Intake Total 554.625 ml 670.5 ml 499.375 ml Output Total 0 ml 0 ml Balance 554.625 ml 670.5 ml 499.375 ml medications Current Medications Medications Dose Ordered Sig/Alberto Route Start Time Stop Time Status Last Admin Dose Admin Fentanyl Citrate 250 ml @ 2.5 mls/hr Q24H IV 05/08/25 22:00 05/12/25 06:13 27.5 MLS/HR Propofol 100 ml @ 3 mls/hr Q24H IV 05/08/25 22:45 05/12/25 03:17 9 MLS/HR Octreotide Acetate 500 mcg/ Sodium Chloride 100 ml @ 10 mls/hr Q10H IV 05/09/25 03:00 05/12/25 09:41 10 MLS/HR Meropenem 50 ml @ 17 mls/hr DAILY IV 05/09/25 10:00 Cancel Meropenem 50 ml @ 17 mls/hr DAILY IV 05/09/25 10:00 05/12/25 09:40 17 MLS/HR Midazolam HCl 100 ml @ 1 mls/hr Q24H IV 05/09/25 18:00 05/11/25 17:37 3 MLS/HR Diagnostic Test (Pha) 1 strip IQ4HR 05/09/25 20:00 05/12/25 09:40 1 STRIP Dextrose 50 ml UD PRN IV 05/09/25 19:30 05/10/25 15:13 50 ML Vasopressin 20 units/Sodium Chloride 100 ml @ 12 mls/hr Q8H20M IV 05/09/25 20:30 05/10/25 18:54 12 MLS/HR Sucralfate 1 gm QID@0600,1130,1700,2200 GT 05/10/25 17:00 05/12/25 06:09 1 GM Pantoprazole Sodium 40 mg BID IV 05/11/25 10:00 05/12/25 09:41 40 MG Norepinephrine Bitartrate 250 ml @ 1.875 mls/ hr Q24H IV 05/10/25 18:45 05/11/25 00:40 1.875 MLS/HR Epoetin Bright-epbx 10,000 unit WD PRN IV 05/12/25 06:00 05/12/25 07:16 10,000 UNIT objective General: Patient is sedated, intubated HEENT: Normocephalic, atraumatic, moist mucous membranes Respiratory/pulmonary: Clear lungs bilaterally Cardiovascular: Normal heart sounds S1 and S2 with no associated murmurs Abdomen: Abdomen nondistended, dark suction from upper GI NG tube. Extremities: There is no peripheral edema present at the lower extremities. Skin: No rashes or pruritus, there is no sacral edema present at this time. Neurological: Pupils reactive, cough and gag reflex intact laboratory and microbiology Laboratory Tests 05/12/25 04:30 Test 05/12/25 04:30 Range/Units Serum Glucose 143 H 74-106 mg/dL Problems(with codes): (1) Gastric ulcer (2) Severe anemia (3) Hiatal hernia with GERD and esophagitis (4) Gastroduodenitis Prognosis Plan Protonix 40 mg IV q.8 hours Carafate suspension 1 g via NG tube 4 times a day Okay to start trickle tube feedings Monitor labs supportive care; IV Abx; HD Dietary Evaluation Review Comments: Nutrition Recommendation 1) TPN/PN if NPO>7 days 2) Monitor NPO status, lab values, weight trend, and I/O Expected Outcomes/Goals: GI symptoms to improve Lab values to improve Fu 2-3 days Plan discussed with: Other (ICU Nurse) CC Plasma Assessment Blood Product Administration S: [id number] KARUNA HUFFMAN MD May 12, 2025 10:16
[2025-05-12] MEDS: OCTREOTIDE ACETATE 500 MCG in SODIUM CHL 0.9% 99 ML IV SCH (11:30)
--- NOTE | 2025-05-12 11:46 | DVHPN2 ---
Progress Note - Dictate Date Seen: May 12, 2025 Medical Necessity Reason Pt with a Central, PICC or Fol: Yes Subjective Continues to be intubated. Underwent hemodialysis earlier today morning. Status post EGD which revealed gastric ulcer, duodenitis and esophagitis vital signs Vital Sign Date Time Temp Pulse Resp B/P (MAP) Pulse Ox O2 Delivery O2 Flow Rate FiO2 05/12/25 10: 66 20 112/51 (71) 100 35 05/12/25 10:00 Mechanical Ventilator+ 05/12/25 08:00 99.1 99.1 Total Intake and Output 05/11/25 05/11/25 05/12/25 15:00 23:00 07:00 Intake Total 554.625 ml 670.5 ml 499.375 ml Output Total 0 ml 0 ml Balance 554.625 ml 670.5 ml 499.375 ml medications Current Medications Medications Dose Ordered Sig/Alberto Route Start Time Stop Time Status Last Admin Dose Admin Fentanyl Citrate 250 ml @ 2.5 mls/hr Q24H IV 05/08/25 22:00 05/12/25 06:13 27.5 MLS/HR Propofol 100 ml @ 3 mls/hr Q24H IV 05/08/25 22:45 05/12/25 03:17 9 MLS/HR Meropenem 50 ml @ 17 mls/hr DAILY IV 05/09/25 10:00 Cancel Meropenem 50 ml @ 17 mls/hr DAILY IV 05/09/25 10:00 05/12/25 09:40 17 MLS/HR Midazolam HCl 100 ml @ 1 mls/hr Q24H IV 05/09/25 18:00 05/11/25 17:37 3 MLS/HR Diagnostic Test (Pha) 1 strip IQ4HR 05/09/25 20:00 05/12/25 11:24 1 STRIP Dextrose 50 ml UD PRN IV 05/09/25 19:30 05/10/25 15:13 50 ML Vasopressin 20 units/Sodium Chloride 100 ml @ 12 mls/hr Q8H20M IV 05/09/25 20:30 05/10/25 18:54 12 MLS/HR Sucralfate 1 gm QID@0600,1130,1700,2200 GT 05/10/25 17:00 05/12/25 11:24 1 GM Pantoprazole Sodium 40 mg BID IV 05/11/25 10:00 05/12/25 09:41 40 MG Norepinephrine Bitartrate 250 ml @ 1.875 mls/ hr Q24H IV 05/10/25 18:45 05/11/25 00:40 1.875 MLS/HR Epoetin Bright-epbx 10,000 unit WD PRN IV 05/12/25 06:00 05/12/25 07:16 10,000 UNIT Octreotide Acetate 500 mcg/ Sodium Chloride 100 ml @ 5 mls/hr Q20H IV 05/12/25 11:30 UNV objective Intubated. HEENT: Normocephalic, no JVD Lungs: Bilateral good air entry CVS: S1, S2 regular rate rhythm Abdomen: Soft, bowel sounds present CLINICAL DERMATOLOGIST: Sedated Extremities: No edema laboratory and microbiology Laboratory Tests 05/12/25 04:30 Test 05/12/25 04:30 Range/Units Serum Glucose 143 H 74-106 mg/dL Problem List End-stage kidney disease on hemodialysis Acute hypoxic respiratory failure Upper GI bleed, status post EGD revealing gastric ulcer and severe duodenitis Anemia secondary to GI bleed Shock secondary to sepsis/hypovolemia, resolved Hyperkalemia which resolved with medical management Assessment/Plan Hemoglobin stable at 9. For new continue with Protonix and Carafate. 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 We will continue with hemodialysis on TTS schedule. Weaning from ventilator as per Pulmonary. Dietary Evaluation Review Comments: Nutrition Recommendation 1) TPN/PN if NPO>7 days 2) Monitor NPO status, lab values, weight trend, and I/O Expected Outcomes/Goals: GI symptoms to improve Lab values to improve Fu 2-3 days Plan discussed with: Other CC Plasma Assessment Blood Product Administration S: [id number] NIYA FONSECA MD May 12, 2025 11:46
[2025-05-12] MEDS: Nepro With Carb Steady 1 Liter Bottle GT SCH (15:10)
--- NOTE | 2025-05-12 19:54 | DVHPNRES ---
Progress Note Date Seen: May 12, 2025 Resident Creating Document: DIAZ BUNDY RESIDENT Medical Necessity Reason Pt with a Central, PICC or Fol: Yes Subjective Review of Systems This is a year 59 years old female with past medical history of GERD, hyperlipidemia, gastritis, duodenitis, GI bleed, diabetes mellitus type 2, hypertension, end-stage renal disease on hemodialysis([id number]) who came in with a chief complaint of hematemesis and melena. Patient was intubated on admission and history was given by the son and daughter. As per the son and daughter the patient started having dark black tarry stool since yesterday night associated with a large amount of hematemesis, no food mixed with the blood. They report she had several episodes yesterday night and today morning after which she has become increasingly confused and lethargic, which prompted them to bring her to the emergency room. They report that she had a similar episode 3 months ago and endoscopy was done which showed no active bleeding. she was scheduled for colonoscopy but has not had it yet. patient is not on any blood thinners and she did not complain of any abdominal pain, nausea, shortness of breath before the aforementioned episodes. On admission central line, endotracheal tube, NG tube were placed. patient is septic with WBC 14.7, pulse 103, respiratory rate 26. Patient's hemoglobin was at 6.5 and 1 unit packed red blood cells was transfused. On admission blood pressure was 118/43 (presses started-NE). We are admitting the patient for further workup and management. Past medical history: as stated above past surgical history: Left fistula family history: Dad has diabetes mellitus and end-stage renal disease social history: family reports she never smoked, drank alcohol or took any illicit drugs Primary care physician: Dr. Wanda alves allergies: None code status: Full code 05/09/2025: Intubated, sedated. Active upper GI bleed, requiring 3 units of PRBC. Receiving IV bicarbonate, possible hemodialysis tomorrow a.m.. Continue with Protonix and Sandostatin drip. 05/10/2025: Intubated and sedated. Upper GI suction: 150 mL in last 12 hour, continue with Protonix Sandostatin drip. Patient is off vasopressor overnight. Continue on vasopressin. Plan for hemodialysis and EGD today. No any other night events. 05/11/2025: Intubated and sedated. Off vasopressors. On Protonix drip. Off Sandostatin drip. No any other new complaints. No active GI bleed. Started on feeding. Objective vital signs Vital Sign Date Time Temp Pulse Resp B/P (MAP) Pulse Ox O2 Delivery O2 Flow Rate FiO2 05/12/25 18:45 56 20 138/63 (88) 99 05/12/25 18:16 35 05/12/25 18:00 Mechanical Ventilator+ 05/12/25 16:00 98.1 98.1 Total Intake and Output 05/11/25 05/11/25 05/12/25 15:00 23:00 07:00 Intake Total 554.625 ml 670.5 ml 499.375 ml Output Total 0 ml 0 ml Balance 554.625 ml 670.5 ml 499.375 ml medications Current Medications Medications Dose Ordered Sig/Alberto Route Start Time Stop Time Status Last Admin Dose Admin Fentanyl Citrate 250 ml @ 2.5 mls/hr Q24H IV 05/08/25 22:00 05/12/25 15:12 25 MLS/HR Propofol 100 ml @ 3 mls/hr Q24H IV 05/08/25 22:45 05/12/25 17:26 15 MLS/HR Meropenem 50 ml @ 17 mls/hr DAILY IV 05/09/25 10:00 Cancel Meropenem 50 ml @ 17 mls/hr DAILY IV 05/09/25 10:00 05/12/25 09:40 17 MLS/HR Midazolam HCl 100 ml @ 1 mls/hr Q24H IV 05/09/25 18:00 05/11/25 17:37 3 MLS/HR Diagnostic Test (Pha) 1 strip IQ4HR 05/09/25 20:00 05/12/25 17:26 1 STRIP Dextrose 50 ml UD PRN IV 05/09/25 19:30 05/10/25 15:13 50 ML Vasopressin 20 units/Sodium Chloride 100 ml @ 12 mls/hr Q8H20M IV 05/09/25 20:30 05/10/25 18:54 12 MLS/HR Sucralfate 1 gm QID@0600,1130,1700,2200 GT 05/10/25 17:00 05/12/25 11:24 1 GM Pantoprazole Sodium 40 mg BID IV 05/11/25 10:00 05/12/25 09:41 40 MG Norepinephrine Bitartrate 250 ml @ 1.875 mls/ hr Q24H IV 05/10/25 18:45 05/11/25 00:40 1.875 MLS/HR Epoetin Bright-epbx 10,000 unit WD PRN IV 05/12/25 06:00 05/12/25 07:16 10,000 UNIT Enteral Nutritional Formula 1,000 ml 30ML/HR GT 05/12/25 12:30 05/12/25 15:10 1,000 ML Examination General Appearance: Sedated Head Exam: Normal inspection Neck Exam: Normal inspection. Non-tender. Normal alignment Pulmonary/Respiratory: Chest non-tender. Clear bilateral breath sounds Cardiovascular/Chest: Regular rate and rhythm. No murmurs. No JVD. Left arm fistula Peripheral Pulses: 2+ Radial (R). 2+ Radial (L). 2+ Pedal (R). 2+ Pedal (L) Abdominal Exam: Normal bowel sounds. Soft. Nontender. No hepatospenomegaly. No masses, black tarry suction from upper GI NG tube. Ankle Exam: Negative ankle edema Lower extremities: Negative lower extremity edema Neuro/Mental Status: Sedated laboratory and microbiology Laboratory Tests 05/12/25 04:30 Test 05/12/25 04:30 Range/Units Serum Glucose 143 H 74-106 mg/dL Microbiology Date/Time Source Procedure Growth Status 05/08/25 23:55 Blood Blood Culture - Preliminary NO GROWTH AFTER 72 HOURS OF INCUBATION. Resulted 05/08/25 21:44 Trachea Gram Stain - Final Complete 05/08/25 21:44 Trachea Respiratory Culture - Final Complete Problem List/Assessment/Plan Problem List/Assessment/Plan Neurology Acute metabolic encephalopathy due to uremia, hypoxic respiratory failure Sedated -Versed and fentanyl Cardiology/respiratory Septic shock due to aspiration pneumonia -IV vasopressor vasopressin 0.04 unit/min, off levophed -IV fluid 1 L NS has been given in ER -IV antibiotic with meropenem. -panculture: Blood culture:No growth, respiratory culture: young colony, urine culture -lactic acid: 5.4, 5.9, 10, 5.9 -continue to monitor I&O. Acute hypoxic respiratory failure due to fluid overload/aspiration pneumonia -ventilator: A.c./VC, respiratory rate 24, tidal volume 400, FiO2 60%, peep 5 -nebulization with albuterol -IV antibiotic with meropenem -MRSA negative, discontinued vancomycin -respiratory culture :young colony GI/ upper versus lower GI bleed Hemorrhagic shock normocytic anemia, likely due to acute blood loss Rule out mesenteric ischemia 1-1.5 cm pre-pyloric antral gastric ulcer Moderate duodenitis with multiple superficial duodenal ulcers 2-3 cm sliding-type hiatal hernia with grade B linear erosive esophagitis -NPO -IV Protonix drip -IV Sandostatin drip -3 units of PRBC given -IV fluid has been given NS approximately 1 L -H and H q.12 -S/P EGD 1. Patient had a 1-1.5 cm pre-pyloric antral gastric ulcer with surrounding gastritis and hyperemia 2. Moderate duodenitis with multiple superficial duodenal ulcers and some dark pigmentation of the duodenal mucosa from which biopsies were obtained 3. 2-3 cm sliding-type hiatal hernia with grade B linear erosive esophagitis 4. Patient had some old coffee-ground in the stomach otherwise normal examination up to the 2nd and 3rd part of the duodenum Hematology Acute hemorrhagic shock Severe hemorrhagic anemia -hemoglobin 6.5, 7.4, 8.5,7.5 -3 units of PRBC given -continue to monitor H and H q.12 -EGD schedule today -continued management of GI bleed Nephrology hyperkalemia: Improved -hemodialysis -treat septic/hemorrhagic shock ESRD on hemodialysis (TTS) uremic encephalopathy due to above -hemodialysis today schedule Atrophic kidneys 3-vessel coronary artery calcifications. - incidental finding on CT abdomen and pelvis, outpatient follow up Lactic acidosis -continue to monitor Endocrine type 2 diabetes mellitus - moderate sliding scale insulin - Accu-Cheks -stopped steroids. GI prophylaxis: protonix drip DVT prophylaxis: held due to GI bleed Diet: NPO Goals of care discussed was discused with patient by admission Dr. Oscar pena status Critical care time spent greater than 90 minutes. Case discussed with Dr Mariee Plan discussed with: Spouse, Other My Orders My Orders Orders - DIAZ BUNDY RESIDENT Procedure Category Date Status Time Nutritional PHA 05/12/25 In Process Supplements (Nepro 12:30 Dietary Evaluation Review Comments: Nutrition Recommendation 1) TPN/PN if NPO>7 days 2) Monitor NPO status, lab values, weight trend, and I/O Expected Outcomes/Goals: GI symptoms to improve Lab values to improve Fu 2-3 days CC Plasma Assessment Blood Product Administration S: [id number] DIAZ BUNDY RESIDENT May 12, 2025 19:54
--- NOTE | 2025-05-12 22:35 | DVHPN2 ---
Subjective DOS: 05/12/2025 Patient seen and examined at bedside. Sedated, intubated on mechanical ventilator. Overnight events reviewed. Changes from previous H/P or p: No Changes Eyes: No Pain, No Vision change, No Conjunctivae inflammation, No Eyelid inflammation, No Other, No Redness ENT: No Ear pain, No Ear discharge, No Nose pain, No Nose discharge, No Nose congestion, No Mouth pain, No Mouth swelling, No Throat pain, No Throat swelling, No Other Cardiovascular: No Chest Pain, No Palpitations, No Orthopnea, No Paroxysmal Noc. Dyspnea, No Edema, No Lt Headedness, No Other Respiratory: No Cough, No Dry, No Shortness of breath, No SOB with excertion, No Wheezing, No Hemoptysis, No Pleuritic Pain, No Sputum, No Other Gastrointestinal: No Nausea, No Vomiting, No Abdominal Pain, No Diarrhea, No Constipation; Melena; No Hematochezia; Other (Hematemesis) Genitourinary: No Dysuria, No Frequency, No Incontinence, No Hematuria, No Retention, No Other Musculoskeletal: No other, No neck pain, No shoulder pain, No arm pain, No back pain, No hand pain, No leg pain, No foot pain Skin: No Rash, No Lesions, No Jaundice, No Bruising, No Other Objective Vitals Vital Signs Date Time Temp Pulse Resp B/P (MAP) Pulse Ox O2 Delivery O2 Flow Rate FiO2 05/12/25 22:07 55 20 137/55 (82) 95 35 05/12/25 22:00 Mechanical Ventilator+ 05/12/25 20:00 97.3 97.3 Intake/Output Intake and Output 05/12/25 07:00 Intake Total 1724.500 ml Output Total 0 ml Balance 1724.500 ml Intake Oral 320 ml IV Total 1404.500 ml Output Urine Total 0 ml Stool Total 0 ml Exam Gen.: Patient lying in bed in medical ICU. Sedated, intubated on mechanical ventilator. Head: Normocephalic, atraumatic. Eyes: PERRLA. Ears: Normal external anatomy. Throat: Endotracheal tube and orogastric tube in place. Neck: Supple, trachea midline. Chest: Transmitted breath sounds bilaterally. Decreased air entry bilaterally. No wheezing. Bibasilar crackles. Cardiovascular: Positive S1, positive S2. Regular rate and rhythm. Abdomen: Positive bowel sounds in all 4 quadrants. Soft, nontender, nondistended. : Olivo in place. Normal external genitalia. Rectal: Deferred. Skin: Warm, dry. Intact. Extremities: 2+ radial pulses bilaterally. No lower extremity edema. Neuro: Sedated. Medications Current Medications Medications Dose Ordered Sig/Alberto Route Start Time Stop Time Status Last Admin Dose Admin Fentanyl Citrate 250 ml @ 2.5 mls/hr Q24H IV 05/08/25 22:00 05/12/25 15:12 25 MLS/HR Propofol 100 ml @ 3 mls/hr Q24H IV 05/08/25 22:45 05/12/25 17:26 15 MLS/HR Meropenem 50 ml @ 17 mls/hr DAILY IV 05/09/25 10:00 Cancel Meropenem 50 ml @ 17 mls/hr DAILY IV 05/09/25 10:00 05/12/25 09:40 17 MLS/HR Midazolam HCl 100 ml @ 1 mls/hr Q24H IV 05/09/25 18:00 05/11/25 17:37 3 MLS/HR Diagnostic Test (Pha) 1 strip IQ4HR 05/09/25 20:00 05/12/25 20:09 1 STRIP Dextrose 50 ml UD PRN IV 05/09/25 19:30 05/10/25 15:13 50 ML Vasopressin 20 units/Sodium Chloride 100 ml @ 12 mls/hr Q8H20M IV 05/09/25 20:30 05/10/25 18:54 12 MLS/HR Sucralfate 1 gm QID@0600,1130,1700,2200 GT 05/10/25 17:00 05/12/25 21:25 1 GM Pantoprazole Sodium 40 mg BID IV 05/11/25 10:00 05/12/25 21:25 40 MG Norepinephrine Bitartrate 250 ml @ 1.875 mls/ hr Q24H IV 05/10/25 18:45 05/11/25 00:40 1.875 MLS/HR Epoetin Bright-epbx 10,000 unit WD PRN IV 05/12/25 06:00 05/12/25 07:16 10,000 UNIT Enteral Nutritional Formula 1,000 ml 30ML/HR GT 05/12/25 12:30 05/12/25 15:10 1,000 ML Laboratory Results Laboratory Tests 05/12/25 04:30 Chemistry Test 05/12/25 04:30 Albumin 3.1 g/dL (3.2-4.8) L Calcium Level 8.7 mg/dL (8.7-10.4) Total Protein 5.7 g/dL (5.7-8.2) LFT Test 05/12/25 04:30 Alanine Aminotransferase (ALT) 24 U/L (7-40) Alkaline Phosphatase 91 U/L (46-116) Aspartate Amino Transferase (AST) 33 U/L (13-40) Total Bilirubin 0.2 mg/dL (0.2-1.0) Blood Gas Results Test 05/12/25 08:31 Arterial Blood pH 7.415 (7.350-7.450) FiO2 % 35.0 Microbiology Microbiology Date/Time Source Procedure Growth Status 05/08/25 23:55 Blood Blood Culture - Preliminary NO GROWTH AFTER 72 HOURS OF INCUBATION. Resulted 05/08/25 21:44 Trachea Gram Stain - Final Complete 05/08/25 21:44 Trachea Respiratory Culture - Final Complete Assessment/Plan Assessment/Plan Impression: Acute hypoxic respiratory failure On mechanical ventilator Acute metabolic encephalopathy Septic shock d/t aspiration pneumonia Gastrointestinal hemorrhage Anemia ESRD, on hemodialysis Events: Remains on vent support On AC mode; RR 20, VT 400, PEEP 5, FiO2 35% Sedated on Versed, Propofol, Fentanyl ABG reviewed, compensated. CXR reveals small left pleural effusion with hazy opacity in the left lung base, appear similar to prior examination. Aeration of the right lung has improved. No pneumothorax Off Levophed, hemodynamically stable. Continue antibiotics. Off Protonix drip, currently on Protonix PO BID Taper Sandostatin drip Monitor hemoglobin - trended up to 9 g/dL S/p EGD - antrum/prepyloric ulcer with gastritis and duodenitis; sliding hiatal hernia. GI recs appreciated Taper sedation as tolerated CPAP in the AM CPAP with pressure support 8, PEEP of 5. Labs and imaging reviewed. Rest of plan as noted below. Plan: s/p intubation on mechanical ventilator. On AC mode; RR 20, VT 400, PEEP 5, FiO2 35% Titrate FIO2 to keep O2 saturation above 90%. VAP bundle. Daily ABG and CXR while intubated Sedate for ventilator synchrony Continue antibiotics. Follow up cultures. Pressors as necessary for hemodynamic support Titrate to keep mean arterial pressure greater than 65 mmHg. Hemodialysis per Nephrology Monitor renal function Monitor electrolytes. Supplement as necessary. Monitor ins and outs. EGD notable for gastric ulcers GI recs appreciated. On Protonix and sucralfate Monitor hemoglobin Transfuse if less than 7.0 g/dL. GI prophylaxis. DVT prophylaxis. Prognosis: Poor given patient's multiple co-morbidities. Condition: Critical Rest of plan per hospitalist and other consultants. A total of 35 minutes of critical care time was spent reviewing the patient record, examining the patient, making a diagnostic and therapeutic plan, discussing this plan with the medical personnel, following up on diagnostic studies and following the patient for clinical stability excluding any and all procedures. At least 50% of this time was spent in direct, [id number] contact. Thank you for allowing me to participate in this patient's care. Further recommendations will depend on the patient's clinical course. Please do not hesitate to contact me if you have any questions or concerns. This medical document was created using an electronic medical record system with [employer] dictation system. Although these documentations are being carefully reviewed, there may still be some phonetic and typographical changes. The errors are purely typographical, due to imperfection on the software program, and do not reflect any compromise in the patient's medical care. Plan discussed with: Other (JUSTIN Wahl) Visit Coding Pulmonary Billing Provider: KAMALJIT LEPE MD Date of Service if different f: May 12, 2025 Common Visit Codes: [id number] INP/OBS CARE(HIGH), [id number] CARE 30-74 MIN KAMALJIT LEPE MD May 12, 2025 22:35
[2025-05-13] VITALS (110 sets, daily range): BP systolic 135–194; BP diastolic 47–84; PULSE 54–74; RESP 14–27; TEMP 96.5–99; O2SAT 95–100
--- NOTE | 2025-05-13 03:49 | DVH ---
CHEST RADIOGRAPH Indication: ON VENT Technique: 1 view Comparison: XY CHEST XRAY 1 VIEW on DOS: 05/12/25, XY CHEST XRAY 1 VIEW on DOS: 05/11/25, XY CHEST PO RTABLE on DOS: 05/10/25, XY CHEST XRAY 1 VIEW on DOS: 05/10/25, XY CHEST PORTABLE on DOS: 05/09/25 FINDINGS: Lines and Tubes: Unchanged endotracheal and enteric tubes. Lungs/Pleura: Unchanged. Cardiomediastinum: Unchanged. Other: Unchanged osseous structures. IMPRESSION: No significant change from the previous study. Stable support devices. Heart size, pulmonary opaciti es and left pleural effusion suggestive of heart failure.
[2025-05-13 03:55] LABS: Hematocrit 26.4 % (36.0-46.0); Hemoglobin 8.6 g/dL (12.2-16.2); Mean Corpuscular Hemoglobin 29.8 pg (28.0-32.0); Mean Corpuscular Volume 91.5 fL (80.0-100.0); Nucleated Red Blood Cells % 0.4 %
[2025-05-13 04:11] LABS: Anion Gap 13 (5-15); Carbon Dioxide 25 mmol/L (20-31); Chloride 100 mmol/L (98-107); Potassium 4.8 mmol/L (3.5-5.1); Sodium 138 mmol/L (136-145)
[2025-05-13 04:13] LABS: Calcium 8.7 mg/dL (8.7-10.4)
[2025-05-13 04:16] LABS: Iron 16.0 ug/dL (50-170)
[2025-05-13 04:17] LABS: BUN/Creatinine Ratio 7.6 (10.0-20.0)
[2025-05-13 04:18] LABS: Blood Urea Nitrogen 45 mg/dL (9-23); Glucose 141 mg/dL (74-106); Total Iron Binding Capacity 163.0 ug/dL (250-425)
[2025-05-13 06:56] LABS: Base Excess 1.9 mmol/L (-2.0-3.0)
[2025-05-13] MEDS: hydrALAZINE HCL 20 MG/ML VL IV PRN (08:52)
--- NOTE | 2025-05-13 13:40 | DVHPN2 ---
Progress Note - Dictate Date Seen: May 13, 2025 Medical Necessity Reason Pt with a Central, PICC or Fol: Yes Subjective On mechanical ventilation vital signs Vital Sign Date Time Temp Pulse Resp B/P (MAP) Pulse Ox O2 Delivery O2 Flow Rate FiO2 05/13/25 12:52 65 22 146/59 (88) 98 30 05/13/25 12:00 Mechanical Ventilator+ 05/13/25 12:00 96.5 96.5 Total Intake and Output 05/12/25 05/12/25 05/13/25 15:00 23:00 07:00 Intake Total 413.875 ml 339.0 ml 350.0 ml Balance 413.875 ml 339.0 ml 350.0 ml medications Current Medications Medications Dose Ordered Sig/Alberto Route Start Time Stop Time Status Last Admin Dose Admin Fentanyl Citrate 250 ml @ 2.5 mls/hr Q24H IV 05/08/25 22:00 05/13/25 04:22 10 MLS/HR Propofol 100 ml @ 3 mls/hr Q24H IV 05/08/25 22:45 05/13/25 08:04 15 MLS/HR Meropenem 50 ml @ 17 mls/hr DAILY IV 05/09/25 10:00 Cancel Meropenem 50 ml @ 17 mls/hr DAILY IV 05/09/25 10:00 05/13/25 09:11 17 MLS/HR Midazolam HCl 100 ml @ 1 mls/hr Q24H IV 05/09/25 18:00 05/11/25 17:37 3 MLS/HR Diagnostic Test (Pha) 1 strip IQ4HR 05/09/25 20:00 05/13/25 11:40 1 STRIP Dextrose 50 ml UD PRN IV 05/09/25 19:30 05/10/25 15:13 50 ML Vasopressin 20 units/Sodium Chloride 100 ml @ 12 mls/hr Q8H20M IV 05/09/25 20:30 05/10/25 18:54 12 MLS/HR Sucralfate 1 gm QID@0600,1130,1700,2200 GT 05/10/25 17:00 05/13/25 11:45 1 GM Pantoprazole Sodium 40 mg BID IV 05/11/25 10:00 05/13/25 09:10 40 MG Norepinephrine Bitartrate 250 ml @ 1.875 mls/ hr Q24H IV 05/10/25 18:45 05/11/25 00:40 1.875 MLS/HR Epoetin Bright-epbx 10,000 unit WD PRN IV 05/12/25 06:00 05/12/25 07:16 10,000 UNIT Enteral Nutritional Formula 1,000 ml 30ML/HR GT 05/12/25 12:30 05/12/25 15:10 1,000 ML Hydralazine HCl 10 mg Q4HP PRN IV 05/13/25 08:15 05/13/25 08:52 10 MG Hydralazine HCl 50 mg Q8HR PO 05/13/25 14:00 UNV objective Intubated. HEENT: Normocephalic, no JVD Lungs: Bilateral good air entry CVS: S1, S2 regular rate rhythm Abdomen: Soft, bowel sounds present WARD SECRETARY: Sedated Extremities: No edema laboratory and microbiology Laboratory Tests 05/13/25 03:18 Test 05/13/25 03:18 Range/Units Serum Glucose 141 H 74-106 mg/dL Problem List Problem List End-stage kidney disease on hemodialysis Acute hypoxic respiratory failure Upper GI bleed, status post EGD revealing gastric ulcer and severe duodenitis Anemia secondary to GI bleed Shock secondary to sepsis/hypovolemia, resolved Hyperkalemia which resolved with medical management Assessment/Plan HD on TTS schedule. Weaning from ventilator as per Pulmonary. Continue IV PPI Monitor Hb Daily BMP Dietary Evaluation Review Comments: Nutrition Recommendation 1) TPN/PN if NPO>7 days 2) Monitor NPO status, lab values, weight trend, and I/O Expected Outcomes/Goals: GI symptoms to improve Lab values to improve Fu 2-3 days Plan discussed with: Other CC Plasma Assessment Blood Product Administration S: [id number] QUAN UNDERWOOD MD May 13, 2025 13:40
--- NOTE | 2025-05-13 16:56 | DVHPNRES ---
Progress Note Date Seen: May 13, 2025 Resident Creating Document: DIAZ BUNDY RESIDENT Medical Necessity Reason Pt with a Central, PICC or Fol: Yes Subjective Review of Systems This is a year 59 years old female with past medical history of GERD, hyperlipidemia, gastritis, duodenitis, GI bleed, diabetes mellitus type 2, hypertension, end-stage renal disease on hemodialysis([id number]) who came in with a chief complaint of hematemesis and melena. Patient was intubated on admission and history was given by the son and daughter. As per the son and daughter the patient started having dark black tarry stool since yesterday night associated with a large amount of hematemesis, no food mixed with the blood. They report she had several episodes yesterday night and today morning after which she has become increasingly confused and lethargic, which prompted them to bring her to the emergency room. They report that she had a similar episode 3 months ago and endoscopy was done which showed no active bleeding. she was scheduled for colonoscopy but has not had it yet. patient is not on any blood thinners and she did not complain of any abdominal pain, nausea, shortness of breath before the aforementioned episodes. On admission central line, endotracheal tube, NG tube were placed. patient is septic with WBC 14.7, pulse 103, respiratory rate 26. Patient's hemoglobin was at 6.5 and 1 unit packed red blood cells was transfused. On admission blood pressure was 118/43 (presses started-NE). We are admitting the patient for further workup and management. Past medical history: as stated above past surgical history: Left fistula family history: Dad has diabetes mellitus and end-stage renal disease social history: family reports she never smoked, drank alcohol or took any illicit drugs Primary care physician: Dr. Wanda alves allergies: None code status: Full code 05/09/2025: Intubated, sedated. Active upper GI bleed, requiring 3 units of PRBC. Receiving IV bicarbonate, possible hemodialysis tomorrow a.m.. Continue with Protonix and Sandostatin drip. 05/10/2025: Intubated and sedated. Upper GI suction: 150 mL in last 12 hour, continue with Protonix Sandostatin drip. Patient is off vasopressor overnight. Continue on vasopressin. Plan for hemodialysis and EGD today. No any other night events. 05/11/2025: Intubated and sedated. Off vasopressors. On Protonix drip. Off Sandostatin drip. No any other new complaints. No active GI bleed. Started on feeding. 05/12/2025: Intubated. off vasopressor. tolerating feeding. No new night events. Off Protonix and Sandostatin drip. Objective vital signs Vital Sign Date Time Temp Pulse Resp B/P (MAP) Pulse Ox O2 Delivery O2 Flow Rate FiO2 05/13/25 16:09 67 23 161/66 (97) 99 30 05/13/25 16:00 Mechanical Ventilator+ 05/13/25 12:00 96.5 96.5 Total Intake and Output 05/12/25 05/12/25 05/13/25 14:59 22:59 06:59 Intake Total 382.750 ml 389.0 ml 330.0 ml Balance 382.750 ml 389.0 ml 330.0 ml medications Current Medications Medications Dose Ordered Sig/Alberto Route Start Time Stop Time Status Last Admin Dose Admin Fentanyl Citrate 250 ml @ 2.5 mls/hr Q24H IV 05/08/25 22:00 05/13/25 04:22 10 MLS/HR Propofol 100 ml @ 3 mls/hr Q24H IV 05/08/25 22:45 05/13/25 14:26 15 MLS/HR Meropenem 50 ml @ 17 mls/hr DAILY IV 05/09/25 10:00 Cancel Meropenem 50 ml @ 17 mls/hr DAILY IV 05/09/25 10:00 05/13/25 09:11 17 MLS/HR Midazolam HCl 100 ml @ 1 mls/hr Q24H IV 05/09/25 18:00 05/11/25 17:37 3 MLS/HR Diagnostic Test (Pha) 1 strip IQ4HR 05/09/25 20:00 05/13/25 16:07 1 STRIP Dextrose 50 ml UD PRN IV 05/09/25 19:30 05/10/25 15:13 50 ML Vasopressin 20 units/Sodium Chloride 100 ml @ 12 mls/hr Q8H20M IV 05/09/25 20:30 05/10/25 18:54 12 MLS/HR Sucralfate 1 gm QID@0600,1130,1700,2200 GT 05/10/25 17:00 05/13/25 16:43 1 GM Pantoprazole Sodium 40 mg BID IV 05/11/25 10:00 05/13/25 09:10 40 MG Norepinephrine Bitartrate 250 ml @ 1.875 mls/ hr Q24H IV 05/10/25 18:45 05/11/25 00:40 1.875 MLS/HR Epoetin Bright-epbx 10,000 unit WD PRN IV 05/12/25 06:00 05/12/25 07:16 10,000 UNIT Enteral Nutritional Formula 1,000 ml 30ML/HR GT 05/12/25 12:30 05/12/25 15:10 1,000 ML Hydralazine HCl 10 mg Q4HP PRN IV 05/13/25 08:15 05/13/25 08:52 10 MG Hydralazine HCl 50 mg Q8HR PO 05/13/25 14:00 05/13/25 16:07 50 MG Examination General Appearance: Sedated Head Exam: Normal inspection Neck Exam: Normal inspection. Non-tender. Normal alignment Pulmonary/Respiratory: Chest non-tender. Clear bilateral breath sounds Cardiovascular/Chest: Regular rate and rhythm. No murmurs. No JVD. Left arm fistula Peripheral Pulses: 2+ Radial (R). 2+ Radial (L). 2+ Pedal (R). 2+ Pedal (L) Abdominal Exam: Normal bowel sounds. Soft. Nontender. No hepatospenomegaly. No masses, black tarry suction from upper GI NG tube. Ankle Exam: Negative ankle edema Lower extremities: Negative lower extremity edema Neuro/Mental Status: Sedated laboratory and microbiology Laboratory Tests 05/13/25 03:18 Test 05/13/25 03:18 Range/Units Serum Glucose 141 H 74-106 mg/dL Microbiology Date/Time Source Procedure Growth Status 05/08/25 23:55 Blood Blood Culture - Preliminary NO GROWTH AFTER 72 HOURS OF INCUBATION. Resulted 05/08/25 21:44 Trachea Gram Stain - Final Complete 05/08/25 21:44 Trachea Respiratory Culture - Final Complete Problem List/Assessment/Plan Problem List/Assessment/Plan Neurology Acute metabolic encephalopathy due to uremia, hypoxic respiratory failure Sedated -Versed and fentanyl Cardiology/respiratory Septic shock due to aspiration pneumonia -IV antibiotic with ceftriaxone. -panculture: Blood culture:No growth, respiratory culture: young colony, urine culture -lactic acid: 5.4, 5.9, 10, 5.9 -continue to monitor I&O. Acute hypoxic respiratory failure due to fluid overload/aspiration pneumonia -ventilator: A.c./VC, respiratory rate 24, tidal volume 400, FiO2 60%, peep 5 -nebulization with albuterol -IV antibiotic with ceftriaxone -MRSA negative, discontinued vancomycin -respiratory culture :young colony GI/ upper versus lower GI bleed Hemorrhagic shock normocytic anemia, likely due to acute blood loss Rule out mesenteric ischemia 1-1.5 cm pre-pyloric antral gastric ulcer Moderate duodenitis with multiple superficial duodenal ulcers 2-3 cm sliding-type hiatal hernia with grade B linear erosive esophagitis -feeding via NG tube -3 units of PRBC given -IV fluid has been given NS approximately 1 L -H and H q.12 -S/P EGD 1. Patient had a 1-1.5 cm pre-pyloric antral gastric ulcer with surrounding gastritis and hyperemia 2. Moderate duodenitis with multiple superficial duodenal ulcers and some dark pigmentation of the duodenal mucosa from which biopsies were obtained 3. 2-3 cm sliding-type hiatal hernia with grade B linear erosive esophagitis 4. Patient had some old coffee-ground in the stomach otherwise normal examination up to the 2nd and 3rd part of the duodenum Hematology Acute hemorrhagic shock Severe hemorrhagic anemia -hemoglobin 6.5, 7.4, 8.5,7.5 -4units of PRBC given -continue to monitor H and H q.12 -EGD schedule today -continued management of GI bleed Nephrology hyperkalemia: Improved -hemodialysis -treat septic/hemorrhagic shock ESRD on hemodialysis (TTS) uremic encephalopathy due to above -hemodialysis today schedule Atrophic kidneys 3-vessel coronary artery calcifications. - incidental finding on CT abdomen and pelvis, outpatient follow up Lactic acidosis:Improved -continue to monitor Endocrine type 2 diabetes mellitus - moderate sliding scale insulin - Accu-Cheks -stopped steroids. GI prophylaxis: protonix DVT prophylaxis: held due to GI bleed Diet: nepro Goals of care discussed was discused with patient by admission Dr. Moore code status Critical care time spent greater than 88 minutes. Case discussed with Dr Walls Plan discussed with: Other My Orders My Orders Orders - DIAZ BUNDY RESIDENT Procedure Category Date Status Time Chest Xray 1 View XY 05/13/25 Resulted 04:00 Abg W/ Co-Ox RT 05/13/25 Logged 04:00 Hydralazine Injection PHA 05/13/25 In Process (Apresoline Inject 08:15 Dietary Evaluation Review Comments: Nutrition Recommendation 1) TPN/PN if NPO>7 days 2) Monitor NPO status, lab values, weight trend, and I/O Expected Outcomes/Goals: GI symptoms to improve Lab values to improve Fu 2-3 days CC Plasma Assessment Blood Product Administration S: [id number] Date of Service: May 13, 2025 Billing Provider: BANDAR GEORGES MD Common Visit Codes: [id number] CARE 30-74 MIN, [id number] CARE-EACH +30MIN DIAZ BUNDY RESIDENT May 13, 2025 16:56 BANDAR GEORGES MD May 14, 2025 14:18
--- NOTE | 2025-05-13 17:31 | DVHPN2 ---
Progress Note - Dictate Date Seen: May 13, 2025 Medical Necessity Reason Pt with a Central, PICC or Fol: Yes Subjective Patient is intubated and sedated Patient dialyzed tomorrow and there was a plan for CPAP tomorrow Patient is tolerating tube feedings at 10 mL/hour Hemoglobin stable 8.6 S/P 1 unit PRBC EGD had shown gastric ulcer duodenitis with duodenal ulcers at mild erosive esophagitis vital signs Vital Sign Date Time Temp Pulse Resp B/P (MAP) Pulse Ox O2 Delivery O2 Flow Rate FiO2 05/13/25 16:09 67 23 161/66 (97) 99 30 05/13/25 16:00 Mechanical Ventilator+ 05/13/25 12:00 96.5 96.5 Total Intake and Output 05/12/25 05/12/25 05/13/25 15:00 23:00 07:00 Intake Total 413.875 ml 339.0 ml 350.0 ml Balance 413.875 ml 339.0 ml 350.0 ml medications Current Medications Medications Dose Ordered Sig/Alberto Route Start Time Stop Time Status Last Admin Dose Admin Fentanyl Citrate 250 ml @ 2.5 mls/hr Q24H IV 05/08/25 22:00 05/13/25 04:22 10 MLS/HR Propofol 100 ml @ 3 mls/hr Q24H IV 05/08/25 22:45 05/13/25 14:26 15 MLS/HR Meropenem 50 ml @ 17 mls/hr DAILY IV 05/09/25 10:00 Cancel Meropenem 50 ml @ 17 mls/hr DAILY IV 05/09/25 10:00 05/13/25 09:11 17 MLS/HR Midazolam HCl 100 ml @ 1 mls/hr Q24H IV 05/09/25 18:00 05/11/25 17:37 3 MLS/HR Diagnostic Test (Pha) 1 strip IQ4HR 05/09/25 20:00 05/13/25 16:07 1 STRIP Dextrose 50 ml UD PRN IV 05/09/25 19:30 05/10/25 15:13 50 ML Vasopressin 20 units/Sodium Chloride 100 ml @ 12 mls/hr Q8H20M IV 05/09/25 20:30 05/10/25 18:54 12 MLS/HR Sucralfate 1 gm QID@0600,1130,1700,2200 GT 05/10/25 17:00 05/13/25 16:43 1 GM Pantoprazole Sodium 40 mg BID IV 05/11/25 10:00 05/13/25 09:10 40 MG Norepinephrine Bitartrate 250 ml @ 1.875 mls/ hr Q24H IV 05/10/25 18:45 05/11/25 00:40 1.875 MLS/HR Epoetin Bright-epbx 10,000 unit WD PRN IV 05/12/25 06:00 05/12/25 07:16 10,000 UNIT Enteral Nutritional Formula 1,000 ml 30ML/HR GT 05/12/25 12:30 05/12/25 15:10 1,000 ML Hydralazine HCl 10 mg Q4HP PRN IV 05/13/25 08:15 05/13/25 08:52 10 MG Hydralazine HCl 50 mg Q8HR PO 05/13/25 14:00 05/13/25 16:07 50 MG objective General: Patient is sedated, intubated HEENT: Normocephalic, atraumatic, moist mucous membranes Respiratory/pulmonary: Clear lungs bilaterally Cardiovascular: Normal heart sounds S1 and S2 with no associated murmurs Abdomen: Abdomen nondistended, dark suction from upper GI NG tube. Extremities: There is no peripheral edema present at the lower extremities. Skin: No rashes or pruritus, there is no sacral edema present at this time. Neurological: Pupils reactive, cough and gag reflex intact laboratory and microbiology Laboratory Tests 05/13/25 03:18 Test 05/13/25 03:18 Range/Units Serum Glucose 141 H 74-106 mg/dL Problems(with codes): (1) Severe anemia (2) Gastric ulcer (3) Gastroduodenitis (4) Hiatal hernia with GERD and esophagitis (5) Acute renal failure Prognosis Plan Protonix 40 mg IV q.8 hours Carafate suspension 1 g via NG tube 4 times a day Okay to advance tube feedings Monitor labs supportive care; IV Abx; HD Dietary Evaluation Review Comments: Nutrition Recommendation 1) TPN/PN if NPO>7 days 2) Monitor NPO status, lab values, weight trend, and I/O Expected Outcomes/Goals: GI symptoms to improve Lab values to improve Fu 2-3 days Plan discussed with: Other (ICU Nurse) CC Plasma Assessment Blood Product Administration S: [id number] KARUNA HUFFMAN MD May 13, 2025 17:31
[2025-05-14] VITALS (106 sets, daily range): BP systolic 111–195; BP diastolic 40–93; PULSE 54–89; RESP 8–24; TEMP 97.5–98.6; O2SAT 95–100
[2025-05-14 04:11] LABS: Anion Gap 16 (5-15); Carbon Dioxide 24 mmol/L (20-31); Hematocrit 27.2 % (36.0-46.0); Hemoglobin 9.1 g/dL (12.2-16.2); Mean Corpuscular Hemoglobin 30.1 pg (28.0-32.0); Mean Corpuscular Volume 90.0 fL (80.0-100.0); Nucleated Red Blood Cells % 0.2 %; Sodium 138 mmol/L (136-145)
[2025-05-14 04:13] LABS: Calcium 8.4 mg/dL (8.7-10.4); Chloride 98 mmol/L (98-107); Potassium 5.3 mmol/L (3.5-5.1)
[2025-05-14 04:17] LABS: BUN/Creatinine Ratio 9.6 (10.0-20.0)
[2025-05-14 04:22] LABS: Blood Urea Nitrogen 68 mg/dL (9-23); Glucose 128 mg/dL (74-106)
--- NOTE | 2025-05-14 05:53 | DVH ---
CHEST RADIOGRAPH Indication: On vent Technique: Single frontal view of the chest was obtained COMPARISON: XY CHEST XRAY 1 VIEW on DOS: 05/13/25, XY CHEST XRAY 1 VIEW on DOS: 05/12/25, XY CHEST XR AY 1 VIEW on DOS: 05/11/25, XY CHEST PORTABLE on DOS: 05/10/25, XY CHEST XRAY 1 VIEW on DOS: 05/10/25 FINDINGS: Lines and Tubes: Unchanged. Lungs: Progressive interval decrease in left pleural effusion and diffuse increased prominence of the pulmonary vasculature. No evidence of focal consolidation. No pneumothorax. Cardiomediastinal contours: Cardiomegaly. Bones: Unremarkable IMPRESSION: 1. Progressive interval decrease in left pleural effusion and diffuse increased prominence of the pul monary vasculature. 2. Cardiomegaly. 3. Lines and tubes unchanged.
[2025-05-14 08:16] LABS: Base Excess 0.4 mmol/L (-2.0-3.0)
[2025-05-14] MEDS: ALBUMIN 25% 100 ML IV ONE (11:29)
--- NOTE | 2025-05-14 13:41 | DVHPN2 ---
Progress Note - Dictate Date Seen: May 14, 2025 Has the PT tested + for MRSA If YES, has PT been informed?: No Medical Necessity Reason Pt with a Central, PICC or Fol: Yes Subjective On mechanical ventilation vital signs Vital Sign Date Time Temp Pulse Resp B/P (MAP) Pulse Ox O2 Delivery O2 Flow Rate FiO2 05/14/25 12:00 65 05/14/25 12:00 30 05/14/25 12:00 23 98 Mechanical Ventilator+ 05/14/25 11:33 111/50 (70) 05/14/25 07:45 98.6 98.6 Total Intake and Output 05/13/25 05/13/25 05/14/25 15:00 23:00 07:00 Intake Total 247.5 ml 580 ml 362.5 ml Balance 247.5 ml 580 ml 362.5 ml medications Current Medications Medications Dose Ordered Sig/Alberto Route Start Time Stop Time Status Last Admin Dose Admin Fentanyl Citrate 250 ml @ 2.5 mls/hr Q24H IV 05/08/25 22:00 05/14/25 05:55 5 MLS/HR Propofol 100 ml @ 3 mls/hr Q24H IV 05/08/25 22:45 05/14/25 06:47 15 MLS/HR Meropenem 50 ml @ 17 mls/hr DAILY IV 05/09/25 10:00 Cancel Midazolam HCl 100 ml @ 1 mls/hr Q24H IV 05/09/25 18:00 05/11/25 17:37 3 MLS/HR Diagnostic Test (Pha) 1 strip IQ4HR 05/09/25 20:00 05/14/25 08:00 1 STRIP Dextrose 50 ml UD PRN IV 05/09/25 19:30 05/10/25 15:13 50 ML Vasopressin 20 units/Sodium Chloride 100 ml @ 12 mls/hr Q8H20M IV 05/09/25 20:30 05/10/25 18:54 12 MLS/HR Sucralfate 1 gm QID@0600,1130,1700,2200 GT 05/10/25 17:00 05/14/25 06:03 1 GM Pantoprazole Sodium 40 mg BID IV 05/11/25 10:00 05/13/25 21:29 40 MG Norepinephrine Bitartrate 250 ml @ 1.875 mls/ hr Q24H IV 05/10/25 18:45 05/11/25 00:40 1.875 MLS/HR Epoetin Bright-epbx 10,000 unit WD PRN IV 05/12/25 06:00 05/12/25 07:16 10,000 UNIT Enteral Nutritional Formula 1,000 ml 30ML/HR GT 05/12/25 12:30 05/13/25 17:41 1,000 ML Hydralazine HCl 10 mg Q4HP PRN IV 05/13/25 08:15 05/14/25 02:30 10 MG Hydralazine HCl 50 mg Q8HR PO 05/13/25 14:00 05/13/25 21:30 50 MG Ceftriaxone Sodium 50 ml @ 100 mls/hr DAILY@2100 IV 05/14/25 21:00 objective Intubated. HEENT: Normocephalic, no JVD Lungs: Bilateral good air entry CVS: S1, S2 regular rate rhythm Abdomen: Soft, bowel sounds present [employer]: Sedated Extremities: She has generalized edema laboratory and microbiology Laboratory Tests 05/14/25 03:30 Test 05/14/25 03:30 Range/Units Serum Glucose 128 H 74-106 mg/dL Problem List Problem List End-stage kidney disease on hemodialysis Acute hypoxic respiratory failure Fluid overload Upper GI bleed, status post EGD revealing gastric ulcer and severe duodenitis Anemia secondary to GI bleed Shock secondary to sepsis/hypovolemia, resolved Hyperkalemia which resolved with medical management Assessment/Plan Will do HD and aggressive UF again tomorrow, no heparin Weaning from ventilator as per Pulmonary. Continue IV PPI Monitor Hb Daily BMP Dietary Evaluation Review Comments: Nutrition Recommendation 1) TPN/PN if NPO>7 days 2) Monitor NPO status, lab values, weight trend, and I/O Expected Outcomes/Goals: GI symptoms to improve Lab values to improve Fu 2-3 days Plan discussed with: Other CC Plasma Assessment Blood Product Administration S: [id number] QUAN UNDERWOOD MD May 14, 2025 13:41
--- NOTE | 2025-05-14 16:25 | DVHPNRES ---
Progress Note Date Seen: May 14, 2025 Resident Creating Document: DIAZ BUNDY RESIDENT Has the PT tested + for MRSA If YES, has PT been informed?: No Medical Necessity Reason Pt with a Central, PICC or Fol: Yes Subjective Review of Systems This is a year 59 years old female with past medical history of GERD, hyperlipidemia, gastritis, duodenitis, GI bleed, diabetes mellitus type 2, hypertension, end-stage renal disease on hemodialysis([id number]) who came in with a chief complaint of hematemesis and melena. Patient was intubated on admission and history was given by the son and daughter. As per the son and daughter the patient started having dark black tarry stool since yesterday night associated with a large amount of hematemesis, no food mixed with the blood. They report she had several episodes yesterday night and today morning after which she has become increasingly confused and lethargic, which prompted them to bring her to the emergency room. They report that she had a similar episode 3 months ago and endoscopy was done which showed no active bleeding. she was scheduled for colonoscopy but has not had it yet. patient is not on any blood thinners and she did not complain of any abdominal pain, nausea, shortness of breath before the aforementioned episodes. On admission central line, endotracheal tube, NG tube were placed. patient is septic with WBC 14.7, pulse 103, respiratory rate 26. Patient's hemoglobin was at 6.5 and 1 unit packed red blood cells was transfused. On admission blood pressure was 118/43 (presses started-NE). We are admitting the patient for further workup and management. Past medical history: as stated above past surgical history: Left fistula family history: Dad has diabetes mellitus and end-stage renal disease social history: family reports she never smoked, drank alcohol or took any illicit drugs Primary care physician: Dr. Wanda alves allergies: None code status: Full code 05/09/2025: Intubated, sedated. Active upper GI bleed, requiring 3 units of PRBC. Receiving IV bicarbonate, possible hemodialysis tomorrow a.m.. Continue with Protonix and Sandostatin drip. 05/10/2025: Intubated and sedated. Upper GI suction: 150 mL in last 12 hour, continue with Protonix Sandostatin drip. Patient is off vasopressor overnight. Continue on vasopressin. Plan for hemodialysis and EGD today. No any other night events. 05/11/2025: Intubated and sedated. Off vasopressors. On Protonix drip. Off Sandostatin drip. No any other new complaints. No active GI bleed. Started on feeding. 05/12/2025: Intubated. off vasopressor. tolerating feeding. No new night events. Off Protonix and Sandostatin drip. 05/14/2025:Off any drips. plan for dialysis and then cpap. no new night complains. Objective vital signs Vital Sign Date Time Temp Pulse Resp B/P (MAP) Pulse Ox O2 Delivery O2 Flow Rate FiO2 05/14/25 14:54 189/73 05/14/25 14:30 80 21 100 05/14/25 14:00 30 05/14/25 14:00 Mechanical Ventilator+ 05/14/25 07:45 98.6 98.6 Total Intake and Output 05/13/25 05/13/25 05/14/25 15:00 23:00 07:00 Intake Total 247.5 ml 580 ml 362.5 ml Balance 247.5 ml 580 ml 362.5 ml medications Current Medications Medications Dose Ordered Sig/Alberto Route Start Time Stop Time Status Last Admin Dose Admin Fentanyl Citrate 250 ml @ 2.5 mls/hr Q24H IV 05/08/25 22:00 05/14/25 05:55 5 MLS/HR Propofol 100 ml @ 3 mls/hr Q24H IV 05/08/25 22:45 05/14/25 13:51 12 MLS/HR Meropenem 50 ml @ 17 mls/hr DAILY IV 05/09/25 10:00 Cancel Midazolam HCl 100 ml @ 1 mls/hr Q24H IV 05/09/25 18:00 05/11/25 17:37 3 MLS/HR Diagnostic Test (Pha) 1 strip IQ4HR 05/09/25 20:00 05/14/25 12:00 1 STRIP Dextrose 50 ml UD PRN IV 05/09/25 19:30 05/10/25 15:13 50 ML Sucralfate 1 gm QID@0600,1130,1700,2200 GT 05/10/25 17:00 05/14/25 14:00 1 GM Pantoprazole Sodium 40 mg BID IV 05/11/25 10:00 05/14/25 14:00 40 MG Norepinephrine Bitartrate 250 ml @ 1.875 mls/ hr Q24H IV 05/10/25 18:45 05/11/25 00:40 1.875 MLS/HR Enteral Nutritional Formula 1,000 ml 30ML/HR GT 05/12/25 12:30 05/13/25 17:41 1,000 ML Hydralazine HCl 10 mg Q4HP PRN IV 05/13/25 08:15 05/14/25 14:54 10 MG Ceftriaxone Sodium 50 ml @ 100 mls/hr DAILY@2100 IV 05/14/25 21:00 Hydralazine HCl 50 mg Q8HR PO 05/14/25 22:00 Labetalol HCl 10 mg Q2HPRN PRN IV 05/14/25 16:15 UNV Examination General Appearance: Sedated Head Exam: Normal inspection Neck Exam: Normal inspection. Non-tender. Normal alignment Pulmonary/Respiratory: Chest non-tender. Clear bilateral breath sounds Cardiovascular/Chest: Regular rate and rhythm. No murmurs. No JVD. Left arm fistula Peripheral Pulses: 2+ Radial (R). 2+ Radial (L). 2+ Pedal (R). 2+ Pedal (L) Abdominal Exam: Normal bowel sounds. Soft. Nontender. No hepatospenomegaly. No masses, black tarry suction from upper GI NG tube. Ankle Exam: Negative ankle edema Lower extremities: Negative lower extremity edema Neuro/Mental Status: Sedated laboratory and microbiology Laboratory Tests 05/14/25 03:30 Test 05/14/25 03:30 Range/Units Serum Glucose 128 H 74-106 mg/dL Microbiology Date/Time Source Procedure Growth Status 05/08/25 23:55 Blood Blood Culture - Final NO GROWTH AFTER 5 DAYS OF INCUBATION. Complete 05/08/25 21:44 Trachea Gram Stain - Final Complete 05/08/25 21:44 Trachea Respiratory Culture - Final Complete Problem List/Assessment/Plan Problem List/Assessment/Plan Neurology Acute metabolic encephalopathy due to uremia, hypoxic respiratory failure Sedated -Versed and fentanyl Cardiology/respiratory Septic shock due to aspiration pneumonia -IV antibiotic with ceftriaxone. -panculture: Blood culture:No growth, respiratory culture: young colony, urine culture -lactic acid: 5.4, 5.9, 10, 5.9 -continue to monitor I&O. Acute hypoxic respiratory failure due to fluid overload/aspiration pneumonia -ventilator: A.c./VC, respiratory rate 24, tidal volume 400, FiO2 30%, peep 5 -nebulization with albuterol -IV antibiotic with ceftriaxone -MRSA negative, discontinued vancomycin Uncontrolled hypertension -Hydralazine 50 mg TID -PRN labetalol -Dialysis GI/ upper versus lower GI bleed Hemorrhagic shock normocytic anemia, likely due to acute blood loss Rule out mesenteric ischemia 1-1.5 cm pre-pyloric antral gastric ulcer Moderate duodenitis with multiple superficial duodenal ulcers 2-3 cm sliding-type hiatal hernia with grade B linear erosive esophagitis -Iv protonix 40 mg BID -Sucralfate 1 GM GT QID -feeding via NG tube -3 units of PRBC given -IV fluid has been given NS approximately 1 L -H and H q.12 -S/P EGD 1. Patient had a 1-1.5 cm pre-pyloric antral gastric ulcer with surrounding gastritis and hyperemia 2. Moderate duodenitis with multiple superficial duodenal ulcers and some dark pigmentation of the duodenal mucosa from which biopsies were obtained 3. 2-3 cm sliding-type hiatal hernia with grade B linear erosive esophagitis 4. Patient had some old coffee-ground in the stomach otherwise normal examination up to the 2nd and 3rd part of the duodenum Hematology Acute hemorrhagic shock Severe hemorrhagic anemia -hemoglobin 6.5, 7.4, 8.5,7.5 -4units of PRBC given -continue to monitor H and H q.12 -EGD schedule today -continued management of GI bleed Nephrology hyperkalemia: Improved -hemodialysis -treat septic/hemorrhagic shock ESRD on hemodialysis (TTS) uremic encephalopathy due to above -hemodialysis today schedule::2.1 L removed Atrophic kidneys 3-vessel coronary artery calcifications. - incidental finding on CT abdomen and pelvis, outpatient follow up Lactic acidosis:Improved -continue to monitor Endocrine type 2 diabetes mellitus - moderate sliding scale insulin - Accu-Cheks -stopped steroids. GI prophylaxis: protonix DVT prophylaxis: held due to GI bleed Diet: nepro Line: right femoral 05/09/2025 Goals of care discussed was discused with patient by admission Dr. Moore code status Critical care time spent greater than 64 minutes. Case discussed with Dr Walls Plan discussed with: Other (RN) My Orders My Orders Orders - DIAZ BUNDY RESIDENT Procedure Category Date Status Time Chest Xray 1 View XY 05/14/25 Resulted 04:00 Abg W/ Co-Ox RT 05/14/25 Logged 04:00 * Wound Consult CONS 05/14/25 Transmitted Ceftriaxone 1gm/50ml PHA 05/14/25 In Process (Rocephin) 21:00 Labetalol Hcl PHA 05/14/25 Logged (Labetalol Hcl) 16:15 Dietary Evaluation Review Comments: Nutrition Recommendation 1) TPN/PN if NPO>7 days 2) Monitor NPO status, lab values, weight trend, and I/O Expected Outcomes/Goals: GI symptoms to improve Lab values to improve Fu 2-3 days CC Plasma Assessment Blood Product Administration S: [id number] Date of Service: May 14, 2025 Billing Provider: BANDAR GEORGES MD Common Visit Codes: 31839-[id number] CARE 30-74 MIN DIAZ BUNDY RESIDENT May 14, 2025 16:25 BANDAR GEORGES MD May 15, 2025 13:01
[2025-05-14] MEDS: DEXMEDETOMIDINE HCL IN D5W 100 ML IV SCH (16:30)
[2025-05-14] MEDS: EPOETIN ALFA-EPBX 10,000 UNIT/1ML VIAL SC ONE (20:49)
[2025-05-15] VITALS (75 sets, daily range): BP systolic 107–175; BP diastolic 38–83; PULSE 69–89; RESP 10–23; TEMP 97.9–99; O2SAT 92–99
[2025-05-15] MEDS: LABETALOL HCL 20 MG/4 ML VL IV PRN (02:02)
[2025-05-15 04:49] LABS: Hematocrit 26.1 % (36.0-46.0); Hemoglobin 8.7 g/dL (12.2-16.2); Mean Corpuscular Hemoglobin 30.1 pg (28.0-32.0); Mean Corpuscular Volume 90.4 fL (80.0-100.0); Nucleated Red Blood Cells % 0.1 %
[2025-05-15 05:02] LABS: Potassium 4.9 mmol/L (3.5-5.1); Sodium 139 mmol/L (136-145)
[2025-05-15 05:03] LABS: Anion Gap 16 (5-15); Carbon Dioxide 26 mmol/L (20-31)
[2025-05-15 05:04] LABS: Calcium 9.0 mg/dL (8.7-10.4)
[2025-05-15 05:07] LABS: Chloride 97 mmol/L (98-107)
--- NOTE | 2025-05-15 05:07 | DVH ---
CHEST RADIOGRAPH Indication: on vent Technique: Single frontal view of the chest was obtained Comparison: XY CHEST XRAY 1 VIEW on DOS: 05/14/25 FINDINGS: Lines and Tubes: The endotracheal tube terminates 3.2 cm above the anastacio. The enteric tube courses b elow the left hemidiaphragm and the tip extends outside the field of view. Lungs: Bilateral interstitial prominence is similar to prior study. Pleura: Left pleural effusion is unchanged. No pneumothorax. Cardiomediastinal contours: Cardiomegaly. Bones: No acute osseous abnormality. IMPRESSION: 1. Stable interstitial prominence. 2. Stable cardiomegaly. 3. Appropriate position of the support lines and tubes.
[2025-05-15 05:08] LABS: Glucose 111 mg/dL (74-106)
[2025-05-15 05:09] LABS: BUN/Creatinine Ratio 8.4 (10.0-20.0); Blood Urea Nitrogen 44 mg/dL (9-23)
[2025-05-15 07:28] LABS: Base Excess 1.1 mmol/L (-2.0-3.0)
[2025-05-15] MEDS: SODIUM CHL 0.9% 1000 ML BAG XX ONE (11:30)
--- NOTE | 2025-05-15 13:45 | DVHPN2 ---
Progress Note Date Seen: May 15, 2025 Resident Creating Document: KENDAL PUTNAM RESIDENT Has the PT tested + for MRSA If YES, has PT been informed?: No Medical Necessity Reason Pt with a Central, PICC or Fol: Yes Subjective Review of Systems Patient seen and examined at the bedside Status post extubation today Continue to be NPO Objective vital signs Vital Sign Date Time Temp Pulse Resp B/P (MAP) Pulse Ox O2 Delivery O2 Flow Rate FiO2 05/15/25 12:30 71 15 145/55 (85) 97 05/15/25 12:00 Mechanical Ventilator+ 30 30 05/15/25 08:00 98.6 98.6 Total Intake and Output 05/14/25 05/14/25 05/15/25 15:00 23:00 07:00 Intake Total 123 ml 160 ml 172 ml Balance 123 ml 160 ml 172 ml medications Current Medications Medications Dose Ordered Sig/Alberto Route Start Time Stop Time Status Last Admin Dose Admin Fentanyl Citrate 250 ml @ 2.5 mls/hr Q24H IV 05/08/25 22:00 05/14/25 05:55 5 MLS/HR Propofol 100 ml @ 3 mls/hr Q24H IV 05/08/25 22:45 05/14/25 13:51 12 MLS/HR Meropenem 50 ml @ 17 mls/hr DAILY IV 05/09/25 10:00 Cancel Midazolam HCl 100 ml @ 1 mls/hr Q24H IV 05/09/25 18:00 05/11/25 17:37 3 MLS/HR Diagnostic Test (Pha) 1 strip IQ4HR 05/09/25 20:00 05/15/25 12:00 1 STRIP Dextrose 50 ml UD PRN IV 05/09/25 19:30 05/10/25 15:13 50 ML Sucralfate 1 gm QID@0600,1130,1700,2200 GT 05/10/25 17:00 05/15/25 11:10 1 GM Pantoprazole Sodium 40 mg BID IV 05/11/25 10:00 05/15/25 11:10 40 MG Norepinephrine Bitartrate 250 ml @ 1.875 mls/ hr Q24H IV 05/10/25 18:45 05/11/25 00:40 1.875 MLS/HR Enteral Nutritional Formula 1,000 ml 30ML/HR GT 05/12/25 12:30 05/14/25 17:58 1,000 ML Hydralazine HCl 10 mg Q4HP PRN IV 05/13/25 08:15 05/14/25 23:54 10 MG Ceftriaxone Sodium 50 ml @ 100 mls/hr DAILY@2100 IV 05/14/25 21:00 05/14/25 20:48 100 MLS/HR Hydralazine HCl 50 mg Q8HR PO 05/14/25 22:00 05/14/25 22:19 50 MG Labetalol HCl 10 mg Q2HPRN PRN IV 05/14/25 16:15 05/15/25 02:02 10 MG Examination Gen - no pallor, no scleral icterus Skin - Patients skin is warm and dry. HEENT - normocephalic, atraumatic, dry mucous membranes. Neck - supple, no lymphadenopathy Pulmonary - B/L equal air entry cardiovascular - regular S1,S2 heard GI - soft nontender abdomen. Bowel sounds normoactive. Neurological - s/p extubation and is still confused laboratory and microbiology Laboratory Tests 05/15/25 04:27 Test 05/15/25 04:27 Range/Units Serum Glucose 111 H 74-106 mg/dL Microbiology Date/Time Source Procedure Growth Status 05/08/25 23:55 Blood Blood Culture - Final NO GROWTH AFTER 5 DAYS OF INCUBATION. Complete 05/08/25 21:44 Trachea Gram Stain - Final Complete 05/08/25 21:44 Trachea Respiratory Culture - Final Complete Problem List/Assessment/Plan Problem List/Assessment/Plan Assessment Severe normocytic normochromic anemia likely d/t GI bleed Gastric ulcer Gastroduodenitis Hiatal hernia esophagitis Hypovolemic/ septic shock ESRD on hemodialysis Plan - active bleed, keep Hgb>7 , montior H&H - PRBC transfusion as needed - on protonix 40mg IV bid - NPO - swallow evaluation to be done and the patient may be started with clear liquid diet tomorrow Plan discussed with Dr. Mendiola Plan discussed with: Other (JUSTIN Carrera) Dietary Evaluation Review Comments: Nutrition Recommendation 1) TPN/PN if NPO>7 days 2) Monitor NPO status, lab values, weight trend, and I/O Expected Outcomes/Goals: GI symptoms to improve Lab values to improve Fu 2-3 days CC Plasma Assessment Blood Product Administration S: [id number] KENDAL PUTNAM RESIDENT May 15, 2025 13:45
--- NOTE | 2025-05-15 16:20 | DVHPNRES ---
Progress Note Date Seen: May 15, 2025 Resident Creating Document: DIAZ BUNDY RESIDENT Has the PT tested + for MRSA If YES, has PT been informed?: No Medical Necessity Reason Pt with a Central, PICC or Fol: Yes Subjective Review of Systems This is a year 59 years old female with past medical history of GERD, hyperlipidemia, gastritis, duodenitis, GI bleed, diabetes mellitus type 2, hypertension, end-stage renal disease on hemodialysis([id number]) who came in with a chief complaint of hematemesis and melena. Patient was intubated on admission and history was given by the son and daughter. As per the son and daughter the patient started having dark black tarry stool since yesterday night associated with a large amount of hematemesis, no food mixed with the blood. They report she had several episodes yesterday night and today morning after which she has become increasingly confused and lethargic, which prompted them to bring her to the emergency room. They report that she had a similar episode 3 months ago and endoscopy was done which showed no active bleeding. she was scheduled for colonoscopy but has not had it yet. patient is not on any blood thinners and she did not complain of any abdominal pain, nausea, shortness of breath before the aforementioned episodes. On admission central line, endotracheal tube, NG tube were placed. patient is septic with WBC 14.7, pulse 103, respiratory rate 26. Patient's hemoglobin was at 6.5 and 1 unit packed red blood cells was transfused. On admission blood pressure was 118/43 (presses started-NE). We are admitting the patient for further workup and management. Past medical history: as stated above past surgical history: Left fistula family history: Dad has diabetes mellitus and end-stage renal disease social history: family reports she never smoked, drank alcohol or took any illicit drugs Primary care physician: Dr. Wanda alves allergies: None code status: Full code 05/09/2025: Intubated, sedated. Active upper GI bleed, requiring 3 units of PRBC. Receiving IV bicarbonate, possible hemodialysis tomorrow a.m.. Continue with Protonix and Sandostatin drip. 05/10/2025: Intubated and sedated. Upper GI suction: 150 mL in last 12 hour, continue with Protonix Sandostatin drip. Patient is off vasopressor overnight. Continue on vasopressin. Plan for hemodialysis and EGD today. No any other night events. 05/11/2025: Intubated and sedated. Off vasopressors. On Protonix drip. Off Sandostatin drip. No any other new complaints. No active GI bleed. Started on feeding. 05/12/2025: Intubated. off vasopressor. tolerating feeding. No new night events. Off Protonix and Sandostatin drip. 05/14/2025:Off any drips. plan for dialysis and then cpap. no new night complains. 05/15/2028: patient extubated. underwent dialysis 2.5 L. No new complains. Objective vital signs Vital Sign Date Time Temp Pulse Resp B/P (MAP) Pulse Ox O2 Delivery O2 Flow Rate FiO2 05/15/25 15:00 83 15 151/66 (94) 96 05/15/25 13:30 Cool Aerosol 8 35 35 05/15/25 08:00 98.6 98.6 Total Intake and Output 05/14/25 05/14/25 05/15/25 15:00 23:00 07:00 Intake Total 123 ml 160 ml 172 ml Balance 123 ml 160 ml 172 ml medications Current Medications Medications Dose Ordered Sig/Alberto Route Start Time Stop Time Status Last Admin Dose Admin Fentanyl Citrate 250 ml @ 2.5 mls/hr Q24H IV 05/08/25 22:00 05/14/25 05:55 5 MLS/HR Propofol 100 ml @ 3 mls/hr Q24H IV 05/08/25 22:45 05/14/25 13:51 12 MLS/HR Meropenem 50 ml @ 17 mls/hr DAILY IV 05/09/25 10:00 Cancel Midazolam HCl 100 ml @ 1 mls/hr Q24H IV 05/09/25 18:00 05/11/25 17:37 3 MLS/HR Diagnostic Test (Pha) 1 strip IQ4HR 05/09/25 20:00 05/15/25 12:00 1 STRIP Dextrose 50 ml UD PRN IV 05/09/25 19:30 05/10/25 15:13 50 ML Sucralfate 1 gm QID@0600,1130,1700,2200 GT 05/10/25 17:00 05/15/25 11:10 1 GM Pantoprazole Sodium 40 mg BID IV 05/11/25 10:00 05/15/25 11:10 40 MG Norepinephrine Bitartrate 250 ml @ 1.875 mls/ hr Q24H IV 05/10/25 18:45 05/11/25 00:40 1.875 MLS/HR Enteral Nutritional Formula 1,000 ml 30ML/HR GT 05/12/25 12:30 05/14/25 17:58 1,000 ML Hydralazine HCl 10 mg Q4HP PRN IV 05/13/25 08:15 05/14/25 23:54 10 MG Ceftriaxone Sodium 50 ml @ 100 mls/hr DAILY@2100 IV 05/14/25 21:00 05/14/25 20:48 100 MLS/HR Hydralazine HCl 50 mg Q8HR PO 05/14/25 22:00 05/14/25 22:19 50 MG Labetalol HCl 10 mg Q2HPRN PRN IV 05/14/25 16:15 05/15/25 02:02 10 MG Examination General Appearance: awake and following command Head Exam: Normal inspection Neck Exam: Normal inspection. Non-tender. Normal alignment Pulmonary/Respiratory: Chest non-tender. Clear bilateral breath sounds Cardiovascular/Chest: Regular rate and rhythm. No murmurs. No JVD. Left arm fistula Peripheral Pulses: 2+ Radial (R). 2+ Radial (L). 2+ Pedal (R). 2+ Pedal (L) Abdominal Exam: Normal bowel sounds. Soft. Nontender. No hepatospenomegaly. No masses Ankle Exam: Negative ankle edema Lower extremities: Negative lower extremity edema Neuro/Mental Status: alert and mild drowsy. laboratory and microbiology Laboratory Tests 05/15/25 04:27 Test 05/15/25 04:27 Range/Units Serum Glucose 111 H 74-106 mg/dL Microbiology Date/Time Source Procedure Growth Status 05/08/25 23:55 Blood Blood Culture - Final NO GROWTH AFTER 5 DAYS OF INCUBATION. Complete 05/08/25 21:44 Trachea Gram Stain - Final Complete 05/08/25 21:44 Trachea Respiratory Culture - Final Complete Problem List/Assessment/Plan Problem List/Assessment/Plan Neurology Acute metabolic encephalopathy due to uremia, hypoxic respiratory failure Sedated -Extubated 05/15/2025 Cardiology/respiratory Septic shock due to aspiration pneumonia -IV antibiotic with ceftriaxone. -panculture: Blood culture:No growth, respiratory culture: young colony, urine culture -lactic acid: 5.4, 5.9, 10, 5.9 -continue to monitor I&O. Acute hypoxic respiratory failure due to fluid overload/aspiration pneumonia -Extubated 05/15/2025 -nebulization with albuterol -IV antibiotic with ceftriaxone -MRSA negative, discontinued vancomycin Uncontrolled hypertension -Hydralazine 50 mg TID -PRN labetalol -Dialysis GI/ upper versus lower GI bleed Hemorrhagic shock normocytic anemia, likely due to acute blood loss Rule out mesenteric ischemia 1-1.5 cm pre-pyloric antral gastric ulcer Moderate duodenitis with multiple superficial duodenal ulcers 2-3 cm sliding-type hiatal hernia with grade B linear erosive esophagitis -Iv protonix 40 mg BID -Sucralfate 1 GM GT QID -feeding via NG tube -3 units of PRBC given -IV fluid has been given NS approximately 1 L -H and H q.12 -S/P EGD 1. Patient had a 1-1.5 cm pre-pyloric antral gastric ulcer with surrounding gastritis and hyperemia 2. Moderate duodenitis with multiple superficial duodenal ulcers and some dark pigmentation of the duodenal mucosa from which biopsies were obtained 3. 2-3 cm sliding-type hiatal hernia with grade B linear erosive esophagitis 4. Patient had some old coffee-ground in the stomach otherwise normal examination up to the 2nd and 3rd part of the duodenum Hematology Acute hemorrhagic shock Severe hemorrhagic anemia -hemoglobin 6.5, 7.4, 8.5,7.5 -4units of PRBC given -continue to monitor H and H q.12 -continued management of GI bleed Nephrology hyperkalemia: Improved -hemodialysis -treat septic/hemorrhagic shock ESRD on hemodialysis (TTS) uremic encephalopathy due to above -hemodialysis today schedule::2.5 L removed Atrophic kidneys 3-vessel coronary artery calcifications. - incidental finding on CT abdomen and pelvis, outpatient follow up Lactic acidosis:Improved -continue to monitor Endocrine type 2 diabetes mellitus - moderate sliding scale insulin - Accu-Cheks -stopped steroids. GI prophylaxis: protonix DVT prophylaxis: held due to GI bleed Diet: nepro Line: right femoral 05/09/2025 removed Goals of care discussed was discused with patient by admission Dr. Full code status Critical care time spent greater than including cpap trial and extubation- 84 minutes. plan discussed with at bed side. patient has been extubated. Get swallow test. Case discussed with Dr Walls Plan discussed with: Patient, Spouse, Other (RN) My Orders My Orders Orders - DIAZ BUNDY RESIDENT Procedure Category Date Status Time Chest Xray 1 View XY 05/15/25 Resulted 04:00 Abg W/ Co-Ox RT 05/15/25 Logged 04:00 Dietary Evaluation Review Comments: Nutrition Recommendation 1) TPN/PN if NPO>7 days 2) Monitor NPO status, lab values, weight trend, and I/O Expected Outcomes/Goals: GI symptoms to improve Lab values to improve Fu 2-3 days CC Plasma Assessment Blood Product Administration S: [id number] Date of Service: May 15, 2025 Billing Provider: BANDAR GEORGES MD Common Visit Codes: [id number] CARE 30-74 MIN, [id number] CARE-EACH +30MIN DIAZ BUNDY RESIDENT May 15, 2025 16:20 BANDAR GEORGES MD May 16, 2025 11:56
--- NOTE | 2025-05-15 17:16 | DVHPN2 ---
Progress Note - Dictate Date Seen: May 15, 2025 Has the PT tested + for MRSA If YES, has PT been informed?: No Medical Necessity Reason Pt with a Central, PICC or Fol: Yes Subjective On mechanical ventilation vital signs Vital Sign Date Time Temp Pulse Resp B/P (MAP) Pulse Ox O2 Delivery O2 Flow Rate FiO2 05/15/25 16:30 81 11 163/76 (105) 96 05/15/25 16:00 Cool Aerosol 8 35 35 05/15/25 08:00 98.6 98.6 Total Intake and Output 05/14/25 05/14/25 05/15/25 15:00 23:00 07:00 Intake Total 123 ml 160 ml 172 ml Balance 123 ml 160 ml 172 ml medications Current Medications Medications Dose Ordered Sig/Alberto Route Start Time Stop Time Status Last Admin Dose Admin Fentanyl Citrate 250 ml @ 2.5 mls/hr Q24H IV 05/08/25 22:00 05/14/25 05:55 5 MLS/HR Propofol 100 ml @ 3 mls/hr Q24H IV 05/08/25 22:45 05/14/25 13:51 12 MLS/HR Meropenem 50 ml @ 17 mls/hr DAILY IV 05/09/25 10:00 Cancel Midazolam HCl 100 ml @ 1 mls/hr Q24H IV 05/09/25 18:00 05/11/25 17:37 3 MLS/HR Diagnostic Test (Pha) 1 strip IQ4HR 05/09/25 20:00 05/15/25 12:00 1 STRIP Dextrose 50 ml UD PRN IV 05/09/25 19:30 05/10/25 15:13 50 ML Sucralfate 1 gm QID@0600,1130,1700,2200 GT 05/10/25 17:00 05/15/25 11:10 1 GM Pantoprazole Sodium 40 mg BID IV 05/11/25 10:00 05/15/25 11:10 40 MG Norepinephrine Bitartrate 250 ml @ 1.875 mls/ hr Q24H IV 05/10/25 18:45 05/11/25 00:40 1.875 MLS/HR Enteral Nutritional Formula 1,000 ml 30ML/HR GT 05/12/25 12:30 05/14/25 17:58 1,000 ML Hydralazine HCl 10 mg Q4HP PRN IV 05/13/25 08:15 05/14/25 23:54 10 MG Ceftriaxone Sodium 50 ml @ 100 mls/hr DAILY@2100 IV 05/14/25 21:00 05/14/25 20:48 100 MLS/HR Hydralazine HCl 50 mg Q8HR PO 05/14/25 22:00 05/14/25 22:19 50 MG Labetalol HCl 10 mg Q2HPRN PRN IV 05/14/25 16:15 05/15/25 02:02 10 MG objective Intubated. HEENT: Normocephalic, no JVD Lungs: Bilateral good air entry CVS: S1, S2 regular rate rhythm Abdomen: Soft, bowel sounds present [employer]: Sedated Extremities: She has generalized edema laboratory and microbiology Laboratory Tests 05/15/25 04:27 Test 05/15/25 04:27 Range/Units Serum Glucose 111 H 74-106 mg/dL Problem List Problem List End-stage kidney disease on hemodialysis Acute hypoxic respiratory failure Fluid overload Upper GI bleed, status post EGD revealing gastric ulcer and severe duodenitis Anemia secondary to GI bleed Shock secondary to sepsis/hypovolemia, resolved Hyperkalemia which resolved with medical management Assessment/Plan Will do HD and aggressive UF again tomorrow, no heparin Weaning from ventilator as per Pulmonary. Continue IV PPI Monitor Hb Daily BMP Dietary Evaluation Review Comments: Nutrition Recommendation 1) TPN/PN if NPO>7 days 2) Monitor NPO status, lab values, weight trend, and I/O Expected Outcomes/Goals: GI symptoms to improve Lab values to improve Fu 2-3 days Plan discussed with: Other CC Plasma Assessment Blood Product Administration S: [id number] QUAN UNDERWOOD MD May 15, 2025 17:16
[2025-05-16] VITALS (40 sets, daily range): BP systolic 89–164; BP diastolic 53–90; PULSE 67–80; RESP 9–20; TEMP 98.1–99.6; O2SAT 68–99
[2025-05-16 04:46] LABS: Hematocrit 26.5 % (36.0-46.0); Hemoglobin 8.7 g/dL (12.2-16.2); Mean Corpuscular Hemoglobin 29.6 pg (28.0-32.0); Mean Corpuscular Volume 90.2 fL (80.0-100.0); Nucleated Red Blood Cells % 0.1 %
[2025-05-16 04:59] LABS: Calcium 8.9 mg/dL (8.7-10.4); Chloride 98 mmol/L (98-107); Potassium 4.1 mmol/L (3.5-5.1); Sodium 141 mmol/L (136-145)
[2025-05-16 05:00] LABS: Anion Gap 16 (5-15); Carbon Dioxide 27 mmol/L (20-31)
[2025-05-16 05:05] LABS: Glucose 95 mg/dL (74-106)
[2025-05-16 05:17] LABS: Blood Urea Nitrogen 34 mg/dL (9-23)
[2025-05-16 05:19] LABS: BUN/Creatinine Ratio 7.9 (10.0-20.0)
[2025-05-16] MEDS: SODIUM CHL 0.9% 1000 ML BAG XX ONE (07:00)
--- NOTE | 2025-05-16 08:30 | DVHPNRES ---
Progress Note Date Seen: May 16, 2025 Resident Creating Document: DIAZ BUNDY RESIDENT Has the PT tested + for MRSA If YES, has PT been informed?: No Medical Necessity Reason Pt with a Central, PICC or Fol: Yes Subjective Review of Systems This is a year 59 years old female with past medical history of GERD, hyperlipidemia, gastritis, duodenitis, GI bleed, diabetes mellitus type 2, hypertension, end-stage renal disease on hemodialysis([id number]-Trulyjjq) who came in with a chief complaint of hematemesis and melena. Patient was intubated on admission and history was given by the son and daughter. As per the son and daughter the patient started having dark black tarry stool since yesterday night associated with a large amount of hematemesis, no food mixed with the blood. They report she had several episodes yesterday night and today morning after which she has become increasingly confused and lethargic, which prompted them to bring her to the emergency room. They report that she had a similar episode 3 months ago and endoscopy was done which showed no active bleeding. she was scheduled for colonoscopy but has not had it yet. patient is not on any blood thinners and she did not complain of any abdominal pain, nausea, shortness of breath before the aforementioned episodes. On admission central line, endotracheal tube, NG tube were placed. patient is septic with WBC 14.7, pulse 103, respiratory rate 26. Patient's hemoglobin was at 6.5 and 1 unit packed red blood cells was transfused. On admission blood pressure was 118/43 (presses started-NE). We are admitting the patient for further workup and management. Past medical history: as stated above past surgical history: Left fistula family history: Dad has diabetes mellitus and end-stage renal disease social history: family reports she never smoked, drank alcohol or took any illicit drugs Primary care physician: Dr. Wanda alves allergies: None code status: Full code 05/09/2025: Intubated, sedated. Active upper GI bleed, requiring 3 units of PRBC. Receiving IV bicarbonate, possible hemodialysis tomorrow a.m.. Continue with Protonix and Sandostatin drip. 05/10/2025: Intubated and sedated. Upper GI suction: 150 mL in last 12 hour, continue with Protonix Sandostatin drip. Patient is off vasopressor overnight. Continue on vasopressin. Plan for hemodialysis and EGD today. No any other night events. 05/11/2025: Intubated and sedated. Off vasopressors. On Protonix drip. Off Sandostatin drip. No any other new complaints. No active GI bleed. Started on feeding. 05/12/2025: Intubated. off vasopressor. tolerating feeding. No new night events. Off Protonix and Sandostatin drip. 05/14/2025:Off any drips. plan for dialysis and then cpap. no new night complains. 05/15/2025: patient extubated. underwent dialysis 2.5 L. No new complains. 05/16/2025: patient is extubated yesterday. On 2 L. Pending swallow evaluation. No other night events Objective vital signs Vital Sign Date Time Temp Pulse Resp B/P (MAP) Pulse Ox O2 Delivery O2 Flow Rate FiO2 05/16/25 07:30 72 16 131/67 (88) 94 05/16/25 06:00 Nasal Cannula* 2 28 05/16/25 04:00 98.4 98.4 Total Intake and Output 05/15/25 05/15/25 05/16/25 15:00 23:00 07:00 Intake Total 50 ml Output Total 0 ml Balance 50 ml medications Current Medications Medications Dose Ordered Sig/Alberto Route Start Time Stop Time Status Last Admin Dose Admin Fentanyl Citrate 250 ml @ 2.5 mls/hr Q24H IV 05/08/25 22:00 05/14/25 05:55 5 MLS/HR Meropenem 50 ml @ 17 mls/hr DAILY IV 05/09/25 10:00 Cancel Midazolam HCl 100 ml @ 1 mls/hr Q24H IV 05/09/25 18:00 05/11/25 17:37 3 MLS/HR Diagnostic Test (Pha) 1 strip IQ4HR 05/09/25 20:00 05/16/25 08:04 1 STRIP Dextrose 50 ml UD PRN IV 05/09/25 19:30 05/10/25 15:13 50 ML Sucralfate 1 gm QID@0600,1130,1700,2200 GT 05/10/25 17:00 05/15/25 11:10 1 GM Pantoprazole Sodium 40 mg BID IV 05/11/25 10:00 05/15/25 22:37 40 MG Norepinephrine Bitartrate 250 ml @ 1.875 mls/ hr Q24H IV 05/10/25 18:45 05/11/25 00:40 1.875 MLS/HR Enteral Nutritional Formula 1,000 ml 30ML/HR GT 05/12/25 12:30 05/14/25 17:58 1,000 ML Hydralazine HCl 10 mg Q4HP PRN IV 05/13/25 08:15 05/14/25 23:54 10 MG Ceftriaxone Sodium 50 ml @ 100 mls/hr DAILY@2100 IV 05/14/25 21:00 05/15/25 20:20 100 MLS/HR Hydralazine HCl 50 mg Q8HR PO 05/14/25 22:00 05/14/25 22:19 50 MG Labetalol HCl 10 mg Q2HPRN PRN IV 05/14/25 16:15 05/16/25 05:11 10 MG Examination General Appearance: awake and following command Head Exam: Normal inspection Neck Exam: Normal inspection. Non-tender. Normal alignment Pulmonary/Respiratory: Chest non-tender. Clear bilateral breath sounds Cardiovascular/Chest: Regular rate and rhythm. No murmurs. No JVD. Left arm fistula Peripheral Pulses: 2+ Radial (R). 2+ Radial (L). 2+ Pedal (R). 2+ Pedal (L) Abdominal Exam: Normal bowel sounds. Soft. Nontender. No hepatospenomegaly. No masses Ankle Exam: Negative ankle edema Lower extremities: Negative lower extremity edema Neuro/Mental Status: alert but drowsy. able to follow command. all cranial nerves intake. laboratory and microbiology Laboratory Tests 05/16/25 04:00 Test 05/16/25 04:00 Range/Units Serum Glucose 95 74-106 mg/dL Microbiology Date/Time Source Procedure Growth Status 05/08/25 23:55 Blood Blood Culture - Final NO GROWTH AFTER 5 DAYS OF INCUBATION. Complete 05/08/25 21:44 Trachea Gram Stain - Final Complete 05/08/25 21:44 Trachea Respiratory Culture - Final Complete Problem List/Assessment/Plan Problem List/Assessment/Plan Neurology Acute metabolic encephalopathy due to uremia, hypoxic respiratory failure -Extubated 05/15/2025 -Off sedation Cardiology/respiratory Septic shock due to aspiration pneumonia -IV antibiotic with ceftriaxone. -panculture: Blood culture:No growth, respiratory culture: young colony, urine culture -lactic acid: 5.4, 5.9, 10, 5.9 -continue to monitor I&O. Acute hypoxic respiratory failure due to fluid overload/aspiration pneumonia -On 2 L o2 via NC -Extubated 05/15/2025 -nebulization with albuterol -IV antibiotic with ceftriaxone -MRSA negative, discontinued vancomycin Uncontrolled hypertension -Hydralazine 50 mg PO TID -PRN labetalol -Dialysis today as well GI/ upper versus lower GI bleed Hemorrhagic shock normocytic anemia, likely due to acute blood loss Rule out mesenteric ischemia 1-1.5 cm pre-pyloric antral gastric ulcer Moderate duodenitis with multiple superficial duodenal ulcers 2-3 cm sliding-type hiatal hernia with grade B linear erosive esophagitis -Iv protonix 40 mg BID -Sucralfate 1 PO QID -3 units of PRBC given -IV fluid has been given NS approximately 1 L -H and H q.12 -S/P EGD 1. Patient had a 1-1.5 cm pre-pyloric antral gastric ulcer with surrounding gastritis and hyperemia 2. Moderate duodenitis with multiple superficial duodenal ulcers and some dark pigmentation of the duodenal mucosa from which biopsies were obtained 3. 2-3 cm sliding-type hiatal hernia with grade B linear erosive esophagitis 4. Patient had some old coffee-ground in the stomach otherwise normal examination up to the 2nd and 3rd part of the duodenum Hematology Acute hemorrhagic shock Severe hemorrhagic anemia -hemoglobin 6.5, 7.4, 8.5,7.5 -4units of PRBC given -continue to monitor H and H q.12 -continued management of GI bleed Nephrology hyperkalemia: Improved -hemodialysis -treat septic/hemorrhagic shock ESRD on hemodialysis (TTS) uremic encephalopathy due to above -hemodialysis today schedule::2.5 L removed Atrophic kidneys 3-vessel coronary artery calcifications. - incidental finding on CT abdomen and pelvis, outpatient follow up Lactic acidosis:Improved -continue to monitor Endocrine type 2 diabetes mellitus - moderate sliding scale insulin - Accu-Cheks -stopped steroids. GI prophylaxis: protonix DVT prophylaxis: held due to GI bleed Diet: Swallow eval before PO Line: right femoral 05/09/2025 removed Goals of care discussed was discused with patient by admission Full code status Critical care time spent greater than 52 minutes. pass swallow test today.Start clear liquid diet. On 2 L oxygen. receiving dialysis today. Case discussed with Dr Walls Plan discussed with: Patient, Other (RN) My Orders My Orders Orders - DIAZ BUNDY RESIDENT Procedure Category Date Status Time * Swallow Request ST 05/15/25 Transmitted 16:14 Dietary Evaluation Review Comments: Nutrition Recommendation 1) TPN/PN if NPO>7 days 2) Monitor NPO status, lab values, weight trend, and I/O Expected Outcomes/Goals: GI symptoms to improve Lab values to improve Fu 2-3 days CC Plasma Assessment Blood Product Administration S: [id number] Date of Service: May 16, 2025 Billing Provider: BANDAR GEORGES MD Common Visit Codes: [id number] CARE 30-74 MIN DIAZ BUNDY RESIDENT May 16, 2025 08:30 BANDAR GEORGES MD May 18, 2025 11:28
--- NOTE | 2025-05-16 13:27 | ECG ---
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
[2025-05-16] MEDS: SUCRALFATE 1 GM/10 ML ORAL SUSP PO SCH (16:36)
--- NOTE | 2025-05-16 18:01 | DVH ---
CHEST RADIOGRAPH Indication: atelactasis Technique: Single frontal view of the chest was obtained Comparison: XY CHEST XRAY 1 VIEW on DOS: 05/15/25, XY CHEST XRAY 1 VIEW on DOS: 05/14/25, XY CHEST XR AY 1 VIEW on DOS: 05/13/25 FINDINGS: Lines and Tubes: None Lungs: Bronchovascular crowding due to low lung volumes with diffuse interstitial prominence, left-gr [id number] perihilar opacities which appears focus spacious on current study probably from dutta ges in projection. Indistinctness of the left hemidiaphragm. No pneumothorax. Cardiomediastinal contours: Lomu-oy-ayqofzph cardiomegaly. Vascular stent is noted over the left axil la/medial extremity. Bones: No acute osseous abnormality. IMPRESSION: Interval removal of the endotracheal and enteric tubes. Diffuse interstitial prominence with bilateral perihilar opacities which may represent pulmonary woo a. Underlying infectious process can not be excluded. Relatively unchanged /slightly improved left-sided pleural effusion with associated atelectasis.
[2025-05-17] VITALS (23 sets, daily range): BP systolic 101–172; BP diastolic 58–94; PULSE 71–85; RESP 11–98; TEMP 98.2–99.5; O2SAT 92–100
[2025-05-17 06:00] LABS: Hematocrit 24.6 % (36.0-46.0); Hemoglobin 8.5 g/dL (12.2-16.2); Mean Corpuscular Hemoglobin 31.0 pg (28.0-32.0); Mean Corpuscular Volume 89.4 fL (80.0-100.0); Nucleated Red Blood Cells % 0.2 %
[2025-05-17 06:08] LABS: Anion Gap 16 (5-15); Carbon Dioxide 26 mmol/L (20-31); Potassium 3.9 mmol/L (3.5-5.1); Sodium 139 mmol/L (136-145)
[2025-05-17 06:14] LABS: BUN/Creatinine Ratio 6.6 (10.0-20.0)
[2025-05-17 06:21] LABS: Blood Urea Nitrogen 28 mg/dL (9-23); Calcium 8.4 mg/dL (8.7-10.4); Chloride 97 mmol/L (98-107); Glucose 119 mg/dL (74-106)
[2025-05-17] MEDS ORDERED: HYDROcodone-ACET 5/325MG TAB PO PRN (08:45)
[2025-05-17] MEDS: ACETAMINOPHEN 325 MG TAB PO PRN (10:01)
--- NOTE | 2025-05-17 11:12 | DVHPN2 ---
Progress Note Date Seen: May 16, 2025 Resident Creating Document: KENDAL PUTNAM RESIDENT Has the PT tested + for MRSA If YES, has PT been informed?: No Medical Necessity Reason Pt with a Central, PICC or Fol: Yes Subjective Review of Systems Patient extubated yesterday Currently on 2 L oxygen via nasal cannula Denies any abdominal pain, nausea or vomiting No bowel movements reported H&H stable Bedside swallow ventilation done, on clear liquid diet Objective vital signs Vital Sign Date Time Temp Pulse Resp B/P (MAP) Pulse Ox O2 Delivery O2 Flow Rate FiO2 05/16/25 12:00 78 12 140/76 (97) 96 05/16/25 12:00 Nasal Cannula* 2 N/A Cool Aerosol 05/16/25 11:30 98.6 98.6 Total Intake and Output 05/15/25 05/15/25 05/16/25 15:00 23:00 07:00 Intake Total 50 ml Output Total 0 ml Balance 50 ml medications Current Medications Medications Dose Ordered Sig/Alberto Route Start Time Stop Time Status Last Admin Dose Admin Meropenem 50 ml @ 17 mls/hr DAILY IV 05/09/25 10:00 Cancel Diagnostic Test (Pha) 1 strip IQ4HR 05/09/25 20:00 05/16/25 11:39 1 STRIP Dextrose 50 ml UD PRN IV 05/09/25 19:30 05/10/25 15:13 50 ML Sucralfate 1 gm QID@0600,1130,1700,2200 GT 05/10/25 17:00 05/16/25 11:39 1 GM Pantoprazole Sodium 40 mg BID IV 05/11/25 10:00 05/16/25 10:45 40 MG Hydralazine HCl 10 mg Q4HP PRN IV 05/13/25 08:15 05/14/25 23:54 10 MG Ceftriaxone Sodium 50 ml @ 100 mls/hr DAILY@2100 IV 05/14/25 21:00 05/15/25 20:20 100 MLS/HR Hydralazine HCl 50 mg Q8HR PO 05/14/25 22:00 05/14/25 22:19 50 MG Labetalol HCl 10 mg Q2HPRN PRN IV 05/14/25 16:15 05/16/25 05:11 10 MG Examination Gen - no pallor, no scleral icterus Skin - Patients skin is warm and dry. HEENT - normocephalic, atraumatic, dry mucous membranes. Neck - supple, no lymphadenopathy Pulmonary - B/L equal air entry cardiovascular - regular S1,S2 heard GI - soft nontender abdomen. Bowel sounds normoactive. Neurological - alert and oriented x4, following commands laboratory and microbiology Laboratory Tests 05/16/25 04:00 Test 05/16/25 04:00 Range/Units Serum Glucose 95 74-106 mg/dL Microbiology Date/Time Source Procedure Growth Status 05/08/25 23:55 Blood Blood Culture - Final NO GROWTH AFTER 5 DAYS OF INCUBATION. Complete 05/08/25 21:44 Trachea Gram Stain - Final Complete 05/08/25 21:44 Trachea Respiratory Culture - Final Complete Problem List/Assessment/Plan Problem List/Assessment/Plan Assessment Severe normocytic normochromic anemia likely d/t GI bleed Gastric ulcer Gastroduodenitis Hiatal hernia esophagitis Hypovolemic/ septic shock ESRD on hemodialysis Plan - montior H&H - PRBC transfusion as needed to keep HGB more than 7 - on protonix 40mg IV bid - Carafate 1 g p.o. q.i.d. - swallow evaluation to be done at bedside and patient tolerates clear liquid diet Plan discussed with Dr. Mendiola Plan discussed with: Patient, Other (JUSTIN Carrera) Dietary Evaluation Review Comments: Nutrition Recommendation 1) TPN/PN if NPO>7 days 2) Monitor NPO status, lab values, weight trend, and I/O Expected Outcomes/Goals: GI symptoms to improve Lab values to improve Fu 2-3 days CC Plasma Assessment Blood Product Administration S: [id number] KENDAL PUTNAM RESIDENT May 16, 2025 12:54
--- NOTE | 2025-05-17 11:13 | DVHPN2 ---
Progress Note - Dictate Date Seen: May 16, 2025 Has the PT tested + for MRSA If YES, has PT been informed?: No Medical Necessity Reason Pt with a Central, PICC or Fol: Yes Subjective patient was extubated today vital signs Vital Sign Date Time Temp Pulse Resp B/P (MAP) Pulse Ox O2 Delivery O2 Flow Rate FiO2 05/16/25 12:00 78 12 140/76 (97) 96 05/16/25 12:00 Nasal Cannula* 2 N/A Cool Aerosol 05/16/25 11:30 98.6 98.6 Total Intake and Output 05/15/25 05/15/25 05/16/25 15:00 23:00 07:00 Intake Total 50 ml Output Total 0 ml Balance 50 ml medications Current Medications Medications Dose Ordered Sig/Alberto Route Start Time Stop Time Status Last Admin Dose Admin Meropenem 50 ml @ 17 mls/hr DAILY IV 05/09/25 10:00 Cancel Diagnostic Test (Pha) 1 strip IQ4HR 05/09/25 20:00 05/16/25 11:39 1 STRIP Dextrose 50 ml UD PRN IV 05/09/25 19:30 05/10/25 15:13 50 ML Pantoprazole Sodium 40 mg BID IV 05/11/25 10:00 05/16/25 10:45 40 MG Hydralazine HCl 10 mg Q4HP PRN IV 05/13/25 08:15 05/14/25 23:54 10 MG Ceftriaxone Sodium 50 ml @ 100 mls/hr DAILY@2100 IV 05/14/25 21:00 05/15/25 20:20 100 MLS/HR Hydralazine HCl 50 mg Q8HR PO 05/14/25 22:00 05/14/25 22:19 50 MG Labetalol HCl 10 mg Q2HPRN PRN IV 05/14/25 16:15 05/16/25 05:11 10 MG Sucralfate 1 gm QID@0600,1130,1700,2200 PO 05/16/25 17:00 UNV objective Alert Weak HEENT: Normocephalic, no JVD Lungs: Bilateral good air entry CVS: S1, S2 regular rate rhythm Abdomen: Soft, bowel sounds present 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 Extremities: Improved edema laboratory and microbiology Laboratory Tests 05/16/25 04:00 Test 05/16/25 04:00 Range/Units Serum Glucose 95 74-106 mg/dL Problem List Problem List End-stage kidney disease on hemodialysis Acute hypoxic respiratory failure, s/p extubation Fluid overload has improved significantly Upper GI bleed, status post EGD revealing gastric ulcer and severe duodenitis Anemia secondary to GI bleed Assessment/Plan HD on TTS schedule from now on Monitor Hb Daily BMP Dietary Evaluation Review Comments: Nutrition Recommendation 1) TPN/PN if NPO>7 days 2) Monitor NPO status, lab values, weight trend, and I/O Expected Outcomes/Goals: GI symptoms to improve Lab values to improve Fu 2-3 days Plan discussed with: Patient CC Plasma Assessment Blood Product Administration S: [id number] QUAN UNDERWOOD MD May 16, 2025 13:16
[2025-05-17] MEDS ORDERED: POLYETHYLENE GLYCOL 17 GM PWDR PO PRN (11:45)
--- NOTE | 2025-05-17 12:28 | DVH ---
CLINICAL HISTORY: DVT R/O BI-LAT UPPER EXTREMITIES TECHNIQUE: Color and duplex doppler imagine of the bilateral upper extremity veins and subclavian vei ns was performed. Vessel compression if possible was also performed. COMPARISON: US LT UPPER EXT ART DUPLEX on DOS: 05/17/25, US LT UPPER DVT on DOS: 11/22/24 FINDINGS: The bilateral internal jugular, basilic, cephalic, axillary, radial, ulnar, and paired brachial veins are patent and demonstrate normal compressibility and flow. The subclavian veins bilaterally are patent. IMPRESSION: NO SONOGRAPHIC EVIDENCE FOR DEEP VENOUS THROMBOSIS IN THE BILATERAL UPPER EXTREMITY VEINS.
--- NOTE | 2025-05-17 12:44 | DVHPNRES ---
Progress Note Date Seen: May 17, 2025 Resident Creating Document: DIAZ BUNDY RESIDENT Has the PT tested + for MRSA If YES, has PT been informed?: No Medical Necessity Reason Pt with a Central, PICC or Fol: Yes Subjective Review of Systems This is a year 59 years old female with past medical history of GERD, hyperlipidemia, gastritis, duodenitis, GI bleed, diabetes mellitus type 2, hypertension, end-stage renal disease on hemodialysis([id number]) who came in with a chief complaint of hematemesis and melena. Patient was intubated on admission and history was given by the son and daughter. As per the son and daughter the patient started having dark black tarry stool since yesterday night associated with a large amount of hematemesis, no food mixed with the blood. They report she had several episodes yesterday night and today morning after which she has become increasingly confused and lethargic, which prompted them to bring her to the emergency room. They report that she had a similar episode 3 months ago and endoscopy was done which showed no active bleeding. she was scheduled for colonoscopy but has not had it yet. patient is not on any blood thinners and she did not complain of any abdominal pain, nausea, shortness of breath before the aforementioned episodes. On admission central line, endotracheal tube, NG tube were placed. patient is septic with WBC 14.7, pulse 103, respiratory rate 26. Patient's hemoglobin was at 6.5 and 1 unit packed red blood cells was transfused. On admission blood pressure was 118/43 (presses started-NE). We are admitting the patient for further workup and management. Past medical history: as stated above past surgical history: Left fistula family history: Dad has diabetes mellitus and end-stage renal disease social history: family reports she never smoked, drank alcohol or took any illicit drugs Primary care physician: Dr. Wanda alves allergies: None code status: Full code 05/09/2025: Intubated, sedated. Active upper GI bleed, requiring 3 units of PRBC. Receiving IV bicarbonate, possible hemodialysis tomorrow a.m.. Continue with Protonix and Sandostatin drip. 05/10/2025: Intubated and sedated. Upper GI suction: 150 mL in last 12 hour, continue with Protonix Sandostatin drip. Patient is off vasopressor overnight. Continue on vasopressin. Plan for hemodialysis and EGD today. No any other night events. 05/11/2025: Intubated and sedated. Off vasopressors. On Protonix drip. Off Sandostatin drip. No any other new complaints. No active GI bleed. Started on feeding. 05/12/2025: Intubated. off vasopressor. tolerating feeding. No new night events. Off Protonix and Sandostatin drip. 05/14/2025:Off any drips. plan for dialysis and then cpap. no new night complains. 05/15/2025: patient extubated. underwent dialysis 2.5 L. No new complains. 05/16/2025: patient is extubated yesterday. On 2 L. Pending swallow evaluation. No other night events 05/17/2025:patient is off oxygen. plan for PT evaluation. able to tolerate diet. still has bilateral upper ext swelling and pain. Objective vital signs Vital Sign Date Time Temp Pulse Resp B/P (MAP) Pulse Ox O2 Delivery O2 Flow Rate FiO2 05/17/25 12:00 98.5 77 18 151/76 (101) 100 98.5 05/17/25 08:00 Nasal Cannula* 1 N/A Cool Aerosol Total Intake and Output 05/16/25 05/16/25 05/17/25 15:00 23:00 07:00 Intake Total 340 ml 50 ml Output Total 0 ml Balance 340 ml 50 ml medications Current Medications Medications Dose Ordered Sig/Alberto Route Start Time Stop Time Status Last Admin Dose Admin Meropenem 50 ml @ 17 mls/hr DAILY IV 05/09/25 10:00 Cancel Diagnostic Test (Pha) 1 strip IQ4HR 05/09/25 20:00 05/17/25 08:01 1 STRIP Dextrose 50 ml UD PRN IV 05/09/25 19:30 05/10/25 15:13 50 ML Pantoprazole Sodium 40 mg BID IV 05/11/25 10:00 05/17/25 10:00 40 MG Hydralazine HCl 10 mg Q4HP PRN IV 05/13/25 08:15 05/17/25 10:37 10 MG Ceftriaxone Sodium 50 ml @ 100 mls/hr DAILY@2100 IV 05/14/25 21:00 05/16/25 20:04 100 MLS/HR Hydralazine HCl 50 mg Q8HR PO 05/14/25 22:00 05/17/25 05:07 50 MG Labetalol HCl 10 mg Q2HPRN PRN IV 05/14/25 16:15 05/16/25 05:11 10 MG Sucralfate 1 gm QID@0600,1130,1700,2200 PO 05/16/25 17:00 05/17/25 10:31 1 GM Acetaminophen 650 mg Q6HP PRN PO 05/17/25 08:45 05/17/25 10:01 650 MG Acetaminophen/ Hydrocodone Bitart 1 tab Q6HPRN PRN PO 05/17/25 08:45 Polyethylene Glycol 17 gm DAILYPRN PRN PO 05/17/25 11:45 Examination General Appearance: awake and following command Head Exam: Normal inspection Neck Exam: Normal inspection. Non-tender. Normal alignment Pulmonary/Respiratory: Chest non-tender. Clear bilateral breath sounds Cardiovascular/Chest: Regular rate and rhythm. No murmurs. No JVD. Left arm fistula Peripheral Pulses: 2+ Radial (R). 2+ Radial (L). 2+ Pedal (R). 2+ Pedal (L) Abdominal Exam: Normal bowel sounds. Soft. Nontender. No hepatospenomegaly. No masses Ankle Exam: Negative ankle edema Lower extremities: Negative lower extremity edema Neuro/Mental Status: alert but drowsy. able to follow command. all cranial nerves intake. laboratory and microbiology Laboratory Tests 05/17/25 05:35 Test 05/17/25 05:35 Range/Units Serum Glucose 119 H 74-106 mg/dL Microbiology Date/Time Source Procedure Growth Status 05/08/25 23:55 Blood Blood Culture - Final NO GROWTH AFTER 5 DAYS OF INCUBATION. Complete 05/08/25 21:44 Trachea Gram Stain - Final Complete 05/08/25 21:44 Trachea Respiratory Culture - Final Complete Problem List/Assessment/Plan Problem List/Assessment/Plan Neurology Acute metabolic encephalopathy due to uremia, hypoxic respiratory failure -Extubated 05/15/2025 -Off sedation Cardiology/respiratory Septic shock due to aspiration pneumonia -IV antibiotic with ceftriaxone. -panculture: Blood culture:No growth, respiratory culture: young colony, urine culture -lactic acid: 5.4, 5.9, 10, 5.9 -continue to monitor I&O. Acute hypoxic respiratory failure due to fluid overload/aspiration pneumonia -Off oxygen -Extubated 05/15/2025 -nebulization with albuterol -IV antibiotic with ceftriaxone -MRSA negative, discontinued vancomycin Uncontrolled hypertension -Hydralazine 50 mg PO TID -Nifedipine 60mg po daily -PRN labetalol -Dialysis TTS schedule GI/ upper versus lower GI bleed Hemorrhagic shock normocytic anemia, likely due to acute blood loss Rule out mesenteric ischemia 1-1.5 cm pre-pyloric antral gastric ulcer Moderate duodenitis with multiple superficial duodenal ulcers 2-3 cm sliding-type hiatal hernia with grade B linear erosive esophagitis -Iv protonix 40 mg BID -Sucralfate 1 PO QID -3 units of PRBC given -IV fluid has been given NS approximately 1 L -H and H q.12 -S/P EGD 1. Patient had a 1-1.5 cm pre-pyloric antral gastric ulcer with surrounding gastritis and hyperemia 2. Moderate duodenitis with multiple superficial duodenal ulcers and some dark pigmentation of the duodenal mucosa from which biopsies were obtained 3. 2-3 cm sliding-type hiatal hernia with grade B linear erosive esophagitis 4. Patient had some old coffee-ground in the stomach otherwise normal examination up to the 2nd and 3rd part of the duodenum Hematology Acute hemorrhagic shock Severe hemorrhagic anemia -hemoglobin 6.5, 7.4, 8.5,7.5. Stable now. -4units of PRBC given -continue to monitor H and H q.12 -continued management of GI bleed Nephrology hyperkalemia: Improved -hemodialysis -treat septic/hemorrhagic shock ESRD on hemodialysis (TTS) uremic encephalopathy due to above -hemodialysis today schedule::2.5 L removed Atrophic kidneys 3-vessel coronary artery calcifications. - incidental finding on CT abdomen and pelvis, outpatient follow up Lactic acidosis:Improved -continue to monitor Endocrine type 2 diabetes mellitus - moderate sliding scale insulin - Accu-Cheks -stopped steroids. GI prophylaxis: protonix DVT prophylaxis: held due to GI bleed Diet: Swallow eval before PO Line: right femoral 05/09/2025 removed Goals of care discussed was discused with patient by admission Dr. Moore code status Critical care time spent greater than 66 minutes. PT evaluation. Titrate off oxygen supply. Case discussed with Dr Mariee. Plan discussed with: Patient, Other (RN) My Orders My Orders Orders - DIAZ UBNDY RESIDENT Procedure Category Date Status Time Chest Xray 1 View XY 05/16/25 Resulted 17:25 Acetaminophen Tablet PHA 05/17/25 In Process (Tylenol Tablet) 08:45 Hydrocodone-Acet PHA 05/17/25 In Process 5/325mg Tab (Curtis 08:45 Mechanical Soft Diet DIET 05/17/25 Transmitted Breakfast Bi Lat Upper Dvt US 05/17/25 Resulted 10:00 Lt Upper Ext Art US 05/17/25 Taken Duplex 11:35 Dietary Evaluation Review Comments: Nutrition Recommendation 1) TPN/PN if NPO>7 days 2) Monitor NPO status, lab values, weight trend, and I/O Expected Outcomes/Goals: GI symptoms to improve Lab values to improve Fu 2-3 days CC Plasma Assessment Blood Product Administration S: [id number] DIAZ BUNDY RESIDENT May 17, 2025 12:44
--- NOTE | 2025-05-17 12:54 | DVH ---
Upper Extremity Venous Duplex Clinical History: FISTULA Comparison: None Technique: Duplex Doppler evaluation of the venous system of the left lower neck and upper extremity including c olor Doppler and spectral/pulsed waveform analysis was performed. Findings: Inflow artery proximal to anastomosis: 166.1 cm/sec. EDV 46.3 cm/sec ANASTOMOSIS: PSV: 493.3 cm/sec; EDV: 125.7 cm/sec OUTFLOW VENOUS PROXIMAL: PSV: 35.7 CM/SEC ; EDV: 12 CM/SEC OUT FLOW VENOUS MID: PSV: 12 CM/SEC ; EDV: 7.9 CM/SEC FLOW VENOUS DISTAL : PSA DENSITY: 11.9 CM/SEC; EDV: 4.9 CM/SEC VENOUS ANASTOMOSIS: PSV 110.3 CM/SEC; EDV: 35 CM/SEC Impression: 1. 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 NEGATIVE FOR THROMBUS 3. FISTULA APPEARS PATENT.
--- NOTE | 2025-05-17 13:41 | DVHPN2 ---
Progress Note - Dictate Date Seen: May 17, 2025 Has the PT tested + for MRSA If YES, has PT been informed?: No Medical Necessity Reason Pt with a Central, PICC or Fol: Yes Subjective No new complaints vital signs Vital Sign Date Time Temp Pulse Resp B/P (MAP) Pulse Ox O2 Delivery O2 Flow Rate FiO2 05/17/25 12:00 98.5 77 18 151/76 (101) 100 98.5 05/17/25 08:00 Nasal Cannula* 1 N/A Cool Aerosol Total Intake and Output 05/16/25 05/16/25 05/17/25 15:00 23:00 07:00 Intake Total 340 ml 50 ml Output Total 0 ml Balance 340 ml 50 ml medications Current Medications Medications Dose Ordered Sig/Alberto Route Start Time Stop Time Status Last Admin Dose Admin Meropenem 50 ml @ 17 mls/hr DAILY IV 05/09/25 10:00 Cancel Diagnostic Test (Pha) 1 strip IQ4HR 05/09/25 20:00 05/17/25 08:01 1 STRIP Dextrose 50 ml UD PRN IV 05/09/25 19:30 05/10/25 15:13 50 ML Pantoprazole Sodium 40 mg BID IV 05/11/25 10:00 05/17/25 10:00 40 MG Hydralazine HCl 10 mg Q4HP PRN IV 05/13/25 08:15 05/17/25 10:37 10 MG Ceftriaxone Sodium 50 ml @ 100 mls/hr DAILY@2100 IV 05/14/25 21:00 05/16/25 20:04 100 MLS/HR Hydralazine HCl 50 mg Q8HR PO 05/14/25 22:00 05/17/25 05:07 50 MG Labetalol HCl 10 mg Q2HPRN PRN IV 05/14/25 16:15 05/16/25 05:11 10 MG Sucralfate 1 gm QID@0600,1130,1700,2200 PO 05/16/25 17:00 05/17/25 10:31 1 GM Acetaminophen 650 mg Q6HP PRN PO 05/17/25 08:45 05/17/25 10:01 650 MG Acetaminophen/ Hydrocodone Bitart 1 tab Q6HPRN PRN PO 05/17/25 08:45 Polyethylene Glycol 17 gm DAILYPRN PRN PO 05/17/25 11:45 objective Alert Weak HEENT: Normocephalic, no JVD Lungs: Bilateral good air entry CVS: S1, S2 regular rate rhythm Abdomen: Soft, bowel sounds present 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 Extremities: Improved edema laboratory and microbiology Laboratory Tests 05/17/25 05:35 Test 05/17/25 05:35 Range/Units Serum Glucose 119 H 74-106 mg/dL Problem List Problem List End-stage kidney disease on hemodialysis, received HD 3 days in a row with significant improvement in fluid balance Acute hypoxic respiratory failure, s/p extubation Fluid overload has improved significantly Upper GI bleed, status post EGD revealing gastric ulcer and severe duodenitis Anemia secondary to GI bleed Assessment/Plan HD on TTS schedule from now on Monitor Hb Daily BMP Dietary Evaluation Review Comments: Nutrition Recommendation 1) TPN/PN if NPO>7 days 2) Monitor NPO status, lab values, weight trend, and I/O Expected Outcomes/Goals: GI symptoms to improve Lab values to improve Fu 2-3 days Plan discussed with: Other CC Plasma Assessment Blood Product Administration S: [id number] QUAN UNDERWOOD MD May 17, 2025 13:41
[2025-05-17] MEDS ORDERED: DEXTROSE (50%) 50ML SYRG IV PRN (15:00)
--- NOTE | 2025-05-17 15:39 | DVHPN2 ---
Progress Note Date Seen: May 17, 2025 Resident Creating Document: MIGEL PUTNAMCHARLOTTE RESIDENT Has the PT tested + for MRSA If YES, has PT been informed?: No Medical Necessity Reason Pt with a Central, PICC or Fol: Yes Subjective Review of Systems No new complaints Does not complain of nausea vomiting abdominal pain Tolerating clear liquid diet well H&H is stable No bowel movement reported Objective vital signs Vital Sign Date Time Temp Pulse Resp B/P (MAP) Pulse Ox O2 Delivery O2 Flow Rate FiO2 05/17/25 14:07 132/66 05/17/25 12:00 98.5 77 18 100 98.5 05/17/25 10:00 Nasal Cannula* 1 N/A Cool Aerosol Total Intake and Output 05/16/25 05/16/25 05/17/25 15:00 23:00 07:00 Intake Total 340 ml 50 ml Output Total 0 ml Balance 340 ml 50 ml medications Current Medications Medications Dose Ordered Sig/Alberto Route Start Time Stop Time Status Last Admin Dose Admin Meropenem 50 ml @ 17 mls/hr DAILY IV 05/09/25 10:00 Cancel Diagnostic Test (Pha) 1 strip IQ4HR 05/09/25 20:00 05/17/25 12:00 1 STRIP Dextrose 50 ml UD PRN IV 05/09/25 19:30 05/10/25 15:13 50 ML Pantoprazole Sodium 40 mg BID IV 05/11/25 10:00 05/17/25 10:00 40 MG Hydralazine HCl 10 mg Q4HP PRN IV 05/13/25 08:15 05/17/25 10:37 10 MG Ceftriaxone Sodium 50 ml @ 100 mls/hr DAILY@2100 IV 05/14/25 21:00 05/16/25 20:04 100 MLS/HR Hydralazine HCl 50 mg Q8HR PO 05/14/25 22:00 05/17/25 14:07 50 MG Labetalol HCl 10 mg Q2HPRN PRN IV 05/14/25 16:15 05/16/25 05:11 10 MG Sucralfate 1 gm QID@0600,1130,1700,2200 PO 05/16/25 17:00 05/17/25 10:31 1 GM Acetaminophen 650 mg Q6HP PRN PO 05/17/25 08:45 05/17/25 10:01 650 MG Acetaminophen/ Hydrocodone Bitart 1 tab Q6HPRN PRN PO 05/17/25 08:45 Polyethylene Glycol 17 gm DAILYPRN PRN PO 05/17/25 11:45 Insulin Human Regular IQ4HR SC 05/17/25 16:00 Diphenhydramine HCl 25 mg Q8HP PRN PO 05/17/25 15:00 Examination Gen - no pallor, no scleral icterus Skin - Patients skin is warm and dry. HEENT - normocephalic, atraumatic, dry mucous membranes. Neck - supple, no lymphadenopathy Pulmonary - B/L equal air entry cardiovascular - regular S1,S2 heard GI - soft nontender abdomen. Bowel sounds normoactive. Neurological - alert and oriented x4, following commands laboratory and microbiology Laboratory Tests 05/17/25 05:35 Test 05/17/25 05:35 Range/Units Serum Glucose 119 H 74-106 mg/dL Microbiology Date/Time Source Procedure Growth Status 05/08/25 23:55 Blood Blood Culture - Final NO GROWTH AFTER 5 DAYS OF INCUBATION. Complete 05/08/25 21:44 Trachea Gram Stain - Final Complete 05/08/25 21:44 Trachea Respiratory Culture - Final Complete Problem List/Assessment/Plan Problem List/Assessment/Plan Assessment Severe normocytic normochromic anemia likely d/t GI bleed Gastric ulcer Gastroduodenitis Hiatal hernia esophagitis Hypovolemic/ septic shock ESRD on hemodialysis Plan - H&H stable - continue on on protonix 40mg IV bid and Carafate 1 g p.o. q.i.d. - tolerating clear liquid diet well, advanced to soft diet - MiraLax daily prn Plan discussed with Dr. Mendiola Plan discussed with: Patient, Other (JUSTIN Holden) My Orders My Orders Orders - KENDAL PUTNAM Procedure Category Date Status Time Polyethylene Glycol PHA 05/17/25 In Process 17g Powder (Miralax 11:45 Dietary Evaluation Review Comments: Nutrition Recommendation 1) TPN/PN if NPO>7 days 2) Monitor NPO status, lab values, weight trend, and I/O Expected Outcomes/Goals: GI symptoms to improve Lab values to improve Fu 2-3 days CC Plasma Assessment Blood Product Administration S: [id number] KENDAL PUTNAM RESIDENT May 17, 2025 15:39
[2025-05-17] MEDS ORDERED: ACCU-CHEK COMFORT CURVE STRIP VI SCH (16:00)
[2025-05-17] MEDS: InsuLIN REG 1unit/0.01ml Soln (100units/ml) SC SCH (16:36)
[2025-05-18] VITALS (10 sets, daily range): BP systolic 134–172; BP diastolic 71–92; PULSE 72–88; RESP 16–20; TEMP 97.9–99.4; O2SAT 93–100
[2025-05-18 06:17] LABS: Hematocrit 25.9 % (36.0-46.0); Hemoglobin 8.6 g/dL (12.2-16.2); Mean Corpuscular Hemoglobin 29.3 pg (28.0-32.0); Mean Corpuscular Volume 87.9 fL (80.0-100.0); Nucleated Red Blood Cells % 0.0 %
[2025-05-18 06:26] LABS: Sodium 139 mmol/L (136-145)
[2025-05-18 06:27] LABS: Anion Gap 12 (5-15); Calcium 9.0 mg/dL (8.7-10.4); Carbon Dioxide 29 mmol/L (20-31)
[2025-05-18 06:32] LABS: BUN/Creatinine Ratio 6.0 (10.0-20.0)
[2025-05-18 06:34] LABS: Blood Urea Nitrogen 34 mg/dL (9-23); Chloride 98 mmol/L (98-107); Glucose 114 mg/dL (74-106); Potassium 3.1 mmol/L (3.5-5.1)
--- NOTE | 2025-05-18 10:24 | DVHPN2 ---
Progress Note - Dictate Date Seen: May 18, 2025 Has the PT tested + for MRSA If YES, has PT been informed?: No Medical Necessity Reason Pt with a Central, PICC or Fol: Yes Subjective No new complaints vital signs Vital Sign Date Time Temp Pulse Resp B/P (MAP) Pulse Ox O2 Delivery O2 Flow Rate FiO2 05/18/25 09:59 154/92 05/18/25 09:00 98.5 81 20 96 98.5 05/17/25 20:00 Nasal Cannula* 1 N/A Cool Aerosol Total Intake and Output 05/17/25 05/17/25 05/18/25 14:59 22:59 06:59 Intake Total 630 ml 620 ml 100 ml Output Total 0 ml Balance 630 ml 620 ml 100 ml medications Current Medications Medications Dose Ordered Sig/Alberto Route Start Time Stop Time Status Last Admin Dose Admin Meropenem 50 ml @ 17 mls/hr DAILY IV 05/09/25 10:00 Cancel Diagnostic Test (Pha) 1 strip IQ4HR 05/09/25 20:00 05/18/25 08:00 1 STRIP Dextrose 50 ml UD PRN IV 05/09/25 19:30 05/10/25 15:13 50 ML Pantoprazole Sodium 40 mg BID IV 05/11/25 10:00 05/18/25 09:56 40 MG Hydralazine HCl 10 mg Q4HP PRN IV 05/13/25 08:15 05/18/25 02:47 10 MG Ceftriaxone Sodium 50 ml @ 100 mls/hr DAILY@2100 IV 05/14/25 21:00 05/17/25 23:09 100 MLS/HR Hydralazine HCl 50 mg Q8HR PO 05/14/25 22:00 05/18/25 05:35 50 MG Labetalol HCl 10 mg Q2HPRN PRN IV 05/14/25 16:15 05/16/25 05:11 10 MG Sucralfate 1 gm QID@0600,1130,1700,2200 PO 05/16/25 17:00 05/18/25 05:34 1 GM Acetaminophen 650 mg Q6HP PRN PO 05/17/25 08:45 05/17/25 10:01 650 MG Acetaminophen/ Hydrocodone Bitart 1 tab Q6HPRN PRN PO 05/17/25 08:45 Polyethylene Glycol 17 gm DAILYPRN PRN PO 05/17/25 11:45 Insulin Human Regular IQ4HR SC 05/17/25 16:00 05/18/25 04:13 2 UNITS Diphenhydramine HCl 25 mg Q8HP PRN PO 05/17/25 15:00 Nifedipine 90 mg DAILY PO 05/18/25 10:00 05/18/25 09:59 90 MG Sevelamer HCl 1,600 mg TIDWM PO 05/18/25 12:00 objective Alert Weak HEENT: Normocephalic, no JVD Lungs: Bilateral good air entry CVS: S1, S2 regular rate rhythm Abdomen: Soft, bowel sounds present [employer]LE[employer]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 Extremities: Improved edema laboratory and microbiology Laboratory Tests 05/18/25 05:50 Test 05/18/25 05:50 Range/Units Serum Glucose 114 H 74-106 mg/dL Problem List Problem List End-stage kidney disease on hemodialysis, received HD 3 days in a row with significant improvement in fluid balance Acute hypoxic respiratory failure, s/p extubation Fluid overload has improved significantly Upper GI bleed, status post EGD revealing gastric ulcer and severe duodenitis Anemia secondary to GI bleed Assessment/Plan HD on TTS schedule from now on Monitor Hb Daily BMP Dietary Evaluation Review Comments: Nutrition Recommendation 1) TPN/PN if NPO>7 days 2) Monitor NPO status, lab values, weight trend, and I/O Expected Outcomes/Goals: GI symptoms to improve Lab values to improve Fu 2-3 days Plan discussed with: Patient CC Plasma Assessment Blood Product Administration S: [id number] QUAN UNDERWOOD MD May 18, 2025 10:24
--- NOTE | 2025-05-18 13:30 | DVHPN2 ---
Progress Note Date Seen: May 18, 2025 Resident Creating Document: KENDAL PUTNAM RESIDENT Has the PT tested + for MRSA If YES, has PT been informed?: No Medical Necessity Reason Pt with a Central, PICC or Fol: Yes Subjective Review of Systems Patient seen and examined at bedside H&H stable Denies nausea vomiting or abdominal pain No bowel movement reported Tolerating soft diet well Objective vital signs Vital Sign Date Time Temp Pulse Resp B/P (MAP) Pulse Ox O2 Delivery O2 Flow Rate FiO2 05/18/25 09:59 154/92 05/18/25 09:00 98.5 81 20 96 98.5 05/17/25 20:00 Nasal Cannula* 1 N/A Cool Aerosol Total Intake and Output 05/17/25 05/17/25 05/18/25 15:00 23:00 07:00 Intake Total 630 ml 620 ml 100 ml Output Total 0 ml Balance 630 ml 620 ml 100 ml medications Current Medications Medications Dose Ordered Sig/Alberto Route Start Time Stop Time Status Last Admin Dose Admin Meropenem 50 ml @ 17 mls/hr DAILY IV 05/09/25 10:00 Cancel Diagnostic Test (Pha) 1 strip IQ4HR 05/09/25 20:00 05/18/25 08:00 1 STRIP Dextrose 50 ml UD PRN IV 05/09/25 19:30 05/10/25 15:13 50 ML Pantoprazole Sodium 40 mg BID IV 05/11/25 10:00 05/18/25 09:56 40 MG Hydralazine HCl 10 mg Q4HP PRN IV 05/13/25 08:15 05/18/25 02:47 10 MG Ceftriaxone Sodium 50 ml @ 100 mls/hr DAILY@2100 IV 05/14/25 21:00 05/17/25 23:09 100 MLS/HR Hydralazine HCl 50 mg Q8HR PO 05/14/25 22:00 05/18/25 05:35 50 MG Labetalol HCl 10 mg Q2HPRN PRN IV 05/14/25 16:15 05/16/25 05:11 10 MG Sucralfate 1 gm QID@0600,1130,1700,2200 PO 05/16/25 17:00 05/18/25 05:34 1 GM Acetaminophen 650 mg Q6HP PRN PO 05/17/25 08:45 05/17/25 10:01 650 MG Acetaminophen/ Hydrocodone Bitart 1 tab Q6HPRN PRN PO 05/17/25 08:45 Polyethylene Glycol 17 gm DAILYPRN PRN PO 05/17/25 11:45 Insulin Human Regular IQ4HR SC 05/17/25 16:00 05/18/25 04:13 2 UNITS Diphenhydramine HCl 25 mg Q8HP PRN PO 05/17/25 15:00 Nifedipine 90 mg DAILY PO 05/18/25 10:00 05/18/25 09:59 90 MG Sevelamer HCl 1,600 mg TIDWM PO 05/18/25 12:00 Polyethylene Glycol 17 gm DAILY PO 05/19/25 10:00 Examination Gen - no pallor, no scleral icterus Skin - Patients skin is warm and dry. HEENT - normocephalic, atraumatic, dry mucous membranes. Neck - supple, no lymphadenopathy Pulmonary - B/L equal air entry cardiovascular - regular S1,S2 heard GI - soft nontender abdomen. Bowel sounds normoactive. Neurological - alert and oriented x4, following commands laboratory and microbiology Laboratory Tests 05/18/25 05:50 Test 05/18/25 05:50 Range/Units Serum Glucose 114 H 74-106 mg/dL Microbiology Date/Time Source Procedure Growth Status 05/08/25 23:55 Blood Blood Culture - Final NO GROWTH AFTER 5 DAYS OF INCUBATION. Complete 05/08/25 21:44 Trachea Gram Stain - Final Complete 05/08/25 21:44 Trachea Respiratory Culture - Final Complete Problem List/Assessment/Plan Problem List/Assessment/Plan Assessment Severe normocytic normochromic anemia likely d/t GI bleed Gastric ulcer Gastroduodenitis Hiatal hernia esophagitis Hypovolemic/ septic shock ESRD on hemodialysis Plan - H&H stable - continue on on protonix 40mg IV bid and Carafate 1 g p.o. q.i.d. - tolerating soft diet well - MiraLax daily Plan discussed with Dr. Mendiola Plan discussed with: Patient, Other (JUSTIN Whelan) My Orders My Orders Orders - KENDAL PUTNAM Procedure Category Date Status Time Polyethylene Glycol PHA 05/19/25 In Process 17g Powder (Miralax 10:00 Dietary Evaluation Review Comments: Nutrition Recommendation 1) TPN/PN if NPO>7 days 2) Monitor NPO status, lab values, weight trend, and I/O Expected Outcomes/Goals: GI symptoms to improve Lab values to improve Fu 2-3 days CC Plasma Assessment Blood Product Administration S: [id number] KENDAL PUTNAM RESIDENT May 18, 2025 13:30
[2025-05-18] MEDS: POLYETHYLENE GLYCOL 17 GM PWDR PO ONE (13:46)
[2025-05-18] MEDS: SEVELAMER 800 MG TAB PO SCH (13:47)
--- NOTE | 2025-05-18 15:21 | DVHPNRES ---
Progress Note Date Seen: May 18, 2025 Resident Creating Document: DIAZ BUNDY RESIDENT Has the PT tested + for MRSA If YES, has PT been informed?: No Medical Necessity Reason Pt with a Central, PICC or Fol: Yes Subjective Review of Systems This is a year 59 years old female with past medical history of GERD, hyperlipidemia, gastritis, duodenitis, GI bleed, diabetes mellitus type 2, hypertension, end-stage renal disease on hemodialysis([id number]) who came in with a chief complaint of hematemesis and melena. Patient was intubated on admission and history was given by the son and daughter. As per the son and daughter the patient started having dark black tarry stool since yesterday night associated with a large amount of hematemesis, no food mixed with the blood. They report she had several episodes yesterday night and today morning after which she has become increasingly confused and lethargic, which prompted them to bring her to the emergency room. They report that she had a similar episode 3 months ago and endoscopy was done which showed no active bleeding. she was scheduled for colonoscopy but has not had it yet. patient is not on any blood thinners and she did not complain of any abdominal pain, nausea, shortness of breath before the aforementioned episodes. On admission central line, endotracheal tube, NG tube were placed. patient is septic with WBC 14.7, pulse 103, respiratory rate 26. Patient's hemoglobin was at 6.5 and 1 unit packed red blood cells was transfused. On admission blood pressure was 118/43 (presses started-NE). We are admitting the patient for further workup and management. Past medical history: as stated above past surgical history: Left fistula family history: Dad has diabetes mellitus and end-stage renal disease social history: family reports she never smoked, drank alcohol or took any illicit drugs Primary care physician: Dr. Wanda alves allergies: None code status: Full code 05/09/2025: Intubated, sedated. Active upper GI bleed, requiring 3 units of PRBC. Receiving IV bicarbonate, possible hemodialysis tomorrow a.m.. Continue with Protonix and Sandostatin drip. 05/10/2025: Intubated and sedated. Upper GI suction: 150 mL in last 12 hour, continue with Protonix Sandostatin drip. Patient is off vasopressor overnight. Continue on vasopressin. Plan for hemodialysis and EGD today. No any other night events. 05/11/2025: Intubated and sedated. Off vasopressors. On Protonix drip. Off Sandostatin drip. No any other new complaints. No active GI bleed. Started on feeding. 05/12/2025: Intubated. off vasopressor. tolerating feeding. No new night events. Off Protonix and Sandostatin drip. 05/14/2025:Off any drips. plan for dialysis and then cpap. no new night complains. 05/15/2025: patient extubated. underwent dialysis 2.5 L. No new complains. 05/16/2025: patient is extubated yesterday. On 2 L. Pending swallow evaluation. No other night events 05/17/2025:patient is off oxygen. plan for PT evaluation. able to tolerate diet. still has bilateral upper ext swelling and pain. 05/18/2025:Off o2. tolerating diet. refusing SNIF. arrange home health with PT. Dialysis today. no other complains. Objective vital signs Vital Sign Date Time Temp Pulse Resp B/P (MAP) Pulse Ox O2 Delivery O2 Flow Rate FiO2 05/18/25 09:59 154/92 05/18/25 09:00 98.5 81 20 96 98.5 05/17/25 20:00 Nasal Cannula* 1 N/A Cool Aerosol Total Intake and Output 05/17/25 05/17/25 05/18/25 15:00 23:00 07:00 Intake Total 630 ml 620 ml 100 ml Output Total 0 ml Balance 630 ml 620 ml 100 ml medications Current Medications Medications Dose Ordered Sig/Alberto Route Start Time Stop Time Status Last Admin Dose Admin Meropenem 50 ml @ 17 mls/hr DAILY IV 05/09/25 10:00 Cancel Diagnostic Test (Pha) 1 strip IQ4HR 05/09/25 20:00 05/18/25 12:00 1 STRIP Dextrose 50 ml UD PRN IV 05/09/25 19:30 05/10/25 15:13 50 ML Pantoprazole Sodium 40 mg BID IV 05/11/25 10:00 05/18/25 09:56 40 MG Hydralazine HCl 10 mg Q4HP PRN IV 05/13/25 08:15 05/18/25 02:47 10 MG Ceftriaxone Sodium 50 ml @ 100 mls/hr DAILY@2100 IV 05/14/25 21:00 05/17/25 23:09 100 MLS/HR Hydralazine HCl 50 mg Q8HR PO 05/14/25 22:00 05/18/25 05:35 50 MG Labetalol HCl 10 mg Q2HPRN PRN IV 05/14/25 16:15 05/16/25 05:11 10 MG Sucralfate 1 gm QID@0600,1130,1700,2200 PO 05/16/25 17:00 05/18/25 13:47 1 GM Acetaminophen 650 mg Q6HP PRN PO 05/17/25 08:45 05/17/25 10:01 650 MG Acetaminophen/ Hydrocodone Bitart 1 tab Q6HPRN PRN PO 05/17/25 08:45 Polyethylene Glycol 17 gm DAILYPRN PRN PO 05/17/25 11:45 Insulin Human Regular IQ4HR SC 05/17/25 16:00 05/18/25 13:54 3 UNITS Diphenhydramine HCl 25 mg Q8HP PRN PO 05/17/25 15:00 Nifedipine 90 mg DAILY PO 05/18/25 10:00 05/18/25 09:59 90 MG Sevelamer HCl 1,600 mg TIDWM PO 05/18/25 12:00 05/18/25 13:47 1,600 MG Polyethylene Glycol 17 gm DAILY PO 05/19/25 10:00 Examination General Appearance: awake and following command Head Exam: Normal inspection Neck Exam: Normal inspection. Non-tender. Normal alignment Pulmonary/Respiratory: Chest non-tender. Clear bilateral breath sounds Cardiovascular/Chest: Regular rate and rhythm. No murmurs. No JVD. Left arm fistula Peripheral Pulses: 2+ Radial (R). 2+ Radial (L). 2+ Pedal (R). 2+ Pedal (L) Abdominal Exam: Normal bowel sounds. Soft. Nontender. No hepatospenomegaly. No masses Ankle Exam: Negative ankle edema Lower extremities: Negative lower extremity edema Neuro/Mental Status: alert but drowsy. able to follow command. all cranial nerves intake. laboratory and microbiology Laboratory Tests 05/18/25 05:50 Test 05/18/25 05:50 Range/Units Serum Glucose 114 H 74-106 mg/dL Microbiology Date/Time Source Procedure Growth Status 05/08/25 23:55 Blood Blood Culture - Final NO GROWTH AFTER 5 DAYS OF INCUBATION. Complete 05/08/25 21:44 Trachea Gram Stain - Final Complete 05/08/25 21:44 Trachea Respiratory Culture - Final Complete Problem List/Assessment/Plan Problem List/Assessment/Plan Neurology Acute metabolic encephalopathy due to uremia, hypoxic respiratory failure -Extubated 05/15/2025 Cardiology/respiratory Septic shock due to aspiration pneumonia -Dc antibiotics -panculture: No growth -lactic acid: 5.4, 5.9, 10, 5.9 -continue to monitor I&O. Acute hypoxic respiratory failure due to fluid overload/aspiration pneumonia -Off oxygen -Extubated 05/15/2025 -nebulization with albuterol -MRSA negative, discontinued vancomycin Uncontrolled hypertension -Hydralazine 50 mg PO TID -Nifedipine 60mg po daily -PRN labetalol -Dialysis TTS schedule GI/ upper versus lower GI bleed Hemorrhagic shock normocytic anemia, likely due to acute blood loss Rule out mesenteric ischemia 1-1.5 cm pre-pyloric antral gastric ulcer Moderate duodenitis with multiple superficial duodenal ulcers 2-3 cm sliding-type hiatal hernia with grade B linear erosive esophagitis -PO protonix 40 mg BID -Sucralfate 1 PO QID -3 units of PRBC given -IV fluid has been given NS approximately 1 L -H and H q.12 -S/P EGD 1. Patient had a 1-1.5 cm pre-pyloric antral gastric ulcer with surrounding gastritis and hyperemia 2. Moderate duodenitis with multiple superficial duodenal ulcers and some dark pigmentation of the duodenal mucosa from which biopsies were obtained 3. 2-3 cm sliding-type hiatal hernia with grade B linear erosive esophagitis 4. Patient had some old coffee-ground in the stomach otherwise normal examination up to the 2nd and 3rd part of the duodenum Hematology Acute hemorrhagic shock Severe hemorrhagic anemia -hemoglobin 6.5, 7.4, 8.5,7.5. Stable now. -4units of PRBC given -continue to monitor H and H q.12 -continued management of GI bleed Nephrology hyperkalemia: Improved -hemodialysis -treat septic/hemorrhagic shock ESRD on hemodialysis (TTS) uremic encephalopathy due to above -hemodialysis today schedule::2.5 L removed Atrophic kidneys 3-vessel coronary artery calcifications. - incidental finding on CT abdomen and pelvis, outpatient follow up Lactic acidosis:Improved -continue to monitor Endocrine type 2 diabetes mellitus - moderate sliding scale insulin - Accu-Cheks -stopped steroids. GI prophylaxis: protonix DVT prophylaxis: held due to GI bleed Diet: Swallow eval before PO Line: right femoral 05/09/2025 removed Extubated: 05/15/2025 Patient refusing SNIF, bed bound since last 4 months, Plan for o2 titration off, Home health with PT, DME arrangement with wheelchair and walker. Goals of care discussed was discussed with patient by admission DrFlora Full code status Critical care time spent greater than 50 minutes. Case discussed with Dr Mariee. Plan discussed with: Patient, Other (RN) My Orders My Orders Orders - DIAZ BUNDY RESIDENT Procedure Category Date Status Time Nifedipine Er PHA 05/18/25 In Process (Procardia Xl 10:00 Sevelamer (Renagel) PHA 05/18/25 In Process 12:00 Complete Blood Count LAB 05/19/25 Verified 04:00 Basic Metabolic Panel LAB 05/19/25 Verified 04:00 * Vegetable Specker CONS 05/18/25 Transmitted Consult Pantoprazole Tablet PHA 05/18/25 Logged (Protonix Tablet) 17:00 Dietary Evaluation Review Comments: Nutrition Recommendation 1) TPN/PN if NPO>7 days 2) Monitor NPO status, lab values, weight trend, and I/O Expected Outcomes/Goals: GI symptoms to improve Lab values to improve Fu 2-3 days CC Plasma Assessment Blood Product Administration S: [id number] DIAZ BUNDY RESIDENT May 18, 2025 15:21
[2025-05-18] MEDS: PANTOPRAZOLE 40 MG TAB PO SCH (18:57)
[2025-05-18] MEDS: SODIUM CHL 0.9% 1000 ML BAG XX ONE (20:01)
[2025-05-18] MEDS: EPOETIN ALFA-EPBX 10,000 UNIT/1ML VIAL SC ONE (21:42)
[2025-05-19] VITALS (7 sets, daily range): BP systolic 124–178; BP diastolic 75–103; PULSE 80–85; RESP 16–20; TEMP 97.8–99; O2SAT 90–99
[2025-05-19 08:49] LABS: Hematocrit 27.1 % (36.0-46.0); Hemoglobin 8.9 g/dL (12.2-16.2); Mean Corpuscular Hemoglobin 29.1 pg (28.0-32.0); Mean Corpuscular Volume 88.6 fL (80.0-100.0); Nucleated Red Blood Cells % 0.0 %
[2025-05-19 08:54] LABS: Potassium 3.5 mmol/L (3.5-5.1); Sodium 139 mmol/L (136-145)
[2025-05-19 08:55] LABS: Anion Gap 11 (5-15); Calcium 9.2 mg/dL (8.7-10.4); Carbon Dioxide 31 mmol/L (20-31); Chloride 97 mmol/L (98-107)
[2025-05-19 09:00] LABS: BUN/Creatinine Ratio 4.7 (10.0-20.0); Blood Urea Nitrogen 22 mg/dL (9-23)
[2025-05-19 09:02] LABS: Glucose 114 mg/dL (74-106)
[2025-05-19] MEDS: POLYETHYLENE GLYCOL 17 GM PWDR PO SCH (10:52)
--- NOTE | 2025-05-19 12:39 | DVHPN2 ---
Progress Note - Dictate Date Seen: May 19, 2025 Has the PT tested + for MRSA If YES, has PT been informed?: No Medical Necessity Reason Pt with a Central, PICC or Fol: Yes Subjective No new complaints vital signs Vital Sign Date Time Temp Pulse Resp B/P (MAP) Pulse Ox O2 Delivery O2 Flow Rate FiO2 05/19/25 10:54 149/87 05/19/25 09:00 99.0 80 18 92 99.0 05/18/25 20:00 Room Air* 0 21 Total Intake and Output 05/18/25 05/18/25 05/19/25 15:00 23:00 07:00 Intake Total 400 ml 180 ml Balance 400 ml 180 ml medications Current Medications Medications Dose Ordered Sig/Alberto Route Start Time Stop Time Status Last Admin Dose Admin Meropenem 50 ml @ 17 mls/hr DAILY IV 05/09/25 10:00 Cancel Diagnostic Test (Pha) 1 strip IQ4HR 05/09/25 20:00 05/19/25 08:27 1 STRIP Dextrose 50 ml UD PRN IV 05/09/25 19:30 05/10/25 15:13 50 ML Hydralazine HCl 10 mg Q4HP PRN IV 05/13/25 08:15 05/18/25 02:47 10 MG Hydralazine HCl 50 mg Q8HR PO 05/14/25 22:00 05/19/25 05:17 50 MG Labetalol HCl 10 mg Q2HPRN PRN IV 05/14/25 16:15 05/16/25 05:11 10 MG Sucralfate 1 gm QID@0600,1130,1700,2200 PO 05/16/25 17:00 05/19/25 10:53 1 GM Acetaminophen 650 mg Q6HP PRN PO 05/17/25 08:45 05/17/25 10:01 650 MG Acetaminophen/ Hydrocodone Bitart 1 tab Q6HPRN PRN PO 05/17/25 08:45 Polyethylene Glycol 17 gm DAILYPRN PRN PO 05/17/25 11:45 Insulin Human Regular IQ4HR SC 05/17/25 16:00 05/19/25 04:02 2 UNITS Diphenhydramine HCl 25 mg Q8HP PRN PO 05/17/25 15:00 Nifedipine 90 mg DAILY PO 05/18/25 10:00 05/19/25 10:54 90 MG Sevelamer HCl 1,600 mg TIDWM PO 05/18/25 12:00 05/19/25 08:26 1,600 MG Polyethylene Glycol 17 gm DAILY PO 05/19/25 10:00 05/19/25 10:52 17 GM Pantoprazole Sodium 40 mg BID@0600,1700 PO 05/18/25 17:00 05/19/25 05:11 40 MG objective Alert Weak HEENT: Normocephalic, no JVD Lungs: Bilateral good air entry CVS: S1, S2 regular rate rhythm Abdomen: Soft, bowel sounds present [employer] 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 Extremities: Improved edema laboratory and microbiology Laboratory Tests 05/19/25 07:37 Test 05/19/25 07:37 Range/Units Serum Glucose 114 H 74-106 mg/dL Problem List Problem List End-stage kidney disease on hemodialysis, received HD 3 days in a row with significant improvement in fluid balance and facilitated extubation, now back to TTS schedule Acute hypoxic respiratory failure, s/p extubation Sepsis, resolved Fluid overload has improved significantly Upper GI bleed, status post EGD revealing gastric ulcer and severe duodenitis Anemia secondary to GI bleed Assessment/Plan HD on TTS schedule Monitor Hb IV Venoder and Epogen with HD Daily BMP and CBC Dietary Evaluation Review Comments: Nutrition Recommendation 1) TPN/PN if NPO>7 days 2) Monitor NPO status, lab values, weight trend, and I/O Expected Outcomes/Goals: GI symptoms to improve Lab values to improve Fu 2-3 days Plan discussed with: Patient CC Plasma Assessment Blood Product Administration S: [id number] QUAN UNDERWOOD MD May 19, 2025 12:39
[2025-05-19] MEDS: LACTULOSE 20Gm/30ML SOLN PO ONE (12:57)
--- NOTE | 2025-05-19 14:14 | DVHPNRES ---
Progress Note Date Seen: May 19, 2025 Resident Creating Document: MELANIE HERNANDEZ RESIDENT Has the PT tested + for MRSA If YES, has PT been informed?: No Medical Necessity Reason Pt with a Central, PICC or Fol: Yes Subjective Review of Systems This is a year 59 years old female with past medical history of GERD, hyperlipidemia, gastritis, duodenitis, GI bleed, diabetes mellitus type 2, hypertension, end-stage renal disease on hemodialysis([id number]) who came in with a chief complaint of hematemesis and melena. Patient was intubated on admission and history was given by the son and daughter. As per the son and daughter the patient started having dark black tarry stool since yesterday night associated with a large amount of hematemesis, no food mixed with the blood. They report she had several episodes yesterday night and today morning after which she has become increasingly confused and lethargic, which prompted them to bring her to the emergency room. They report that she had a similar episode 3 months ago and endoscopy was done which showed no active bleeding. she was scheduled for colonoscopy but has not had it yet. patient is not on any blood thinners and she did not complain of any abdominal pain, nausea, shortness of breath before the aforementioned episodes. On admission central line, endotracheal tube, NG tube were placed. patient is septic with WBC 14.7, pulse 103, respiratory rate 26. Patient's hemoglobin was at 6.5 and 1 unit packed red blood cells was transfused. On admission blood pressure was 118/43 (presses started-NE). We are admitting the patient for further workup and management. Past medical history: as stated above past surgical history: Left fistula family history: Dad has diabetes mellitus and end-stage renal disease social history: family reports she never smoked, drank alcohol or took any illicit drugs Primary care physician: Dr. Muñoz allergies: None code status: Full code 05/09/2025: Intubated, sedated. Active upper GI bleed, requiring 3 units of PRBC. Receiving IV bicarbonate, possible hemodialysis tomorrow a.m.. Continue with Protonix and Sandostatin drip. 05/10/2025: Intubated and sedated. Upper GI suction: 150 mL in last 12 hour, continue with Protonix Sandostatin drip. Patient is off vasopressor overnight. Continue on vasopressin. Plan for hemodialysis and EGD today. No any other night events. 05/11/2025: Intubated and sedated. Off vasopressors. On Protonix drip. Off Sandostatin drip. No any other new complaints. No active GI bleed. Started on feeding. 05/12/2025: Intubated. off vasopressor. tolerating feeding. No new night events. Off Protonix and Sandostatin drip. 05/14/2025:Off any drips. plan for dialysis and then cpap. no new night complains. 05/15/2025: patient extubated. underwent dialysis 2.5 L. No new complains. 05/16/2025: patient is extubated yesterday. On 2 L. Pending swallow evaluation. No other night events 05/17/2025:patient is off oxygen. plan for PT evaluation. able to tolerate diet. still has bilateral upper ext swelling and pain. 05/18/2025:Off o2. tolerating diet. refusing SNIF. arrange home health with PT. Dialysis today. no other complains. : Patient is on room air, Tolerating Diet. Pt has left upper arm swelling. wa advise to keep it elevated. Has not had a bowel movement since 4 days, lactulose was ordered. Objective vital signs Vital Sign Date Time Temp Pulse Resp B/P (MAP) Pulse Ox O2 Delivery O2 Flow Rate FiO2 05/19/25 10:54 149/87 05/19/25 09:00 99.0 80 18 92 99.0 05/18/25 20:00 Room Air* 0 21 Total Intake and Output 05/18/25 05/18/25 05/19/25 15:00 23:00 07:00 Intake Total 400 ml 180 ml Balance 400 ml 180 ml medications Current Medications Medications Dose Ordered Sig/Alberto Route Start Time Stop Time Status Last Admin Dose Admin Meropenem 50 ml @ 17 mls/hr DAILY IV 05/09/25 10:00 Cancel Diagnostic Test (Pha) 1 strip IQ4HR 05/09/25 20:00 05/19/25 12:00 1 STRIP Dextrose 50 ml UD PRN IV 05/09/25 19:30 05/10/25 15:13 50 ML Hydralazine HCl 10 mg Q4HP PRN IV 05/13/25 08:15 05/18/25 02:47 10 MG Hydralazine HCl 50 mg Q8HR PO 05/14/25 22:00 05/19/25 05:17 50 MG Labetalol HCl 10 mg Q2HPRN PRN IV 05/14/25 16:15 05/16/25 05:11 10 MG Sucralfate 1 gm QID@0600,1130,1700,2200 PO 05/16/25 17:00 05/19/25 10:53 1 GM Acetaminophen 650 mg Q6HP PRN PO 05/17/25 08:45 05/17/25 10:01 650 MG Acetaminophen/ Hydrocodone Bitart 1 tab Q6HPRN PRN PO 05/17/25 08:45 Polyethylene Glycol 17 gm DAILYPRN PRN PO 05/17/25 11:45 Insulin Human Regular IQ4HR SC 05/17/25 16:00 05/19/25 13:04 4 UNITS Diphenhydramine HCl 25 mg Q8HP PRN PO 05/17/25 15:00 Nifedipine 90 mg DAILY PO 05/18/25 10:00 05/19/25 10:54 90 MG Sevelamer HCl 1,600 mg TIDWM PO 05/18/25 12:00 05/19/25 12:58 1,600 MG Polyethylene Glycol 17 gm DAILY PO 05/19/25 10:00 05/19/25 10:52 17 GM Pantoprazole Sodium 40 mg BID@0600,1700 PO 05/18/25 17:00 05/19/25 05:11 40 MG Examination General Appearance: Awake and following commands Head Exam: Normal inspection Neck Exam: Normal inspection. Non-tender. Normal alignment Pulmonary/Respiratory: Chest non-tender. Clear bilateral breath sounds Cardiovascular/Chest: Regular rate and rhythm. No murmurs. No JVD. Left arm fistula Peripheral Pulses: 2+ Radial (R). 2+ Radial (L). 2+ Pedal (R). 2+ Pedal (L) Abdominal Exam: Normal bowel sounds. Soft. Nontender. No hepatospenomegaly. No masses Ankle Exam: Negative ankle edema Extremities: Left Upper Extremity swelling. Neuro/Mental Status: alert but drowsy. able to follow command. all cranial nerves intake. laboratory and microbiology Laboratory Tests 05/19/25 07:37 Test 05/19/25 07:37 Range/Units Serum Glucose 114 H 74-106 mg/dL Microbiology Date/Time Source Procedure Growth Status 05/08/25 23:55 Blood Blood Culture - Final NO GROWTH AFTER 5 DAYS OF INCUBATION. Complete 05/08/25 21:44 Trachea Gram Stain - Final Complete 05/08/25 21:44 Trachea Respiratory Culture - Final Complete Problem List/Assessment/Plan Problem List/Assessment/Plan Neurology Acute metabolic encephalopathy due to uremia, hypoxic respiratory failure Sedated -Versed and fentanyl Cardiology/respiratory Septic shock due to aspiration pneumonia -IV vasopressor vasopressin 0.04 unit/min, off levophed -IV fluid 1 L NS has been given in ER -IV antibiotic with meropenem. -panculture: Blood culture:No growth, respiratory culture: young colony, urine culture -lactic acid: 5.4, 5.9, 10, 5.9 -continue to monitor I&O. Acute hypoxic respiratory failure due to fluid overload/aspiration pneumonia -ventilator: A.c./VC, respiratory rate 24, tidal volume 400, FiO2 60%, peep 5 -nebulization with albuterol -IV antibiotic with meropenem -MRSA negative, discontinued vancomycin -respiratory culture :young colony GI/ upper versus lower GI bleed Hemorrhagic shock normocytic anemia, likely due to acute blood loss Rule out mesenteric ischemia 1-1.5 cm pre-pyloric antral gastric ulcer Moderate duodenitis with multiple superficial duodenal ulcers 2-3 cm sliding-type hiatal hernia with grade B linear erosive esophagitis Neurology Acute metabolic encephalopathy due to uremia, hypoxic respiratory failure -Extubated 05/15/2025 Cardiology/respiratory Septic shock due to aspiration pneumonia -Dc antibiotics -panculture: No growth -lactic acid: 5.4, 5.9, 10, 5.9 -continue to monitor I&O. Acute hypoxic respiratory failure due to fluid overload/aspiration pneumonia -Off oxygen -Extubated 05/15/2025 -nebulization with albuterol -MRSA negative, discontinued vancomycin Uncontrolled hypertension -Hydralazine 50 mg PO TID -Nifedipine 60mg po daily -PRN labetalol -Dialysis TTS schedule GI/ upper versus lower GI bleed Hemorrhagic shock normocytic anemia, likely due to acute blood loss Rule out mesenteric ischemia 1-1.5 cm pre-pyloric antral gastric ulcer Moderate duodenitis with multiple superficial duodenal ulcers 2-3 cm sliding-type hiatal hernia with grade B linear erosive esophagitis -PO protonix 40 mg BID -Sucralfate 1 PO QID -3 units of PRBC given -IV fluid has been given NS approximately 1 L -H and H q.12 -S/P EGD 1. Patient had a 1-1.5 cm pre-pyloric antral gastric ulcer with surrounding gastritis and hyperemia 2. Moderate duodenitis with multiple superficial duodenal ulcers and some dark pigmentation of the duodenal mucosa from which biopsies were obtained 3. 2-3 cm sliding-type hiatal hernia with grade B linear erosive esophagitis 4. Patient had some old coffee-ground in the stomach otherwise normal examination up to the 2nd and 3rd part of the duodenum Hematology Acute hemorrhagic shock Severe hemorrhagic anemia -hemoglobin 6.5, 7.4, 8.5,7.5. Stable now. -4units of PRBC given -continue to monitor H and H q.12 -continued management of GI bleed Nephrology hyperkalemia: Improved -hemodialysis -treat septic/hemorrhagic shock ESRD on hemodialysis (TTS) uremic encephalopathy due to above -hemodialysis today schedule::2.5 L removed Atrophic kidneys 3-vessel coronary artery calcifications. - incidental finding on CT abdomen and pelvis, outpatient follow up Lactic acidosis:Improved -continue to monitor Endocrine type 2 diabetes mellitus - moderate sliding scale insulin - Accu-Cheks -stopped steroids. GI prophylaxis: protonix DVT prophylaxis: held due to GI bleed Diet: Swallow eval before PO Line: right femoral 05/09/2025 removed Extubated: 05/15/2025 Patient refusing SNIF, bed bound since last 4 months, Plan for o2 titration off, Home health with PT, DME arrangement with wheelchair and walker. Goals of care discussed was discussed with patient by admission Dr. Moore code status Critical care time spent greater than 53 minutes. Case discussed with Dr Mariee. Plan discussed with: Patient Dietary Evaluation Review Comments: Nutrition Recommendation 1) TPN/PN if NPO>7 days 2) Monitor NPO status, lab values, weight trend, and I/O Expected Outcomes/Goals: GI symptoms to improve Lab values to improve Fu 2-3 days CC Plasma Assessment Blood Product Administration S: [id number] MELANIE HERNANDEZ RESIDENT May 19, 2025 14:14
--- NOTE | 2025-05-19 22:50 | DVHPN2 ---
Subjective DOS: 05/19/2025 Patient seen and examined at bedside. Breathing comfortably on room air. Overnight events reviewed. Changes from previous H/P or p: Changes Eyes: No Pain, No Vision change, No Conjunctivae inflammation, No Eyelid inflammation, No Other, No Redness ENT: No Ear pain, No Ear discharge, No Nose pain, No Nose discharge, No Nose congestion, No Mouth pain, No Mouth swelling, No Throat pain, No Throat swelling, No Other Cardiovascular: No Chest Pain, No Palpitations, No Orthopnea, No Paroxysmal Noc. Dyspnea, No Edema, No Lt Headedness, No Other Respiratory: No Cough, No Dry, No Shortness of breath, No SOB with excertion, No Wheezing, No Hemoptysis, No Pleuritic Pain, No Sputum, No Other Gastrointestinal: No Nausea, No Vomiting, No Abdominal Pain, No Diarrhea, No Constipation; Melena; No Hematochezia; Other (Hematemesis) Genitourinary: No Dysuria, No Frequency, No Incontinence, No Hematuria, No Retention, No Other Musculoskeletal: No other, No neck pain, No shoulder pain, No arm pain, No back pain, No hand pain, No leg pain, No foot pain Skin: No Rash, No Lesions, No Jaundice, No Bruising, No Other Objective Vitals Vital Signs Date Time Temp Pulse Resp B/P (MAP) Pulse Ox O2 Delivery O2 Flow Rate FiO2 05/19/25 21:18 146/84 05/19/25 17:00 98.5 82 18 90 98.5 05/19/25 08:00 Nasal Cannula* 1 24 Intake/Output Intake and Output 05/19/25 07:00 Intake Total 580 ml Balance 580 ml Intake Oral 580 ml # Voids 1 Exam Gen.: Patient lying in bed in no apparent distress. Breathing on room air. Head: Normocephalic, atraumatic. Eyes: EOMI/PERRLA. Ears: Normal hearing. Normal anatomy. Neck/trachea: Trachea midline, supple. Nose: Normal external anatomy. Mouth: Moist mucous membranes. Chest: Decreased air entry bilaterally. No wheezing or rhonchi. Cardiovascular: Positive S1, positive S2. Regular rate and rhythm. Abdomen: Positive bowel sounds in all 4 quadrants. Soft, non-tender, non- distended. : Deferred. Rectal: Deferred. Skin: Warm, dry. Intact. Extremities: 2+ radial pulses bilaterally. No lower extremity edema. Neuro: Awake, alert, oriented x3. No gross motor or sensory deficits. Cranial nerves II through XII intact. Gait not assessed. Medications Current Medications Medications Dose Ordered Sig/Alberto Route Start Time Stop Time Status Last Admin Dose Admin Meropenem 50 ml @ 17 mls/hr DAILY IV 05/09/25 10:00 Cancel Diagnostic Test (Pha) 1 strip IQ4HR 05/09/25 20:00 05/19/25 20:48 1 STRIP Dextrose 50 ml UD PRN IV 05/09/25 19:30 05/10/25 15:13 50 ML Hydralazine HCl 10 mg Q4HP PRN IV 05/13/25 08:15 05/18/25 02:47 10 MG Hydralazine HCl 50 mg Q8HR PO 05/14/25 22:00 05/19/25 21:18 50 MG Labetalol HCl 10 mg Q2HPRN PRN IV 05/14/25 16:15 05/16/25 05:11 10 MG Sucralfate 1 gm QID@0600,1130,1700,2200 PO 05/16/25 17:00 05/19/25 21:16 1 GM Acetaminophen 650 mg Q6HP PRN PO 05/17/25 08:45 05/17/25 10:01 650 MG Acetaminophen/ Hydrocodone Bitart 1 tab Q6HPRN PRN PO 05/17/25 08:45 Polyethylene Glycol 17 gm DAILYPRN PRN PO 05/17/25 11:45 Insulin Human Regular IQ4HR SC 05/17/25 16:00 05/19/25 20:48 4 UNITS Diphenhydramine HCl 25 mg Q8HP PRN PO 05/17/25 15:00 Nifedipine 90 mg DAILY PO 05/18/25 10:00 05/19/25 10:54 90 MG Sevelamer HCl 1,600 mg TIDWM PO 05/18/25 12:00 05/19/25 18:15 1,600 MG Polyethylene Glycol 17 gm DAILY PO 05/19/25 10:00 05/19/25 10:52 17 GM Pantoprazole Sodium 40 mg BID@0600,1700 PO 05/18/25 17:00 05/19/25 18:15 40 MG Laboratory Results Laboratory Tests 05/19/25 07:37 Chemistry Test 05/19/25 07:37 Calcium Level 9.2 mg/dL (8.7-10.4) Microbiology Microbiology Date/Time Source Procedure Growth Status 05/08/25 23:55 Blood Blood Culture - Final NO GROWTH AFTER 5 DAYS OF INCUBATION. Complete 05/08/25 21:44 Trachea Gram Stain - Final Complete 05/08/25 21:44 Trachea Respiratory Culture - Final Complete Assessment/Plan Assessment/Plan Impression: Acute hypoxic respiratory failure Acute metabolic encephalopathy Septic shock d/t aspiration pneumonia Gastrointestinal hemorrhage Anemia ESRD, on hemodialysis Events: Patient is breathing comfortably on room air No distress. Patient tolerating diet. Refusing SNIF- arrange home health with PT. Pt has left upper arm swelling. Advised to keep it elevated. Has not had a bowel movement since 4 days, lactulose was given Patient is s/p hemodialysis yesterday Nephrology recs appreciated. Blood pressure control Protonix PO BID Sucralfate Monitor hemoglobin - stable at 8.9 g/dL Accu-Cheks, ISS. Labs and imaging reviewed. Rest of plan as noted below. Plan: S/p extubation on 05/15/2025 Supplemental oxygen PRN Titrate to keep O2 sats above 92%. Completed antibiotics Blood cx showed no growth. Blood pressure control. Hemodialysis per Nephrology Monitor renal function Monitor electrolytes. Supplement as necessary. Monitor ins and outs. S/p EGD - antrum/prepyloric ulcer with gastritis and duodenitis; sliding hiatal hernia. GI recs appreciated Continue Protonix and sucralfate Monitor hemoglobin Transfuse if less than 7.0 g/dL. GI prophylaxis. DVT prophylaxis. Prognosis: Poor given patient's multiple co-morbidities. Rest of plan per hospitalist and other consultants. Thank you for allowing me to participate in this patient's care. Further recommendations will depend on the patient's clinical course. Please do not hesitate to contact me if you have any questions or concerns. This medical document was created using an electronic medical record system with [employer] system. Although these documentations are being carefully reviewed, there may still be some phonetic and typographical changes. The errors are purely typographical, due to imperfection on the software program, and do not reflect any compromise in the patient's medical care. Plan discussed with: Patient, Other (JUSTIN Liao) Visit Coding Pulmonary Billing Provider: KAMALJIT LEPE MD Date of Service if different f: May 19, 2025 Common Visit Codes: 11811-YONUSTUWPQ INP/OBS CARE(HIGH) KAMALJIT LEPE MD May 19, 2025 22:50
[2025-05-20] VITALS (7 sets, daily range): BP systolic 122–176; BP diastolic 70–91; PULSE 80–88; RESP 16–24; TEMP 97.8–98.6; O2SAT 93–98
[2025-05-20 07:55] LABS: Hematocrit 25.9 % (36.0-46.0); Hemoglobin 8.8 g/dL (12.2-16.2); Mean Corpuscular Hemoglobin 29.5 pg (28.0-32.0); Mean Corpuscular Volume 87.3 fL (80.0-100.0); Nucleated Red Blood Cells % 0.0 %
[2025-05-20 08:21] LABS: Alanine Aminotransferase 15 U/L (7-40); Albumin 3.5 g/dL (3.2-4.8); Alkaline Phosphatase 103 U/L (46-116); Anion Gap 11 (5-15); BUN/Creatinine Ratio 4.7 (10.0-20.0); Calcium 9.0 mg/dL (8.7-10.4); Carbon Dioxide 31 mmol/L (20-31); Magnesium 2.1 mg/dL (1.6-2.6); Potassium 3.9 mmol/L (3.5-5.1); Sodium 138 mmol/L (136-145); Total Protein 6.7 g/dL (5.7-8.2)
[2025-05-20 08:24] LABS: Bilirubin, Total < 0.2 mg/dL (0.2-1.0); Blood Urea Nitrogen 29 mg/dL (9-23); Chloride 96 mmol/L (98-107); Glucose 117 mg/dL (74-106)
--- NOTE | 2025-05-20 08:47 | DVHPN2 ---
Progress Note - Dictate Date Seen: May 20, 2025 Has the PT tested + for MRSA If YES, has PT been informed?: No Medical Necessity Reason Pt with a Central, PICC or Fol: Yes Subjective no acute issues vital signs Vital Sign Date Time Temp Pulse Resp B/P (MAP) Pulse Ox O2 Delivery O2 Flow Rate FiO2 05/20/25 05:08 174/86 05/20/25 05:00 98.4 84 18 93 98.4 05/19/25 20:00 Room Air* 0 21 Total Intake and Output 05/19/25 05/19/25 05/20/25 15:00 23:00 07:00 Intake Total 218 ml 236 ml 400 ml Output Total 0 ml 0 ml Balance 218 ml 236 ml 400 ml medications Current Medications Medications Dose Ordered Sig/Alberto Route Start Time Stop Time Status Last Admin Dose Admin Meropenem 50 ml @ 17 mls/hr DAILY IV 05/09/25 10:00 Cancel Diagnostic Test (Pha) 1 strip IQ4HR 05/09/25 20:00 05/20/25 08:05 1 STRIP Dextrose 50 ml UD PRN IV 05/09/25 19:30 05/10/25 15:13 50 ML Hydralazine HCl 10 mg Q4HP PRN IV 05/13/25 08:15 05/18/25 02:47 10 MG Hydralazine HCl 50 mg Q8HR PO 05/14/25 22:00 05/20/25 05:08 50 MG Labetalol HCl 10 mg Q2HPRN PRN IV 05/14/25 16:15 05/16/25 05:11 10 MG Sucralfate 1 gm QID@0600,1130,1700,2200 PO 05/16/25 17:00 05/20/25 05:08 1 GM Acetaminophen 650 mg Q6HP PRN PO 05/17/25 08:45 05/17/25 10:01 650 MG Acetaminophen/ Hydrocodone Bitart 1 tab Q6HPRN PRN PO 05/17/25 08:45 Polyethylene Glycol 17 gm DAILYPRN PRN PO 05/17/25 11:45 Insulin Human Regular IQ4HR SC 05/17/25 16:00 05/20/25 03:49 2 UNITS Diphenhydramine HCl 25 mg Q8HP PRN PO 05/17/25 15:00 Nifedipine 90 mg DAILY PO 11/1/25 10:00 05/19/25 10:54 90 MG Sevelamer HCl 1,600 mg TIDWM PO 05/18/25 12:00 05/20/25 08:05 1,600 MG Polyethylene Glycol 17 gm DAILY PO 05/19/25 10:00 05/19/25 10:52 17 GM Pantoprazole Sodium 40 mg BID@0600,1700 PO 05/18/25 17:00 05/20/25 05:09 40 MG objective HEENT: Normocephalic, no JVD Lungs: Bilateral good air entry CVS: S1, S2 regular rate rhythm Abdomen: Soft, bowel sounds present [employer]: no deficits Extremities: left UE edema laboratory and microbiology Laboratory Tests 05/20/25 07:28 Test 05/20/25 07:28 Range/Units Serum Glucose 117 H 74-106 mg/dL Problem List End-stage kidney disease on hemodialysis Acute hypoxic respiratory failure,extubated Upper GI bleed, status post EGD revealing gastric ulcer and severe duodenitis Anemia secondary to GI bleed Shock secondary to sepsis/hypovolemia, resolved Hyperkalemia which resolved with medical management Assessment/Plan We will continue with hemodialysis on TTS schedule. Dietary Evaluation Review Comments: Nutrition Recommendation 1) TPN/PN if NPO>7 days 2) Monitor NPO status, lab values, weight trend, and I/O Expected Outcomes/Goals: GI symptoms to improve Lab values to improve Fu 2-3 days Plan discussed with: Patient CC Plasma Assessment Blood Product Administration S: [id number] NIYA FONSECA MD May 20, 2025 08:47
[2025-05-20] MEDS: CARVEDILOL 3.125 MG TAB PO ONE (12:39)
[2025-05-20] MEDS: LACTULOSE 20Gm/30ML SOLN PO ONE (12:49)
--- NOTE | 2025-05-20 18:44 | DVHPN2 ---
Progress Note Date Seen: May 20, 2025 Resident Creating Document: EROS PUTNAMLOKI RESIDENT Has the PT tested + for MRSA If YES, has PT been informed?: No Medical Necessity Reason Pt with a Central, PICC or Fol: No Subjective Review of Systems Denies abdominal pain, nausea vomiting, acidity or reflux H&H is stable Patient is constipated but abdomen is soft and bowel sounds are present Since she was started on diet recently we will increase the laxatives Objective vital signs Vital Sign Date Time Temp Pulse Resp B/P (MAP) Pulse Ox O2 Delivery O2 Flow Rate FiO2 05/20/25 16:40 97.8 82 24 150/70 (96) 95 97.8 05/20/25 08:00 Nasal Cannula* 1 24 Total Intake and Output 05/19/25 05/19/25 05/20/25 15:00 23:00 07:00 Intake Total 218 ml 236 ml 400 ml Output Total 0 ml 0 ml Balance 218 ml 236 ml 400 ml medications Current Medications Medications Dose Ordered Sig/Alberto Route Start Time Stop Time Status Last Admin Dose Admin Meropenem 50 ml @ 17 mls/hr DAILY IV 05/09/25 10:00 Cancel Diagnostic Test (Pha) 1 strip IQ4HR 05/09/25 20:00 05/20/25 17:53 1 STRIP Dextrose 50 ml UD PRN IV 05/09/25 19:30 05/10/25 15:13 50 ML Hydralazine HCl 10 mg Q4HP PRN IV 05/13/25 08:15 05/18/25 02:47 10 MG Hydralazine HCl 50 mg Q8HR PO 05/14/25 22:00 05/20/25 05:08 50 MG Labetalol HCl 10 mg Q2HPRN PRN IV 05/14/25 16:15 05/16/25 05:11 10 MG Sucralfate 1 gm QID@0600,1130,1700,2200 PO 05/16/25 17:00 05/20/25 17:57 1 GM Acetaminophen 650 mg Q6HP PRN PO 05/17/25 08:45 05/17/25 10:01 650 MG Acetaminophen/ Hydrocodone Bitart 1 tab Q6HPRN PRN PO 05/17/25 08:45 Insulin Human Regular IQ4HR SC 05/17/25 16:00 05/20/25 17:57 4 UNITS Diphenhydramine HCl 25 mg Q8HP PRN PO 05/17/25 15:00 Nifedipine 90 mg DAILY PO 05/18/25 10:00 05/20/25 08:50 90 MG Sevelamer HCl 1,600 mg TIDWM PO 05/18/25 12:00 05/20/25 12:38 1,600 MG Polyethylene Glycol 17 gm DAILY PO 05/19/25 10:00 05/20/25 08:50 17 GM Pantoprazole Sodium 40 mg BID@0600,1700 PO 05/18/25 17:00 05/20/25 17:57 40 MG Carvedilol 6.25 mg Q12HR PO 05/20/25 22:00 Lactulose 30 ml BID PO 05/20/25 22:00 Sennosides 17.2 mg HS PO 05/20/25 22:00 Examination Gen - no pallor, no scleral icterus Skin - Patients skin is warm and dry. HEENT - normocephalic, atraumatic, dry mucous membranes. Neck - supple, no lymphadenopathy Pulmonary - B/L equal air entry cardiovascular - regular S1,S2 heard GI - soft nontender abdomen. Bowel sounds normoactive. Neurological - alert and oriented x4, following commands laboratory and microbiology Laboratory Tests 05/20/25 07:28 Test 05/20/25 07:28 Range/Units Serum Glucose 117 H 74-106 mg/dL Microbiology Date/Time Source Procedure Growth Status 05/08/25 23:55 Blood Blood Culture - Final NO GROWTH AFTER 5 DAYS OF INCUBATION. Complete 05/08/25 21:44 Trachea Gram Stain - Final Complete 05/08/25 21:44 Trachea Respiratory Culture - Final Complete Problem List/Assessment/Plan Problem List/Assessment/Plan Assessment Severe normocytic normochromic anemia likely d/t GI bleed Gastric ulcer Gastroduodenitis Hiatal hernia esophagitis Hypovolemic/ septic shock ESRD on hemodialysis Plan - H&H stable - continue on on protonix 40mg p.o. b.i.d. and Carafate 1 g p.o. q.i.d. - tolerating soft diet well - bowel regimen MiraLax daily, lactulose 30 b.i.d., senna Plan discussed with Dr. Mendiola Plan discussed with: Patient, Other (JUSTIN Liao) My Orders My Orders Orders - KENDAL PUTNAM Procedure Category Date Status Time Lactulose Oral PHA 05/20/25 In Process 22:00 Senna Pod Tablet PHA 05/20/25 In Process (Senokot Tablet) 22:00 Dietary Evaluation Review Comments: Nutrition Recommendation 1) TPN/PN if NPO>7 days 2) Monitor NPO status, lab values, weight trend, and I/O Expected Outcomes/Goals: GI symptoms to improve Lab values to improve Fu 2-3 days CC Plasma Assessment Blood Product Administration S: [id number] KENDAL PUTNAM RESIDENT May 20, 2025 18:44
--- NOTE | 2025-05-20 18:47 | DVHPNRES ---
Progress Note Date Seen: May 20, 2025 Resident Creating Document: DIAZ BUNDY RESIDENT Has the PT tested + for MRSA If YES, has PT been informed?: No Medical Necessity Reason Pt with a Central, PICC or Fol: Yes Subjective Review of Systems This is a year 59 years old female with past medical history of GERD, hyperlipidemia, gastritis, duodenitis, GI bleed, diabetes mellitus type 2, hypertension, end-stage renal disease on hemodialysis([id number]) who came in with a chief complaint of hematemesis and melena. Patient was intubated on admission and history was given by the son and daughter. As per the son and daughter the patient started having dark black tarry stool since yesterday night associated with a large amount of hematemesis, no food mixed with the blood. They report she had several episodes yesterday night and today morning after which she has become increasingly confused and lethargic, which prompted them to bring her to the emergency room. They report that she had a similar episode 3 months ago and endoscopy was done which showed no active bleeding. she was scheduled for colonoscopy but has not had it yet. patient is not on any blood thinners and she did not complain of any abdominal pain, nausea, shortness of breath before the aforementioned episodes. On admission central line, endotracheal tube, NG tube were placed. patient is septic with WBC 14.7, pulse 103, respiratory rate 26. Patient's hemoglobin was at 6.5 and 1 unit packed red blood cells was transfused. On admission blood pressure was 118/43 (presses started-NE). We are admitting the patient for further workup and management. Past medical history: as stated above past surgical history: Left fistula family history: Dad has diabetes mellitus and end-stage renal disease social history: family reports she never smoked, drank alcohol or took any illicit drugs Primary care physician: Dr. Wanda alves allergies: None code status: Full code 05/09/2025: Intubated, sedated. Active upper GI bleed, requiring 3 units of PRBC. Receiving IV bicarbonate, possible hemodialysis tomorrow a.m.. Continue with Protonix and Sandostatin drip. 05/10/2025: Intubated and sedated. Upper GI suction: 150 mL in last 12 hour, continue with Protonix Sandostatin drip. Patient is off vasopressor overnight. Continue on vasopressin. Plan for hemodialysis and EGD today. No any other night events. 05/11/2025: Intubated and sedated. Off vasopressors. On Protonix drip. Off Sandostatin drip. No any other new complaints. No active GI bleed. Started on feeding. 05/12/2025: Intubated. off vasopressor. tolerating feeding. No new night events. Off Protonix and Sandostatin drip. 05/14/2025:Off any drips. plan for dialysis and then cpap. no new night complains. 05/15/2025: patient extubated. underwent dialysis 2.5 L. No new complains. 05/16/2025: patient is extubated yesterday. On 2 L. Pending swallow evaluation. No other night events 05/17/2025:patient is off oxygen. plan for PT evaluation. able to tolerate diet. still has bilateral upper ext swelling and pain. 05/18/2025:Off o2. tolerating diet. refusing SNIF. arrange home health with PT. Dialysis today. no other complains. 05/20/2025: Of oxygen. Tolerating diet. No bowel movements since hospital admission. All home health arrangement has been done. No any other new complaints Objective vital signs Vital Sign Date Time Temp Pulse Resp B/P (MAP) Pulse Ox O2 Delivery O2 Flow Rate FiO2 05/20/25 16:40 97.8 82 24 150/70 (96) 95 97.8 05/20/25 08:00 Nasal Cannula* 1 24 Total Intake and Output 05/19/25 05/19/25 05/20/25 15:00 23:00 07:00 Intake Total 218 ml 236 ml 400 ml Output Total 0 ml 0 ml Balance 218 ml 236 ml 400 ml medications Current Medications Medications Dose Ordered Sig/Alberto Route Start Time Stop Time Status Last Admin Dose Admin Meropenem 50 ml @ 17 mls/hr DAILY IV 05/09/25 10:00 Cancel Diagnostic Test (Pha) 1 strip IQ4HR 05/09/25 20:00 05/20/25 17:53 1 STRIP Dextrose 50 ml UD PRN IV 05/09/25 19:30 05/10/25 15:13 50 ML Hydralazine HCl 10 mg Q4HP PRN IV 05/13/25 08:15 05/18/25 02:47 10 MG Hydralazine HCl 50 mg Q8HR PO 05/14/25 22:00 05/20/25 05:08 50 MG Labetalol HCl 10 mg Q2HPRN PRN IV 05/14/25 16:15 05/16/25 05:11 10 MG Sucralfate 1 gm QID@0600,1130,1700,2200 PO 05/16/25 17:00 05/20/25 17:57 1 GM Acetaminophen 650 mg Q6HP PRN PO 05/17/25 08:45 05/17/25 10:01 650 MG Acetaminophen/ Hydrocodone Bitart 1 tab Q6HPRN PRN PO 05/17/25 08:45 Insulin Human Regular IQ4HR SC 05/17/25 16:00 05/20/25 17:57 4 UNITS Diphenhydramine HCl 25 mg Q8HP PRN PO 05/17/25 15:00 Nifedipine 90 mg DAILY PO 05/18/25 10:00 05/20/25 08:50 90 MG Sevelamer HCl 1,600 mg TIDWM PO 05/18/25 12:00 05/20/25 12:38 1,600 MG Polyethylene Glycol 17 gm DAILY PO 05/19/25 10:00 05/20/25 08:50 17 GM Pantoprazole Sodium 40 mg BID@0600,1700 PO 05/18/25 17:00 05/20/25 17:57 40 MG Carvedilol 6.25 mg Q12HR PO 05/20/25 22:00 Lactulose 30 ml BID PO 05/20/25 22:00 Sennosides 17.2 mg HS PO 05/20/25 22:00 Examination General Appearance: awake and following command Head Exam: Normal inspection Neck Exam: Normal inspection. Non-tender. Normal alignment Pulmonary/Respiratory: Chest non-tender. Clear bilateral breath sounds Cardiovascular/Chest: Regular rate and rhythm. No murmurs. No JVD. Left arm fistula Peripheral Pulses: 2+ Radial (R). 2+ Radial (L). 2+ Pedal (R). 2+ Pedal (L) Abdominal Exam: Normal bowel sounds. Soft. Nontender. No hepatospenomegaly. No masses Ankle Exam: Negative ankle edema Lower extremities: Negative lower extremity edema Neuro/Mental Status: alert but drowsy. able to follow command. all cranial nerves intake. laboratory and microbiology Laboratory Tests 05/20/25 07:28 Test 05/20/25 07:28 Range/Units Serum Glucose 117 H 74-106 mg/dL Microbiology Date/Time Source Procedure Growth Status 05/08/25 23:55 Blood Blood Culture - Final NO GROWTH AFTER 5 DAYS OF INCUBATION. Complete 05/08/25 21:44 Trachea Gram Stain - Final Complete 05/08/25 21:44 Trachea Respiratory Culture - Final Complete Problem List/Assessment/Plan Problem List/Assessment/Plan Neurology Acute metabolic encephalopathy due to uremia, hypoxic respiratory failure -Extubated 05/15/2025 Cardiology/respiratory Septic shock due to aspiration pneumonia -Dc antibiotics -panculture: No growth -lactic acid: 5.4, 5.9, 10, 5.9 -continue to monitor I&O. Acute hypoxic respiratory failure due to fluid overload/aspiration pneumonia -Off oxygen -Extubated 05/15/2025 -nebulization with albuterol -MRSA negative, discontinued vancomycin Uncontrolled hypertension -Hydralazine 50 mg PO TID -Nifedipine 60mg po daily -Coreg 6.25 mg p.o. b.i.d. -PRN labetalol -Dialysis TTS schedule GI/ upper versus lower GI bleed Hemorrhagic shock normocytic anemia, likely due to acute blood loss Rule out mesenteric ischemia 1-1.5 cm pre-pyloric antral gastric ulcer Moderate duodenitis with multiple superficial duodenal ulcers 2-3 cm sliding-type hiatal hernia with grade B linear erosive esophagitis -PO protonix 40 mg BID -Sucralfate 1 PO QID -3 units of PRBC given -IV fluid has been given NS approximately 1 L -H and H q.12 -S/P EGD 1. Patient had a 1-1.5 cm pre-pyloric antral gastric ulcer with surrounding gastritis and hyperemia 2. Moderate duodenitis with multiple superficial duodenal ulcers and some dark pigmentation of the duodenal mucosa from which biopsies were obtained 3. 2-3 cm sliding-type hiatal hernia with grade B linear erosive esophagitis 4. Patient had some old coffee-ground in the stomach otherwise normal examination up to the 2nd and 3rd part of the duodenum Hematology Acute hemorrhagic shock Severe hemorrhagic anemia -hemoglobin 6.5, 7.4, 8.5,7.5. Stable now. -4units of PRBC given -continue to monitor H and H q.12 -continued management of GI bleed Nephrology hyperkalemia: Improved -hemodialysis -treat septic/hemorrhagic shock ESRD on hemodialysis (TTS) uremic encephalopathy due to above -hemodialysis today schedule::2.5 L removed Atrophic kidneys 3-vessel coronary artery calcifications. - incidental finding on CT abdomen and pelvis, outpatient follow up Lactic acidosis:Improved -continue to monitor Endocrine type 2 diabetes mellitus - moderate sliding scale insulin - Accu-Cheks -stopped steroids. Orthopedic History of Transverse oriented distal fibular fracture, nondisplaced. Bed-bound GI prophylaxis: protonix DVT prophylaxis: held due to GI bleed Diet: Swallow eval before PO Line: right femoral 05/09/2025 removed Extubated: 05/15/2025 All home health has been arranged including PT, wheelchair, walker. Goals of care discussed was discussed with patient by admission DrFlora Full code status Critical care time spent greater than 44 minutes. Case discussed with Dr Walls. Plan discussed with: Patient, Other (RN) My Orders My Orders Orders - DIAZ BUNDY Procedure Category Date Status Time Carvedilol Tablet PHA 05/20/25 In Process (Coreg Tablet) 22:00 Dietary Evaluation Review Comments: Nutrition Recommendation 1) TPN/PN if NPO>7 days 2) Monitor NPO status, lab values, weight trend, and I/O Expected Outcomes/Goals: GI symptoms to improve Lab values to improve Fu 2-3 days CC Plasma Assessment Blood Product Administration S: [id number] Date of Service: May 20, 2025 Billing Provider: BANDAR GEORGES MD Common Visit Codes: 57002-ABDXRTDM CARE 30-74 MIN DIAZ BUNDY May 20, 2025 18:46 BANDAR GEORGES MD May 21, 2025 14:23
[2025-05-20] MEDS: LACTULOSE 20Gm/30ML SOLN PO SCH (22:00)
[2025-05-20] MEDS: SENNA 8.6 MG TAB PO SCH (22:00)
[2025-05-21] MEDS: CARVEDILOL 3.125 MG TAB PO SCH (00:13)
[2025-05-21 01:00] VITALS: BP 151/80; PULSE 82; RESP 18; TEMP 98.4; O2SAT 94
[2025-05-21 05:00] VITALS: BP 181/83; PULSE 74; RESP 18; TEMP 98.4; O2SAT 98
--- NOTE | 2025-05-21 06:00 | DVH ---
CHEST RADIOGRAPH Indication: off oxygen, s/p extubation Technique: Single frontal view of the chest was obtained COMPARISON: XY CHEST XRAY 1 VIEW on DOS: 05/16/25, XY CHEST XRAY 1 VIEW on DOS: 05/15/25, XY CHEST XRAY 1 VIEW on DOS: 05/14/25, XY CHEST XRAY 1 VIEW on DOS: 05/13/25, XY CHEST XRAY 1 VIEW on DOS: 05/12/25 FINDINGS: Lines and Tubes: None Lungs: Congestion Pleura: No effusion. No pneumothorax. Cardiomediastinal contours: Cardiomegaly Bones: Unremarkable IMPRESSION: No significant interval change in diffuse pulmonary vascular congestion
[2025-05-21 07:42] LABS: Anion Gap 14 (5-15); Carbon Dioxide 30 mmol/L (20-31); Potassium 4.2 mmol/L (3.5-5.1); Sodium 137 mmol/L (136-145)
[2025-05-21 07:43] LABS: Calcium 9.1 mg/dL (8.7-10.4)
[2025-05-21 07:45] LABS: Chloride 93 mmol/L (98-107)
[2025-05-21 07:48] LABS: BUN/Creatinine Ratio 4.8 (10.0-20.0); Hematocrit 25.3 % (36.0-46.0)
[2025-05-21 07:49] LABS: Blood Urea Nitrogen 35 mg/dL (9-23); Glucose 107 mg/dL (74-106)
[2025-05-21 07:54] LABS: Hemoglobin 8.5 g/dL (12.2-16.2); Mean Corpuscular Hemoglobin 29.4 pg (28.0-32.0); Mean Corpuscular Volume 87.8 fL (80.0-100.0); Nucleated Red Blood Cells % 0.0 %
[2025-05-21 08:00] VITALS: PULSE 86; RESP 16
[2025-05-21 08:38] VITALS: BP 156/89; PULSE 85; RESP 17; TEMP 97.6; O2SAT 98
[2025-05-21] MEDS ORDERED: NIFE1TAB31 PO (11:27)
[2025-05-21] MEDS ORDERED: PANT40T PO (11:27)
[2025-05-21] MEDS ORDERED: CARV-214 PO (11:27)
[2025-05-21] MEDS ORDERED: SUCR1SUS26 PO (11:27)
[2025-05-21] MEDS ORDERED: HYDR25TA87 PO (11:27)
[2025-05-21] MEDS ORDERED: SENN-105 PO (11:27)
--- NOTE | 2025-05-21 11:35 | DVHDSRES ---
Discharge Summary Date of Admission Resident Creating Document: DIAZ BUNDY RESIDENT May 08, 2025 at 23:22 Date of Discharge: May 21, 2025 Admitting Diagnosis GI bleed Labs/Diagnostic Data: Laboratory Results Test 05/21/25 09:05 05/21/25 05:08 05/20/25 07:28 05/15/25 07:17 POC Glucose 185 mg/dl (70-106) White Blood Count 6.6 10^3/uL (4.4-10.8) Red Blood Count 2.88 10^6/uL (4.0-5.20) Hemoglobin 8.5 g/dL (12.2-16.2) Hematocrit 25.3 % (36.0-46.0) Mean Corpuscular Volume 87.8 fL (80.0-100.0) Mean Corpuscular Hemoglobin 29.4 pg (28.0-32.0) Mean Corpuscular Hemoglobin Concent 33.5 g/dL (32.0-36.0) Red Cell Distribution Width 17.2 % (11.8-14.3) Platelet Count 364 10^3/uL (140-450) Mean Platelet Volume 8.2 fL (6.9-10.8) Neutrophils (%) (Auto) 71.8 % (37.0-80.0) Lymphocytes (%) (Auto) 13.8 % (10.0-50.0) Monocytes (%) (Auto) 8.7 % (0.0-12.0) Eosinophils (%) (Auto) 4.9 % (0.0-7.0) Basophils (%) (Auto) 0.8 % (0.0-2.0) Neutrophils # (Auto) 4.8 10 ^3/uL (1.6-8.6) Lymphocytes # (Auto) 0.9 10 ^3/uL (0.4-5.4) Monocytes # (Auto) 0.6 10 ^3/uL (0-1.3) Eosinophils # (Auto) 0.3 10 ^3/uL (0-0.8) Basophils # (Auto) 0.1 10 ^3/uL (0-0.2) Nucleated Red Blood Cells 0.0 % Sodium Level 137 mmol/L (136-145) Potassium Level 4.2 mmol/L (3.5-5.1) Chloride Level 93 mmol/L (98-107) Carbon Dioxide Level 30 mmol/L (20-31) Anion Gap 14 (5-15) Blood Urea Nitrogen 35 mg/dL (9-23) Creatinine 7.25 mg/dL (0.550-1.02) Glomerular Filtration Rate Calc 6 mL/min (>90) BUN/Creatinine Ratio 4.8 (10.0-20.0) Serum Glucose 107 mg/dL (74-106) Calcium Level 9.1 mg/dL (8.7-10.4) Magnesium Level 2.1 mg/dL (1.6-2.6) Total Bilirubin < 0.2 mg/dL (0.2-1.0) Aspartate Amino Transferase (AST) 19 U/L (13-40) Alanine Aminotransferase (ALT) 15 U/L (7-40) Alkaline Phosphatase 103 U/L (46-116) Total Protein 6.7 g/dL (5.7-8.2) Albumin 3.5 g/dL (3.2-4.8) Blood Gas Specimen Type Arterial Blood Gas Sample Site Right radial Blood Gas Patient Temperature 37.0 Arterial Blood Date Drawn [id number] Arterial Blood pH 7.441 (7.350-7.450) Arterial Blood Partial Pressure CO2 37.6 mmHg (32.0-45.0) Arterial Blood Partial Pressure O2 79.5 mmHg (83.0-108.0) Arterial Blood HCO3 25.0 mmol/L (21.0-28.0) Arterial Blood Oxygen Saturation 94.9 % (94.0-98.0) Arterial Blood Base Excess 1.1 mmol/L (-2.0-3.0) Arterial Blood Oxyhemoglobin 93.6 % (94.0-98.0) Arterial Blood Carboxyhemoglobin 1.4 % (0.5-1.5) Arterial Blood Methemoglobin 0.0 % (0.0-1.5) Jered Test Modified Blood Gas Total Hemoglobin 13.50 g/dL (12.0-16.0) Blood Gas Set Respiration Rate 20.0 Blood Gas Modality Vent - ac FiO2 % 30.0 Blood Gas Tidal Volume 400.0 Blood Gas PEEP or CPAP 5.0 Test 05/13/25 03:18 05/12/25 03:00 05/10/25 10:00 05/09/25 11:21 Iron Level 16 ug/dL (50-170) Total Iron Binding Capacity 163 ug/dL (250-425) Percent Iron Saturation 9.8 % (15-50) Ferritin 1180.5 ng/mL (10-291) Hepatitis B Surface Antigen Negative (Negative) Lactic Acid Level 1.2 mmol/L (0.4-2.0) Blood Gas Critical Value Read Back Yes Blood Gas Notified Whom ramin Bundy md Blood Gas Notified Time [id number] Blood Gas Notified By kennedy Florez 05/09/25 05:36 05/08/25 23:55 Differential Total Cells Counted 100.0 (100) Neutrophils % (Manual) 91 (37.0-80.0) Band Neutrophils % (Manual) 0 Lymphocytes % (Manual) 5 (10.0-50.0) Monocytes % (Manual) 3 (0-12) Eosinophils % (Manual) 0 (0-7) Basophils % (Manual) 0 (0.0-2.0) Metamyelocytes % (manual) 0 Myelocytes % (Manual) 1 Promyelocytes % (Manual) 0 Blast Cells % (Manual) 0 Reactive Lymphocytes 0 Platelet Estimate Adequate Prothrombin Time 12.6 sec (9.3-11.8) Prothrombin Time INR 1.21 (0.9-1.15) Activated Partial Thromboplast Time 22.8 SEC (24.5-34.5) Direct Bilirubin < 0.1 mg/dL (<0.3) Thyroid Stimulating Hormone (TSH) 1.01 uIU/mL (0.55-4.78) Plasma/Serum Blood Alcohol < 3.0 mg/dL (<10) Other Laboratory Tests 05/21/25 05:08 Brief Hx & Hospital Course: This is a year 59 years old female with past medical history of GERD, hyperlipidemia, gastritis, duodenitis, GI bleed, diabetes mellitus type 2, hypertension, end-stage renal disease on hemodialysis([facility]qbz[facility]) who came in with a chief complaint of hematemesis and melena. Patient was intubated on admission and history was given by the son and daughter. As per the son and daughter the patient started having dark black tarry stool since yesterday night associated with a large amount of hematemesis, no food mixed with the blood. They report she had several episodes yesterday night and today morning after which she has become increasingly confused and lethargic, which prompted them to bring her to the emergency room. They report that she had a similar episode 3 months ago and endoscopy was done which showed no active bleeding. she was scheduled for colonoscopy but has not had it yet. patient is not on any blood thinners and she did not complain of any abdominal pain, nausea, shortness of breath before the aforementioned episodes. On admission central line, endotracheal tube, NG tube were placed. patient is septic with WBC 14.7, pulse 103, respiratory rate 26. Patient's hemoglobin was at 6.5 and 1 unit packed red blood cells was transfused. On admission blood pressure was 118/43 (presses started-NE). We are admitting the patient for further workup and management. Past medical history: as stated above past surgical history: Left fistula family history: Dad has diabetes mellitus and end-stage renal disease social history: family reports she never smoked, drank alcohol or took any illicit drugs Primary care physician: Dr. Wanda alves allergies: None code status: Full code Hospital course: Patient was intubated for airway protection given upper versus lower GI bleed. Patient was requiring at least 4 units of PRBC was initially continued on Protonix and Sandostatin drip. Underwent upper GI endoscopy which showed 1. Patient had a 1-1.5 cm pre-pyloric antral gastric ulcer with surrounding gastritis and hyperemia 2. Moderate duodenitis with multiple superficial duodenal ulcers and some dark pigmentation of the duodenal mucosa from which biopsies were obtained 3. 2-3 cm sliding-type hiatal hernia with grade B linear erosive esophagitis 4. Patient had some old coffee-ground in the stomach otherwise normal examination up to the 2nd and 3rd part of the duodenum. After the upper GI endoscopy, given GI bleed was stopped, continued on Protonix b.i.d. 40 mg, Carafate 1 g q.i.d. and advanced diet as tolerated. Patient was extubated on 05/15/25 , and managed chronic condition including hypertension, diabetes. Patient was requiring nifedipine 90 mg p.o. daily, Coreg 6.25 mg p.o. b.i.d., hydralazine 50 mg p.o. t.i.d., insulin for diabetes mellitus. Given patient is now hemodynamically stable, no active GI bleed, patient will be discharged home, patient was offered possible SNF for physical therapy, however patient refused, home health with physical therapy has been arranged, DME including wheelchair and walker has been also arranged. Given all arrangement has been done, patient will be discharged home. All information has been given to patient, her brother and sister as well. All agreed with discharge plan. Condition at Discharge: Stable Final Diagnosis/Problems List Acute metabolic encephalopathy due to uremia, hypoxic respiratory failure Septic shock due to aspiration pneumonia Acute hypoxic respiratory failure due to fluid overload/aspiration pneumonia Uncontrolled hypertension upper versus lower GI bleed Hemorrhagic shock normocytic anemia, likely due to acute blood loss Rule out mesenteric ischemia 1-1.5 cm pre-pyloric antral gastric ulcer Moderate duodenitis with multiple superficial duodenal ulcers 2-3 cm sliding-type hiatal hernia with grade B linear erosive esophagitis Acute hemorrhagic shock Severe hemorrhagic anemia hyperkalemia: Improved ESRD on hemodialysis (TTS) uremic encephalopathy due to above Atrophic kidneys 3-vessel coronary artery calcifications. Lactic acidosis:Improved type 2 diabetes mellitus History of Transverse oriented distal fibular fracture, nondisplaced. Bed-bound Discharge Disposition: Home with Health Services Discharge Instruct/Medications Diet: Renal Activity: No Restrictions, As Tolerated Follow Up/Referral: -follow up with pcp in 1 week Medications: see prescriptions Scheduled Amlodipine Besylate (Norvasc Tablet), 10 MG PO QPM Aspirin (Aspir-Low), 81 MG PO DAILY, (Reported) Atorvastatin Calcium (Atorvastatin Calcium), 10 MG PO HS B-Complex W/ C & Folic Acid (Faviola-Jagjit Rx), 1 TAB PO DAILY, (Reported) Carvedilol (Coreg), 6.25 MG PO Q12HR Cromolyn Sodium (Cromolyn Sodium), 1 DROP EACHEYE DAILY, (Reported) Folic Acid (Folic Acid), 1 MG PO DAILY, (Reported) Hydralazine HCl (Hydralazine HCl), 50 MG PO Q8HR Hydralazine Hcl (Hydralazine Hcl), 10 MG PO TID, (Reported) Insulin Glargine (Insulin Glargine), 32 UNIT SC HS, (Reported) Insulin Lispro (Humalog Kwikpen), 6 UNIT SC TID, (Reported) Loratadine (Claritin), 1 TAB PO DAILY, (Reported) Losartan Potassium (Losartan Potassium), 50 MG PO DAILY, (Reported) Metoprolol Tartrate (Metoprolol Tartrate), 25 MG PO BID, (Reported) Mometasone Furoate-Formoterol (Dulera), 1 PUFF INH DAILY, (Reported) Nifedipine (Nifedipine Er), 1 TAB PO BID, (Reported) Nifedipine (Nifedipine Er), 90 MG PO DAILY Pantoprazole Sodium Sesquihydr (Protonix), 40 MG PO DAILY Pantoprazole Sodium Sesquihydr (Pantoprazole Sodium), 40 MG PO BID@0600,1700 Patiromer Sorbitex Calcium (Veltassa), 8.4 GM PO DAILYP, (Reported) Senna (Senna), 17.2 MG PO HS Sevelamer Carbonate (Renvela), 2 TAB PO TID, (Reported) Sucralfate (Carafate), 1 GM OR BID Sucralfate (Carafate Susp), 1 GM PO QID@0600,1130,1700,2200 Scheduled PRN Clonidine Hydrochloride (Clonidine Hcl), 0.1 MG PO BID PRN for SBP>180, (Reported) Discharge Statement: "Patient was advised to return to the ER or call 911 if any headaches, dizziness, shortness of breath, chest pain, abdominal pain, bleeding, fevers, or worsening of medical condition. Patient was counseled about treatment plan, medications, possible side effects, patientverbalized understanding. All questions were answered to the best of my ability. This discharge took greater then 30 minutes in planning, reviewing documentation, counseling the patient, and discussing with other team members." ASSESSMENT ASSESSMENT Assessment upper versus lower GI bleed Hemorrhagic shock normocytic anemia, likely due to acute blood loss 1-1.5 cm pre-pyloric antral gastric ulcer Moderate duodenitis with multiple superficial duodenal ulcers 2-3 cm sliding-type hiatal hernia with grade B linear erosive esophagitis DIAZ BUNDY RESIDENT May 21, 2025 11:35
[2025-05-21 12:37] VITALS: BP 143/91; PULSE 84; RESP 17; TEMP 97.6; O2SAT 96
--- NOTE | 2025-05-21 16:06 | DVHPN2 ---
Progress Note - Dictate Date Seen: May 21, 2025 Has the PT tested + for MRSA If YES, has PT been informed?: No Medical Necessity Reason Pt with a Central, PICC or Fol: No Subjective Patient is seen at bedside awake alert No nausea vomiting or abdominal pain She is tolerating diet vital signs Vital Sign Date Time Temp Pulse Resp B/P (MAP) Pulse Ox O2 Delivery O2 Flow Rate FiO2 05/21/25 14:29 165/86 05/21/25 12:37 97.6 84 17 96 97.6 05/21/25 08:00 Room Air* 0 21 Total Intake and Output 05/20/25 05/20/25 05/21/25 15:00 23:00 07:00 Intake Total 450 ml 400 ml 400 ml Balance 450 ml 400 ml 400 ml medications Current Medications Medications Dose Ordered Sig/Albreto Route Start Time Stop Time Status Last Admin Dose Admin Meropenem 50 ml @ 17 mls/hr DAILY IV 05/09/25 10:00 Cancel Diagnostic Test (Pha) 1 strip IQ4HR 05/09/25 20:00 05/21/25 15:50 1 STRIP Dextrose 50 ml UD PRN IV 05/09/25 19:30 05/10/25 15:13 50 ML Hydralazine HCl 10 mg Q4HP PRN IV 05/13/25 08:15 05/21/25 05:00 10 MG Hydralazine HCl 50 mg Q8HR PO 05/14/25 22:00 05/21/25 14:29 50 MG Labetalol HCl 10 mg Q2HPRN PRN IV 05/14/25 16:15 05/16/25 05:11 10 MG Sucralfate 1 gm QID@0600,1130,1700,2200 PO 05/16/25 17:00 05/21/25 12:00 1 GM Acetaminophen 650 mg Q6HP PRN PO 05/17/25 08:45 05/17/25 10:01 650 MG Acetaminophen/ Hydrocodone Bitart 1 tab Q6HPRN PRN PO 05/17/25 08:45 Insulin Human Regular IQ4HR SC 05/17/25 16:00 05/21/25 15:57 4 UNITS Diphenhydramine HCl 25 mg Q8HP PRN PO 05/17/25 15:00 Nifedipine 90 mg DAILY PO 05/18/25 10:00 11/3/25 08:50 90 MG Sevelamer HCl 1,600 mg TIDWM PO 05/18/25 12:00 05/21/25 12:00 1,600 MG Polyethylene Glycol 17 gm DAILY PO 05/19/25 10:00 05/21/25 09:16 17 GM Pantoprazole Sodium 40 mg BID@0600,1700 PO 05/18/25 17:00 05/21/25 06:09 40 MG Carvedilol 6.25 mg Q12HR PO 05/20/25 22:00 05/21/25 00:13 6.25 MG Lactulose 30 ml BID PO 05/20/25 22:00 05/21/25 09:15 30 ML Sennosides 17.2 mg HS PO 05/20/25 22:00 objective General: Patient is sedated, intubated HEENT: Normocephalic, atraumatic, moist mucous membranes Respiratory/pulmonary: Clear lungs bilaterally Cardiovascular: Normal heart sounds S1 and S2 with no associated murmurs Abdomen: Abdomen nondistended, dark suction from upper GI NG tube. Extremities: There is no peripheral edema present at the lower extremities. Skin: No rashes or pruritus, there is no sacral edema present at this time. Neurological: Pupils reactive, cough and gag reflex intact laboratory and microbiology Laboratory Tests 05/21/25 05:08 Test 05/21/25 05:08 Range/Units Serum Glucose 107 H 74-106 mg/dL Problems(with codes): (1) Severe anemia (2) Gastric ulcer (3) Gastroduodenitis (4) Hiatal hernia with GERD and esophagitis (5) Lower GI bleed (6) Acute renal failure Prognosis Plan Discharge planning is in progress Continue Protonix 40 mg p.o. twice a day Carafate 1 g p.o. twice a day DC aspirin NSAIDs smoking alcohol Outpatient follow up with GI Services as needed for elective colonoscopy Dietary Evaluation Review Comments: Nutrition Recommendation 1) TPN/PN if NPO>7 days 2) Monitor NPO status, lab values, weight trend, and I/O Expected Outcomes/Goals: GI symptoms to improve Lab values to improve Fu 2-3 days Plan discussed with: Patient CC Plasma Assessment Blood Product Administration S: [id number] KARUNA HUFFMAN MD May 21, 2025 16:06
[2025-05-21 16:51] VITALS: BP 189/110; PULSE 82; RESP 19; TEMP 97.6; O2SAT 100
== END 2025-05-21 18:32 | disposition home health service (06) | DRG 720 ==
LOC: ER 14:41 → OVERFLOW 23:22 → ICU WEST 05-09 04:42 → DOU 05-16 22:17 → TELE-WESTW 05-18 02:34
PROVIDERS: ADMIT Internal Medicine; ATTEND Internal Medicine
PROC: 5A1955Z Respiratory Ventilation, Greater than 96 Consecutive Hours (ICD-10-PCS; principal; 2025-05-08)
PROC: 30233N1 Transfusion of Nonautologous Red Blood Cells into Peripheral Vein, Percutaneous Approach (ICD-10-PCS; 2025-05-08)
PROC: 06HY33Z Insertion of Infusion Device into Lower Vein, Percutaneous Approach (ICD-10-PCS; 2025-05-08)
PROC: 0BH17EZ Insertion of Endotracheal Airway into Trachea, Via Natural or Artificial Opening (ICD-10-PCS; 2025-05-08)
PROC: 05H933Z Insertion of Infusion Device into Right Brachial Vein, Percutaneous Approach (ICD-10-PCS; 2025-05-09)
PROC: B54MZZA Ultrasonography of Right Upper Extremity Veins, Guidance (ICD-10-PCS; 2025-05-09)
PROC: 0DB98ZX Excision of Duodenum, Via Natural or Artificial Opening Endoscopic, Diagnostic (ICD-10-PCS; 2025-05-10)
PROC: 0DB68ZX Excision of Stomach, Via Natural or Artificial Opening Endoscopic, Diagnostic (ICD-10-PCS; 2025-05-10)
PROC: 0DB58ZX Excision of Esophagus, Via Natural or Artificial Opening Endoscopic, Diagnostic (ICD-10-PCS; 2025-05-10)
PROC: 5A1D70Z Performance of Urinary Filtration, Intermittent, Less than 6 Hours Per Day (ICD-10-PCS; 2025-05-10)
PROC: 5A1D70Z Performance of Urinary Filtration, Intermittent, Less than 6 Hours Per Day (ICD-10-PCS; 2025-05-12)
PROC: 5A1D70Z Performance of Urinary Filtration, Intermittent, Less than 6 Hours Per Day (ICD-10-PCS; 2025-05-14)
PROC: 5A1D70Z Performance of Urinary Filtration, Intermittent, Less than 6 Hours Per Day (ICD-10-PCS; 2025-05-15)
PROC: 5A1D70Z Performance of Urinary Filtration, Intermittent, Less than 6 Hours Per Day (ICD-10-PCS; 2025-05-16)
PROC: 5A1D70Z Performance of Urinary Filtration, Intermittent, Less than 6 Hours Per Day (ICD-10-PCS; 2025-05-18)
PROC: 5A1D70Z Performance of Urinary Filtration, Intermittent, Less than 6 Hours Per Day (ICD-10-PCS; 2025-05-21)
DX: A41.9 Sepsis, unspecified organism (principal); R65.21 Severe sepsis with septic shock; R57.8 Other shock; J96.01 Acute respiratory failure with hypoxia; K55.059 Acute (reversible) ischemia of intestine, part and extent unspecified; G93.41 Metabolic encephalopathy; J69.0 Pneumonitis due to inhalation of food and vomit; K22.11 Ulcer of esophagus with bleeding; K25.4 Chronic or unspecified gastric ulcer with hemorrhage; I12.0 Hypertensive chronic kidney disease with stage 5 chronic kidney disease or end stage renal disease; N18.6 End stage renal disease; Z99.2 Dependence on renal dialysis; J18.9 Pneumonia, unspecified organism; R57.1 Hypovolemic shock; K26.4 Chronic or unspecified duodenal ulcer with hemorrhage; K29.91 Gastroduodenitis, unspecified, with bleeding; N17.9 Acute kidney failure, unspecified; E11.22 Type 2 diabetes mellitus with diabetic chronic kidney disease; D62 Acute posthemorrhagic anemia; E87.5 Hyperkalemia; E87.20 Acidosis, unspecified; E86.1 Hypovolemia; K44.9 Diaphragmatic hernia without obstruction or gangrene; E78.5 Hyperlipidemia, unspecified; K21.9 Gastro-esophageal reflux disease without esophagitis; E87.70 Fluid overload, unspecified; Z83.3 Family history of diabetes mellitus; Z84.19 Family history of other disorders of kidney and ureter; Z82.49 Family history of ischemic heart disease and other diseases of the circulatory system; Z74.01 Bed confinement status
CPT/HCPCS: 31500; 36415; 36556; 36600; 71045; 74176; 76705; 80048; 80053; 80076; 80320; 82728; 82805; 82962; 83540; 83550; 83605; 83735; 84132; 84443; 85007; 85014; 85018; 85025; 85027; 85610; 85730; 86850; 86900; 86901; 86920; 87040; 87070; 87081; 87205; 87340; 90935; 93005; 93970; 94002; 94003; 96361; 96365; 96372; 96375; 97110; 97163; 97530; 99291; G0378; J0330; J1815; J2185; J2250; J2405; J2470; J2704; J7060; P9047